=== PATIENT | male | born 1970 | race Caucasian/White ===

== ENCOUNTER 2023-08-21 18:55 | Inpatient (IN) | payer OTHER, SELFPAY ==
[2023-08-21] VITALS (34 sets, daily range): BP systolic 89–119; BP diastolic 54–81; PULSE 60–80; RESP 12–22; TEMP 36.8; O2SAT 94–100
--- NOTE | ~2023-08-21 | XR_ITS ---
EXAMINATION: XR chest 2V DATE: 08/21/2023 19:16 INDICATION: Chest pain. TECHNIQUE: Frontal and lateral views of the chest were obtained. COMPARISON: Chest 2 views 05/15/2005 FINDINGS: There is no pneumonia, pleural effusion, or pneumothorax. The heart size is normal. IMPRESSION: 1. No acute cardiopulmonary disease. Reviewed, dictated and finalized at location E. ER FINISHER
--- NOTE | ~2023-08-21 | CT_ITS ---
EXAMINATION: CT thoracic lumbar wo con DATE: 08/21/2023 21:39 INDICATION: Back pain. TECHNIQUE: Computed tomography (CT) of the thoracic and lumbar spine was performed without intravenou s contrast. Automated exposure control and iterative reconstruction technique were employed. The dose -length product was 2206.92 mGy-cm. COMPARISON: Lumbar spine MRI 10/20/2005 FINDINGS: CT THORACIC SPINE: There is 7 degrees dextrocurvature of thoracic spine. Vertebral body heights are n ormal. There is mildly decreased disc height from T3-T4 through T9-T10. There is multilevel mild face t joint osteoarthritis. No neural foraminal stenosis or central canal stenosis. CT LUMBAR SPINE: Bone alignment is normal. Vertebral body heights are normal. There is severely decre ased disc height at L5-S1. The following disc levels are specifically discussed: L1-L2: The disc does not extend beyond the endplate margin. There is moderate bilateral facet joint o steoarthritis. There is no neural foraminal stenosis. There is no central canal stenosis. L2-L3: The disc does not extend beyond the endplate margin. There is mild bilateral facet joint osteo arthritis. There is no neural foraminal stenosis. There is no central canal stenosis. L3-L4: The disc does not extend beyond the endplate margin. There is mild bilateral facet joint osteo arthritis. There is no neural foraminal stenosis. There is no central canal stenosis. L4-L5: The disc is bulging. There is moderate bilateral facet joint osteoarthritis. There is mild rosi ateral neural foraminal stenosis. There is mild central canal stenosis. L5-S1: The disc is bulging. There is moderate right and severe left facet joint osteoarthritis. There is moderate bilateral neural foraminal stenosis. There is mild central canal stenosis. IMPRESSION: 1. Mild thoracic spondylosis. 2. Severe lower lumbar spondylosis. Reviewed, dictated and finalized at location E. LDER SAWYER
--- NOTE | ~2023-08-21 | CT_ITS ---
EXAMINATION: CT brain wo con DATE: 08/21/2023 21:34 INDICATION: Headache. TECHNIQUE: Computed tomography (CT) of the head was performed without intravenous contrast. The mA wa s adjusted according to patient size. Iterative reconstruction technique was employed. The dose-lengt h product was 681.00 mGy-cm. COMPARISON: Brain MRI 11/03/2005 FINDINGS: There is no intracranial hemorrhage, acute infarction, or abnormal intracranial mass lesion . The ventricles are normal in size. There is mucosal thickening in the paranasal sinuses. There are orbits are normal. The mastoid air cells are normal. IMPRESSION: 1. Normal brain. Reviewed, dictated and finalized at location E. OWCASE CLEANER IMPRESSION: 1. Normal brain.
--- NOTE | ~2023-08-21 | CT_ITS ---
EXAMINATION: CTA chest abdomen DATE: 08/21/2023 20:36 INDICATION: Chest pain. TECHNIQUE: Computed tomographic angiography (CTA) of the chest and abdomen was performed with 100 mL Omnipaque-350 intravenous contrast. Automated exposure control and iterative reconstruction technique were employed. The dose-length product was 1273.88 mGy-cm. Maximum intensity projection 3D-reconstru ctions of the aorta and other arteries were constructed by the technologist on a separate workstation . COMPARISON: CT abdomen and pelvis 04/29/2008 FINDINGS: CHEST CTA: There is mild emphysema. There is a 5 mm nodule in right upper lobe, likely benign. There is mild ate lectasis bilaterally. Calcified right lung nodules and calcified right hilar and mediastinal lymph no estela are consistent with old granulomatous disease. No pleural effusion. The heart size is normal. The re are coronary artery calcifications. No pericardial effusion. There is mild aortic atherosclerosis. No aneurysm or dissection. There is mild thoracic spondylosis. ABDOMEN CTA: The liver and gallbladder are normal. Calcifications in the spleen are consistent with old granulomat ous disease. The pancreas, adrenal glands, and right kidney are normal. There are 3 mm and 5 mm stone s in left kidney. There is a 6 mm cyst in left kidney. There are no pathologically enlarged lymph nod es. There is no free intraperitoneal fluid. There are no dilated loops of bowel. Abdominal aorta is n ormal in caliber. Aortic atherosclerosis is noted. There is no significant stenosis of celiac axis, s uperior mesenteric artery, the renal arteries, or inferior mesenteric artery. There is severe lower l umbar spondylosis. IMPRESSION: 1. Aortic atherosclerosis. No aneurysm or dissection. 2. Mild emphysema. Reviewed, dictated and finalized at location E. SUSTAINABILITY SPECIALIST
--- NOTE | 2023-08-21 18:56 | ECG_ITS ---
Measurements Intervals [place] Rate: 72 P: 68 RI: 189 QRS: -73 QRSD: 114 T: -26 QT: 388 QTc: 425 Interpretive Statements SINUS RHYTHM PREVIOUS iNFERIOR MYOCARDIAL INFARCTION , ABNORMAL ECG NO PREVIOUS ECG AVAILABLE FOR COMPARISON Electronically Signed On 08-22-2023 17:27:19 COSMETICIAN APPRENTICE by Iker Goddard M.D.
--- NOTE | 2023-08-21 19:07 | ED.CHESTPAIN ---
HPI - Chest Pain General Chief Complaint: Chest Pain Stated Complaint: chest pain Time Seen by Provider: 08/21/23 19:06 Source: patient and family Limitations: no limitations History of Present Illness HPI narrative: Patient is a 52-year-old male presents to the emergency department complaining of chest pain. Patient states that he was pulling his up steps but just got home from the hospital when he felt a pop in his chest and this was at approximately 2:00 p.m. and the pain is in the middle of his chest, feels like something is sitting on a, radiates to his back, denies ever having this pain in the past, notes that the pain is constant, tried a nitro and denies given relief, has not noticed anything making the pain better or worse, MrChas Mild associated shortness of breath in addition is also feeling slightly weak in his bilateral legs. Patient is stating to the hospital because he wanted to make sure symptoms are to care for his is a medium amount became as soon as he could your patient Recent heart attack 2 months ago when she is known to Dr. 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 patient admits to being a smoker. Patient denies urinary count, stool incontinence, fever, cough, recent illness, abdominal pain, numbness, vision changes, diaphoresis, nausea, vomiting, diarrhea, melena, hematochezia. Related Data Allergies Allergy/AdvReac Type Severity Reaction Status Date / Time propoxyphene Allergy Mild Stopped Verified 08/21/23 19:20 Breathing Review of Systems Review of Systems: A 10 system review of systems was completed on the patient and is negative except for what is stated in the HPI. Nursing and ancillary documentation was reviewed. PMFSH Comments At time of signature, I have reviewed and agree with nursing past medical, surgical, social and family history unless otherwise noted. Please see the nursing chart for further information. There is no relevant family history pertinent to the presenting complaint. Exam Narrative: CONST: No acute distress. Well nourished. HENMT: Head is normocephalic and atraumatic. Moist mucous membranes. No posterior oropharynx erythema. EYES: No conjunctival icterus, injection, or pallor. PERRL. NECK: No meningeal signs. RESP: Able to speak in full sentences. Normal respiratory effort. CTAB. CARDIO: Regular rate. Regular rhythm. 2+ DP Pulses bilaterally. Right radial pulses 2+ and left radial pulse is 1+. GI: Nondistended. No tenderness to palpation. Soft. : No CVA tenderness to palpation. SKIN: No rashes or lesions noted on exposed skin. NEURO: Oriented x3. Moves all extremities. Motor strength is 5/5 in plantar flexion and dorsiflexion of the bilateral ankles. Bilateral channeler outsole strength is 5/5. Sensation intact to light touch throughout all 4 extremities. No saddle anesthesia. EXTREM/MSK/BACK: No pedal edema. Mild tenderness palpation in the midline lumbar spine without palpable step-offs or deformities. PSYCH: Normal affect. Course Vital Signs Vital signs: Vital Signs Temperature 98.2 F 08/21/23 19:02 Pulse Rate 74 08/21/23 19:02 Respiratory Rate 18 08/21/23 19:02 Blood Pressure 102/63 08/21/23 19:02 Pulse Oximetry 99 08/21/23 19:02 Temperature 98.2 F 08/21/23 19:02 Pulse Rate 72 08/21/23 21:04 Respiratory Rate 14 08/21/23 21:04 Blood Pressure 112/72 08/21/23 20:39 Pulse Oximetry 97 08/21/23 21:04 Oxygen Delivery Room Air 08/21/23 19:23 MDM - Chest Pain MDM Narrative Medical decision making narrative: Patient presents with the above complaint. Initial vitals are remarkable for No significant abnormalities. Physical examination as noted above. Plan discussed: laboratory analysis, serial EKGs, chest x-ray, CTA of the chest and abdomen, morphine 4 mg IV push for pain control, continuo
[2023-08-21] MEDS: ASPIRIN 81 MG CHEWABLE TABLET 324 MG PO (19:18)
[2023-08-21 19:35] LABS: Basophils Absolute Auto 0.1 K/mm3 (0.0-0.1); Basophils Percent Auto 0.9 % (0.2-1.2); Eosinophils Absolute Auto 0.1 K/mm3 (0-0.3); Hematocrit 48.3 % (42.0-52.0); Hemoglobin 15.5 g/dL (14.0-18.0); Immature Granulocyte Absolute 0.03 K/mm3 (0.00-0.031); Immature Granulocyte Percent A 0.3 % (0-0.5); Lymphocytes Absolute Auto 2.55 K/mm3 (0.9-3.2); Lymphocytes Percent Auto 28.3 % (18.3-44.2); Mean Corpuscular HGB Conc 32.1 g/dl (32-36); Mean Corpuscular Hemoglobin 28.9 pg (26-34); Mean Corpuscular Volume 89.9 fl (80-100); Mean Platelet Volume 11.3 fl (7.4-10.4); Monocytes Percent Auto 10.6 % (2.6-8.5); Neutrophils Absolute Auto 5.3 K/mm3 (1.3-6.7); Neutrophils Percent Auto 58.9 % (45.5-73.1); Platelet Count Result 253 k/mm3 (150-375); Red Blood Count 5.37 M/mm3 (4.6-6.20)
[2023-08-21 19:44] LABS: Alanine Aminotransferase 24 U/L (6-50); Albumin Level 4.2 g/dL (3.5-5.1); Alkaline Phosphatase 103 U/L (38-126); Anion Gap 4 mmol/L (8-16); Aspartate Amino Transferase 37 U/L (17-59); Bilirubin,Total 0.3 mg/dL (0.2-1.3); Blood Urea Nitrogen 16 mg/dL (9-20); Calcium 9.2 mg/dL (8.4-10.2); Carbon Dioxide 25 mmol/L (22-30); Chloride 103 mmol/L (98-107); Estimated Glomerular Filt Rate > 60; Glucose 104 mg/dL (65-110); Lipase 149 U/L (23-300); Potassium 4.3 mmol/L (3.4-5.0); Sodium 132 mmol/L (137-145)
[2023-08-21 19:46] LABS: Partial Thromboplastin Time 34.7 SECONDS (22.3-36.8)
[2023-08-21] MEDS: MORPHINE SULFATE (*CRX) 4 MG/ML INJ IV PUSH (19:51)
[2023-08-21 19:56] LABS: Troponin I < 0.012 ng/mL (0.000-0.034)
[2023-08-21 20:07] LABS: D Dimer 0.76 ug/mL (<0.48)
[2023-08-21] MEDS: ACETAMINOPHEN 500 MG TABLET 1000 MG PO (21:49)
--- NOTE | 2023-08-21 22:14 | ECG_ITS ---
Measurements Intervals [place] Rate: 72 P: 65 HI: 185 QRS: -79 QRSD: 111 T: -26 QT: 352 QTc: 387 Interpretive Statements SINUS RHYTHM PREVIOUS INFERIOR WALL OR POOR R-WAVE PROGRESSION ABNORMAL ECG COMPARED TO ECG 08/21/2023 19:00:10 NO SIGNIFICANT CHANGES Electronically Signed On 08-22-2023 17:28:54 FACTORY EXPERT by Iker Goddard M.D.
--- NOTE | 2023-08-21 22:47 | PM.IMHP ---
H&P: HPI History of Present Illness Date/Time: 08/21/23 22:47 Chief Complaint: Chest pain Narrative: This is a 52-year-old male with past medical history significant for coronary artery disease, congestive heart failure, COPD/emphysema, tobacco dependence. Patient presents to the emergency room due to chest pain localized to the retrosternal area with radiation to the right shoulder heard a popping noise thought he had pulled a muscle patient had a recent PCI performed at outside facility in June. Has been in his usual state of health denies any cough, sputum production, fevers, rigors, chills, nausea, vomiting, abdominal pain complains of bilateral lower extremity pain as well. Preliminary workup was significant for negative CT angiogram of the chest for pulmonary embolism, troponins x3 have been undetectable. Patient has been placed in observation for further evaluation, management and treatment. EXAMINATION: XR chest 2V DATE: 08/21/2023 19:16 INDICATION: Chest pain. TECHNIQUE: Frontal and lateral views of the chest were obtained. COMPARISON: Chest 2 views 05/15/2005 FINDINGS: There is no pneumonia, pleural effusion, or pneumothorax. The heart size is normal. IMPRESSION: 1. No acute cardiopulmonary disease. EXAMINATION: CTA chest abdomen DATE: 08/21/2023 20:36 INDICATION: Chest pain. TECHNIQUE: Computed tomographic angiography (CTA) of the chest and abdomen was performed with 100 mL Omnipaque-350 intravenous contrast. Automated exposure control and iterative reconstruction technique were employed. The dose-length product was 1273.88 mGy-cm. Maximum intensity projection 3D-reconstructions of the aorta and other arteries were constructed by the technologist on a separate workstation. COMPARISON: CT abdomen and pelvis 04/29/2008 FINDINGS: CHEST CTA: There is mild emphysema. There is a 5 mm nodule in right upper lobe, likely benign. There is mild atelectasis bilaterally. Calcified right lung nodules and calcified right hilar and mediastinal lymph nodes are consistent with old granulomatous disease. No pleural effusion. The heart size is normal. There are coronary artery calcifications. No pericardial effusion. There is mild aortic atherosclerosis. No aneurysm or dissection. There is mild thoracic spondylosis. ABDOMEN CTA: The liver and gallbladder are normal. Calcifications in the spleen are consistent with old granulomatous disease. The pancreas, adrenal glands, and right kidney are normal. There are 3 mm and 5 mm stones in left kidney. There is a 6 mm cyst in left kidney. There are no pathologically enlarged lymph nodes. There is no free intraperitoneal fluid. There are no dilated loops of bowel. Abdominal aorta is normal in caliber. Aortic atherosclerosis is noted. There is no significant stenosis of celiac axis, superior mesenteric artery, the renal arteries, or inferior mesenteric artery. There is severe lower lumbar spondylosis. IMPRESSION: 1. Aortic atherosclerosis. No aneurysm or dissection. 2. Mild emphysema. Review of Systems Review of Systems: Chest pain Constitutional: Constitutional: Denies chills, Denies fatigue, Denies fever(s), Denies malaise, Denies night sweats and Denies weakness Eyes: Eyes: Denies change in vision ENT: Denies dysphagia and Denies odynophagia Cardiovascular: Cardiovascular: Reports chest pain, Reports lightheadedness, Reports radiating jaw, neck or arm pain, Denies palpitations and Reports dyspnea Gastrointestinal: Gastrointestinal: Denies abdominal pain, Denies dyspepsia, Denies heartburn, Denies diarrhea, Denies nausea and Denies vomiting Genitourinary: Genitourinary: Denies dysuria Musculoskeletal: Musculoskeletal: Reports muscle cramps Integumentary/Breasts: Skin/Breast: Denies rash Neurologic: Denies focal weakness and Denies Sensory deficit (Neuro) Psychiatric: Psychiatric: Reports no additional psychiatric complaints and Reports as per HPI Endocrine:
[2023-08-21 22:50] LABS: Troponin I < 0.012 ng/mL (0.000-0.034)
[2023-08-22] VITALS (21 sets, daily range): BP systolic 93–116; BP diastolic 46–69; PULSE 48–74; RESP 13–20; TEMP 35.5–36.4; O2SAT 92–99
[2023-08-22] MEDS: SODIUM CHLORIDE 0.9% IV 1,000 ML 125 ML IV CONT ×3 (00:24→14:04)
--- NOTE | 2023-08-22 01:42 | ADMGEN ---
This patient, Gerson Merino, was admitted to IMU Room 212-01. Patient/family oriented to hospital policies and general routines including ID bracelet, bed and alarms, visiting hours, pain management, procedures, bathroom and other care routines, personal items, smoking policy, room service/diet, and visiting hours. Information on how to activate the Rapid Response Team has been discussed. Patient/Family are encouraged to report perceived risks to care and to ask questions if they do not understand what they are told or what they should do.
[2023-08-22 04:18] LABS: Troponin I < 0.012 ng/mL (0.000-0.034)
[2023-08-22 08:23] LABS: Basophils Absolute Auto 0.1 K/mm3 (0.0-0.1); Basophils Percent Auto 1.1 % (0.2-1.2); Eosinophils Absolute Auto 0.2 K/mm3 (0-0.3); Eosinophils Percent Auto 3.2 % (0-4.4); Hematocrit 45.9 % (42.0-52.0); Hemoglobin 14.5 g/dL (14.0-18.0); Immature Granulocyte Absolute 0.01 K/mm3 (0.00-0.031); Immature Granulocyte Percent A 0.2 % (0-0.5); Lymphocytes Absolute Auto 2.53 K/mm3 (0.9-3.2); Lymphocytes Percent Auto 45.3 % (18.3-44.2); Mean Corpuscular HGB Conc 31.6 g/dl (32-36); Mean Corpuscular Hemoglobin 28.8 pg (26-34); Mean Corpuscular Volume 91.3 fl (80-100); Mean Platelet Volume 11.5 fl (7.4-10.4); Monocytes Absolute Auto 0.7 K/mm3 (0.1-0.6); Neutrophils Absolute Auto 2.1 K/mm3 (1.3-6.7); Neutrophils Percent Auto 38.2 % (45.5-73.1); Platelet Count Result 204 k/mm3 (150-375); Red Blood Count 5.03 M/mm3 (4.6-6.20); Red Cell Distribution Width 17.4 % (11.5-14.5); White Blood Count 5.6 K/mm3 (4.5-10.0)
[2023-08-22 08:34] LABS: Anion Gap 6 mmol/L (8-16); Blood Urea Nitrogen 14 mg/dL (9-20); Carbon Dioxide 25 mmol/L (22-30); Chloride 106 mmol/L (98-107); Estimated Glomerular Filt Rate > 60; Glucose 91 mg/dL (65-110); Potassium 3.7 mmol/L (3.4-5.0); Sodium 137 mmol/L (137-145)
--- NOTE | 2023-08-22 11:06 | PM.CNCAR ---
Assessment and Plan Assessment and plan (1) CAD (coronary artery disease): Qualifiers: Associated angina: with other forms of angina Coronary Disease-Associated Artery/Lesion type: [place] artery [place] vs. transplanted heart: [place] heart Qualified Code(s): I25.118 - Atherosclerotic heart disease of [place] coronary artery with other forms of angina pectoris Code(s): I25.10 - Atherosclerotic heart disease of [place] coronary artery without angina pectoris Status: Acute Assessment and Plan: Patient has extensive history of CAD with multiple stents placed earlier this year along with ischemic cardiomyopathy with ejection fraction he reports of 35%. He has ruled out for myocardial infarction with serial troponin and this chest pain has been constant without exacerbating or relieving factors for over 24 hours. Given the sudden onset with associated loud pop off will hold his who is in a wheelchair up flight of stairs this is very likely a noncardiac and/or musculoskeletal etiology particular as he also localizes this discomfort with 2 fingers. He reports a lack of improvement with nitroglycerin. He was feeling well prior to this event. Explained how would be extraordinarily unlikely his symptoms related to severe angina and obstructive CAD resulting in symptoms and completely normal serial troponins having occurred suddenly during very strenuous activity with a loud pop without interval resolution. Aneurysm/dissection has been excluded as has pulmonary embolism by CTA of the chest. Patient verbalized understanding and agree. I do not feel further invasive cardiovascular workup is warranted at this time. I would recommend continuation of dual antiplatelet therapy with aspirin 81 mg daily and clopidogrel 75 mg daily without interruption particularly given his history multiple stents. Continue Jardiance 10 mg daily, atorvastatin 40 mg at bedtime, Toprol XL 25 mg daily, and ranolazine 500 mg twice daily. I do not feel up titration of antianginals with beneficial particular this has not helped him thus far. While ideally we would recommend avoidance of NSAID therapy particularly given dual antiplatelets due to bleeding concerns is fair to given a trial IV Toradol to observe response prior to discharge. Otherwise I would recommend Tylenol for pain control and avoidance of strenuous activity and communication with his PCP and primary computer network and systems engineer post discharge. Discussed with hospitalist service and the patient who both verbalized understanding and agreed with plan of care. Although patient has an extensive history he stable from a cardiac perspective without evidence of acute myocardial infarction or decompensated heart failure. I would continue his home cardiovascular medical regimen which is excellent. With regards to his leg pain sounds more like radicular pain and or nerve impingement to numbness and weakness bilaterally with very good peripheral pulses, lack of cyanosis or preceding history of claudication. Will defer further management to the primary service. (2) Ischemic cardiomyopathy: Code(s): I25.5 - Ischemic cardiomyopathy Status: Acute Assessment and Plan: Patient reports an ejection fraction 35%. He is well compensated NYHA class 2 symptoms. Resume Entresto at home dose q.12 hours, spironolactone 25 mg daily, Toprol XL 25 mg daily, Jardiance 10 mg daily. (3) Hyperlipidemia associated with type 2 diabetes mellitus: Code(s): E11.69 - Type 2 diabetes mellitus with other specified complication; E78.5 - Hyperlipidemia, unspecified Status: Acute Assessment and Plan: Resume atorvastatin 40 mg at bedtime. Goal LDL less than 70. (4) T2DM (type 2 diabetes mellitus): Code(s): E11.9 - Type 2 diabetes mellitus without complications Status: Acute Assessment and Plan: Management per primary service. History of Present Illness History of Present Illness Consult
[2023-08-22] MEDS: KETOROLAC 15 MG/ML VIAL (*BKC) IV PUSH (12:07)
[2023-08-22] MEDS: ASPIRIN 81 MG ENTERIC TABLET PO (13:51)
[2023-08-22] MEDS: CLOPIDOGREL BISULFATE 75 MG TABLET PO (13:52)
--- NOTE | 2023-08-22 14:11 | PM.IMPN ---
Progress Note: A&P Assessment and Plan (1) CAD (coronary artery disease): Qualifiers: Coronary Disease-Associated Artery/Lesion type: [place] artery [place] vs. transplanted heart: [place] heart Associated angina: with other forms of angina Qualified Code(s): I25.118 - Atherosclerotic heart disease of [place] coronary artery with other forms of angina pectoris Code(s): I25.10 - Atherosclerotic heart disease of [place] coronary artery without angina pectoris Status: Acute (2) Tobacco dependence: Code(s): F17.200 - Nicotine dependence, unspecified, uncomplicated Status: Acute (3) CHF (congestive heart failure): Code(s): I50.9 - Heart failure, unspecified Status: Acute (4) Chest pain: Code(s): R07.9 - Chest pain, unspecified Status: Acute (5) T2DM (type 2 diabetes mellitus): Code(s): E11.9 - Type 2 diabetes mellitus without complications Status: Acute Plan 52M w/ PMH CAD w/ recent stent implantation x5, HFrEF, COPD, tobacco abuse who presents with retrosternal chest pain. Cardiology assistance is greatly appreciated. Stable from a cardiac perspective, likely related to musculoskeletal pain. Only slighted improved after 15mg toradol IV, will avoid further doses of NSAIDs considering his history. Start lidocaine patch and scheduled high dose tylenol and monitor. Bradycardia, holding metoprolol. cont to monitor on tele full code Subjective Date/time seen: 08/22/23 14:11 Interval history: naoe. the patient complains of 7/10 pain, however upon entering the room he was sleeping/snoring. he also complains of weirdness in his legs but denies pain or loss of sensation in his legs... Review of Systems Review of Systems: All systems reviewed & are unremarkable except as noted in HPI and below Exam Const: General: comfortable and no acute distress Eyes: Pupils: Equal, round and reactive pupils present Neck: Neck: supple Resp: Effort & Inspection: normal respiratory effort Auscultation: clear to auscultation bilaterally, no crackles, no rales and no rhonchi Cardio: Rate: regular rate Rhythm: regular rhythm Heart sounds: no gallops, no murmurs and no rubs GI: GI Palp: Yes Soft to palpation and No Tenderness to palpation present (GI) Extrem: General: no edema Objective Data Vital Signs Vital Signs: Vital Signs - 24 hr 08/21/23 19:02 08/21/23 19:21 08/21/23 19:21 Temperature 98.2 F Pulse Rate 74 78 Respiratory Rate 18 Blood Pressure 102/63 Pulse Oximetry 99 Oxygen Delivery Room Air 08/21/23 19:23 08/21/23 19:05 08/21/23 19:06 Temperature Pulse Rate 70 75 Respiratory Rate 18 16 Blood Pressure 119/74 Pulse Oximetry 97 97 97 Oxygen Delivery Room Air 08/21/23 19:15 08/21/23 19:31 08/21/23 19:32 Temperature Pulse Rate 76 74 71 Respiratory Rate 22 H 18 Blood Pressure 112/81 Pulse Oximetry 95 96 97 Oxygen Delivery 08/21/23 19:45 08/21/23 19:46 08/21/23 20:00 Temperature Pulse Rate 71 77 73 Respiratory Rate 20 19 20 Blood Pressure 107/71 Pulse Oximetry 97 97 98 Oxygen Delivery 08/21/23 20:01 08/21/23 20:15 08/21/23 20:16 Temperature Pulse Rate 75 71 72 Respiratory Rate 16 13 20 Blood Pressure 106/59 L 89/61 L Pulse Oximetry 97 97 96 Oxygen Delivery 08/21/23 20:17 08/21/23 20:39 08/21/23 20:40 Temperature Pulse Rate 80 69 67 Respiratory Rate 16 19 17 Blood Pressure 100/67 112/72 Pulse Oximetry 96 98 98 Oxygen Delivery 08/21/23 20:45 08/21/23 21:04 08/21/23 21:15 Temperature Pulse Rate 69 72 70 Respiratory Rate 12 14 14 Blood Pressure Pulse Oximetry 98 97 96 Oxygen Delivery 08/21/23 21:16 08/21/23 21:54 08/21/23 22:07 Temperature Pulse Rate 70 65 71 Respiratory Rate 19 14 16 Blood Pressure 98/73 L Pulse Oximetry 97 96 97 Oxygen Delivery 08/21/23 22:12 08/21/23 22:15 08/21/23 22:16 Temperature Pulse Rate 65 67
[2023-08-22] MEDS: LIDOCAINE 5% PATCH 1 PATCH TRANSDERM (14:28)
[2023-08-22] MEDS: ACETAMINOPHEN 500 MG TABLET 1000 MG PO ×2 (14:28→17:58)
[2023-08-22] MEDS: IPRATROPIUM BR 0.02% INH SOLN 0.5 MG/2.5 ML VIAL INHALATION (19:38)
[2023-08-22] MEDS: ALBUTEROL SULFATE NEB 2.5 MG/3 ML INH INHALATION (19:38)
[2023-08-23] VITALS (18 sets, daily range): BP systolic 106–146; BP diastolic 56–75; PULSE 48–90; RESP 16–24; TEMP 35.7–36.4; O2SAT 95–99
[2023-08-23] MEDS: IPRATROPIUM BR 0.02% INH SOLN 0.5 MG/2.5 ML VIAL INHALATION ×4 (02:57→20:40)
[2023-08-23] MEDS: ALBUTEROL SULFATE NEB 2.5 MG/3 ML INH INHALATION ×4 (02:57→20:40)
[2023-08-23 05:30] LABS: Basophils Absolute Auto 0.1 K/mm3 (0.0-0.1); Basophils Percent Auto 0.9 % (0.2-1.2); Eosinophils Absolute Auto 0.2 K/mm3 (0-0.3); Eosinophils Percent Auto 3.7 % (0-4.4); Hematocrit 44.5 % (42.0-52.0); Hemoglobin 14.1 g/dL (14.0-18.0); Immature Granulocyte Absolute 0.01 K/mm3 (0.00-0.031); Immature Granulocyte Percent A 0.2 % (0-0.5); Mean Corpuscular HGB Conc 31.7 g/dl (32-36); Mean Corpuscular Hemoglobin 28.8 pg (26-34); Mean Platelet Volume 11.6 fl (7.4-10.4); Monocytes Absolute Auto 0.5 K/mm3 (0.1-0.6); Monocytes Percent Auto 8.2 % (2.6-8.5); Neutrophils Absolute Auto 2.4 K/mm3 (1.3-6.7); Platelet Count Result 187 k/mm3 (150-375); Red Blood Count 4.89 M/mm3 (4.6-6.20); Red Cell Distribution Width 17.2 % (11.5-14.5); White Blood Count 5.5 K/mm3 (4.5-10.0)
--- NOTE | 2023-08-23 07:43 | PM.IMPN ---
Progress Note: A&P Assessment and Plan (1) Chest pain: Code(s): R07.9 - Chest pain, unspecified Status: Acute (2) Tobacco dependence: Code(s): F17.200 - Nicotine dependence, unspecified, uncomplicated Status: Acute (3) COPD exacerbation: Code(s): J44.1 - Chronic obstructive pulmonary disease with (acute) exacerbation Status: Acute Plan 52M w/ PMH CAD w/ recent stent implantation x5, HFrEF, COPD, tobacco abuse who presents with chest pain. The patient is from [place] and gets his usual cardiology care at [facility]. He is visiting his sister with his who is in a wheelchair, he was pulling his up stairs, heard a pop and then had immediate dull pain around his mid chest which radiated to right shoulders and also reports his legs feel weird but w/o pain or numbness. # chest pain - likely musculoskeletal given his history, the cardiology input from Dr. Grossman is greatly appreciated. his EKG without ischemic changes and trops negative. CTA chest and CXR on admission w/o acute abnormalities. - toradol 15mg iv x 1 given however will avoid moving forward, lidocaine patch and tylenol scheduled seem to help, pain is now a 2/10 as opposed to 8/10 on admission. he is stable regarding this admission complaint but will stay for COPD now # acute COPD exacerbation - again, counseled on smoking cessation. was not present on admission, developed on day 2 - duonebs scheduled and solumedrol 60mg IV TID - currently on room air but symptomatically debilitated as a result. can return home when this is resolved. # CAD - s/p 4 stents weekend and then 1 more in June - cont all home medications. holding metoprolol for mild asymptomatic bradycardia - requested records from [facility] # mild asymptomatic bradycardia - hold metoprolol # HFrEF - cont home meds. compensated # tobacco abuse - counseled, does not want nicotine patch FEN: saline lock IV, cardiac diet GI prophylaxis: none indicated DVT prophylaxis: lovenox qday Lines: pIV Code Status: Full Code Dispo: stable More than 35 minutes spent on chart review, patient interaction and assessment and plan. Subjective Date/time seen: 08/23/23 07:43 Interval history: NAOE. pt now complains of shortness of breath, where as yesterday he was wheezing but reported that was his usual breathing pattern at home. his chest pain has gradually come down, now a 2/10 Review of Systems Review of Systems: All systems reviewed & are unremarkable except as noted in HPI and below Exam Const: General: comfortable and no acute distress Eyes: Pupils: Equal, round and reactive pupils present Neck: Neck: supple Resp: Effort & Inspection: normal respiratory effort Auscultation: clear to auscultation bilaterally and diminished lung sounds Cardio: Rate: regular rate Rhythm: regular rhythm Heart sounds: no gallops, no murmurs and no rubs GI: GI Palp: Yes Soft to palpation and No Tenderness to palpation present (GI) Extrem: General: no edema Objective Data Vital Signs Vital Signs: Vital Signs - 24 hr 08/22/23 08:00 08/22/23 08:00 08/22/23 10:00 Temperature 96 F L Pulse Rate 52 L 74 54 L Respiratory Rate 16 Blood Pressure 107/60 Pulse Oximetry 97 Oxygen Delivery 08/22/23 08:00 08/22/23 11:55 08/22/23 11:56 Temperature Pulse Rate 50 L Respiratory Rate Blood Pressure Pulse Oximetry Oxygen Delivery Room Air Room Air 08/22/23 12:00 08/22/23 14:00 08/22/23 16:00 Temperature 96.5 F L 97.5 F L Pulse Rate 52 L 48 L 54 L Respiratory Rate 16 18 Blood Pressure 116/62 97/46 L Pulse Oximetry 96 92 Oxygen Delivery 08/22/23 16:00 08/22/23 19:39 08/22/23 19:43 Temperature Pulse Rate 51 L 61 Respiratory Rate 18 Blood Pressure Pulse Oximetry 95 Oxygen Delivery Room Air 08/22/23 19:50 08/22/23 20:08 08/22/23 20:00 Temperature 97.6 F Pulse Rate 66 60 59 L Respiratory
[2023-08-23] MEDS: methylPREDNISolone SOD SUCC 125 MG VIAL 60 MG IV PUSH ×3 (09:44→17:34)
[2023-08-23] MEDS: LIDOCAINE 5% PATCH 1 PATCH TRANSDERM (09:45)
[2023-08-23] MEDS: FLUoxetine HCL 20 MG CAPSULE 40 MG PO (09:45)
[2023-08-23] MEDS: RANOLAZINE 500 MG TAB.ER.12H PO ×2 (09:46→20:31)
[2023-08-23] MEDS: ASPIRIN 81 MG ENTERIC TABLET PO (09:46)
[2023-08-23] MEDS: ATORVASTATIN 40 MG TABLET PO (09:46)
[2023-08-23] MEDS: ENOXAPARIN 40 MG/0.4 ML SYRINGE SUB-Q (09:46)
[2023-08-23] MEDS: SACUBITRIL/VALSARTAN 12-13 MG TABLET 1 TAB PO ×2 (09:46→20:30)
[2023-08-23] MEDS: SPIRONOLACTONE 25 MG TABLET PO (09:47)
[2023-08-23] MEDS: ACETAMINOPHEN 500 MG TABLET 1000 MG PO ×2 (09:47→17:34)
[2023-08-23] MEDS: busPIRone HCL 10 MG TABLET PO ×2 (09:47→20:31)
[2023-08-23] MEDS: CLOPIDOGREL BISULFATE 75 MG TABLET PO (09:47)
--- NOTE | 2023-08-23 10:39 | ECG_ITS ---
Measurements Intervals [place] Rate: 59 P: 237 MI: 161 QRS: -61 QRSD: 114 T: -50 QT: 420 QTc: 418 Interpretive Statements SINUS BRADYCARDIA LEFT ANTERIOR SUPERIOR HEMIBLOCK INCOMPLETE RIGHT BUNDLE BRANCH BLOCK [90+ ms QRS DURATION, TERMINAL R IN V1/V2, 40+ ms S IN I/aVL/V4/V5/V6] ABNORMAL ECG COMPARED TO ECG 08/21/2023 22:29:48 SMALL R-WAVE IS NOW PRESENT IN LEAD 2 LIKELY SLIGHTLY DIFFERENT LEAD POSITION Electronically Signed On 08-23-2023 15:15:01 COMMISSIONER OF [employer]ATION SERVICES by Iker Goddard M.D.
[2023-08-23 10:52] LABS: Influenza A QL RT-PCR Negative (Negative); Influenza B QL RT-PCR Negative (Negative); RSV RNA, RT-PCR Negative (Negative); SARS-CoV-2 RNA PCR Positive (Negative)
[2023-08-23 11:34] LABS: Troponin I < 0.012 ng/mL (0.000-0.034)
[2023-08-23] MEDS: traMADol HCL (*CRX) 25 MG TABLET PO (11:48)
[2023-08-23 12:00] LABS: Alanine Aminotransferase 18 U/L (6-50); Albumin Level 3.4 g/dL (3.5-5.1); Alkaline Phosphatase 94 U/L (38-126); Anion Gap 9 mmol/L (8-16); Aspartate Amino Transferase 25 U/L (17-59); Bilirubin,Total 0.4 mg/dL (0.2-1.3); Blood Urea Nitrogen 12 mg/dL (9-20); Calcium 8.5 mg/dL (8.4-10.2); Carbon Dioxide 19 mmol/L (22-30); Chloride 109 mmol/L (98-107); Estimated Glomerular Filt Rate > 60; Glucose 100 mg/dL (65-110); Potassium 3.9 mmol/L (3.4-5.0); Sodium 137 mmol/L (137-145)
--- NOTE | 2023-08-23 13:38 | ECG_ITS ---
Measurements Intervals [place] Rate: 58 P: 65 WI: 198 QRS: -44 QRSD: 111 T: -35 QT: 444 QTc: 436 Interpretive Statements SINUS RHYTHM EVIDENCE OF PREVIOUS INFERIOR WALL MA POOR R-WAVE PROGRESSION ABNORMAL ECG ABNORMAL RHYTHM ECG COMPARED TO ECG 08/23/2023 10:44:33 SMALL R-WAVE IN LEAD 2 IS NO LONGER PRESENT, CURRENT TRACING IS MORE CONSISTENT WITH PREVIOUS INFERIOR INFARCT Electronically Signed On 08-23-2023 15:28:25 MARINE MACHINIST by Iker Goddard M.D.
[2023-08-24 02:25] VITALS: PULSE 70; RESP 18
[2023-08-24 02:31] VITALS: O2SAT 98
[2023-08-24 02:38] VITALS: PULSE 72; RESP 18
[2023-08-24] MEDS: ALBUTEROL SULFATE NEB 2.5 MG/3 ML INH INHALATION (02:39)
[2023-08-24] MEDS: IPRATROPIUM BR 0.02% INH SOLN 0.5 MG/2.5 ML VIAL INHALATION (02:39)
[2023-08-24 04:00] VITALS: PULSE 60
--- NOTE | 2023-08-24 05:00 | PC.NURSE ---
This patient, Gerson Merino, was received from [[id number]] on 08/24/23 at 0502. Patient/family oriented to unit policies and routines
--- NOTE | 2023-08-24 05:12 | PC.NURSE ---
This patient, Gerson Merino, was transferred to [[id number] ] on 08/24/23 at 0512. Personal belongings sent with patient. Report given to [ ]. Appropriate documentation sent with patient.
[2023-08-24 08:00] VITALS: PULSE 73
--- NOTE | 2023-08-24 09:20 | PM.DS ---
DS: Admitting Diagnosis Discharge Date 08/24/2023 Admitting Diagnosis Chest pain DS: Discharge Diagnosis Discharge Diagnosis (1) Chest pain: Code(s): R07.9 - Chest pain, unspecified Status: Acute (2) Tobacco dependence: Code(s): F17.200 - Nicotine dependence, unspecified, uncomplicated Status: Acute (3) COPD exacerbation: Code(s): J44.1 - Chronic obstructive pulmonary disease with (acute) exacerbation Status: Acute Plan 52M w/ PMH CAD w/ recent stent implantation x5, HFrEF, COPD, tobacco abuse who presents with chest pain. The patient is from [place] and gets his usual cardiology care at [facility]. He is visiting his sister with his who is in a wheelchair, he was pulling his up stairs, heard a pop and then had immediate dull pain around his mid chest which radiated to right shoulders and also reports his legs feel weird but w/o pain or numbness. # chest pain - likely musculoskeletal given his history, the cardiology input from Dr. Grossman is greatly appreciated. his EKG without ischemic changes and trops negative. CTA chest and CXR on admission w/o acute abnormalities. - toradol 15mg iv x 1 given however will avoid moving forward, lidocaine patch and tylenol scheduled seem to help, pain is now a 2/10 as opposed to 8/10 on admission. he is stable regarding this admission complaint but will stay for COPD now # acute COPD exacerbation - again, counseled on smoking cessation. was not present on admission, developed on day 2 - duonebs scheduled and solumedrol 60mg IV TID - currently on room air but symptomatically debilitated as a result. can return home when this is resolved. # CAD - s/p 4 stents weekend and then 1 more in June - cont all home medications. holding metoprolol for mild asymptomatic bradycardia - requested records from [facility] # mild asymptomatic bradycardia - hold metoprolol # HFrEF - cont home meds. compensated # tobacco abuse - counseled, does not want nicotine patch FEN: saline lock IV, cardiac diet GI prophylaxis: none indicated DVT prophylaxis: lovenox qday Lines: pIV Code Status: Full Code Dispo: stable More than 35 minutes spent on chart review, patient interaction and assessment and plan. DS: Summary Hospital Course Reason for hospitalization: Chest pain Hospital Course: This is a 52-year-old male with past medical history significant for coronary artery disease, congestive heart failure, COPD/emphysema, tobacco dependence.? Patient presents to the emergency room due to chest pain localized to the retrosternal area with radiation to the right shoulder heard a popping noise thought he had pulled a muscle patient had a recent PCI performed at outside facility in June.? Has been in his usual state of health denies any cough, sputum production, fevers, rigors, chills, nausea, vomiting, abdominal pain complains of bilateral lower extremity pain as well.? Preliminary workup was significant for negative CT angiogram of the chest for pulmonary embolism, troponins x3 have been undetectable.? Patient has been placed in observation for further evaluation, management and treatment patient was put on tele bed, cardio consult done. PE ruled out medical management was provided, no complications while stay in the hospital. Today patient is feeling better and was discharged home in stable condition. Time Spent with Patient Time attestation: Total time spent providing and/or coordinating discharge services: Exam Narrative: Patient is laying in a stretcher Const: General: comfortable, no acute distress, well developed, alert, awake and average body habitus Nutritional Appearance: average body habitus Orientation/consciousness: patient oriented x3 HENMT: Head: normal to inspection, normocephalic and atraumatic Ears: hearing grossly normal bilaterally Face/Nose/Sinus: normal facial exam Face and sinus: normal facial exam Eyes: Genera
[2023-08-24] MEDS: ATORVASTATIN 40 MG TABLET PO (09:47)
[2023-08-24] MEDS: busPIRone HCL 10 MG TABLET PO (09:47)
[2023-08-24] MEDS: CLOPIDOGREL BISULFATE 75 MG TABLET PO (09:47)
[2023-08-24] MEDS: FLUoxetine HCL 20 MG CAPSULE 40 MG PO (09:47)
[2023-08-24] MEDS: ASPIRIN 81 MG ENTERIC TABLET PO (09:47)
[2023-08-24] MEDS: RANOLAZINE 500 MG TAB.ER.12H PO (09:47)
[2023-08-24] MEDS: methylPREDNISolone SOD SUCC 125 MG VIAL 60 MG IV PUSH (09:47)
[2023-08-24] MEDS: SPIRONOLACTONE 25 MG TABLET PO (09:47)
[2023-08-24] MEDS: SACUBITRIL/VALSARTAN 12-13 MG TABLET 1 TAB PO (09:47)
[2023-08-24] MEDS: ACETAMINOPHEN 500 MG TABLET 1000 MG PO (09:48)
== END 2023-08-24 10:10 | disposition home or self-care (01) | DRG 198 ==
LOC: ANHED 22:53 → ANHIMU 23:54 → ANH3MED 08-24 09:24 → ANHIMU 08-28 11:23 → ANH3MED 08-28 11:23
PROVIDERS: Emergency Medicine; General Practice; Admitting Provider Internal Medicine; Emergency Provider Student in an Organized Health Care Education/Training Program; Visit Provider Internal Medicine
DX: R07.89 Other chest pain (principal); R00.1 Bradycardia, unspecified; I25.10 Atherosclerotic heart disease of native coronary artery without angina pectoris; I50.9 Heart failure, unspecified; F17.210 Nicotine dependence, cigarettes, uncomplicated; J43.9 Emphysema, unspecified; M47.896 Other spondylosis, lumbar region; I25.5 Ischemic cardiomyopathy; E11.69 Type 2 diabetes mellitus with other specified complication; E78.5 Hyperlipidemia, unspecified; Z95.5 Presence of coronary angioplasty implant and graft; U07.1 COVID-19; J44.1 Chronic obstructive pulmonary disease with (acute) exacerbation
CPT/HCPCS: 36415; 70450; 71046; 71275; 72128; 72131; 74175; 80048; 80053; 83690; 83735; 84484; 85025; 85027; 85380; 85610; 85730; 86850; 86900; 86901; 87637; 93005; 94640; 96361; 96374; 99285; A9270; G0378; G0379; J1650; J1885; J2270; J2930; J7030; Q9967

== ENCOUNTER 2025-03-25 02:42 | Emergency (ER) | payer OTHER, SELFPAY ==
[2025-03-25] VITALS (31 sets, daily range): BP systolic 82–135; BP diastolic 49–85; PULSE 58–83; RESP 15–25; TEMP 36.6; O2SAT 94–99
--- NOTE | ~2025-03-25 | XR_ITS ---
EXAMINATION: XR chest 1V portable 03/25/2025 03:02 INDICATION: Chest pain and shortness of breath PROCEDURE: AP portable chest COMPARISON: Comparison to multiple prior studies sequentially, with oldest reviewed study dated 05/15. FINDINGS: The lungs are clear. The cardiomediastinal silhouette is within normal limits. There are no pleural effusions. There is no pneumothorax suspected. IMPRESSION: 1: NO ACUTE CARDIOPULMONARY DISEASE. Reviewed, dictated and finalized at location A.
--- NOTE | 2025-03-25 02:44 | ECG_ITS ---
Test Date: 2025-03-25 02:46:46 Measurements Intervals [place] Rate: 70 P: 71 TX: 188 QRS: -62 QRSD: 111 T: 26 QT: 388 QTc: 420 Interpretive Statements SINUS RHYTHM INFERIOR MYOCARDIAL INFARCTION , OF INDETERMINATE AGE [40+ ms Q WAVE AND/OR ST/T ABNORMALITY IN II/aVF] NONSPECIFIC T-WAVE ABNORMALITIES No previous ECG available for comparison Electronically Signed On 03-26-2025 15:41:50 CDT by Osvaldo Lambert M.D.
--- OUTSIDE RECORDS SUMMARY | 2025-03-25 02:44 | XMS_ITS | Encounter Summary ---
Author Organization [facility] Address [address] [place] [address] Care Team Providers Care Adjuster Arbitrator Name Role Phone Salome Mcgee OXYHYDROGEN WELDER Primary Care Provider [phone] Citlali Li MD Unavailable [phone] Lucita Bates NP Unavailable [phone] Lyndsey Ray Primary Care Provide r Encounter Details Date Type Department Care Team (Late st Contact Info) Description 02/04/2023 Hospital Follow-up Call [facility] Unit [address] [place] [address] Lynda Sheriff, RN Social History Tobacco Use Types Packs/Day Years Used Date Smoking Tobacco: Former Cigarettes 1.5 38.4 1 985 - 01/27/2023 Smokeless Tobacco: Never Alcohol Use Standard Drinks/Week Comments Not Currently 0 (1 standard drink = 0.6 oz pur e alcohol) Humiliation, Afraid, Rape, and Kick questionnair e Answer Date Recorded Within the last year, have y ou been afraid of your partner or ex-partner? Patient declined 02/01/2023 Within the last year, have y ou been humiliated or emotionally abused in other ways by your partner or ex-partner? Patient declined 02/01/2023 Within the last year, have y ou been kicked, hit, slapped, or otherwise physically hurt by your partner or ex-partner? Patient declined 02/01/2023 Within the last year, have y ou been raped or forced to have any kind of sexual activity by your partner or ex-partner? Patient declined 02/01/2023 Overall Financial Resource Strain (CARDIA) Answe r Date Recorded How hard is it for you to pa y for the very basics like food, housing, medical care, and heating? Patient declined 02/01/2023 Hunger Vital Sign Answer Date Recorded Within the past 12 months, y ou worried that your food would run out before you got the money to buy more. Patient declined Within the past 12 months, t he food you bought just didn't last and you didn't have money to get more. Patient declined 10/2022 PRAPARE - Transportation Answer Date Re corded In the past 12 months, has l ack of transportation kept you from medical appointments or from getting medications? Patient declined 02/01/2023 In the past 12 months, has l ack of transportation kept you from meetings, work, or from getting things needed for daily living? Patient declined 02/01/2023 Housing Stability Vital Sign Answer Imchele e Recorded In the last 12 months, was t here a time when you were not able to pay the mortgage or rent on time? Patient refused 02/02/20 23 In the last 12 months, how many places have you lived? 1 02/01/2023 In the last 12 months, was t here a time when you did not have a steady place to sleep or slept in a alf (including now)? Patient refused 02/01/2023 Sex and Gender Information Value Date Recorded Sex Assigned at Male 10/26/2024 2:01 PM TRUST ADVISOR Legal Sex Male 5:50 PM TRUST ADVISOR Gender Identity Not on file Sexual Orientation Not on file COVID-19 Exposure Response Date Recorded In the last 10 days, have yo u been in contact with someone who was confirmed or suspected to have Coronavirus/COVID-19? No / Unsure 02/01/2023 5:01 PM CDT documented as of this encounter Functional Status * Are you deaf or do you have serious difficulty hearing Answer Date of Assessment Author Status No 02/01/2023 4:37 PM CDT Nely Yarbrough RN Active * Are you blind or do you have serious difficulty seeing, even when wearing glasses? Answer Date of Assessment Author Status No 02/01/2023 4:37 PM CDT Nely Yarbrough RN Active * Do you have serious difficulty walking or climbing stairs? Answer Date of Assessment Author Status No 02/01/2023 4:37 PM CDT Nely Yarbrough RN Active * Do you have difficulty dressing or bathing? Answer Date of Assessment Author Status No 02/01/2023 4:37 PM CDT Nely Yarbrough RN Active * Because of a physical, mental, or emotional condition, do you have difficulty doing errands alone such as visiting a doctor's office or shopping? Answer Date of Assessment Author Status No 02/01/2023 4:37 PM CDT Nely Yarbrough RN Active documented as of this encounter Mental Status * Because of a physical, mental, or emotional condition, do you have serious difficulty concentrating, remembering, or making decisions? Answer Entry Date Author Status No 02/01/2023 4:37 PM CDT Nely Yarbrough RN Active documented in this encounter Plan of Treatment Not on file documented as of this encounter Goals Goal Patient Goal Type Associated Problems Recent Progress Patient-Stated? Author Patient will return to prior living situation and remain independent in ADLs upon discharge from hospital Lifestyle Sandra Marshall RN Safety Patient/family will have appropriate support at home upon discharge Lifestyle No Sandra Burns RN documented as of this encounter Visit Diagnoses Not on filedocumented in this encounter Additional Health Concerns Infection Onset Date Last Indicated Resolved Time COVID-19 Rule Out 09/24/2023 09/24/2023 09/24/2023 1:50 PM TRUST ADVISOR COVID-19 Rule Out 04/21/2024 04/21/2024 04/21/2024 3:02 PM CDT documented as of this encounter Care Teams Adjuster Arbitrator Relationship Specialty Start Date End Date Salome Mcgee NP PCP - General NURSE PRACTITIONER 01/27/23 04/21/24 Lyndsey Ray APNP [id number] [place] [address] PCP - General NURSE PRACTITIONER 06/01/24 Citlali Li MD Consulting Physician INTERVENTIONAL CARDIOLOGY 01/29/23 Lucita Bates NP [address] [facility] [address] [id number] Nurse Practitioner Nurse Practitioner Family 01/30/23 documented as of this encounter
--- OUTSIDE RECORDS SUMMARY | 2025-03-25 02:44 | XMS_ITS | Data Portability ---
Author Organization [facility], [address] ([place]) Address [address] 4th [place] [address] Care Team Providers Care Software Installation Engineer Name Role Phone [place] RIVERA Business Management Consultant Assessment Encounter Date Assessment Date Assessment LastModified by Organization Details LastModified Time 01/02/2024 01/02/2024 1. 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 We will try a prednisone tape to see if he can stop the analgesics. Currently, he is taking Excedrin and/or Tylenol daily. He expressed understanding. He will call us if his headaches persist after the 12 days. We can try preventive medication as well. 2. Intracranial aneurysm. He has a 4.2 mm left MCA aneurysm. I recommended a referral to interventional neurology or neurosurgery, but the patient is not interested. He will let us know if the headaches persist. SK [email or web address] Not available 01/02/2024 23:56:39 01/20/2024 01/20/2024 Mr. Merino has a PMH of: -HTN, HLD, Current smoker -CAD s/p PCI of RCA and OM last cath 06/24 at [facility] with patent multiple RCA stent and OM disease. -Cardiomyopathy with LVEF of 40% last echo Oct 2023 Other clinical history significant for: COPD, dyslipidemia, leukocytosis Social history: Seen in [place], current every day smoker This visit: The patient is here for follow-up visit. He reports that his breathing has improved a little bit in the past and has gotten worse recently again. He has seen pulmonary medicine a week ago. He has increased wheezing and phlegm production that is whitish in color. He denies any fever. He does report intermittent episode of chest discomfort. He continues to smoke. His blood pressure was low at the last visit his blood pressure is normal. He denies any significant pedal edema. Last visit: Patient is here for a consult and to establish cardiovascular care. He is here by himself. He has had palpitations and is wearing monitor. He has NYHA III MOORE and believes that this has worsened since last year. He has intermittent ankle swelling. He continues to smoke 1 pack/day. He feels some chest pressure. He does not have pedal edema but he has significant abdominal distention. Cardiovascular studies summary: Echocardiogram: 10/2023 Left ventricular ejection fraction by visual estimation is 50 to 55%. Entire inferior wall is abnormal. Low normal RV systolic function. Left Ventricular Diastolic Function is abnormal with evidence for diastolic relaxation/fillin g impairment. Assessment and plan: Coronary artery disease with previous myocardial infarction and PCI of RCA as well as OM. He is on maximal antianginal therapy he has significant shortness of breath. The shortness of breath is multifactorial contributed by likely significant COPD as well as abdominal adiposity. He is optimized from a medication perspective. On exam he has significant wheezing. Will get chest x-ray, BMP, BNP, CBC I have advised him to follow-up with pulmonary medicine. He should also follow-up with primary care physician to see if he can get some help for weight loss medication. He has significant consumption of soda which can give him a lot of calories but as well as fluid. The salt content of the soda will also help him retain a lot of fluid without pedal edema. Cardiomyopathy ischemic: His ejection fraction is mildly declined likely secondary to myocardial infarction Continue at reduced dose metoprolol to XL 12.5 mg daily continue at reduced dose due to prior low BP Entresto to 24-26 twice daily Continue on spironolactone 25 mg daily Continue isosorbide 15 mg daily Continue Jardiance 12.5 mg daily Hypertension -Monitor BP at home once daily at random times for a week and then once weekly and bring record to next visit. -Continue current medications; see above changes he will follow-up with me in a month with blood pressure records Lifestyle modification counselling: [- Advised about weight management with changes in diet and increasing exercise.] Follow-up in 2 months or earlier if needed ROS: 12-point ROS has been completed and negative, exception(s) noted in the HPI Physical Exam: The patient was examined in the clinic. Gen: appears well with no acute distress HEENT: RAI, MMM, no thyromegaly, no palor, no JVD Cardiovascular: S1S2, RRR, no murmur, no rubs or gallops were heard, PPP, no pedal edema Resp: significant bilateral wheezing with decreased breath sounds and decreased air entry bilateral lungs Abdomen: Bowel sounds normal, non-tender Neuro: A*O*3, no gross motor or sensory dysfunction in any of the four extremities Skin: No rash, no cyanosis, no clubbing [email or web address] Not available 01/20/2024 11:32:44 02/24/2024 02/24/2024 Mr. Merino has a PMH of: -HTN, HLD, Current smoker -CAD s/p PCI of RCA and OM last cath 06/24 at [facility] with patent multiple RCA stent and OM disease. -LVEF 54% mild concentric LV hypertrophy, LV size is mildly enlarged, RV size is mildly enlarged, RV systolic function is mildly depressed (09/2023), Cardiomyopathy with LVEF of 40% last echo (10/2023) Other clinical history significant for: COPD, dyslipidemia, leukocytosis Social history: Seen in [place], current every day smoker This visit: Patient is here for follow up visit. He is here by himself. He has reestablished with pulmonary medicine. He has reduce his soda intake from 6 cans 1 to 2 cans a day. His breathing has improved a little bit. He does not have any pedal edema. He is worried that he feels dizzy and his blood pressure has decreased. He denies any chest pain. He has decreased his soda intake and his blood pressure is low Last visit: The patient is here for follow-up visit. He reports that his breathing has improved a little bit in the past and has gotten worse recently again. He has seen pulmonary medicine a week ago. He has increased wheezing and phlegm production that is whitish in color. He denies any fever. He does report intermittent episode of chest discomfort. He continues to smoke. His blood pressure was low at the last visit his blood pressure is normal. He denies any significant pedal edema. Cardiovascular studies summary: Echocardiogram: 10/2023 Left ventricular ejection fraction by visual estimation is 50 to 55%. Entire inferior wall is abnormal. Low normal RV systolic function. Left Ventricular Diastolic Function is abnormal with evidence for diastolic relaxation/fillin g impairment. Holter Monitor: 02/2024 Predominantly sinus rhythm with average heart rate of 65 bpm. Rare PACs and PVCs. No significant sustained arrhythmias. Assessment and plan: Coronary artery disease with previous myocardial infarction and PCI of RCA as well as OM. He is on maximal antianginal therapy he has significant shortness of breath. The shortness of breath is multifactorial contributed by likely significant COPD as well as abdominal adiposity. He is optimized from a medication perspective. On exam he has significant wheezing. He has a repeat appointment with pulmonary medicine. . He should also follow-up with primary care physician to see if he can get some help for weight loss medication. He has significant consumption of soda which can give him a lot of calories but as well as fluid. The salt content of the soda will also help him retain a lot of fluid without pedal edema. Cardiomyopathy ischemic: His ejection fraction is mildly declined likely secondary to myocardial infarction Continue at reduced dose metoprolol to XL 12.5 mg daily continue at reduced dose due to prior low BP Entresto to 49/51 twice daily Continue on spironolactone 25 mg daily Continue Jardiance 12.5 mg daily Hypertension -Monitor BP at home once daily at random times for a week and then once weekly and bring record to next visit. -Continue current medications; see above changes he will follow-up with me in a month with blood pressure records. Will stop his isosorbide given low blood pressure Lifestyle modification counselling: [- Advised about weight management with changes in diet and increasing exercise.] Follow-up in 3 months or earlier if needed ROS: 12-point ROS has been completed and negative, exception(s) noted in the HPI Physical Exam: The patient was examined in the clinic. Gen: appears well with no acute distress HEENT: RAI, MMM, no thyromegaly, no palor, no JVD Cardiovascular: S1S2, RRR, no murmur, no rubs or gallops were heard, PPP, no pedal edema Resp: significant bilateral wheezing with decreased breath sounds and decreased air entry bilateral lungs Abdomen: Bowel sounds normal, non-tender Neuro: A*O*3, no gross motor or sensory dysfunction in any of the four extremities Skin: No rash, no cyanosis, no clubbing [email or web address] Not available 02/24/2024 16:00:26 06/29/2024 06/29/2024 Mr. Merino has a PMH of: -HTN, HLD, Current smoker -CAD s/p PCI of RCA and OM (12/2022); One-vessel CAD in left circumflex with patent stents in the right coronary artery (06/2023) -Cardiomyopathy with LVEF of 40% last echo (10/2023), LVEF 40% mild MR/TR (03/2024) Other clinical history significant for: COPD, dyslipidemia, asthma, depression, hypercapnic respiratory failure Social history: Seen in [place], , unemployed, current every day smoker This visit: Patient presents for follow up visit. He has presented to the hospital with transient global amenisa. He continues to smoke. He has had chest pain not relieved with nitroglycerin. at this time he has shortness of breath NYHA class II-III. He continues to smoke. He is trying to quit. He has significant wheezing and decreased air entry bilaterally. Last visit: Patient is here for follow up visit. He is here by himself. He has reestablished with pulmonary medicine. He has reduce his soda intake from 6 cans 1 to 2 cans a day. His breathing has improved a little bit. He does not have any pedal edema. He is worried that he feels dizzy and his blood pressure has decreased. He denies any chest pain. He has decreased his soda intake and his blood pressure is low Cardiovascular studies summary: Echocardiogram: The left ventricular systolic function is not well visualized however appears to be mildly to moderately reduced. The LVEF is 40%. Right ventricular function is normal. Mild mitral valve regurgitation. Mild tricuspid regurgitation. Holter Monitor: 02/2024 Predominantly sinus rhythm with average heart rate of 65 bpm. Rare PACs and PVCs. No significant sustained arrhythmias. Cardiac Cath: 06/2023 2nd obtuse marginal: Proximal vessel lesion: The diagnostic study demonstrated an 80% stenosis. Stent placement was performed over a wire passed through the [place] vessel (see 1st lesion). Following intervention, there is a residual 0% stensis with JEANNINE grade 3 flow (brisk flow). One vessel CAD in left circumflex with patent stents in the right coronary artery. Assessment and plan: Shortness of breath with wheezing likely bronchitis. He has nebulizers at home. I have advised him to reduce his cold air exposure. I have advised him to take nebulizer 4 times daily. I have advised him to see Jessy tomorrow we will send a message to pulmonary medicine to see if he can get to see them sooner as well. Coronary artery disease with previous myocardial infarction and PCI of RCA as well as OM. He is on maximal antianginal therapy he has significant shortness of breath. The shortness of breath is multifactorial contributed by likely significant COPD as well as abdominal adiposity. He is optimized from a medication perspective. On exam he has significant wheezing. He has a repeat appointment with pulmonary medicine. He should also follow-up with primary care physician to see if he can get some help for weight loss medication. He has significant consumption of soda which can give him a lot of calories but as well as fluid. The salt content of the soda will also help him retain a lot of fluid without pedal edema. Cardiomyopathy ischemic: His ejection fraction is mildly declined likely secondary to myocardial infarction Continue at reduced dose metoprolol to XL 12.5 mg daily continue at reduced dose due to prior low BP Entresto to 49/51 twice daily Continue on spironolactone 25 mg daily Continue Jardiance 12.5 mg daily We will repeat his echocardiogram Hypertension -Monitor BP at home once daily at random times for a week and then once weekly and bring record to next visit. -Continue current medications; see above changes he will follow-up with me in a month with blood pressure records. Lifestyle modification counselling: [- Advised about weight management with changes in diet and increasing exercise.] Follow-up in 6 months or earlier if needed ROS: 12-point ROS has been completed and negative, exception(s) noted in the HPI Physical Exam: The patient was examined in the clinic. Gen: appears well with no acute distress HEENT: RAI, MMM, no thyromegaly, no palor, no JVD Cardiovascular: S1S2, RRR, no murmur, no rubs or gallops were heard, PPP, no pedal edema Resp: significant bilateral wheezing with decreased breath sounds and decreased air entry bilateral lungs Abdomen: Bowel sounds normal, non-tender Neuro: A*O*3, no gross motor or sensory dysfunction in any of the four extremities Skin: No rash, no cyanosis, no clubbing [email or web address] Not available 06/29/2024 15:56:26 12/28/2024 12/28/2024 Mr. Merino has a PMH of: -HTN, HLD, Current smoker -CAD s/p PCI of RCA and OM (12/2022); One-vessel CAD in left circumflex with patent stents in the right coronary artery (06/2023) -Cardiomyopathy with LVEF of 40% last echo (10/2023), LVEF 40% mild MR/TR (03/2024), LVEF 45% Other clinical history significant for: COPD, dyslipidemia, asthma, depression, hypercapnic respiratory failure Social history: Seen in [place], , unemployed, current every day smoker This visit: The patient is here for follow-up visit. He continues to have NYHA class II-III dyspnea on exertion. He is seen by pulmonary medicine. He does not have any significant pedal edema. He denies any chest discomfort. He is feeling much better after inhalers have been started and he has been diuresed well. He continues to smoke less than 1 pack/day and is trying to quit but has been very difficult. Last visit: Patient presents for follow up visit. He has presented to the hospital with transient global amenisa. He continues to smoke. He has had chest pain not relieved with nitroglycerin. at this time he has shortness of breath NYHA class II-III. He continues to smoke. He is trying to quit. He has significant wheezing and decreased air entry bilaterally. Cardiovascular studies summary: Echocardiogram: 07/2024 The right ventricular systolic function is moderately reduced. Left ventricular ejection fraction is visually estimated at=35-45%. Left ventricular systolic function is moderately reduced. There is mild tricuspid regurgitation. Holter Monitor: 02/2024 Predominantly sinus rhythm with average heart rate of 65 bpm. Rare PACs and PVCs. No significant sustained arrhythmias. Cardiac Cath: 06/2023 2nd obtuse marginal: Proximal vessel lesion: The diagnostic study demonstrated an 80% stenosis. Stent placement was performed over a wire passed through the [place] vessel (see 1st lesion). Following intervention, there is a residual 0% stensis with JEANNINE grade 3 flow (brisk flow). One vessel CAD in left circumflex with patent stents in the right coronary artery. Assessment and plan: Shortness of breath with wheezing likely bronchitis. He has nebulizers at home. I have advised him to reduce his cold air exposure. I have advised him to take nebulizer 4 times daily. I have advised him to see Jessy tomorrow we will send a message to pulmonary medicine to see if he can get to see them sooner as well. Coronary artery disease with previous myocardial infarction and PCI of RCA as well as OM. He is on maximal antianginal therapy he has significant shortness of breath. The shortness of breath is multifactorial contributed by likely significant COPD as well as abdominal adiposity. He is optimized from a medication perspective. On exam he has significant wheezing. He has a repeat appointment with pulmonary medicine. He should also follow-up with primary care physician to see if he can get some help for weight loss medication. He has significant consumption of soda which can give him a lot of calories but as well as fluid. The salt content of the soda will also help him retain a lot of fluid without pedal edema. Cardiomyopathy ischemic: His ejection fraction is mildly declined likely secondary to myocardial infarction Continue at reduced dose metoprolol to XL 12.5 mg daily continue at reduced dose due to prior low BP Entresto to 49/51 twice daily Continue on spironolactone 25 mg daily Continue Jardiance 12.5 mg daily Hypertension -Monitor BP at home once daily at random times for a week and then once weekly and bring record to next visit. -Continue current medications; see above changes he will follow-up with me in a month with blood pressure records. Lifestyle modification counselling: - Advised about weight management with changes in diet and increasing exercise. Follow-up in 6 months or earlier if needed ROS: 12-point ROS has been completed and negative, exception(s) noted in the HPI Physical Exam: The patient was examined in the clinic. Gen: appears well with no acute distress HEENT: RAI, MMM, no thyromegaly, no palor, no JVD Cardiovascular: S1S2, RRR, no murmur, no rubs or gallops were heard, PPP, no pedal edema Resp: significant bilateral wheezing with decreased breath sounds and decreased air entry bilateral lungs Abdomen: Bowel sounds normal, non-tender Neuro: A*O*3, no gross motor or sensory dysfunction in any of the four extremities Skin: No rash, no cyanosis, no clubbing [email or web address] [id number] Not available 12/28/2024 15:36:15 Plan of Treatment Reminders Order Date Submit Date Provider Last Modified By Organization Details Last Modified Time Details Appointments Establish ed Patient 15.EST 2024 01:00P M Dr. Ky Rivera Not available Not available Not available Lab None recorded. Referral None recorded. Procedures None recorded. Surgeries None recorded. Imaging electroca rdiogram, routine ECG, 12 leads min 2023 024 [email or web address] [facility], [address], [address] [address], [place], [address], 01/28/2024 07:42:18 Medication Orders prednison e 20 mg tablet 2023 [email or web address] 6 [facility] [place], [address] [place], [address], 02/24/2024 16:01:48 Patient TargetsNo targets recorded. Patient Instructions Encounter Date Encounter Id Patient Instructions Last Modified By Organization Details Last Modified Time 01/02/2024 [id number] Migraine and headache handout was given and discussed. I recommend abstaining from caffeine and obtaining a migraine tracking cecile. I recommend keeping a regular daily schedule, including getting up at the same time every morning and going to bed at the same time every night etc. We discussed [id number] preventive supplements including magnesium, riboflavin, and coenzyme Q10. Not available 01/02/2024 15:05:01 Reason for Referral None Reported. Results Created Date Observation Date Name Description Value Unit Range Abnormal Flag Note LastModifiedBy Organization Detail LastModifiedTime 02/14/20 24 dunia r monit or Device type: Preven tives monito r Predom inantl y sinus rhythm with averag e heart rate of 65 bpm Rare PACs and PVCs Impres sions: - No signif icant sustai jude arrhyt indira [email or web address] Not Available 02/19 11:58:43 02/17/[address], angio gram, chest , w/wo contr ast No observ ation record ed. [email or web address] [facility] (Radiology) [address] [facility], [place], [address], 02/17/2024 15:49:41 02/27/20 24 02/27/2024 elect yair chaudharygr am inter preta tion* No observ ation record ed. [email or web address] Not Available 2023 08:26:10 02/28/20 24 12/20/2023 event monit or No observ ation record ed. [email or web address] Not Available 2023 14:41:51 03/11/20 24 01/03/2024 dunia r monit or Holter monito r applie d at [facility]. Sinus rhythm at an averag e heart rate of 65 bpm. No signif icant sustai jude arrhyt hmias. [email or web address] Not Available 2023 07:38:05 03/14/20 24 03/01/2023 imagi ng/di agnos tic resul t No observ ation record ed. [email or web address] Not Available 06:40:07 03/28/20 24 03/25/2024 , echoc ardio gram Versio n: 1 [facility] Adult Echoca rdiogr am Report Name: Gerson Pace Study Date: 2023, 2: 07 PM : 1970 (MM/DD /YYYY) 1404 Gender : Male Age: 53 Years Height : 71 in Weight : 259.00 4 lb BSA: 2.35 m Orderi ng Physic anastacio: Meaghan Felix Perfor med By: AP Indica tion: ROUTIN E Summar y Statem ents The left ventri cular systol ic functi on is not well visual ized howeve r appear s to be mildly to modera tely reduce d. The LV EF is 40%. Right ventri cular functi on is normal . Mild mitral valve regurg itatio n is seen. Mild tricus pid valve regurg itatio n is seen. LEFT VENTRI BUCKY: The left ventri cular systol ic functi on is not well visual ized howeve r appear s to be mildly to modera tely reduce d. LEFT ATRIUM /ATRIA L SEPTUM : Visual estima te of left atrial size: mildly enlarg ed. RIGHT VENTRI BUCKY: The right ventri bucky was not well visual ized but appear s grossl y normal in size and functi on. Ky bowden MD 2023, 12: 47 PM cc: Gerson Pace 2023 US CARDIO LOGY ECHOCA RDIOGR AM INTERFACE [facility] [address] [place] [address], [address], 03/28/2024 13:48:17 04/16/20 24 02/12/2023 imagi ng/di agnos tic resul t No observ ation record ed. Not Available 04/16/2024 04:22:30 04/16/20 24 03/01/2023 imagi ng/di agnos tic resul t No observ ation record ed. Not Available 04/16/2024 04:22:53 06/30/20 24 09/05/2023 imagi ng/di agnos tic resul t No observ ation record ed. [email or web address] Not Available 23:46:15 06/30/2009/05/2023 imagi ng/di agnos tic resul t No observ ation record ed. [email or web address] Available 23:46:16 06/30/2009/05/2023 imagi ng/di agnos tic resul t No observ ation record ed. [email or web address] Not Available 23:46:17 06/30/20 24 09/05/2023 imagi ng/di agnos tic resul t No observ ation record ed. [email or web address] Not Available 23:46:18 06/30/20 24 09/24/2023 imagi ng/di agnos tic resul t No observ ation record ed. [email or web address] Not Available 23:46:20 06/30/2009/24/2023 imagi ng/di agnos tic resul t No observ ation record ed. [email or web address] Not Available 23:46:21 06/30/20 24 09/24/2023 imagi ng/di agnos tic resul t No observ ation record ed. [email or web address] Not Available 23:46:21 06/30/2009/24/2023 imagi ng/di agnos tic resul t No observ ation record ed. [email or web address] Not Available 23:46:22 06/30/2009/24/2023 imagi ng/di agnos tic resul t No observ ation record ed. [email or web address] Not Available 23:46:24 06/30/20 24 10/22/2023 imagi ng/di agnos tic resul t No observ ation record ed. [email or web address] Not Available 23:46:35 06/30/2010/23/2023 imagi ng/di agnos tic resul t No observ ation record ed. [email or web address] Not Available 23:46:36 06/30/2010/24/2023 imagi ng/di agnos tic resul t No observ ation record ed. [email or web address] Not Available 23:46:40 06/30/2012/16/2023 imagi ng/di agnos tic resul t No observ ation record ed. [email or web address] Not Available 23:46:48 06/30/2012/16/2023 imagi ng/di agnos tic resul t No observ ation record ed. [email or web address] Not Available 23:46:49 06/30/20 24 12/23/2023 imagi ng/di agnos tic resul t No observ ation record ed. [email or web address] Not Available 23:46:53 06/30/20 24 08/13/2023 imagi ng/di agnos tic resul t No observ ation record ed. [email or web address] Not Available 23:47:04 07/02/20 24 06/29/2024 elect yair chaudharygr am, routi ne ECG, 12 leads min No observ ation record ed. [email or web address] [facility] [address] [address], [place], [address], 07/02/2024 16:14:38 07/24/20 24 07/20/2024 , echo israel Carney n: 1 +----- ------ ------ ------ -----+ : : : : [facility] : : : : +----- ------ ------ ------ -----+ [id number] [facility] [id number] Adult Jaquan rodriguez Report Name: Bakari PaceFelix Study Date: 2023, 2: 46 PM : 1970 (MM/DD /YYYY) 8322 Gender : Male Age: 53 Years Height : 71 in Weight : 255.00 4 lb BSA: 2.34 m Orderi ng Physic anastacio: Ky Kim Perfor med By: PC Indica tion: Hypert ension I10 Summar y Statem ents The right ventri cular systol ic functi on is modera tely reduce d. The left ventri cular ejecti on fracti on is visual ly estima lakeisha at= 35-45% . Left ventri cular systol ic functi on is modera tely reduce d. There is mild tricus pid regurg itatio n. PROCED URE DETAIL S: A comple te transt horaci c dedeca rdiogr am was perfor med (2D; M-mode ; spectr al and color flow Dopple r). The study was [facility] [facility]. LEFT VENTRI BUCKY: The left ventri bucky size and wall thickn ess are normal . The left ventri cular mass index is normal when correc lakeisha for BSA and gender . The left ventri cular ejecti on fracti on is visual ly estima lakeisha at= 35-45% . Left ventri cular systol ic functi on is modera tely reduce d. Unable to assess diasto logy. There is overal l modera te hypoki nesis of the left ventri bucky with region al variat ions. LEFT ATRIUM /ATRIA L SEPTUM : The left atrial volume index is normal by BSA and gender . The atrial septum is not well visual ized. RIGHT ATRIUM : The right atrial volume index is normal when correc lakeisha for BSA and gender . RIGHT VENTRI BUCKY: The right ventri cular systol ic functi on is modera tely reduce d. AORTIC VALVE: The aortic valve is not well visual ized. The aortic valve opens well. There is no eviden ce of aortic stenos is. MITRAL VALVE: The mitral valve was not well visual ized but appear s grossl y normal . There is no mitral valve stenos is. TRICUS PID VALVE: The tricus pid valve leafle ts are thin and pliabl e. There is no tricus pid stenos is. Estima lakeisha right atrial pressu re is 3 mmHg. There is mild tricus pid regurg itatio n. PULMON IC VALVE: The pulmon ic valve is not well visual ized. There is no pulmon ic valvul ar stenos is. There is mild pulmon ic valvul ar regurg itatio n. ARTERI ES: The sinus( es) of Valsal va measur es 3.7 which is within normal limits when correc lakeisha for BSA and age. The ascend ing aorta was not well visual ized. The pulmon penelope artery is not well visual ized, but is probab ly normal size. VENOUS : Pulmon penelope veins were not well visual ized during exam. The inferi or vena cava is normal in size, with normal respir atory variat ion. PERICA RDIUM/ PLEURA : There is a clear space around the heart noted, speckl ed appear ance sugges ts adipos e tissue rather than perica rdial effusi on. There is no pleura l effusi on. MMode/ 2D Measur ements IVSd: 0.90 cm LVIDd: 4.9 cm LVPWd: 0.93 cm LVIDs: 3.8 cm LV mass(C )d: 154.1 grams LV mass Index: 65.9 grams/ m Ao sinus of Valsal va diam: 3.7 cm LA vol: 39.1 ml LA vol index: 16.7 ml/m RA Volume : 56.6 ml RA Volume Index: 24.2 ml/m RAd major (vol): 4.4 cm Dopple r Measur ements MV E max manuelito: 51.9 cm/sec MV A max manuelito: 81.0 cm/sec MV E/A: 0.64 MV dec time: 0.24 sec MV E': 4.4 cm/sec MV E/E' ratio: 11.9 MV V2 max: 76.6 cm/sec MV V2 mean: 48.3 cm/sec AV max: 114.0 cm/sec Ao max P.2 mmHg SUSAN (Dimen sionle ss Index) : 0.80 LVOT max: 90.8 cm/sec LVOT max P.3 mmHg RAP systol e: 3.0 mmHg PV max: 53.8 cm/sec PV max P.16 mmHg Ky bowden MD/10/2023 , 6: 00 AM cc: Gerson Pace 2023 US CARDIO ECHO INTERFACE Sc Only - Sc Radiology [address] [place] [address], [id number], 07/24/2024 07:02:18 08/17/20 24 12/10/2023 CT, angio gram, head, w/wo contr ast No observ ation record ed. [email or web address] Not Available 2023 14:12:14 08/17/20 24 12/02/2023 XR, sinus es, paran james No observ ation record ed. [email or web address] Not Available 2023 14:13:53 Result Notes None recorded. Problems Name Problem SNOMED Code Status Onset Date Resolution Date Notes Provider Name and Address Organization Details Recorded Time Coronary arterioscl erosis 22472036 Active 2023 Poonam Naylor in [facility] 4 09:58:38 Dyslipidem ia 645298586 Active 2023 Poonam Naylor in [facility] 4 10:00:52 Analgesic overuse headache 516798488 Active 2023 Rosita Wills MD [facility] [place] [address], [phone] , [facility] 4 14:45:31 Intracrani al aneurysm 862386142 Active 2023 Rosita Wills MD [facility] [place] [address], [phone] , [facility] 4 15:02:50 Hypertensi ve disorder 83010842 Active 2023 Lyric Fernandesf [facility] 4 11:20:35 Chest pain 37742107 Active 2023 Lydia Morales [facility] 4 15:29:48 Fatigue 53654432 Active 2023 Sharad Parr [facility] 4 20:42:39 Impingemen t syndrome of left shoulder region 0050426598578 04 Active 2023 Sharad Parr [facility] 4 20:43:07 Dyspnea 441658593 Active 2023 Alexey ruiz [facility] 4 10:50:45 Essential hypertensi on 16640562 Active 2023 Archana Esparza [facility] 4 15:36:51 Ischemic congestive cardiomyop athy 195910935 Active 2023 Archana Esparza [facility] 4 15:37:25 Dyspnea on exertion 23361011 Active 2023 Addie Anderson [facility] 4 11:56:33 Problem Notes None recorded. Procedures Surgical History Date Name Laterality Status Provider Name and Address Organization Details Recorded Time 3 placement of stent in coronary artery completed Rosita Wills MD [facility] [place] [address], [phone], [facility] 01/02/2024 14:37:44 wrist repair completed Rosita Wills MD [address] [place] [address], [phone], [facility] 01/02/2024 14:38:28 repair of ankle completed Rosita Wills MD [address] [place] [address], [phone], [facility] 01/02/2024 14:38:43 Imaging Results None recorded. Procedure Notes None recorded. Medical Equipment None Reported. Allergies No known drug allergies Medications Name Sig Start Date Stop Date Status Note LastModified by Organization Details LastModified Time fluoxetine 40 mg capsule active Not Available Not Available Not Available cyclobenzapr ine 10 mg tablet active Not Available Not Available Not Available atorvastatin 40 mg tablet Take 1 tablet every day by oral route. active Not Available Not Available No t Available buspirone 5 mg tablet 01/01 completed Not Available Not Available Not Available atorvastatin 80 mg tablet TAKE 1/2 TABLET (80 MG) BY ORAL ROUTE ONCE DAILY 12/28 completed Not Available Not Available Not Available doxycycline hyclate 100 mg capsule 01/01 completed Not Available Not Available Not Available ipratropium 0.5 mg-albuterol 3 mg (2.5 mg base)/3 mL nebulization soln 01/01 completed Not Available Not Available Not Available trazodone 50 mg tablet 12/28 completed Not Available Not Available Not Available hydrocodone 5 mg-acetamino phen 325 mg tablet 12/28 completed Not Available Not Available Not Available sucralfate 1 gram tablet 01/01 completed Not Available Not Available Not Available ondansetron HCl 4 mg tablet 12/28 completed Not Available Not Available Not Available prednisone 20 mg tablet Take 3 tabs daily for 3 days, then 2 tabs daily for 3 days, then 1 tab daily for 3 days, then 1/2 tab daily for 3 days. 02/23 completed Not Available Not Available Not Available isosorbide mononitrate ER 30 mg tablet,exten ded release 24 hr 02/23 completed Not Available Not Available Not Available potassium chloride ER 10 mEq tablet,exten ded release 01/01 completed Not Available Not Available Not Available clopidogrel 75 mg tablet TAKE 1 TABLET BY MOUTH ONCE DAILY active Not Available Not Available No t Available tramadol 50 mg tablet 12/28 completed Not Available Not Available Not Available spironolacto ne 25 mg tablet take one daily active Not Available Not Available No t Available ketorolac 10 mg tablet active Not Available Not Available No t Available tamsulosin 0.4 mg capsule active Not Available Not Available Not Available cephalexin 500 mg capsule 01/01 completed Not Available Not Available Not Available pantoprazole 40 mg tablet,delay ed release active Not Available Not Available N ot Available fluoxetine 20 mg tablet 02/23 completed Not Available Not Available Not Available buspirone 10 mg tablet 01/01 completed Not Available Not Available Not Available lidocaine 5 % topical patch 01/01 completed Not Available Not Available Not Available nicotine 21 mg/24 hr daily transdermal patch 01/01 completed Not Available Not Available Not Available nitroglyceri n 0.4 mg sublingual tablet active Not Available Not Available Not Available aspirin 81 mg chewable tablet Chew 1 tablet every day by oral route. active Not Available Not Available No t Available furosemide 20 mg tablet TAKE 1 TAB BY MOUTH DAILY 2024 active Not Available Not Available Not Avai lable metoprolol succinate ER 25 mg tablet,exten ded release 24 hr Take 1/2 tablet by mouth daily active Not Available Not Available No t Available methylpredni solone 4 mg tablets in a dose pack 12/28 completed Not Available Not Available Not Available albuterol sulfate HFA 90 mcg/actuatio n aerosol inhaler active Not Available Not Available Not Available topiramate 100 mg tablet 01/01 completed Not Available Not Available Not Available fluticasone propionate 50 mcg/actuatio n nasal spray,suspen zandra 01/01 completed Not Available Not Available Not Available amoxicillin 875 mg-potassium clavulanate 125 mg tablet 01/01 completed Not Available Not Available Not Available buspirone 15 mg tablet active Not Available Not Available No t Available topiramate 50 mg tablet active Not Available Not Available Not Available nitrofuranto in monohydrate/ macrocrystal s 100 mg capsule active Not Available Not Available Not Available solifenacin 5 mg tablet active Not Available Not Available Not Available Flovent HFA 44 mcg/actuatio n aerosol inhaler active Not Available Not Available Not Available Vitamin B12 active Not Available Not A vailable Not Available Symbicort 80 mcg-4.5 mcg/actuatio n HFA aerosol inhaler active Not Available Not Available Not Available Brilinta 90 mg tablet 01/01 completed Not Available Not Available Not Available Jardiance 10 mg tablet 01/01 completed Not Available Not Available Not Available Jardiance 25 mg tablet Take 0.5 tablets every day by oral route. active Not Available Not Available No t Available Spiriva Respimat 2.5 mcg/actuatio n solution for inhalation active Not Available Not Available N ot Available Entresto 49 mg-51 mg tablet TAKE 1/2 TABLET BY ORAL ROUTE 2 TIMES PER DAY 12/28 completed Not Available Not Available Not Available Entresto 24 mg-26 mg tablet TAKE 1 TABLET BY MOUTH TWICE DAILY active Not Available Not Available No t Available Vitals Date Recorded Body height Body mass index (BMI) Body weight Heart rate Oxygen saturation Oxygen saturation in Arterial blood by Pulse oximetry Systolic And Diastolic Provider Name and Address Organization Details Last Updated DateTime 5 180.34 cm 32.6 kg/m2 725278. 61 g 64 /min 96 % 96 % 100/68 mm[Hg] Sharad Parr [facility] 5 15:03:46 Date Recorded Body height Body mass index (BMI) Body weight Heart rate Systolic And Diastolic Provider Name and Address Organization Details Last Updated DateTime 01/02/2024 180.34 cm 73.1 kg/m2 237239.4 g 68 /min 133/79 mm[Hg] Jose Francisco Dietrich [facility] 01/02/2024 14:11:07 Date Recorded Heart rate Body height Body weight Respiratory rate Body mass index (BMI) Body temperature Oxygen saturation Oxygen saturation in Arterial blood by Pulse oximetry Systolic And Diastolic Provider Name and Address Organization Details Last Updated DateTime 4 64 /min 180.34 cm 516089. 12552 g 18 /min 36.12 kg/m2 96.9 [degF] 95 % 95 % 106/65 mm[Hg] Not Available [facility] 4 06:14:43 Date Recorded Body height Heart rate Body mass index (BMI) Body weight Oxygen saturation Oxygen saturation in Arterial blood by Pulse oximetry Systolic And Diastolic Provider Name and Address Organization Details Last Updated DateTime 4 180.34 cm 66 /min 36.4 kg/m2 086544. 33 g 96 % 96 % 132/82 mm[Hg] [facility] 4 10:52:57 Date Recorded Heart rate Body height Body weight Body mass index (BMI) Oxygen saturation Oxygen saturation in Arterial blood by Pulse oximetry Systolic And Diastolic Provider Name and Address Organization Details Last Updated DateTime 4 69 /min 180.34 cm 363713. 52491 g 36.54 kg/m2 95 % 95 % 107/74 mm[Hg] Not Available [facility] 4 06:14:43 Date Recorded Body height Heart rate Oxygen saturation Oxygen saturation in Arterial blood by Pulse oximetry Body mass index (BMI) Body weight Systolic And Diastolic Provider Name and Address Organization Details Last Updated DateTime 4 180.34 cm 68 /min 95 % 95 % 36 kg/m2 948304. 27 g 102/66 mm[Hg] Sharad Parr [facility] 4 15:41:47 Date Recorded Body height Heart rate Oxygen saturation Oxygen saturation in Arterial blood by Pulse oximetry Body mass index (BMI) Body weight Systolic And Diastolic Provider Name and Address Organization Details Last Updated DateTime 4 180.34 cm 65 /min 97 % 97 % 35.8 kg/m2 632302. 24 g 102/72 mm[Hg] Mac Pearson [facility] 15:07:44 Social History None recorded. Functional Status None recorded. Mental Status None recorded. Family History Nothing Reported. Medical History No medical history recorded. Past Encounters Encounter ID Performer Location Encounter Start Date Encounter Closed Date Diagnosis/Indication Diagnosis SNOMED-CT Code Diagnosis ICD10 Code Diagnosis Note [id number] Rosita Wills MD [facility] Specialty Neurology (DE) [place] [address] 01/02/2024 14:07:00 01/02/2024 15:33:27 Analgesic overuse headache 040451167 G44.40 Intracranial aneurysm 12 9157359 I67.1 [id number] KY RIVERA MD [facility] Specialty Cardiolog y (DE) [place] [address] 01/20/2024 10:39:00 01/29/2024 11:15:58 Dyspnea 200978538 R06.00 Ischemic c ongestive cardiomyopathy 722908693 I25.5 Essential hypertension 46165578 I10 [id number] KY RIVERA MD [facility] Specialty Cardiolog y (DE) [place] [address] 02/24/2024 15:02:11 02/25/2024 10:10:10 [id number] KY RIVERA MD [facility] Specialty Cardiolog y (DE) [address] [place] [address] 06/29/2024 14:54:10 06/30/2024 12:52:04 [id number] KY RIVERA MD [facility] Specialty Cardiolog y (DE) [place] [address] 12/28/2024 14:40:49 12/29/2024 07:47:52 Health Concerns Section Related Observation LastModified by Organization Detai ls LastModified Time None Recorded Concern Status LastModified by Organization Details LastModified Time None Recorded Advance Directives Directive None Recorded Payers Insurance Date Sequence Insurance Name Policy Number Policy Pacheco Covered Member ID Pacheco Member ID Guarantor Name 12/29/[address] [facility] - DOS ON OR AFTER 21 (MEDICAID REPLACEMENT - HMO) Gerson Merino [id number] Gerson Merino [facility] Gerson Merino 12/23/2024 OPT - [facility]) Gerson Merino [id number] Gerson Merino Notes Date Note Type Note Provider Name and Address Organization Details Recorded Time 01/02/2024 text/html The patient is a 53 -year-old right-handed male who presents today for evaluation of headaches. He states that he has had headaches for many, many years. Over the last ten years, they have been occurring daily. He states that he has more than 20 headache days per month. The headaches are constant. He wakes up with a headache in the morning and goes to bed with a headache at night. The patient snores and he is scheduled for a sleep study in the near future. He describes the pain as throbbing, pressure, and dull pain. The pain is frontal and temporal. It is on both sides. He admits to photophobia but denies nausea, vomiting, photophobia, and sensitivity to smell. A dark room makes it better and bright lights make it worse. He denies a family history of headaches. He drinks 6-7 cans of Mountain Dew per day. He denies a visual aura. He takes two Excedrin Migraines or two Tylenols once or twice per day. The Excedrin helps a little bit. He takes pain medications seven days per week for the headaches. The headaches put him in a bad mood. He admits to blurry vision and dizziness. He denies diplopia, dysphagia, dysarthria, weakness, numbness, or tingling. He has seen neurologists in the past. He does not remember the medications that were tried and he does not want me to name any of them to figure out if he has been on those in the past. 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 This was followed by a CTA of the head. Again, it showed a 4.2 mm ramirez aneurysm at the bifurcation of the left MCA.SK Rosita Wills MD [address] [place] [address], [phone], [facility] 01/02/2024 23:56:55
--- OUTSIDE RECORDS SUMMARY | 2025-03-25 02:44 | XMS_ITS | Encounter Summary ---
Author Organization [facility] Address [address] [place] [address] Care Team Providers Care Varnish Melter Name Role Phone Unavailable Primary Care Provider Unavailabl e Reason for Visit * Reason Onset Date Comments Chest pain, stents placed in Jun., stress, smoking 07/14/2023 Spoke w/Ronal at Dr. Jewell 's exchange Encounter Details Date Type Department Care Team (Late st Contact Info) Description 07/14/2023 Telephone [facility] Admitting [address] [place] [address] [place] [address] [place] [address] Chest pain, stents placed in Jun., stress, smoking (Spoke w/Ronal at Dr. Jewell's exchange) Social History Tobacco Use Types Packs/Day Years Used Date Smoking Tobacco: Every Day Cigarettes 1 30 Smokeless Tobacco: Never Alcohol Use Standard Drinks/Week Comments Never 0 (1 standard drink = 0.6 oz pur e alcohol) Sex and Gender Information Value Date Recorded Sex Assigned at Not on file Legal Sex Male 1:48 AM FLOOR FRAMER Gender Identity Not on file Sexual Orientation Not on file documented as of this encounter Plan of Treatment Not on file documented as of this encounter Visit Diagnoses Not on filedocumented in this encounter Additional Health Concerns Infection Onset Date Last Indicated Resolved Time R/O COVID-19 08/06/2023 08/06/2023 08/06/2023 9:12 PM FLOOR FRAMER documented as of this encounter
--- OUTSIDE RECORDS SUMMARY | 2025-03-25 02:44 | XMS_ITS | Encounter Summary ---
Author Organization [facility] Address [address] [place] [address] Care Team Providers Care Fleet Administrative Assistant Name Role Phone Salome Mcgee FIRE MANAGEMENT OFFICER Primary Care Provider [phone] Citlali Li MD Unavailable [phone] Lucita Bates NP Unavailable [phone] Lyndsey Ray Primary Care Provide r Encounter Details Date Type Department Care Team (Late st Contact Info) Description 06/17/2023 Hospital Follow-up Call [facility] Unit [address] [place] [address] Lynda Sheriff, RN Social History Tobacco Use Types Packs/Day Years Used Date Smoking Tobacco: Every Day Cigarettes 1.5 38.4 Started: 1984; Last attempted to quit: 01/27/2023 Smokeless Tobacco: Never Alcohol Use Standard Drinks/Week Comments Not Currently 0 (1 standard drink = 0.6 oz pur e alcohol) Humiliation, Afraid, Rape, and Kick questionnair e Answer Date Recorded Within the last year, have y ou been afraid of your partner or ex-partner? No 06/11/2023 Within the last year, have y ou been humiliated or emotionally abused in other ways by your partner or ex-partner? No Within the last year, have y ou been kicked, hit, slapped, or otherwise physically hurt by your partner or ex-partner? No 06/11/2023 Within the last year, have y ou been raped or forced to have any kind of sexual activity by your partner or ex-partner? No 06/11/2023 Overall Financial Resource Strain (CARDIA) Answe r Date Recorded How hard is it for you to pa y for the very basics like food, housing, medical care, and heating? Not hard at all 06/11/2023 Hunger Vital Sign Answer Date Recorded Within the past 12 months, y ou worried that your food would run out before you got the money to buy more. Never true 06/11/20 23 Within the past 12 months, t he food you bought just didn't last and you didn't have money to get more. Never true 06/11/2023 PRAPARE - Transportation Answer Date Re corded In the past 12 months, has l ack of transportation kept you from medical appointments or from getting medications? No 06/02 In the past 12 months, has l ack of transportation kept you from meetings, work, or from getting things needed for daily living? No 06/11/2023 Housing Stability Vital Sign Answer Michele e Recorded In the last 12 months, was t here a time when you were not able to pay the mortgage or rent on time? No 06/11/2023 In the last 12 months, how many places have you lived? 1 06/11/2023 In the last 12 months, was t here a time when you did not have a steady place to sleep or slept in a skilled nursing (including now)? No 06/11/2023 Sex and Gender Information Value Date Recorded Sex Assigned at Male 10/26/2024 2:01 PM PLANT PHYSIOLOGIST Legal Sex Male 5:50 PM PLANT PHYSIOLOGIST Gender Identity Not on file Sexual Orientation Not on file documented as of this encounter Functional Status * Are you deaf or do you have serious difficulty hearing Answer Date of Assessment Author Status No 06/11/2023 8:31 AM Darleen Perez LPN Active * Are you blind or do you have serious difficulty seeing, even when wearing glasses? Answer Date of Assessment Author Status No 06/11/2023 8:31 AM Darleen Perez LPN Active * Do you have serious difficulty walking or climbing stairs? Answer Date of Assessment Author Status No 06/11/2023 8:31 AM CDT Darleen Dong LPN Active * Do you have difficulty dressing or bathing? Answer Date of Assessment Author Status No 06/11/2023 8:31 AM CDT Darleen Dong LPN Active * Because of a physical, mental, or emotional condition, do you have difficulty doing errands alone such as visiting a doctor's office or shopping? Answer Date of Assessment Author Status No 06/11/2023 8:31 AM CDT Darleen Dong LPN Active documented as of this encounter Mental Status * Because of a physical, mental, or emotional condition, do you have serious difficulty concentrating, remembering, or making decisions? Answer Entry Date Author Status No 06/11/2023 8:31 AM CDT Darleen Dong LPN Active documented in this encounter Plan of [...] Rule Out 09/24/2023 09/24/2023 09/24/2023 1:50 PM PLANT PHYSIOLOGIST COVID-19 Rule Out 04/21/2024 04/21/2024 04/21/2024 3:02 PM CDT documented as of this encounter Care Teams Fleet Administrative Assistant Relationship Specialty Start Date End Date Salome Mcgee NP PCP - General NURSE PRACTITIONER 01/27/23 04/21/24 Lyndsey Ray APNP [address] [place] [address] PCP - General NURSE PRACTITIONER 06/01/24 Citlali Li MD Consulting Physician INTERVENTIONAL CARDIOLOGY 01/29/23 Lucita Bates NP [address] [facility] [address] [place] [address] Nurse Practitioner Nurse Practitioner Family 01/30/23 documented as of this encounter
--- OUTSIDE RECORDS SUMMARY | 2025-03-25 02:44 | XMS_ITS | Clinical Summary ---
Author Organization [facility] Address [address] [place] [address] Phone Care Team Providers Care Custodial Operations Manager Name Role Phone Unavailable Primary Care Provider Unavailabl e Allergies No known active allergies Medications aspirin (PETRONA CHEWABLE) 81 mg Tablet, Chewable Take 81 mg by mouth daily. 3 Active atorvastatin (LIPITOR) 40 mg tablet Take 40 mg by mouth daily. 3 Active busPIRone (BUSPAR) 10 mg tablet Take 15 mg by mouth 2 times daily. 3 Active clopidogreL (PLAVIX) 75 mg Tablet Take 75 mg by mouth daily. 3 Active empagliflozin (JARDIANCE) 10 mg tablet Take 10 mg by mouth daily. 3 Active FLUoxetine (PROzac) 40 mg capsule Take 40 mg by mouth daily. 3 Active fluticasone propionate (Flovent HFA) 44 mcg/Actuation HFA Aerosol Inhaler Take 2 Puffs by inhalation 2 times daily. 3 Active ipratropium-albut Ivett (DUONEB) 0.5 mg-3 mg(2.5 mg base)/3 mL Solution for Nebulization Take 3 mL by inhalation every 6 hours as needed for Shortness of Breath or Wheezing. 3 Active nitroglycerin (NITROSTAT) 0.4 mg Tablet, Sublingual Place 0.4 mg under tongue every 5 minutes as needed for Chest Pain. 3 Active Active Problems Problem Noted Date Diagnosed Date Hyperlipidemia 08/07/2023 Atherosclerosis of [place] coronary artery of [place] heart 08/07/2023 Dizziness 08/07/2023 Chronic systolic CHF (congestive heart failure) 08/07/2023 Ischemic cardiomyopathy 08/07/2023 Benign essential hypertension 07/14/2023 Benign prostatic hyperplasia 07/14/2023 Overview (07/14/2023): Jun 28, 2021 Entered By: KARINA KEENE Comment: LATE ENTRY Tobacco dependence 07/14/2023 Overview (07/14/2023): Jun 28, 2021 Entered By: KARINA KEENE Comment: LATE ENTRY Kidney stone 07/14/2023 Overview (07/14/2023): Jun 28, 2021 Entered By: KARINA KEENE Comment: LATE ENTRY Hematuria 07/14/2023 Overview (07/14/2023): Jun 28, 2021 Entered By: KARINA KEENE Comment: LATE ENTRY Migraine 07/14/2023 Presbyopia 07/14/2023 Chest pain 07/14/2023 Elevated troponin 07/14/2023 Unstable angina 03/11/2023 Limb ischemia 02/01/2023 STEMI (ST elevation myocardial infarction) 01/27 Foot pain 06/28/2021 Family History Medical History Relation Name Comments Diabetes Father Hypertension Father Diabetes Mother Diabetes Sister edgar jones Relation Name Status Comments Father Mother Sister edgar jones Social History Tobacco Use Types Packs/Day Years Used Date Smoking Tobacco: Every Day Cigarettes 0.5 30 Smokeless Tobacco: Never Alcohol Use Standard Drinks/Week Comments Never 0 (1 standard drink = 0.6 oz pur e alcohol) Sex and Gender Information Value Date Recorded Sex Assigned at Not on file Legal Sex Male 1:48 AM HORN PLAYER Gender Identity Not on file Sexual Orientation Not on file Last Filed Vital Signs Vital Sign Reading Time Taken Comments Blood Pressure 132/74 08/08/2023 3:08 PM HORN PLAYER Pulse 60 08/08/2023 3:08 PM HORN PLAYER Temperature 36.4 C (97.5 F) 08/08/2023 3:08 PM HORN PLAYER Respiratory Rate 20 08/08/2023 3:08 PM HORN PLAYER Oxygen Saturation 98% 08/08/2023 3:08 PM HORN PLAYER Inhaled Oxygen Concentration - - Weight 103.9 kg (229 lb 1.6 oz) 08/07/2023 2:10 AM HORN PLAYER Height 180.3 cm (5' 11) 08/07/2023 2:10 AM HORN PLAYER Body Mass Index 31.95 08/07/2023 2:10 AM HORN PLAYER Plan of Treatment Health Maintenance Due Date Last Done Comments DTAP/TDAP/TD VACCINES (1 - Tdap) 1988 HEPATITIS B VACCINES (1 of 3 - 19+ 3-dose series) 1988 COLORECTAL SCREENING 2014 Colorectal Cancer Screening 2014 FIT-DNA Q 3 years 2014 FIT/FOBT Q 1 year 2014 Flex Sig/CT Colonography Q 5 years 2014 ZOSTER VACCINE (1 of 2) 12/04/2019 COVID-19 Vaccine (2023-2 5 season) 2024 07/04/2023, 02/13/2022, 08/01/2021, Additional history exists INFLUENZA VACCINE (#1) 2025 Insurance MEDICAID RX [facility] [employer] Commercial RX [place] PL[employer] (INTERNAL) [facility] Internal Plans Advance Directives For more information, please contact: [phone] * Full Code (Latest Code Status on File) Date Activated Date Inactivated Comments 08/07/2023 1:40 AM 08/08/2023 5:59 PM * Full Code Date Activated Date Inactivated Comments 07/14/2023 9:52 AM 07/15/2023 6:23 PM
--- OUTSIDE RECORDS SUMMARY | 2025-03-25 02:44 | XMS_ITS | Encounter Summary ---
Author Organization [facility] Address [address] [place] [address] Care Team Providers Care Mercerizer Name Role Phone Salome Mcgee CALIBRATION TECHNICIAN Primary Care Provider [phone] Citlali Li MD Unavailable [phone] Lucita Bates NP Unavailable [phone] Lyndsey Ray Primary Care Provide r Encounter Details Date Type Department Care Team (Late st Contact Info) Description 02/04/2023 Hospital Follow-up Call [facility] Cardiovascular Care Unit [address] [place] [address] Lynda Sheriff, RN Social History [...] declined 02/01/2023 Housing Stability Vital Sign Answer Michele e [...] place to sleep or slept in a residential (including now)? Patient refused 02/01/2023 Sex and Gender Information Value Date Recorded Sex Assigned at Male 10/26/2024 2:01 PM GENETIC COUNSELOR Legal Sex Male 5:50 PM GENETIC COUNSELOR Gender Identity Not on file Sexual Orientation [...] Rule Out 09/24/2023 09/24/2023 09/24/2023 1:50 PM GENETIC COUNSELOR COVID-19 Rule Out 04/21/2024 04/21/2024 04/21/2024 3:02 PM CDT documented as of this encounter Care Teams Mercerizer Relationship Specialty Start Date End Date Salome Mcgee NP PCP - General NURSE PRACTITIONER 01/27/23 04/21/24 Lyndsey Ray APNP [address] [place] [address] PCP - General NURSE PRACTITIONER 06/01/24 Citlali Li MD Consulting Physician INTERVENTIONAL CARDIOLOGY 01/29/23 Lucita Bates NP [address] [facility] [address] [address] Nurse Practitioner Nurse Practitioner Family 01/30/23 documented as of this encounter
--- OUTSIDE RECORDS SUMMARY | 2025-03-25 02:44 | XMS_ITS | Encounter Summary ---
Author Organization [facility] Address [address] [place] [address] Care Team Providers Care Physics Technician Name Role Phone Salome Mcgee MENAGERIE CARETAKER Primary Care Provider [phone] Citlali Li MD Unavailable [phone] Lucita Bates NP Unavailable [phone] Lyndsey Ray Primary Care Provide r Encounter Details Date Type Department Care Team (Late st Contact Info) Description 03/14/2023 Hospital Follow-up Call [facility] Cardiovascular Care Unit [address] [place] [address] Lynda Sheriff, RN Social History [...] of your partner or ex-partner? Patient declined 03/11/2023 Within the last year, have y ou been humiliated or emotionally abused in other ways by your partner or ex-partner? Patient declined 03/11/2023 Within the last year, have y ou been kicked, hit, slapped, or otherwise physically hurt by your partner or ex-partner? Patient declined 03/11/2023 Within the last year, have y ou been raped or forced to have any kind of sexual activity by your partner or ex-partner? Patient declined 03/11/2023 Overall Financial Resource Strain (CARDIA) Answe r Date Recorded How hard is it for you to pa y for the very basics like food, housing, medical care, and heating? Patient declined 03/11/2023 Hunger Vital Sign Answer Date Recorded Within the past 12 months, y ou worried that your food would run out before you got the money to buy more. Patient declined Within the past 12 months, t he food you bought just didn't last and you didn't have money to get more. Patient declined 06/2023 PRAPARE - Transportation Answer Date Re corded In the past 12 months, has l ack of transportation kept you from medical appointments or from getting medications? Patient declined 03/11/2023 In the past 12 months, has l ack of transportation kept you from meetings, work, or from getting things needed for daily living? Patient declined 03/11/2023 Housing Stability Vital Sign Answer Michele e Recorded In the last 12 months, was t here a time when you were not able to pay the mortgage or rent on time? Patient refused 03/11/20 23 In the last 12 months, how many places have you lived? 1 03/11/2023 In the last 12 months, was t here a time when you did not have a steady place to sleep or slept in a [place] [facility] (including now)? Patient refused 03/11/2023 Sex and Gender Information Value Date Recorded Sex Assigned at Male 10/26/2024 2:01 PM MACHINE BRUSHER Legal Sex Male 5:50 PM MACHINE BRUSHER Gender Identity Not on file Sexual Orientation Not on file documented as of this encounter Functional Status * Are you deaf or do you have serious difficulty hearing Answer Date of Assessment Author Status No 03/11/2023 5:07 PM Ioana Fletcher RN Active * Are you blind or do you have serious difficulty seeing, even when wearing glasses? Answer Date of Assessment Author Status No 03/11/2023 5:07 PM Georgiana Fletcher RN Active * Do you have serious difficulty walking or climbing stairs? Answer Date of Assessment Author Status No 03/11/2023 5:07 PM DIPESHT Ioana Schuster RN Active * Do you have difficulty dressing or bathing? Answer Date of Assessment Author Status No 03/11/2023 5:07 PM DIPESHT Ioana Schuster RN Active * Because of a physical, mental, or emotional condition, do you have difficulty doing errands alone such as visiting a doctor's office or shopping? Answer Date of Assessment Author Status No 03/11/2023 5:07 PM DIPESHT Ioana Schuster RN Active documented as of this encounter Mental Status * Because of a physical, mental, or emotional condition, do you have serious difficulty concentrating, remembering, or making decisions? Answer Entry Date Author Status No 03/11/2023 5:07 PM DIPESHT Ioana Schuster RN Active documented in this encounter Plan [...] Rule Out 09/24/2023 09/24/2023 09/24/2023 1:50 PM MACHINE BRUSHER COVID-19 Rule Out 04/21/2024 04/21/2024 04/21/2024 3:02 PM CDT documented as of this encounter Care Teams Physics Technician Relationship Specialty Start Date End Date Salome Mcgee NP PCP - General NURSE PRACTITIONER 01/27/23 04/21/24 Lyndsey Ray APNP [address] [place] [address] PCP - General NURSE PRACTITIONER 06/01/24 Citlali Li MD Consulting Physician INTERVENTIONAL CARDIOLOGY 01/29/23 Lucita Bates NP [address] [facility] [address] [place] [address] Nurse Practitioner Nurse Practitioner Family 01/30/23 documented as of this encounter
--- OUTSIDE RECORDS SUMMARY | 2025-03-25 02:44 | XMS_ITS | Encounter Summary ---
Author Organization [facility] Address [address] [place] [address] Care Team Providers Care Roller Mechanic Name Role Phone Salome Mcgee MANAGER CUSTOM Primary Care Provider [phone] Citlali Li MD Unavailable [phone] Lucita Bates NP Unavailable [phone] Lyndsey Ray Primary Care Provide r Encounter Details Date Type Department Care Team (Late st Contact Info) Description 09/26/2023 Hospital Follow-up Call [facility] Cardiovascular Care Unit [address] [place] [address] Lynda Sheriff, RN Social History Tobacco Use Types Packs/Day Years Used Date Smoking Tobacco: Every Day Cigarettes 1.5 38.4 Started: 1984; Last attempted to quit: 01/27/2023 Smokeless Tobacco: Never Alcohol Use Standard Drinks/Week Comments Not Currently 0 (1 standard drink = 0.6 oz pur e alcohol) [facility] Utilities Answer Date Recorded In the past 12 months has e electric, gas, oil, or water company threatened to shut off services in your home? No 09/24/2023 Humiliation, Afraid, Rape, and Kick questionnair e Answer Date Recorded Within the last year, have y ou been afraid of your partner or ex-partner? No 09/24/2023 Within the last year, have y ou been humiliated or emotionally abused in other ways by your partner or ex-partner? No Within the last year, have y ou been kicked, hit, slapped, or otherwise physically hurt by your partner or ex-partner? No 09/24/2023 Within the last year, have y ou been raped or forced to have any kind of sexual activity by your partner or ex-partner? No 09/24/2023 Overall Financial Resource Strain (CARDIA) Answe r Date Recorded How hard is it for you to pa y for the very basics like food, housing, medical care, and heating? Not hard at all 09/24/2023 Hunger Vital Sign Answer Date Recorded Within the past 12 months, y ou worried that your food would run out before you got the money to buy more. Never true 09/24/19 24 Within the past 12 months, t he food you bought just didn't last and you didn't have money to get more. Never true 09/24/2023 PRAPARE - Transportation Answer Date Re corded In the past 12 months, has l ack of transportation kept you from medical appointments or from getting medications? No 09/03 In the past 12 months, has l ack of transportation kept you from meetings, work, or from getting things needed for daily living? No 09/24/2023 Housing Stability Vital Sign Answer Michele e Recorded In the last 12 months, was t here a time when you were not able to pay the mortgage or rent on time? No 09/24/2023 In the last 12 months, how many places have you lived? 1 09/24/2023 In the last 12 months, was t here a time when you did not have a steady place to sleep or slept in a retirement (including now)? No 09/24/2023 Sex and Gender Information Value Date Recorded Sex Assigned at Male 10/26/2024 2:01 PM PROFESSIONAL SYSTEM ADMINISTRATOR Legal Sex Male 5:50 PM PROFESSIONAL SYSTEM ADMINISTRATOR Gender Identity Not on file Sexual Orientation Not on file documented as of this encounter Functional Status * Are you deaf or do you have serious difficulty hearing Answer Date of Assessment Author Status No 09/24/2023 10:53 AM Kristen Chaudhary RN Active * Are you blind or do you have serious difficulty seeing, even when wearing glasses? Answer Date of Assessment Author Status No 09/24/2023 10:53 AM Kristen Chaudhary RN Active * Do you have serious difficulty walking or climbing stairs? Answer Date of Assessment Author Status No 09/24/2023 10:53 AM Kristen Chaudhary RN Active * Do you have difficulty dressing or bathing? Answer Date of Assessment Author Status No 09/24/2023 10:53 AM Kristen Chaudhary RN Active * Because of a physical, mental, or emotional condition, do you have difficulty doing errands alone such as visiting a doctor's office or shopping? Answer Date of Assessment Author Status No 09/24/2023 10:53 AM Kristen Chaudhary RN Active documented as of this encounter Mental Status * Because of a physical, mental, or emotional condition, do you have serious difficulty concentrating, remembering, or making decisions? Answer Entry Date Author Status No 09/24/2023 10:53 AM Kristen Chaudhary RN Active documented in this encounter Plan of Treatment Not on file documented as of this encounter Goals Goal Patient Goal Type Associated Problems Recent Progress Patient-Stated? Author Patient will return to prior living situation and remain independent in ADLs upon discharge from hospital Lifestyle No Sandra Burns RN Safety Patient/family will have appropriate support at home upon discharge Lifestyle No Sandra Burns RN documented as of this encounter Visit Diagnoses Not on filedocumented in this encounter Additional Health Concerns Infection Onset Date Last Indicated Resolved Time COVID-19 Rule Out 04/21/2024 04/21/2024 04/21/2024 3:02 PM CDT documented as of this encounter Care Teams Roller Mechanic Relationship Specialty Start Date End Date Salome Mcgee NP PCP - General NURSE PRACTITIONER 01/27/23 04/21/24 Lyndsey Ray APNP [address] [place] [id number] PCP - General NURSE PRACTITIONER 06/01/24 Citlali Li MD Consulting Physician INTERVENTIONAL CARDIOLOGY 01/29/23 Lucita Bates NP [address] [place] [address] Nurse Practitioner Nurse Practitioner Family 01/30/23 documented as of this encounter
--- OUTSIDE RECORDS SUMMARY | 2025-03-25 02:44 | XMS_ITS | Clinical Summary ---
Author Organization [facility] Address [address] [place] [address] Care Team Providers Care Folding Machine Feeder Name Role Phone Citlali Li MD Unavailable [phone] Lucita Bates NP Unavailable [phone] Lyndsey Ray Primary Care Provide r Allergies Active Allergy Reactions Criticality Noted Date Comments Bee Venom Swelling Low 12/19/2017 Medications aspirin 81 MG chewable tablet Chew 1 tablet (81 mg total) by mouth daily. 30 tablet 02/01/2023 Active atorvastatin (LIPITOR) 40 MG tablet Take 1 tablet (40 mg total) by mouth nightly at bedtime. 90 tablet 01/31/2023 Active nitroglycerin (NITROSTAT) 0.[address] 1 tablet (0.4 mg total) under the tongue every 5 (five) minutes as needed for Chest Pain. 30 tablet 01/31/2023 Active empagliflozin (JARDIANCE) 10 MG tablet Take 1 tablet (10 mg total) by mouth daily. 90 tablet 01/31/2023 Active clopidogrel (PLAVIX) 75 MG tablet Take 1 tablet (75 mg total) by mouth daily. 06/05/2023 Active FLOVENT HFA 44 MCG/ACT inhaler Inhale 2 puffs into the lungs 2 (two) times daily. 05/08/2023 Active ipratropium-alb uterol (DUONEB) 0.5-2.5 (3) MG/3ML Solution every 6 (six) hours as needed. 05/08/2023 Active busPIRone (BUSPAR) 10 MG tablet Take 1.5 tablets (15 mg total) by mouth 2 (two) times daily. 03/21/2023 Active FLUoxetine (PROZAC) 40 MG capsule 05/16/2023 Active vitamin D3 (CHOLECALCIFERO L) 25 mcg tablet Take 2 tablets (50 mcg total) by mouth daily. 08/20/2023 Active Cyanocobalamin 100 MCG Tab Take 200 mcg by mouth daily. 08/20/2023 Active spironolactone (ALDACTONE) 25 MG tablet Take 1 tablet (25 mg total) by mouth daily. 07/16/2023 Active SPIRIVA RESPIMAT 2.5 MCG/ACT inhaler (SPIRIVA RESPIMAT) Inhale 2 puffs into the lungs daily. 09/18/2023 Active traZODone (DESYREL) 50 MG tablet Take 1 tablet (50 mg total) by mouth nightly at bedtime. Active topiramate (TOPAMAX) 50 MG Tab Take 1 tablet (50 mg total) by mouth daily. Active ENTRESTO 24-26 MG tablet Take 1 tablet by mouth 2 (two) times daily. 03/30/2024 Active metoprolol succinate ER (TOPROL-XL) 25 MG 24 hr tablet Take 0.5 tablets (12.5 mg total) by mouth daily. 05/28/2024 Active furosemide (LASIX) 20 MG tablet Take 1 tablet (20 mg total) by mouth daily. 12/12/2023 Active SYMBICORT 80-4.5 MCG/ACT inhaler 10/06/2024 Active Active Problems Problem Noted Date Diagnosed Date Acute encephalopathy 06/01/2024 Intractable headache 04/20/2024 Unstable angina ([facility]) 03/11/2023 Limb ischemia 02/01/2023 STEMI (ST elevation myocardi al infarction) ([facility]) 01/27/2023 Family History Medical History Relation Comments Coronary artery disease Father Diabetes Mother Relation Status Comments Father Mother Alive Social History Tobacco Use Types Packs/Day Years Used Date Smoking Tobacco: Every Day Cigarettes 1.5 38.4 Started: 1984; Last attempted to quit: 01/27/2023 Smokeless Tobacco: Never Tobacco Cessation:Ready to Q uit: No; Counseling Given: Not Answered Alcohol Use Standard Drinks/Week Comments Not Currently 0 (1 standard drink = 0.6 oz pur e alcohol) B1300 Health Literacy Answer Date Recor ded How often do you need to hav e someone help you when you read instructions, pamphlets, or other written material from your doctor or pharmacy? Never 06/01/2024 [facility] Utilities Answer Date Recorded In the past 12 months has e [employer], oil, or water [employer] threatened to shut off services in your home? No 06/01/2024 Humiliation, Afraid, Rape, and Kick questionnair e Answer Date Recorded Within the last year, have y ou been afraid of your partner or ex-partner? No 06/01/2024 Within the last year, have y ou been humiliated or emotionally abused in other ways by your partner or ex-partner? No Within the last year, have y ou been kicked, hit, slapped, or otherwise physically hurt by your partner or ex-partner? No 06/01/2024 Within the last year, have y ou been raped or forced to have any kind of sexual activity by your partner or ex-partner? No 06/01/2024 Social Connection and Isolation Panel [NHANES] A nswer Date Recorded In a typical week, how many times do you talk on the phone with family, friends, or neighbors? Three times a week 06/01/2024 How often do you get togethe r with friends or relatives? Three times a week 06/01/2024 How often do you attend chur or uatsdin services? Never 06/01/2024 Do you belong to any clubs o r organizations such as protestant groups, unions, fraternal or athletic groups, or school groups? No 06/01/2024 How often do you attend meet ings of the clubs or organizations you belong to? Never 06/01/2024 Are you , , di vorced, , never , or living with a partner? 06/01/2024 AUDIT-C Answer Date Recorded Q1: How often do you have a drink containing alcohol? Never 06/01/2024 Q2: How many drinks containi ng alcohol do you have on a typical day when you are drinking? Patient does not drink 09/30/202 4 Q3: How often do you have si x or more drinks on one occasion? Less than monthly 06/01/2024 Overall Financial Resource Strain (CARDIA) Answe r Date Recorded How hard is it for you to pa y for the very basics like food, housing, medical care, and heating? Not hard at all 06/01/2024 [facility] - Occupational Stress Questionnaire Answer Date Recorded Do you feel stress - tense, restless, nervous, or anxious, or unable to sleep at night because your mind is troubled all the time - these days? Not at all 06/01/2024 Hunger Vital Sign Answer Date Recorded Within the past 12 months, y ou worried that your food would run out before you got the money to buy more. Never true 06/01/20 24 Within the past 12 months, t he food you bought just didn't last and you didn't have money to get more. Never true 06/01/2024 PRAPARE - Transportation Answer Date Re corded In the past 12 months, has l ack of transportation kept you from medical appointments or from getting medications? No 05/05 In the past 12 months, has l ack of transportation kept you from meetings, work, or from getting things needed for daily living? No 06/01/2024 Housing Stability Vital Sign Answer Michele e [...] place to sleep or slept in a group home (including now)? No 09/24/2023 Housing Stability Vital Sign Answer Michele e Recorded In the last 12 months, was t here a time when you were not able to pay the mortgage or rent on time? No 06/01/2024 In the past 12 months, how m any times have you moved where you were living? 0 06/01/2024 At any time in the past 12 m [facility], were you homeless or living in a group home (including now)? No 06/01/2024 Sex and Gender Information Value Date Recorded Sex Assigned at Male 10/26/2024 2:01 PM [facility] Legal Sex Male 5:50 PM [facility] Gender Identity Not on file Sexual Orientation Not on file Last Filed Vital Signs Vital Sign Reading Time Taken Comments Blood Pressure 132/84 10/26/2024 1:34 PM [facility] Pulse 56 10/26/2024 2:50 PM [facility] Temperature 36.6 C (97.8 F) 10/26/2024 1:34 PM [facility] Respiratory Rate 20 10/26/2024 2:50 PM [facility] Oxygen Saturation 93% 10/26/2024 2:50 PM [facility] Inhaled Oxygen Concentration - - Weight 99.8 kg (220 lb) 10/26/2024 1:34 PM [facility] Height 180.3 cm (5' 11) 10/26/2024 1:34 PM [facility] Body Mass Index 30.68 10/26/2024 1:34 PM [facility] Plan of Treatment Health Maintenance Due Date Last Done Comments ASCVD Statin 1969 Colorectal Cancer Screening Colonoscopy (10 Years) 1969 Annual Physical 1972 Hepatitis C 12/04/1987 Hepatitis B Vaccines (1 of 3 - 19+ 3-dose series) 1988 Pneumococcal Vaccine: 50+ Years (1 of 2 - PCV) 1988 Zoster Vaccines (1 of 2) 12/04/2019 COVID-19 Vaccine ( season) 2024 07/04/2023, 02/13/2022, 08/01/2021, Additional history exists Lung Cancer Screening 08/08/2024 08/08/2023 ASCVD LDL 09/25/2024 09/25/2023, 06/02, 01/28/2023 DTaP, Tdap and Td Vaccines (2 - Td or Tdap) 08/19/2033 08/19/2023 Meningococcal B Vaccine Aged Out No l onger eligible based on patient's age to complete this topic Meningococcal Vaccine Aged Out No [place] kellie eligible based on patient's age to complete this topic RSV Immunizations Under 20 Months Aged Out No longer eligible based on patient's age to complete this topic Goals Goal Patient Goal Type Associated Problems Recent Progress Patient-Stated? Author Patient will return to prior living situation and remain independent in ADLs upon discharge from hospital Lifestyle No Sandra Burns RN Safety Patient/family will have appropriate support at home upon discharge Lifestyle No Sandra Burns RN Medical Devices Implanted Type Area Uat Tester Device Identifier Shelf Expiration Date Model / Serial / Lot Cerebral Aneurysm Coil-04/13/2024 Implanted:04/13 by Shaheen Jones MD (Quantity not on file) Coil Brain PENUMBRA PC400 COMPLEX SOFT / / Description:MR CONDITIONAL A T 1.5 T OR 3 T, MAX SPATIAL GRADIENT FIELD OF 3000 GAUSS/CM OR LESS, MAX WHOLE BODY YULISSA OF 2 W/KG OR LESS, HEAD COIL 3/2 W/KG OR LESS Cerebral Aneurysm Coil-04/13/2024 Implanted:04/13 by Shaheen Jones MD (Quantity not on file) Coil Brain PENUMBRA PC400 CURVE EXTRA SOFT / / Description:MR CONDITIONAL A T 1.5 T OR 3 T, MAX SPATIAL GRADIENT FIELD OF 3000 GAUSS/CM OR LESS, MAX WHOLE BODY YULISSA OF 2 W/KG OR LESS, HEAD COIL 3/2 W/KG OR LESS Cv Synergy Xd Benny-Rca-01/28/20 Implanted:01/27 by Abilio Morales MD (Quantity not on file) Stent Coronary RCA [employer] 06/24/2024 [id number] / / [id number] Cv Synergy Xd Benny-Rca-01/28/20 Implanted:01/27 by Abilio Morales MD (Quantity not on file) Stent Coronary RCA [employer] 10/08/2024 [id number] / / [id number] Cv Synergy Xd Benny-Rca-01/28/20 Implanted:01/27 by Abilio Morales MD (Quantity not on file) Stent Coronary RCA [employer] 06/07/2024 [id number] / / [id number] Cv Synergy Xd Benny-Rca-01/28/20 Implanted:01/27 by Abilio Morales MD (Quantity not on file) Stent Coronary RCA [employer] 04/30/2024 [id number] / / [id number] Cv Orsiro Mcdermott [id number]-Zd8-07/2023 Implanted:06/12 by Peace Arita MD (Quantity not on file) Stent Coronary LCX [employer] 12/21/2023 [id number] / / [id number] Procedures Procedure Name Priority Date/Time Associated Diagnosis Comments LIPID PANEL Routine 09/25/2023 5:54 AM [facility] from Last 3 Months or Most Recently Relevant to Health Maintenance Results * LIPID PANEL (09/25/2023 5:54 AM [facility]) CHOLESTEROL 143 MG/DL 09/25/2023 6:49 AM [facility] Comment:DESIRABLE: <200 TRIGLYCERIDES 113 MG/DL 09/25/2023 6:49 AM [facility] Comment:<150 NORMAL HDL 55 >39 MG/DL 09/25/2023 6:49 AM [facility] LDL (CALCULATED) 65 MG/DL 09/25/19 6:49 AM [facility] Comment:<100 OPTIMAL VLDL CALCULATION 23 MG/DL 09/25/19 6:49 AM [facility] Comment:REFERENCE RANGE NOT ESTABLISHED CHOL/HDL RATIO 2.6 09/25/2023 6:49 AM [facility] Comment:REFERENCE RANGE NOT ESTABLISHED LDL/HDL 1.2 09/25/2023 6:[address] [facility] Comment:REFERENCE RANGE NOT ESTABLISHED NON HDL CHOLESTEROL 88 MG/DL 09/25/2023 6:[address] [facility] Comment:REFERENCE RANGE NOT ESTABLISHED 09/25/2023 5:54 AM [facility] us Peace Farr MD LABORATORY Final Res ult [facility] [address] [place] [address], [id number] from Last 3 Months or Most Recently Relevant to Health Maintenance Insurance [facility] OFFICE OF COMMUNITY CARE [facility] Advance Directives Documents on File Type Date Recorded Patient Customer Orders Clerk Expl anation Power of Loss Prevention Detective 09/12/2023 7:23 PM POA F OR HEALTHCARE 06/13/23 Advance Directives and Living Will 06/13/2023 12:37 PM * Full Code (Latest Code Status on File) Date Activated Date Inactivated Comments 06/01/2024 1:35 AM 06/02/2024 4:12 PM * Full Code Date Activated Date Inactivated Comments 04/20/2024 12:44 AM 04/21/2024 3:02 PM * Full Code Date Activated Date Inactivated Comments 09/24/2023 6:16 AM 09/25/2023 3:59 PM * Full Code Date Activated Date Inactivated Comments 06/12/2023 6:53 PM 06/13/2023 2:46 PM * Full Code Date Activated Date Inactivated Comments 06/11/2023 8:29 AM 06/12/2023 6:53 PM Care Teams Folding Machine Feeder Relationship Specialty Start Date End Date Lyndsey Ray APNP [address] [place] [address] PCP - General NURSE PRACTITIONER 06/01/24 Citlali Li MD Consulting Physician INTERVENTIONAL CARDIOLOGY 01/29/23 Lucita Bates NP [address] [facility] [address] [place] [address] Nurse Practitioner Nurse Practitioner [facility] 01/30/23
--- NOTE | 2025-03-25 02:46 | ED_ITS ---
HPI - Chest Pain General Chief Complaint: Shortness of Breath/Dyspnea Stated Complaint: SOB/chest pain Time Seen by Provider: 03/25/25 02:44 Source: patient Mode of arrival: ambulatory Limitations: no limitations History of Present Illness HPI narrative: 54-year-old male with a history of smoking, COPD, CAD status post stents, CHF HFrEF, EF of 35%, dyslipidemia, diabetes mellitus, brain aneurysm status post coils last year, presents to the ED with a 4 hour history of -- substernal chest pain radiating to the jaw. Pain is rated as 8/10. Pain was unprovoked. Patient took 2 tablets of sublingual nitro without any relief which prompted him to come to the ED. Last episode of chest pain was 1 year ago. -- worsening shortness of breath. -- Cough which is productive of mucoid sputum. Patient had NM in December of 2022. He had placement of stents which got a blocked causing cardiac arrest. The patient was resuscitated and had 2 additional stents placed. Three months later he has placement of an additional stent. MD complaint: chest pain Pertinent past history: coronary artery disease and prior NM Onset (ago): hour(s) ( For hours.) Timing of current episode: constant Prior episodes: Yes Onset: during rest Pain location: substernal Pain radiation: neck Severity: moderate Pain scale (0-10): 8 Quality: aching and heaviness Relieving factors: nothing Treatment prior to arrival: nitroglycerin Risk Factors Coronary artery disease risk factors: diabetes, smoking history, hyperlipidemia and hypertension Related Data Home Medications ?Medication ?Instructions ?Recorded ?Confirmed ?Last Taken ?Type aspirin 81 mg tablet,delayed 81 mg PO DAILY 08/22/23 08/22/23 Unknown History release atorvastatin 40 mg tablet 40 mg PO QHS 08/22/23 08/22/23 Unknown History buspirone 10 mg tablet 10 mg PO Q12H 08/22/23 08/22/23 Unknown History clopidogrel 75 mg tablet 75 mg PO DAILY 08/22/23 08/22/23 Unknown History empagliflozin 10 mg tablet 10 mg PO DAILY 08/22/23 08/22/23 Unknown History (Jardiance) fluoxetine 40 mg capsule 40 mg PO DAILY 08/22/23 08/22/23 Unknown History fluticasone propionate 44 1 puff inhalation BID 08/22/23 08/22/23 Unknown History mcg/actuation HFA aerosol inhaler (Flovent HFA) metoprolol succinate 25 mg 25 mg PO DAILY 08/22/23 08/22/23 Unknown History tablet,extended release 24 hr nitroglycerin 0.4 mg sublingual 0.4 mg sublingual DIRECTED PRN 08/22/23 08/22/23 Unknown History tablet Chest Pain ranolazine 500 mg tablet,extended 500 mg PO Q12H 08/22/23 08/22/23 Unknown History release,12 hr sacubitril 49 mg-valsartan 51 mg 1 tablet PO Q12H 08/22/23 08/22/23 Unknown History tablet (Entresto) spironolactone 25 mg tablet 25 mg PO DAILY 08/22/23 08/22/23 Unknown History Allergies Allergy/AdvReac Type Severity Reaction Status Date / Time propoxyphene Allergy Mild Stopped Verified 03/25/25 03:20 Breathing Review of Systems 2 Review of Systems: All systems reviewed & are unremarkable except as noted in HPI and below Constitutional: Constitutional: Reports as per HPI and Reports no additional constitutional complaints Eyes: Eyes: Reports as per HPI and Reports no additional eye complaints ENT: Reports system reviewed and no additional complaints, except as documented and Reports as per HPI Cardiovascular: Cardiovascular: Reports as per HPI, Reports no additional cardiovascular complaints, Reports chest pain and Reports radiating jaw, neck or arm pain Respiratory: Respiratory: Reports as per HPI, Reports no additional respiratory complaints, Reports cough, Reports dyspnea and Reports wheezing Gastrointestinal: Gastrointestinal: Reports as per HPI and Reports no additional gastrointestinal complaints Genitourinary: Genitourinary: Reports no additional male genitourinary complaints Musculoskeletal: Musculoskeletal: Reports no additional musculoskeletal complaints Integumentary/Breasts: Skin/Breast: Reports system reviewed and no additional complaints, except as docu Comments: Urticarial rash on his anterior chest and abdomen which is itchy Neurologic: Reports system reviewed and no additional complaints, except as documented and Reports as per HPI Psychiatric: Psychiatric: Reports no additional psychiatric complaints and Reports as per HPI Endocrine: Endocrine: Reports no additional endocrine complaints and Reports as per HPI Hematologic/Lymphatic: Hematologic/Lymphatic: Reports no additional hematologic/lymphatic complaints and Reports as per HPI Allergic/Immunologic: Allergic/Immunologic: Reports no additional allergic/immunologic complaints and Reports as per HPI [facility] Past Medical History Medical History CAD (coronary artery disease) Hyperlipidemia associated with type 2 diabetes mellitus Ischemic cardiomyopathy T2DM (type 2 diabetes mellitus) Family History Family History Other Acute myocardial infarction Social History Social History Smoking packs per day: 1 Smoking cigarettes per day: 20.0 Years smoked: 30 Smoking pack-years: 30.00 Smoking status: Current every day smoker Alcohol intake: never Substance use: never Substance use type: does not use Do You Feel Safe in your Home?: Yes Lack of Transportation: No Lack of Food: Never True Current Housing: I Have Housing Concerned About Future Housing: No Difficulty Paying Gas/Electric Bills: No Difficulty Paying for Meds: No Currently Unemployed: No Education: Associate Degree Difficulty w/ Childcare or Family Care: No Spiritual care concerns: No Exam 2 Narrative: vitals are stable. Const: General: ill appearing Orientation/consciousness: patient oriented x3 Limitations: no limitations HENMT: Head: normal to inspection Ears: external ears normal F ana maria/Nose/Sinus: Normal external nose present Face and sinus: normal facial exam Mouth: Yes Normal oral and palatal mucosa present Throat: posterior oropharynx normal Eyes: Conjunctivae: conjunctivae normal Pupils: Equal, round and reactive pupils present EOM: EOMs intact bilaterally Direct Ophthalmoscopy: no photophobia Neck: Neck: normal visual inspection, no lymphadenopathy and no meningeal signs Chest: Chest palpation & inspection: normal inspection of the chest Resp: Effort & Inspection: uses accessory muscles Auscultation: wheezes and diminished lung sounds Cardio: Rate: regular rate Rhythm: regular rhythm GI: Auscultation: normal bowel sounds Other: No tenderness/ rigidity /rebound. : General: Yes no CVA tenderness Back/Spine/Pelvis: Back: no CVA tenderness Skin: General skin exam: normal color Other: Urticarial rash in front of the chest and abdomen. Neuro: General: patient oriented x3, moves all extremities, no meningeal signs, no focal motor deficits and CN's II-XI intact bilaterally Cranial nerves: Yes Nystagmus not present Speech: normal speech Gait exam (Neuro): Normal gait present Extrem: General: normal to inspection and edema Psych: Mental Status: mental status grossly normal Affect: normal affect Attitude: cooperative Course Course Emergency Course: Substernal chest pain/ stable angina. EKG does not show any ST elevation. Patient is noted to have T-wave inversion in anterior leads. shortness of breath with bilateral wheezing. Chest x-ray does not show evidence of CHF. patient is noted to have elevated D-dimer of 0.7. 3:00 a.m.-- ongoing chest pain and shortness of breath. The patient received DuoNeb treatment with marginal improvement of breathing. Patient has been started on IV heparin, got a dose of metoprolol 25 p.o. and started on nitro drip. Patient has been taking aspirin and Plavix. 3:45 a.m.-- marginal improvement in chest pain. Call [facility]. Patient has been accepted by Dr. Farr Vital Signs Vital signs: Vital Signs Temperature 36.6 C 03/25/25 02:42 Pulse Rate 74 03/25/25 02:42 Respiratory Rate 20 03/25/25 02:42 Blood Pressure 135/85 03/25/25 02:42 Pulse Oximetry 99 03/25/25 02:42 Oxygen Delivery Room Air 03/25/25 02:42 Temperature 36.6 C 03/25/25 02:42 Pulse Rate 82 03/25/25 03:18 Respiratory Rate 20 03/25/25 02:42 Blood Pressure 106/69 03/25/25 03:18 Pulse Oximetry 99 03/25/25 02:42 Oxygen Delivery Room Air 03/25/25 02:42 MDM - Chest Pain MDM Narrative Medical decision making narrative: Unstable angina shortness of breath secondary to COPD/CHF positive D-dimer Differential Diagnosis Differential diagnosis: Likely atypical chest pain and st elevation myocardial infarction Medical Records Data Attestation: I reviewed the patient's medical records. Lab Data Attestation: I reviewed the patient's lab results. 03/25/25 02:52 03/25/25 02:52 Labs: Lab Results 03/25/25 Range/Units 02:52 WBC 12.9 H (4.8-10.8) K/mm3 RBC 5.08 (4.70-6.10) M/mm3 Hgb 14.9 (14.0-18.0) g/dL Hct 46.2 (40.0-54.0) % MCV 90.9 (78.0-102.0) fL MCH 29.3 (27.0-31.0) pg MCHC 32.3 (32-36) g/dL RDW 14.8 H (11.6-14.4) % Plt Count 314 (150-420) K/mm3 MPV 11.1 H (8.7-11.0) fl Immature Gran % (Auto) 0.4 H (0.0-0.0) % Neut % (Auto) 57.2 (50.0-70.0) % Lymph % (Auto) 31.7 (18.0-42.0) % Routt % (Auto) 7.7 (2.0-11.0) % Eos % (Auto) 2.1 (1.0-6.0) % Baso % (Auto) 0.9 (0.0-1.0) % Lymph # (Auto) 4.10 (1.10-4.50) K/mm3 Routt # (Auto) 1.00 H (0.10-0.90) K/mm3 Eos # (Auto) 0.27 (0.02-0.50) K/mm3 Baso # (Auto) 0.12 H (0.00-0.10) K/mm3 Abs Immat Gran (auto) 0.05 H (0.00-0.00) K/mm3 Absolute Neuts (auto) 7.38 H (1.70-7.20) K/mm3 Absolute Nucleated RBC 0.00 (0.00-0.00) K/mm3 Nucleated RBC % 0.0 (0-0.0) % PT 9.8 (9.50-12.1) Seconds INR 0.9 APTT 27.1 (23.9-30.70) Sec D-Dimer 0.77 H (0.19-0.50) mg/L Sodium 141 (137-145) mmol/L Potassium 3.3 L (3.4-5.0) mmol/L Chloride 107 (98-107) mmol/L Carbon Dioxide 27 (22-30) mmol/L Anion Gap 7 (4-12) mmol/L BUN 9 (9-20) mg/dL Creatinine 1.10 (0.7-1.3) mg/dL Estim Creat Clear Calc 83 ml/min Estimated GFR > 60 (59 - ) Glucose 119 H (65-110) mg/dL Calculated Osmolality 291 (285-295) mOsm/kg Lactic Acid 1.4 (0.4-2.0) mmol/L Calcium 8.7 (8.4-10.2) mg/dL Total Bilirubin 0.3 (0.2-1.3) mg/dL AST 23 (17-59) U/L ALT 13 (6-50) U/L Alkaline Phosphatase 101 (38-126) U/L Troponin I < 0.012 (0.000-0.034) ng/mL NT-Pro-B Natriuret Pep 248 H (19.9-100) pg/mL Total Protein 7.3 (6.3-8.2) g/dL Albumin 4.0 (3.5-5.1) g/dL Monoscreen Negative (Negative) ECG Data EKG #1: ECG completion date: 03/25/25 ECG completion time: 02:47 Interpretation: normal sinus rhythm. Left axis deviation. Prominent Q-waves in inferior leads suggestive of an old inferior infarction. T inversion in anterior leads. Poor R-wave progression in anterior leads. No ST elevation. Critical Care Time Critical Care Time Critical Care Time: Yes Total Critical Care Time: 45 Discharge Plan Discharge Clinical Impression: Unstable angina COPD (chronic obstructive pulmonary disease) Qualifiers: COPD type: unspecified COPD Qualified Code(s): J44.9 - Chronic obstructive pulmonary disease, unspecified Patient Disposition: Still a Patient Condition: Unstable Additional Instructions: transfer patient to [facility] is [facility] in [facility]. Patient has been accepted by Patient Language: Faroese Prescriptions: No Action fluoxetine 40 mg capsule 40 mg PO DAILY atorvastatin 40 mg tablet 40 mg PO QHS clopidogrel 75 mg tablet 75 mg PO DAILY aspirin 81 mg Tablet,Delayed Release (Dr/Ec) 81 mg PO DAILY spironolactone 25 mg tablet 25 mg PO DAILY buspirone 10 mg tablet 10 mg PO Q12H fluticasone propionate [Flovent HFA] 44 mcg/actuation Hfa Aerosol Inhaler 1 puff INHALATION BID Rx Instructions: administer with spacer nitroglycerin 0.4 mg tablet, sublingual 0.4 mg sublingual DIRECTED PRN (Reason: Chest Pain) metoprolol succinate 25 mg tablet extended release 24 hr 25 mg PO DAILY ranolazine 500 mg Tablet Extended Release 12 Hr 500 mg PO Q12H Jardiance 10 mg tablet 10 mg PO DAILY Entresto 49-51 mg tablet 1 tablet PO Q12H Follow-up/Referrals: UNKNOWN,DOCTOR [Primary Care Provider] - Time of Disposition: 03:48
[2025-03-25 02:59] LABS: Hematocrit 46.2 % (40.0-54.0); Hemoglobin 14.9 g/dL (14.0-18.0); Immature Granulocyte Percent A 0.4 % (0.0-0.0); Lymphocytes Absolute Auto 4.10 K/mm3 (1.10-4.50); Mean Corpuscular HGB Conc 32.3 g/dL (32-36); Mean Corpuscular Hemoglobin 29.3 pg (27.0-31.0); Mean Corpuscular Volume 90.9 fL (78.0-102.0); Nucleated Red Blood Cells Absolute Auto 0.00 K/mm3 (0.00-0.00); Nucleated Red Blood Cells Perc 0.0 % (0-0.0); Platelet Count Result 314 K/mm3 (150-420); Red Blood Count 5.08 M/mm3 (4.70-6.10); White Blood Count 12.9 K/mm3 (4.8-10.8)
[2025-03-25] MEDS: IPRATROPIUM 0.5 MG/ALBUTEROL SULFATE 2.5 MG AMPUL.NEB 3 ML INHALATION (03:02)
[2025-03-25] MEDS: NITROGLYCERIN SL 0.4 MG TABLET SUBLINGUAL (03:02)
[2025-03-25 03:07] LABS: Negative Monotest Control Negative (Negative); Positive Monotest Control Positive (Positive)
[2025-03-25 03:11] LABS: Alanine Aminotransferase 13 U/L (6-50); Albumin Level 4.0 g/dL (3.5-5.1); Alkaline Phosphatase 101 U/L (38-126); Anion Gap 7 mmol/L (4-12); Aspartate Amino Transferase 23 U/L (17-59); Bilirubin,Total 0.3 mg/dL (0.2-1.3); Blood Urea Nitrogen 9 mg/dL (9-20); Calcium 8.7 mg/dL (8.4-10.2); Carbon Dioxide 27 mmol/L (22-30); Chloride 107 mmol/L (98-107); Estimated CRCL calculation 83 ml/min; Estimated Glomerular Filt Rate > 60; Glucose 119 mg/dL (65-110); Osmolality Calculated 291 mOsm/kg (285-295); Potassium 3.3 mmol/L (3.4-5.0); Sodium 141 mmol/L (137-145); Total Protein 7.3 g/dL (6.3-8.2)
[2025-03-25 03:12] LABS: INR 0.9; Partial Thromboplastin Time 27.1 Sec (23.9-30.70); Prothrombin Time 9.8 Seconds (9.50-12.1)
[2025-03-25] MEDS: METOPROLOL TARTRATE 25 MG TABLET PO (03:16)
[2025-03-25] MEDS: NITROGLYCERIN/D5W 200 MCG/ML 50 MG/250 ML BTL IV CONT (03:18)
[2025-03-25 03:24] LABS: NT Pro B Type Natriuretic Pept 248 pg/mL (19.9-100); Troponin I < 0.012 ng/mL (0.000-0.034)
--- OUTSIDE RECORDS SUMMARY | 2025-03-25 03:25 | XMS_ITS | Encounter Summary ---
Author Organization [facility] Address [address] [place] [address] Care Team Providers Care Recovery Auditor Name Role Phone Unavailable Primary Care Provider Unavailabl e Reason for Visit * Reason Onset Date Comments Chest pain, stents placed in Jun., stress, smoking 07/14/2023 Spoke w/Ronal at Dr. Jewell 's exchange Encounter Details Date Type Department Care Team (Late st Contact Info) Description 07/14/2023 Telephone [facility] Admitting [address] [place] [address] [place] [address] [place] [address] Chest pain, stents placed in [...] on file Legal Sex Male 1:48 AM SOLUTIONS ANALYST Gender Identity Not on file Sexual Orientation Not on file documented as of this encounter Plan of Treatment Not on file documented as of this encounter Visit Diagnoses Not on filedocumented in this encounter Additional Health Concerns Infection Onset Date Last Indicated Resolved Time R/O COVID-19 08/06/2023 08/06/2023 08/06/2023 9:12 PM SOLUTIONS ANALYST documented as of this encounter
--- OUTSIDE RECORDS SUMMARY | 2025-03-25 03:25 | XMS_ITS | Encounter Summary ---
Author Organization [facility] Address [address] [place] [address] Care Team Providers Care Chief Client Officer Name Role Phone Salome Mcgee HEAD CHEF Primary Care Provider [phone] Citlali Li MD Unavailable [phone] Lucita Bates NP Unavailable [phone] Lyndsey Ray Primary Care Provide r Encounter Details Date Type Department Care Team (Late st Contact Info) Description 09/26/2023 Hospital Follow-up Call [facility] Cardiovascular Care Unit [address] [place] [address] Lynda Sheriff, RN Social History Tobacco Use Types Packs/Day Years Used Date Smoking Tobacco: Every Day Cigarettes 1.5 38.4 Started: 1984; Last attempted to quit: 01/27/2023 Smokeless Tobacco: Never Alcohol Use Standard Drinks/Week Comments Not Currently 0 (1 standard drink = 0.6 oz pur e alcohol) [facility] Utilities Answer Date Recorded In the past [...] place to sleep or slept in a long-term (including now)? No 09/24/2023 Sex and Gender Information Value Date Recorded Sex Assigned at Male 10/26/2024 2:01 PM PROJECT CONSTRUCTION MANAGER Legal Sex Male 5:50 PM PROJECT CONSTRUCTION MANAGER Gender Identity Not on file Sexual Orientation [...] documented as of this encounter Care Teams Chief Client Officer Relationship Specialty Start Date End Date Salome Mcgee NP PCP - General NURSE PRACTITIONER 01/27/23 04/21/24 Lyndsey Ray APNP [address] [place] [id number] PCP - General NURSE PRACTITIONER 06/01/24 Citlali Li MD Consulting Physician INTERVENTIONAL CARDIOLOGY 01/29/23 Lucita Bates NP [address] [place] [address] Nurse Practitioner Nurse Practitioner Family 01/30/23 documented as of this encounter
--- OUTSIDE RECORDS SUMMARY | 2025-03-25 03:25 | XMS_ITS | Encounter Summary ---
Author Organization [facility] Address [address] [place] [address] Care Team Providers Care Patent Prosecution Paralegal Name Role Phone Salome Mcgee CHEESE WEIGHER Primary Care Provider Citlali Li MD Unavailable [phone] Lucita Bates NP Unavailable [phone] Lyndsey Ray Primary Care Provide r Encounter Details Date Type Department Care Team (Late st Contact Info) Description 02/04/2023 Hospital Follow-up Call [facility] Cardiovascular Care Unit [address] [place] [address] Lynda Sheriff, RN Social History [...] place to sleep or slept in a halfway (including now)? Patient refused 02/01/2023 Sex and Gender Information Value Date Recorded Sex Assigned at Male 10/26/2024 2:01 PM INSTRUMENT REPAIR TECHNICIAN Legal Sex Male 5:50 PM INSTRUMENT REPAIR TECHNICIAN Gender Identity Not on file Sexual Orientation [...] Rule Out 09/24/2023 09/24/2023 09/24/2023 1:50 PM INSTRUMENT REPAIR TECHNICIAN COVID-19 Rule Out 04/21/2024 04/21/2024 04/21/2024 3:02 PM CDT documented as of this encounter Care Teams Patent Prosecution Paralegal Relationship Specialty Start Date End Date Salome Mcgee NP PCP - General NURSE PRACTITIONER 01/27/23 04/21/24 Lyndsey Ray APNP [address] [place] [address] PCP - General NURSE PRACTITIONER 06/01/24 Citlali Li MD Consulting Physician INTERVENTIONAL CARDIOLOGY 01/29/23 Lucita Bates NP [address] [facility] [address] [address] Nurse Practitioner Nurse Practitioner Family 01/30/23 documented as of this encounter
--- OUTSIDE RECORDS SUMMARY | 2025-03-25 03:25 | XMS_ITS | Encounter Summary ---
Author Organization [facility] Address [address] [place] [address] Care Team Providers Care Metal Roofer Name Role Phone Salome Mcgee PLASTIC MIXER Primary Care Provider [phone] Citlali Li MD Unavailable [phone] Lucita Bates NP Unavailable [phone] Lyndsey Ray Primary Care Provide r Encounter Details Date Type Department Care Team (Late st Contact Info) Description 06/17/2023 Hospital Follow-up Call [facility] Cardiovascular Care Unit [address] [place] [address] Lynda Sheriff, RN Social History [...] place to sleep or slept in a fci (including now)? No 06/11/2023 Sex and Gender Information Value Date Recorded Sex Assigned at Male 10/26/2024 2:01 PM PROFESSOR OF VISUAL ARTS Legal Sex Male 5:50 PM PROFESSOR OF VISUAL ARTS Gender Identity Not on file Sexual Orientation [...] Rule Out 09/24/2023 09/24/2023 09/24/2023 1:50 PM PROFESSOR OF VISUAL ARTS COVID-19 Rule Out 04/21/2024 04/21/2024 04/21/2024 3:02 PM CDT documented as of this encounter Care Teams Metal Roofer Relationship Specialty Start Date End Date Salome Mcgee NP PCP - General NURSE PRACTITIONER 01/27/23 04/21/24 Lyndsey Ray APNP [address] [place] [address] PCP - General NURSE PRACTITIONER 06/01/24 Citlali Li MD Consulting Physician INTERVENTIONAL CARDIOLOGY 01/29/23 Lucita Bates NP [address] [facility] [address] [place] [address] Nurse Practitioner Nurse Practitioner Family 01/30/23 documented as of this encounter
--- OUTSIDE RECORDS SUMMARY | 2025-03-25 03:25 | XMS_ITS | Encounter Summary ---
Author Organization [facility] Address [address] [place] [address] Care Team Providers Care Oceanic Sciences Professor Name Role Phone Salome Mcgee HAT DESIGNER Primary Care Provider [phone] Citlali Li MD Unavailable [phone] Lucita Bates NP Unavailable [phone] Lyndsey Ray Primary Care Provide r Encounter Details Date Type Department Care Team (Late st Contact Info) Description 03/14/2023 Hospital Follow-up Call [facility] Cardiovascular Care Unit [address] [place] [address] Lynda Sheriff, RN Social History [...] slept in a skilled nursing (including now)? Patient refused 03/11/2023 Sex and Gender Information Value Date Recorded Sex Assigned at Male 10/26/2024 2:01 PM CELLOPHANE WORKER Legal Sex Male 5:50 PM CELLOPHANE WORKER Gender Identity Not on file Sexual Orientation [...] Rule Out 09/24/2023 09/24/2023 09/24/2023 1:50 PM CELLOPHANE WORKER COVID-19 Rule Out 04/21/2024 04/21/2024 04/21/2024 3:02 PM CDT documented as of this encounter Care Teams Oceanic Sciences Professor Relationship Specialty Start Date End Date Salome Mcgee NP PCP - General NURSE PRACTITIONER 01/27/23 04/21/24 Lyndsey Ray APNP [address] [place] [address] PCP - General NURSE PRACTITIONER 06/01/24 Citlali Li MD Consulting Physician INTERVENTIONAL CARDIOLOGY 01/29/23 Lucita Bates NP [address] [facility] [address] [place] [address] Nurse Practitioner Nurse Practitioner Family 01/30/23 documented as of this encounter
--- OUTSIDE RECORDS SUMMARY | 2025-03-25 03:25 | XMS_ITS | Encounter Summary ---
Author Organization [facility] Address [address] [place] [address] Care Team Providers Care Component Prep Operator Name Role Phone Salome Mcgee DIRECTOR MORTGAGE Primary Care Provider [phone] Citlali Li MD Unavailable [phone] Lucita Bates NP Unavailable [phone] Lyndsey Ray Primary Care Provide r Encounter Details Date Type Department Care Team (Late st Contact Info) Description 02/04/2023 Hospital Follow-up Call [facility] Cardiovascular Care Unit [address] [place] [address] Lynda Sheriff, RN Social History [...] place to sleep or slept in a [facility] (including now)? Patient refused 02/01/2023 Sex and Gender Information Value Date Recorded Sex Assigned at Male 10/26/2024 2:01 PM LOG BUYER Legal Sex Male 5:50 PM LOG BUYER Gender Identity Not on file Sexual Orientation [...] Rule Out 09/24/2023 09/24/2023 09/24/2023 1:50 PM LOG BUYER COVID-19 Rule Out 04/21/2024 04/21/2024 04/21/2024 3:02 PM CDT documented as of this encounter Care Teams Component Prep Operator Relationship Specialty Start Date End Date Salome Mcgee NP PCP - General NURSE PRACTITIONER 01/27/23 04/21/24 Lyndsey Ray APNP [address] [place] [address] PCP - General NURSE PRACTITIONER 06/01/24 Citlali Li MD Consulting Physician INTERVENTIONAL CARDIOLOGY 01/29/23 Lucita Bates NP [address] [facility] [address] [address] Nurse Practitioner Nurse Practitioner Family 01/30/23 documented as of this encounter
--- OUTSIDE RECORDS SUMMARY | 2025-03-25 03:25 | XMS_ITS | Clinical Summary ---
Author Organization [facility] Address [address] [place] [address] Phone Care Team Providers Care Insulation Foreman Name Role Phone Unavailable Primary Care Provider [...] Date Diagnosed Date Hyperlipidemia 08/07/2023 Atherosclerosis of [place] coronary artery of [place]ki [place]ole heart 08/07/2023 Dizziness 08/07/2023 Chronic systolic CHF [...] on file Legal Sex Male 1:48 AM LAPELER Gender Identity Not on file Sexual Orientation Not on file Last Filed Vital Signs Vital Sign Reading Time Taken Comments Blood Pressure 132/74 08/08/2023 3:08 PM LAPELER Pulse 60 08/08/2023 3:08 PM LAPELER Temperature 36.4 C (97.5 F) 08/08/2023 3:08 PM LAPELER Respiratory Rate 20 08/08/2023 3:08 PM LAPELER Oxygen Saturation 98% 08/08/2023 3:08 PM LAPELER Inhaled Oxygen Concentration - - Weight 103.9 kg (229 lb 1.6 oz) 08/07/2023 2:10 AM LAPELER Height 180.3 cm (5' 11) 08/07/2023 2:10 AM LAPELER Body Mass Index 31.95 08/07/2023 2:10 AM LAPELER Plan of Treatment Health Maintenance Due Date [...] (#1) 2025 Insurance MEDICAID RX [facility] Code [employer] Commercial RX [employer] PL[employer] (INTERNAL) [facility] Internal Plans Advance Directives For more information, please contact: [phone] * Full Code (Latest Code Status on File) Date Activated Date Inactivated Comments 08/07/2023 1:40 AM 08/08/2023 5:59 PM * Full Code Date Activated Date Inactivated Comments 07/14/2023 9:52 AM 07/15/2023 6:23 PM
--- OUTSIDE RECORDS SUMMARY | 2025-03-25 03:25 | XMS_ITS | Clinical Summary ---
Author Organization [facility] Address [address] [place] [address] Care Team Providers Care Spring Winder Name Role Phone Citlali Li MD Unavailable [phone] Lucita Bates NP Unavailable [phone] Lyndsey Ray Primary Care Provide r Allergies [...] encephalopathy 06/01/2024 Intractable headache 04/20/2024 Unstable angina ([facility]) 03/11/2023 Limb ischemia 02/01/2023 STEMI (ST elevation myocardi al infarction) ([facility]) 01/27/2023 Family History Medical History Relation Comments [...] from your doctor or pharmacy? Never 06/01/2024 [facility] Utilities Answer Date Recorded In the past 12 months has e [employer], [employer], oil, or water [employer] threatened to shut off services in your [...] How often do you attend chur or scientology services? Never 06/01/2024 Do you belong to any clubs o r organizations such as pentecostal groups, unions, fraternal or athletic groups, or [...] and heating? Not hard at all 06/01/2024 [facility] - Occupational Stress Questionnaire Answer Date [...] or slept in a halfway (including now)? No 09/24/2023 Housing Stability Vital [...] were you homeless or living in a halfway (including now)? No 06/01/2024 Sex and Gender Information Value Date Recorded Sex Assigned at Male 10/26/2024 2:01 PM MARINE FISHERIES TECHNICIAN Legal Sex Male 5:50 PM MARINE FISHERIES TECHNICIAN Gender Identity Not on file Sexual Orientation Not on file Last Filed Vital Signs Vital Sign Reading Time Taken Comments Blood Pressure 132/84 10/26/2024 1:34 PM MARINE FISHERIES TECHNICIAN Pulse 56 10/26/2024 2:50 PM MARINE FISHERIES TECHNICIAN Temperature 36.6 C (97.8 F) 10/26/2024 1:34 PM MARINE FISHERIES TECHNICIAN Respiratory Rate 20 10/26/2024 2:50 PM MARINE FISHERIES TECHNICIAN Oxygen Saturation 93% 10/26/2024 2:50 PM MARINE FISHERIES TECHNICIAN Inhaled Oxygen Concentration - - Weight 99.8 kg (220 lb) 10/26/2024 1:34 PM MARINE FISHERIES TECHNICIAN Height 180.3 cm (5' 11) 10/26/2024 1:34 PM MARINE FISHERIES TECHNICIAN Body Mass Index 30.68 10/26/2024 1:34 PM MARINE FISHERIES TECHNICIAN Plan of Treatment Health Maintenance Due Date [...] Burns RN Medical Devices Implanted Type Area Fibre Technologist Device Identifier Shelf Expiration Date Model / [...] Stent Coronary RCA [employer] 06/24/2024 [id number] / / [id number] Cv Synergy Xd Benny-Rca-01/28/20 Implanted:01/27 by Abilio Morales MD (Quantity not on file) Stent Coronary RCA [employer] 10/08/2024 [id number] / / [id number] Cv Synergy Xd Benny-Rca-01/28/20 Implanted:01/27 by Abilio Morales MD (Quantity not on file) Stent Coronary RCA [employer] 06/07/2024 [id number] / / [id number] Cv Synergy Xd Benny-Rca-01/28/20 Implanted:01/27 by Abilio Morales MD (Quantity not on file) Stent Coronary RCA [employer] 04/30/2024 [id number] / / [id number] Cv Orsiro Conover [id number]-[id number]-Ar7-07/2023 Implanted:06/12 by Peace Arita MD (Quantity not on file) Stent Coronary LCX [employer] 12/21/2023 [id number] / / [id number] Procedures Procedure Name Priority Date/Time Associated Diagnosis Comments LIPID PANEL Routine 09/25/2023 5:54 AM MARINE FISHERIES TECHNICIAN from Last 3 Months or Most Recently Relevant to Health Maintenance Results * LIPID PANEL (09/25/2023 5:54 AM MARINE FISHERIES TECHNICIAN) CHOLESTEROL 143 MG/DL 09/25/2023 6:49 AM MARINE FISHERIES TECHNICIAN [facility] Comment:DESIRABLE: <200 TRIGLYCERIDES 113 MG/DL 09/25/2023 6:49 AM MARINE FISHERIES TECHNICIAN [facility] Comment:<150 NORMAL HDL 55 >39 MG/DL 09/25/2023 6:49 AM MARINE FISHERIES TECHNICIAN [facility] LDL (CALCULATED) 65 MG/DL 09/25/19 6:49 AM MARINE FISHERIES TECHNICIAN [facility] Comment:<100 OPTIMAL VLDL CALCULATION 23 MG/DL 09/25/19 6:49 AM MARINE FISHERIES TECHNICIAN [facility] Comment:REFERENCE RANGE NOT ESTABLISHED CHOL/HDL RATIO 2.6 09/25/2023 6:49 AM MARINE FISHERIES TECHNICIAN [facility] Comment:REFERENCE RANGE NOT ESTABLISHED LDL/HDL 1.2 09/25/2023 6:49 AM [facility] Comment:REFERENCE RANGE NOT ESTABLISHED NON HDL CHOLESTEROL 88 MG/DL 09/25/2023 6:49 AM [facility] Comment:REFERENCE RANGE NOT ESTABLISHED 09/25/2023 5:54 AM MARINE FISHERIES TECHNICIAN us Peace Farr MD LABORATORY Final Res ult [facility] [address] [place] [address], [id number] from Last 3 Months or Most Recently Relevant to Health Maintenance Insurance [facility] Advance Directives Documents on File Type Date Recorded Patient Superintendent Warehouse Expl anation Power of Director Corporate Sales 09/12/2023 7:23 PM POA F OR HEALTHCARE [...] 8:29 AM 06/12/2023 6:53 PM Care Teams Spring Winder Relationship Specialty Start Date End Date Lyndsey Ray APNP [address] [place] [address] PCP - General NURSE PRACTITIONER 06/01/24 Citlali Li MD Consulting Physician INTERVENTIONAL CARDIOLOGY 01/29/23 Lucita Bates NP [address] [facility] [address] [place] [address] Nurse Practitioner Nurse Practitioner [facility] 01/30/23
[2025-03-25] MEDS: ACETAMINOPHEN 325 MG TABLET 650 MG PO (03:49)
[2025-03-25] MEDS: SODIUM CHLORIDE 0.9% IV 500 ML 999 ML IV CONT (03:54)
[2025-03-25] MEDS: POTASSIUM CHLORIDE 20 MEQ ER TABLET 40 MEQ PO (03:54)
[2025-03-25] MEDS: HEPARIN SOD/D5W 100 UNITS/ML 25,000 UNITS/250 ML BAG 10 UNITS IV CONT (03:56)
== END 2025-03-25 05:46 | disposition short-term general hospital (02) ==
PROVIDERS: Emergency Provider Internal Medicine Critical Care Medicine
DX: I25.110 Atherosclerotic heart disease of native coronary artery with unstable angina pectoris (principal); J44.9 Chronic obstructive pulmonary disease, unspecified; R06.02 Shortness of breath; I50.9 Heart failure, unspecified; E11.9 Type 2 diabetes mellitus without complications; I25.5 Ischemic cardiomyopathy; E78.5 Hyperlipidemia, unspecified; I25.2 Old myocardial infarction; Z95.5 Presence of coronary angioplasty implant and graft; Z79.84 Long term (current) use of oral hypoglycemic drugs; Z79.02 Long term (current) use of antithrombotics/antiplatelets; Z79.82 Long term (current) use of aspirin; Z79.899 Other long term (current) drug therapy; F17.210 Nicotine dependence, cigarettes, uncomplicated
CPT/HCPCS: 36415; 71045; 80053; 83605; 83880; 84484; 85025; 85380; 85610; 85730; 86308; 93005; 96365; 96366; 99285; A9270; J1644; J2305; J7040

== ENCOUNTER 2025-07-31 16:43 | Emergency (ER) | payer OTHER, MEDICAID, SELFPAY ==
--- NOTE | ~2025-07-31 | XR_ITS ---
EXAMINATION: XR elbow RT min 3V, 07/31/2025 17:05 PRIVATE WATCHMAN HISTORY: Fall, Rt. elbow pain/ hematoma COMPARISON: No comparisons available. Findings: No acute fracture or malalignment. No significant degenerative changes. Soft tissues unremarkable. Impression: No acute fracture or malalignment. Reviewed, dictated and finalized at location P. ATE WATCHMAN Impression: No acute fracture or malalignment.
--- NOTE | ~2025-07-31 | XR_ITS ---
XR lumbar spine 2-3V Indication: fall, Low back pain Comparison: None Findings: The vertebral heights are intact. No fracture or subluxation. Severe loss of disc height at L5-S1. Soft tissues unremarkable Impression: No acute abnormality. Reviewed, dictated and finalized at location P. O INTERFERENCE INVESTIGATOR Impression: No acute abnormality.
--- NOTE | ~2025-07-31 | XR_ITS ---
EXAMINATION: XR wrist LT min 3V, 07/31/2025 17:05 RN DOCUMENTATION SPECIALIST HISTORY: Fall, Lt. wrist pain COMPARISON: No comparisons available. Findings: Remote corticated fractures of the ulna styloid process, no acute fracture. Severe degenerative changes of the distal scaphoid articulations. Soft tissues unremarkable. Impression: No acute fracture or malalignment. Reviewed, dictated and finalized at location P. DOCUMENTATION SPECIALIST Impression: No acute fracture or malalignment.
--- NOTE | ~2025-07-31 | XR_ITS ---
XR thoracic spine 3V Indication: Fall, upper back pain Comparison: None Findings: The vertebral heights are intact. No fracture or subluxation. The disc heights are intact. Soft tissues unremarkable Impression: No acute abnormality. Reviewed, dictated and finalized at location P. T PROTECTION OFFICER Impression: No acute abnormality.
[2025-07-31 16:43] VITALS: BP 121/61; PULSE 68; RESP 16; TEMP 36.3; O2SAT 100
--- OUTSIDE RECORDS SUMMARY | 2025-07-31 16:51 | XMS_ITS | Data Portability ---
Author Organization [facility], [address] Neurology ([place]) Address [address] 4th [place] [address] Care Team Providers Care Education Associate Name Role Phone [place] RIVERA Hat Measurer Assessment Encounter Date Assessment Date Assessment LastModified by Organization Details LastModified Time 01/20/2024 01/20/2024 Mr. Merino has a PMH of: -HTN, HLD, Current smoker -CAD s/p PCI of RCA and OM last cath 06/24 at [facility] with patent multiple RCA stent and OM disease. -Cardiomyopathy with LVEF of 40% last echo Oct 2023 Other clinical history significant for: COPD, dyslipidemia, leukocytosis Social history: Seen in [place], current every day smoker This visit: The [...] Skin: No rash, no cyanosis, no clubbing [email or web address] Not available 01/20/2024 11:32:44 02/24/2024 02/24/2024 Mr. Merino has a PMH of: -HTN, HLD, Current smoker -CAD s/p PCI of RCA and OM last cath 06/24 at [facility] with patent multiple RCA stent and OM disease. -LVEF 54% mild concentric LV hypertrophy, LV size is mildly enlarged, RV size is mildly enlarged, RV systolic function is mildly depressed (09/2023), Cardiomyopathy with LVEF of 40% last echo (10/2023) Other clinical history significant for: COPD, dyslipidemia, leukocytosis Social history: Seen in [place], current every day smoker This visit: Patient [...] Skin: No rash, no cyanosis, no clubbing [email or web address] Not available 02/24/2024 16:00:26 06/29/2024 06/29/2024 Mr. [...] hypercapnic respiratory failure Social history: Seen in [place], , unemployed, current every day smoker This [...] performed over a wire passed through the yomba shoshone vessel (see 1st lesion). Following intervention, there [...] Skin: No rash, no cyanosis, no clubbing [email or web address] Not available 06/29/2024 15:56:26 12/28/2024 12/28/2024 Mr. [...] hypercapnic respiratory failure Social history: Seen in [place], , unemployed, current every day smoker This [...] performed over a wire passed through the yomba shoshone vessel (see 1st lesion). Following intervention, there [...] Skin: No rash, no cyanosis, no clubbing [email or web address] Not available 12/28/2024 15:36:15 04/26/2025 04/26/2025 Mr. Merino has a PMH of: -HTN, HLD, Current smoker -CAD s/p PCI of RCA and OM (12/2022); One-vessel CAD in left circumflex with patent stents in the right coronary artery (06/2023), Intervention (03/2025) -Cardiomyopathy: LVEF 35% mild TR (07/2024), LVEF 45% LV size is mildly enlarged, LV systolic function is mildly depressed (03/2025) Other clinical history significant for: COPD, dyslipidemia, asthma, depression, hypercapnic respiratory failure Social history: seen in [place], , unemployed, current every day smoker This visit: Patient presents for hospital follow up. Last visit: (Saw SA 12/2024) The patient is here for follow-up visit. [...] to quit but has been very difficult. Cardiovascular studies summary: Echocardiogram: 03/2025 The left ventricular size is mildly enlarged. The left ventricular systolic function is mildly depressed. The calculated ejection fraction is 45%. Right ventricular systolic function is normal. Holter Monitor: 02/2024 Predominantly sinus rhythm with average heart rate of 65 bpm. Rare PACs and PVCs. No significant sustained arrhythmias. Cardiac Cath: 03/2025 Normal LVEDP. Patent stents in LCx and RCA with moderate disease otherwise. Co-dominant. LAD 30% stenosis. RCA 30% stenosis. Assessment and plan: Shortness of breath with [...] low BP Entresto to 49/51 twice daily I will reduce the dose of spironolactone to 12.5 mg daily given low blood pressure Continue Jardiance 12.5 mg daily Hyperlipidemia -LDL 75 10/2024 - We will continue with atorvastatin 40 mg daily Hypertension -Monitor BP at home [...] Skin: No rash, no cyanosis, no clubbing [email or web address] Not available 04/26/2025 12:14:27 Plan of Treatment Reminders Order Date Submit Date Provider Last Modified By Organization Details Last Modified Time Details Appointments Establish ed Patient 15.EST 2025 01:15P M Dr. Ky Rivera Not available Not available Not available Lab None recorded. Referral None recorded. Procedures None recorded. Surgeries None recorded. Imaging electroca rdiogram, routine ECG, 12 leads min 2023 024 [email or web address] [facility] Only [facility], [address], [address] [address], [place], [address], 01/28/2024 07:42:18 Medication Orders None recorded. Patient TargetsNo targets recorded. Patient InstructionsNo instructions recorded. Reason for Referral None Reported. Results Created Date Observation Date Name Description Value Unit Range Abnormal Flag Note LastModifiedBy Organization Detail LastModifiedTime 02/14/20 24 dunia r monit or Device type: Preven tives monito r Predom inantl y sinus rhythm with averag e heart rate of 65 bpm Rare PACs and PVCs Impres sions: - No signif icant sustai jude arrhyt hmias [email or web address] Not Available 02/19 11:58:43 02/17/20 CT, angio gram, chest , w/wo contr ast No observ ation record ed. [email or web address] [facility] (Radiology) [address] [facility], [place], [address], 02/17/2024 15:49:41 02/27/20 24 02/27/2024 elect yair chaudharygr am inter preta tion* No observ ation record ed. [email or web address] Not Available 2023 08:26:10 02/28/20 24 12/20/2023 event monit or No observ ation record ed. louise Not Available 2023 14:41:51 03/11/20 24 01/03/2024 dunia r monit or Holter monito r applie d at [facility]. Sinus rhythm at an averag e heart rate of 65 bpm. No signif icant sustai jude arrhyt hmias. [email or web address] Not Available 2023 07:38:05 03/14/20 24 03/01/2023 imagi ng/di agnos tic resul t No observ ation record ed. [email or web address] Not Available 06:40:07 03/28/20 24 03/25/2024 , echo ardio mouna Versio n: [facility] Adult Echoca rdiogr am Report Name: Ana bowdenGerson Study Date: 2023, 2: 07 PM : 1970 (MM/DD /YYYY) 3260 Gender : Male Age: 53 Years Height [...] 12: 47 PM cc: Gerson Pace 2023 CARDIO LOGY ECHOCA RDIOGR AM INTERFACE Sc Only - [facility] Radiology [address] [facility], [place], [address], 03/28/2024 13:48:17 04/16/20 24 02/12/2023 imagi ng/di agnos tic resul t No observ ation record ed. Not Available 04/16/2024 04:22:30 04/16/20 24 03/01/2023 imagi ng/di agnos tic resul t No observ ation record ed. Not Available 04/16/2024 04:22:53 06/30/20 24 09/05/2023 imagi ng/di agnos tic resul t No observ ation record ed. [email or web address] Not Available 23:46:15 06/30/20 24 09/05/2023 imagi ng/di agnos tic resul t No observ ation record ed. [email or web address] Not Available 23:46:16 10/29/09/05/2023 imagi ng/di agnos tic resul t No observ ation record ed. [email or web address] Not Available 23:46:17 06/30/20 24 09/05/2023 imagi ng/di agnos tic resul t No observ ation record ed. [email or web address] Not Available 23:46:18 06/30/20 24 09/24/2023 imagi ng/di agnos tic resul t No observ ation record ed. [email or web address] Not Available 23:46:20 06/30/20 24 09/24/2023 imagi ng/di agnos tic resul t No observ ation record ed. [email or web address] Not Available 23:46:21 06/30/20 24 09/24/2023 imagi ng/di agnos tic resul t No observ ation record ed. [email or web address] Not Available 23:46:21 06/30/20 24 09/24/2023 imagi ng/di agnos tic resul t No observ ation record ed. [email or web address] Not Available 23:46:22 06/30/20 24 09/24/2023 imagi ng/di agnos tic resul t No observ ation record ed. [email or web address] Not Available 23:46:24 06/30/20 24 10/22/2023 imagi ng/di agnos tic resul t No observ ation record ed. [email or web address] Not Available 23:46:35 06/30/20 24 10/23/2023 imagi ng/di agnos tic resul t No observ ation record ed. [email or web address] Not Available 23:46:36 06/30/20 24 10/24/2023 imagi ng/di agnos tic resul t No observ ation record ed. [email or web address] Not Available 23:46:40 06/30/20 24 12/16/2023 imagi ng/di agnos tic resul t No observ ation record ed. [email or web address] Not Available 23:46:48 06/30/20 24 12/16/2023 imagi ng/di agnos tic resul t No observ ation record ed. [email or web address] Not Available 23:46:49 06/30/20 24 12/23/2023 imagi ng/di agnos tic resul t No observ ation record ed. [email or web address] Not Available 23:46:53 06/30/20 24 08/13/2023 imagi ng/di agnos tic resul t No observ ation record ed. [email or web address] Not Available 23:47:04 07/02/20 24 06/29/2024 elect yair mendez am, routi ne ECG, 12 leads min No observ ation record ed. [email or web address] [address] [address], [place], [address], 07/02/2024 16:14:38 07/24/20 24 07/20/2024 , echo israel Carney n: 1 +----- ------ ------ ------ -----+ : : : : [facility] : : : : +----- ------ ------ ------ -----+ [id number] [facility] [address] Adult Echoca rdiogr am Report Name: Gerson Pace Study Date: 2023, 2: 46 PM : 1970 (MM/DD /YYYY) 7172 Gender : Male Age: 53 Years Height [...] S: A comple te transt horaci c echoca rdiogr am was perfor med (2D; M-mode ; spectr al and color flow Dopple r). The study was techni kumar diffic ult. LEFT VENTRI BUCKY: The left ventri bucky [...] 114.0 cm/sec Ao max P.2 mmHg SUSAN (Bj sitiera ss Index) : 0.80 LVOT max: 90.8 cm/sec LVOT max P.3 mmHg RAP systol e: 3.0 mmHg PV max: 53.8 cm/sec PV max P.16 mmHg Ky bowden MD/10/2023 , 6: 00 AM cc: Gerson Pace 2023 CARDIO ECHO INTERFACE Sc Only - [facility] Radiology [address] [place] [address], [address], 07/24/2024 07:02:18 08/17/20 24 12/10/2023 CT, angio [...] Organization Details Recorded Time Coronary arterioscl erosis 76993212 Active 2023 Poonam Naylor in [facility] 4 09:58:38 Dyslipidem ia 203569529 Active 2023 Poonam Naylor in [facility] 4 10:00:52 Analgesic overuse headache 859306070 Active 2023 Rosita Wills MD [address] [place] [address], [address] , [facility] 4 14:45:31 Intracrani al aneurysm 213601330 Active 2023 Rosita Wills MD [address] [place] [address], [address] , [facility] 4 15:02:50 Hypertensi ve disorder 44186572 Active 2023 Lyric Claudio [facility] 4 11:20:35 Chest pain 20752422 Active 2023 Lydia Morales [facility] 4 15:29:48 Fatigue 99432236 Active 2023 Sharad Parr [facility] 4 20:42:39 Impingemen t syndrome of left shoulder region 8419636549944 04 Active 2023 Sharad Parr [facility] 4 20:43:07 Dyspnea 971191520 Active 2023 Alexey ruiz [facility] 4 10:50:45 Essential hypertensi on 59164666 Active 2023 Archana King [facility] 4 15:36:51 Ischemic congestive cardiomyop athy 919868102 Active 2023 Archana King [facility] 4 15:37:25 Dyspnea on exertion 24002077 Active 2023 Addie Anderson [facility] 4 11:56:33 Problem Notes None recorded. Procedures Surgical History Date Name Laterality Status Provider Name and Address Organization Details Recorded Time 3 placement of stent in coronary artery completed Rosita Wills MD [facility] [address], [phone] [place] [address] 01/02/2024 14:37:44 wrist repair completed Rosita Wills MD [facility] [address], [address] 01/02/2024 14:38:28 repair of ankle completed Rosita Wills MD [facility] [address], [address] 01/02/2024 14:38:43 Imaging Results None recorded. [...] Not Available spironolacto ne 25 mg tablet Take 0.5 tablets every day by oral route. 2024 active Not Available Not Available Not Avai lable ketorolac 10 mg tablet active Not Available [...] (BMI) Body weight Heart rate Oxygen saturation Systolic And Diastolic Provider Name and Address Organization Details Last Updated DateTime 5 180.34 cm 32.6 kg/m2 382686. 61 g 64 /min 96 % 100/68 mm[Hg] Sharad [facility] 5 15:03:46 Date Recorded Body height Heart rate Body mass index (BMI) Body weight Oxygen saturation Systolic And Diastolic Provider Name and Address Organization Details Last Updated DateTime 4 180.34 cm 66 /min 36.4 kg/m2 731794. 33 g 96 % 132/82 mm[Hg] [facility] 4 10:52:57 Date Recorded Heart rate Body height Body weight Body mass index (BMI) Oxygen saturation Systolic And Diastolic Provider Name and Address Organization Details Last Updated DateTime 4 69 /min 180.34 cm 837360. 41861 g 36.54 kg/m2 95 % 107/74 mm[Hg] Not Available [facility] 4 06:14:43 Date Recorded Body height Heart rate Oxygen saturation Body mass index (BMI) Body weight Systolic And Diastolic Provider Name and Address Organization Details Last Updated DateTime 4 180.34 cm 68 /min 95 % 36 kg/m2 143834. 27 g 102/66 mm[Hg] Sharad [facility] 4 15:41:47 Date Recorded Body height Heart rate Oxygen saturation Body mass index (BMI) Body weight Systolic And Diastolic Provider Name and Address Organization Details Last Updated DateTime 5 180.34 cm 54 /min 98 % 31.7 kg/m2 198463. 19 g 98/74 mm[Hg] Sharad [facility] 5 12:01:56 Date Recorded Body height Heart rate Oxygen saturation Body mass index (BMI) Body weight Systolic And Diastolic Provider Name and Address Organization Details Last Updated DateTime 4 180.34 cm 65 /min 97 % 35.8 kg/m2 801374. 24 g 102/72 mm[Hg] Sindymaisha Michel [facility] 4 15:07:44 Social History None recorded. Functional Status None recorded. Mental Status None recorded. Family History Nothing Reported. Medical History No medical history recorded. Past Encounters Encounter ID Performer Location Encounter Start Date Encounter Closed Date Diagnosis/Indication Diagnosis SNOMED-CT Code Diagnosis ICD10 Code Diagnosis IMO Codes Diagnosis Note [id number] Rosita Wills MD [facility] Specialty Neurology ([place] [address] 01/02/2024 14:07:00 01/02/2024 15:33:27 Analgesic overuse headache 551251474 G44.40 Intracranial aneurysm 12 5048317 I67.1 [id number] KY RIVERA MD [facility] Specialty Cardiolog y ([place] [address] 01/20/2024 10:39:00 01/29/2024 11:15:58 Dyspnea 148979349 R06.00 Ischemic c ongestive cardiomyopathy 162004932 I25.5 Essential hypertension 36590033 I10 [id number] KY RIVERA MD [facility] Specialty Cardiolog y ([place] [address] 02/24/2024 15:02:11 02/25/2024 10:10:10 [id number] KY RIVERA MD [facility] Specialty Cardiolog y ([place] [address] 06/29/2024 14:54:10 06/30/2024 12:52:04 [id number] KY RIVERA MD [facility] Specialty Cardiolog y ([place] [address] 12/28/2024 14:40:49 12/29/2024 07:47:52 [id number] KY RIVERA MD [facility] Specialty Cardiolog y ([place] [address] 04/26/2025 11:53:39 04/27/2025 07:56:04 Health Concerns Section Related Observation LastModified by Organization Detai ls LastModified Time None Recorded Concern Status LastModified by Organization Details LastModified Time None Recorded Advance Directives Directive None Recorded Payers Insurance Date Sequence Insurance Name Policy Number Policy Pacheco Covered Member ID Pacheco Member ID Guarantor Name 07/30/2025 1 [facility] - DOS ON OR AFTER 21 (MEDICAID REPLACEMENT - HMO) Gerson Merino [id number] Gerson Merino 03/26/2025 [facility] Gerson Merino 04/21/2025 [employer] [facility]) Gerson Merino [id number] Gerson Merino 03/29/2025 [facility] OFFICE OF INTEGRATED CARE Gerson Merino [id number] Gerson Merino 03/29/2025 2 INTERFACE REVIEW REQUIRED [facility] Gerson Merino [id number] Gerson Merino 03/29/2025 3 [facility] (MEDICARE REPLACEMENT/AD VANTAGE - HMO) Gerson Merino [id number] Gerson Merino 07/30/2025 2 [facility] Gerson Merino [id number] Gerson Merino
--- OUTSIDE RECORDS SUMMARY | 2025-07-31 16:51 | XMS_ITS ---
Author Organization Unknown Address [id number] [place] [address] [phone] Phone Care Team Providers Care Cat Swamper Name Role Phone KELLY KIMBROUGH Attending Unavailable CHIQUITA HODGE Primary Unavailable Immunization Immunization Date Status Additional Notes Code Code System MMR 04/14/2015 Completed 03 CVX Tdap 08/19/2023 Completed 115 CVX COVID-19, mRNA, LNP-S, PF, 5 0 mcg/0.5 mL 07/04/2023 Completed 312 CVX Social History Type Status Start Date End Date Code Code Syst em Smoking History Current every day smoker 611612993 SNOMED CT Smoking History Unknown if ever smoked [address] Sex Male Medications Medication Start Date End Date Route Frequency Dose Code Code System Medication Instructions Home Meds predniSONE 20MG Oral Tablet 12/12/2023 Unknown BY MOUTH TWICE A DAY 2 TABLET 273749 RxNorm TAKE 2 TABLET BY MOUTH TWICE A DAY x 3 days. thenTAKE 1 TABLET BY MOUTH TWICE A DAY x 3 days Aspirin 81MG Oral Tablet, Enteric Coated 12/12/2023 Unknown ORAL ONCE A DAY 81 MILLIGRAMS 013597 RxNorm TAKE 81 MILLIGRAMS ORAL ONCE A DAY Atorvastatin Calcium 80MG Oral Tablet 12/12/2023 Unknown ORAL ONCE A DAY 40 MILLIGRAMS 859110 RxNorm TAKE 40 MILLIGRAMS ORAL ONCE A DAY Clopidogrel 75MG Oral Tablet 12/12/2023 Unknown ORAL ONCE A DAY 75 MILLIGRAMS 066258 RxNorm TAKE 75 MILLIGRAMS ORAL ONCE A DAY Albuterol Sulfate 0.09MG/1Actuat ion Inhalation Suspension 12/12/2023 Unknown INHALATIO N NEEDED EVERY 4 HOURS 2 unit(s) 3425862 RxNorm 2 EACH INHALATION NEEDED EVERY 4 HOURS Entresto 49MG-51MG Oral Tablet 12/12/2023 Unknown ORAL TWICE A DAY 1 unit(s) 4551487 RxNorm TAKE 1 EACH ORAL TWICE A DAY FLUoxetine HCl 40MG Oral Capsule 12/12/2023 Unknown ORAL ONCE A DAY 40 MILLIGRAMS 615180 RxNorm TAKE 40 MILLIGRAMS ORAL ONCE A DAY Fluticasone Propionate HFA 0.044MG/1Actua tion Inhalation Aerosol Powder 12/12/2023 Unknown INHALATIO N RESP BID 1 unit(s) 765361 RxNorm 1 EACH INHALATION RESP BID Furosemide 20MG Oral Tablet 12/12/2023 Unknown ORAL ONCE A DAY 20 MILLIGRAMS 460723 RxNorm TAKE 20 MILLIGRAMS ORAL ONCE A DAY Isosorbide Mononitrate 30MG Oral Tablet, Extended Release 12/12/2023 Unknown ORAL ONCE A DAY 15 MILLIGRAMS 493023 RxNorm TAKE 15 MILLIGRAMS ORAL ONCE A DAY Jardiance 25MG Oral Tablet 12/12/2023 Unknown ORAL ONCE A DAY 12.5 MILLIGRAMS 4380835 RxNorm TAKE 12.5 MILLIGRAMS ORAL ONCE A DAY Metoprolol Succinate 50MG Oral Tablet, Extended Release 12/12/2023 Unknown ORAL ONCE A DAY 25 MILLIGRAMS 595781 RxNorm TAKE 25 MILLIGRAMS ORAL ONCE A DAY Nitroglycerin 0.4MG Sublingual Tablet 12/12/2023 Unknown SUBLINGUA L NEEDED 0.[address] 0.4 MILLIGRAMS SUBLINGUAL NEEDED Potassium Chloride 10MEQ Oral Tablet, Extended Release 12/12/2023 Unknown ORAL ONCE A DAY 10 MEQ 124880 RxNorm TAKE 10 MEQ ORAL ONCE A DAY Spiriva Respimat 2.5MCG/1Act Inhalation [place] 12/12/2023 Unknown INHALATIO N RESP DAILY 2 unit(s) 6485758 RxNorm 2 EACH INHALATION RESP DAILY Spironolactone 25MG Oral Tablet 12/12/2023 Unknown ORAL ONCE A DAY 25 MILLIGRAMS 237678 RxNorm TAKE 25 MILLIGRAMS ORAL ONCE A DAY Vitamin D 50 MCG Oral Tablet 12/12/2023 Unknown ORAL ONCE A DAY 50 MCG 445344 RxNorm TAKE 50 MCG ORAL ONCE A DAY busPIRone 10MG Oral Tablet 12/12/2023 Unknown ORAL THREE TIMES A DAY 10 MILLIGRAMS 189672 RxNorm TAKE 10 MILLIGRAMS ORAL THREE TIMES A DAY Protonix 40 MG Oral Tablet, Delayed Release 12/12/2023 Unknown BY MOUTH ONCE A DAY 1 TABLET 766044 RxNorm TAKE 1 TABLET BY MOUTH ONCE A DAY Carafate 1GM Oral Tablet 12/12/2023 Unknown BY MOUTH THREE TIMES A DAY BEFORE MEALS 1 TABLET 536676 RxNorm TAKE 1 TABLET BY MOUTH THREE TIMES A DAY BEFORE MEALS Cyanocobalamin 100 mcg 12/12/2023 Unknown ORAL ONCE A DAY 2 CAPSULE RxNorm TAKE 2 CAPSULE ORAL ONCE A DAY Assessment You had the following problems:ATYPICAL CHEST PAINCOPD WITH EXACERBATIONLOWER GI BLEEDINGESSENTIAL HYPERTENSIONTYPE 2 DMMIXED HYPERLIPIDEMIAHISTORY OF MYOCARDIAL INFARCTIONHISTORY OF CORONARY ARTERY DISEASE WITH STENT PLACEMENTBERRY ANEURYSMOTHER SPECIFIED ABNORMAL FINDINGS OF BLOOD CHEMISTRY Hospital Discharge Instructions Should you have any questions prior to discharge, please contact a member of your healthcare team. If you have left the hospital and have any questions, please contact your primary care physician. Reason For Referral No Data Found Problems Problem Start Date Resolved Date Status Code Code System ATYPICAL CHEST PAIN active 954103224 SNOMED-CT COPD WITH EXACERBATION active 2621346 07 SNOMED-CT LOWER GI BLEEDING active 58765012 SN OMED-CT ESSENTIAL HYPERTENSION active 4173688 0 SNOMED-CT TYPE 2 DM active 44394006 SNOMED-CT MIXED HYPERLIPIDEMIA active 668988959 SNOMED-CT HISTORY OF MYOCARDIAL INFARCTION active 719314072 SNOMED-CT HISTORY OF CORONARY ARTERY DISEASE WITH STENT PLACEMENT active 257951256 SNOMED-CT SCHWARTZ ANEURYSM active 720196439 SNOME D-CT OTHER SPECIFIED ABNORMAL FINDINGS OF BLOOD CHEMISTRY active 555833766 SNOMED-CT Allergies and Adverse Reactions Allergy Substance Reaction Severity Start Date Concern Status Co de Code System No Known Drug Allergies Active 481953048 SNOMED-CT Plan of Treatment Thursby Established Patient Visit 12/02 CT Chest/Lung WO Contrast (96344) 12/11 Personal Care Team Section Performer Name Performer Role Active Date Inactive Peterson Barillas PCP - Primary care physician 2022-07-13 Yoan Coker PCP - Primary care physician 2022-08-20
--- OUTSIDE RECORDS SUMMARY | 2025-07-31 16:52 | XMS_ITS ---
Author Organization Unknown Address [id number] [place] [address] [phone] Phone Care Team Providers Care Colon And Rectal Surgeon Name Role Phone JOHN STYLES Attending Unavailable CHIQUITA HODGE Primary Unavailable Immunization Immunization Date Status Additional Notes Code Code System MMR 04/14/2015 Completed 03 CVX Tdap 08/19/2023 Completed 115 CVX COVID-19, mRNA, LNP-S, PF, 5 0 mcg/0.5 mL 07/04/2023 Completed 312 CVX Results BASIC METABOLIC PANEL - Dana ect Date/Time: 01/20/2024 10:45 [facility] ID: [id number] [place] [address], [id number] LOINC: 48636-6 Test Value Unit Reference Range Code Code System Flag FASTING NO BUN 10 mg/dL L=7 H=20 3094-0 LOINC CREATININE 1.00 mg/dL L=0.66 H=1.25 2160-0 LOINC GLUCOSE 102 mg/dL L=74 H=106 2345-7 LOINC CALCIUM 9.3 mg/dL L=8.3 H=10.5 55946-3 LOINC SODIUM 141 mmol/L L=132 H=144 2951-2 LOINC POTASSIUM 3.9 mmol/L L=3.5 H=5.1 2823-3 LOINC CHLORIDE 107 mmol/L L=98 H=107 2075-0 LOINC CO2 28.0 mmol/L L=22.0 H=30.0 2028-9 LOINC ANION GAP 10 L=10 H=20 21224-0 LOINC BUN/CREAT 10.0 3097-3 LOINC AGE 53 88393-2 LOINC eGFR NON-AFR 83 ml/min eGFR AFR AMER 100 ml/min PRO BNP - Collect Date/Time: 01/20/2024 10:45 [facility] ID: [id number] [address] [place], [place], [id number] LOINC: 83233-9 Test Value Unit Reference Range Code Code System Flag Pro BNP2 468 pg/mL L=0 H=900 59926-1 LOINC TROPONIN LEVEL - Collect Michele e/Time: 01/20/2024 10:45 [facility] ID: [id number] [address] [place], [place], [id number] LOINC: 75258-8 Test Value Unit Reference Range Code Code System Flag TROPONIN < 0.012 ng/mL L=0.000 H=0.033 65773-0 LOINC CHEST 2V - Completed: 2023 10:40 LOINC: EXAM DESCRIPTION: CHEST 2V REASON FOR STUDY: Chest pressure and dyspnea, COPD. TECHNIQUE: Frontal and lateral radiographic view(s) of the chest. COMPARISON: 12/10/2023. FINDINGS: LUNGS: No focal opacity, pleural effusion, or pneumothorax. HEART/MEDIASTINUM: Cardiac silhouette normal in size. Mediastinal and hilar contours appear normal. LINES/TUBES: None. BONES: No acute osseous abnormality. IMPRESSION: No acute cardiopulmonary abnormality. THIS IS AN ELECTRONICALLY VERIFIED FINAL REPORT 01/21/2024 7:36 AM - Electronically signed by Mushtaq Rodriguez M.D. CH: TIMOTHY Report ID: [id number] Reading Location: [id number] Social History Type Status Start Date End Date Code Code Syst em Smoking History Current every day smoker [id number] SNOMED CT Smoking History Unknown if ever smoked [address] Sex Male Medications Medication Start Date End Date Route Frequency Dose Code Code System Medication Instructions Home Meds predniSONE 20MG Oral Tablet 12/12/2023 Unknown BY MOUTH TWICE A DAY 2 TABLET 542254 RxNorm TAKE 2 TABLET BY MOUTH TWICE A DAY x 3 days. thenTAKE 1 TABLET BY MOUTH TWICE A DAY x 3 days Aspirin 81MG Oral Tablet, Enteric Coated 12/12/2023 Unknown ORAL ONCE A DAY 81 MILLIGRAMS 084430 RxNorm TAKE 81 MILLIGRAMS ORAL ONCE A DAY Atorvastatin Calcium 80MG Oral Tablet 12/12/2023 Unknown ORAL ONCE A DAY 40 MILLIGRAMS 335484 RxNorm TAKE 40 MILLIGRAMS ORAL ONCE A DAY Clopidogrel 75MG Oral Tablet 12/12/2023 Unknown ORAL ONCE A DAY 75 MILLIGRAMS 201188 RxNorm TAKE 75 MILLIGRAMS ORAL ONCE A DAY Albuterol Sulfate 0.09MG/1Actuat ion Inhalation Suspension 12/12/2023 Unknown INHALATIO N NEEDED EVERY 4 HOURS 2 unit(s) 5612721 RxNorm 2 EACH INHALATION NEEDED EVERY 4 HOURS Entresto 49MG-51MG Oral Tablet 12/12/2023 Unknown ORAL TWICE A DAY 1 unit(s) 9957520 RxNorm TAKE 1 EACH ORAL TWICE A DAY FLUoxetine HCl 40MG Oral Capsule 12/12/2023 Unknown ORAL ONCE A DAY 40 MILLIGRAMS 277554 RxNorm TAKE 40 MILLIGRAMS ORAL ONCE A DAY Fluticasone Propionate HFA 0.044MG/1Actua tion Inhalation Aerosol Powder 12/12/2023 Unknown INHALATIO N RESP BID 1 unit(s) 384503 RxNorm 1 EACH INHALATION RESP BID Furosemide 20MG Oral Tablet 12/12/2023 Unknown ORAL ONCE A DAY 20 MILLIGRAMS 160632 RxNorm TAKE 20 MILLIGRAMS ORAL ONCE A DAY Isosorbide Mononitrate 30MG Oral Tablet, Extended Release 12/12/2023 Unknown ORAL ONCE A DAY 15 MILLIGRAMS 328819 RxNorm TAKE 15 MILLIGRAMS ORAL ONCE A DAY Jardiance 25MG Oral Tablet 12/12/2023 Unknown ORAL ONCE A DAY 12.5 MILLIGRAMS 2045487 RxNorm TAKE 12.5 MILLIGRAMS ORAL ONCE A DAY Metoprolol Succinate 50MG Oral Tablet, Extended Release 12/12/2023 Unknown ORAL ONCE A DAY 25 MILLIGRAMS 777876 RxNorm TAKE 25 MILLIGRAMS ORAL ONCE A DAY Nitroglycerin 0.4MG Sublingual Tablet 12/12/2023 Unknown SUBLINGUA L NEEDED 0.[address] 0.4 MILLIGRAMS SUBLINGUAL NEEDED Potassium Chloride 10MEQ Oral Tablet, Extended Release 12/12/2023 Unknown ORAL ONCE A DAY 10 MEQ 384155 RxNorm TAKE 10 MEQ ORAL ONCE A DAY Spiriva Respimat 2.5MCG/1Act Inhalation [place] 12/12/2023 Unknown INHALATIO N RESP DAILY 2 unit(s) 1297786 RxNorm 2 EACH INHALATION RESP DAILY Spironolactone 25MG Oral Tablet 12/12/2023 Unknown ORAL ONCE A DAY 25 MILLIGRAMS 031957 RxNorm TAKE 25 MILLIGRAMS ORAL ONCE A DAY Vitamin D 50 MCG Oral Tablet 12/12/2023 Unknown ORAL ONCE A DAY 50 MCG 347318 RxNorm TAKE 50 MCG ORAL ONCE A DAY busPIRone 10MG Oral Tablet 12/12/2023 Unknown ORAL THREE TIMES A DAY 10 MILLIGRAMS 570033 RxNorm TAKE 10 MILLIGRAMS ORAL THREE TIMES A DAY Protonix 40 MG Oral Tablet, Delayed Release 12/12/2023 Unknown BY MOUTH ONCE A DAY 1 TABLET 478161 RxNorm TAKE 1 TABLET BY MOUTH ONCE A DAY Carafate 1GM Oral Tablet 12/12/2023 Unknown BY MOUTH THREE TIMES A DAY BEFORE MEALS 1 TABLET 391984 RxNorm TAKE 1 TABLET BY MOUTH THREE [...] Code Code System ATYPICAL CHEST PAIN active 455653782 SNOMED-CT COPD WITH EXACERBATION active 4908255 07 SNOMED-CT LOWER GI BLEEDING active 63237583 SN OMED-CT ESSENTIAL HYPERTENSION active 5716831 0 SNOMED-CT TYPE 2 DM active 26088595 SNOMED-CT MIXED HYPERLIPIDEMIA active 490856952 SNOMED-CT HISTORY OF MYOCARDIAL INFARCTION active 719973619 SNOMED-CT HISTORY OF CORONARY ARTERY DISEASE WITH STENT PLACEMENT active 376460682 SNOMED-CT SCHWARTZ ANEURYSM active 198504014 SNOME D-CT OTHER SPECIFIED ABNORMAL FINDINGS OF BLOOD CHEMISTRY active 484502143 SNOMED-CT Allergies and Adverse Reactions Allergy Substance Reaction Severity Start Date Concern Status Co de Code System No Known Drug Allergies Active 050746464 SNOMED-CT Plan of Treatment Thursby Established Patient Visit 12/02 CT Chest/Lung WO Contrast (73978) 12/11 Encounters Encounter Diagnosis Start Date Code Code Sys tem Dyspnea, unspecified 01/20/2024 SNOMED- CT Personal Care Team Section Performer Name Performer Role Active Date Inactive Peterson Barillas PCP - Primary care physician 2022-07-13 Yoan Coker PCP - Primary care physician 2022-08-20 Imaging Narrative Notes
--- OUTSIDE RECORDS SUMMARY | 2025-07-31 16:52 | XMS_ITS ---
Author Organization Unknown Address [address] [place] [address] [phone] Phone Care Team Providers Care Lay Out Machine Operator Name Role Phone TONE MACIAS Attending Unavailable CHIQUITA HODGE Primary Unavailable Immunization Immunization Date Status Additional Notes Code Code System MMR 04/14/2015 Completed 03 CVX Tdap 08/19/2023 Completed 115 CVX COVID-19, mRNA, LNP-S, PF, 5 0 mcg/0.5 mL 07/04/2023 Completed 312 CVX Social History Type Status Start Date End Date Code Code Syst em Smoking History Current every day smoker 430235758 SNOMED CT Smoking History Unknown if ever smoked [address] Sex Male Medications Medication Start Date End Date Route Frequency Dose Code Code System Medication Instructions Home Meds predniSONE 20MG Oral Tablet 12/12/2023 Unknown BY MOUTH TWICE A DAY 2 TABLET 020162 RxNorm TAKE 2 TABLET BY MOUTH TWICE A DAY x 3 days. thenTAKE 1 TABLET BY MOUTH TWICE A DAY x 3 days Aspirin 81MG Oral Tablet, Enteric Coated 12/12/2023 Unknown ORAL ONCE A DAY 81 MILLIGRAMS 830291 RxNorm TAKE 81 MILLIGRAMS ORAL ONCE A DAY Atorvastatin Calcium 80MG Oral Tablet 12/12/2023 Unknown ORAL ONCE A DAY 40 MILLIGRAMS 361146 RxNorm TAKE 40 MILLIGRAMS ORAL ONCE A DAY Clopidogrel 75MG Oral Tablet 12/12/2023 Unknown ORAL ONCE A DAY 75 MILLIGRAMS 311849 RxNorm TAKE 75 MILLIGRAMS ORAL ONCE A DAY Albuterol Sulfate 0.09MG/1Actuat ion Inhalation Suspension 12/12/2023 Unknown INHALATIO N NEEDED EVERY 4 HOURS 2 unit(s) 4133751 RxNorm 2 EACH INHALATION NEEDED EVERY 4 HOURS Entresto 49MG-51MG Oral Tablet 12/12/2023 Unknown ORAL TWICE A DAY 1 unit(s) 5241717 RxNorm TAKE 1 EACH ORAL TWICE A DAY FLUoxetine HCl 40MG Oral Capsule 12/12/2023 Unknown ORAL ONCE A DAY 40 MILLIGRAMS 374756 RxNorm TAKE 40 MILLIGRAMS ORAL ONCE A DAY Fluticasone Propionate HFA 0.044MG/1Actua tion Inhalation Aerosol Powder 12/12/2023 Unknown INHALATIO N RESP BID 1 unit(s) 237981 RxNorm 1 EACH INHALATION RESP BID Furosemide 20MG Oral Tablet 12/12/2023 Unknown ORAL ONCE A DAY 20 MILLIGRAMS 342660 RxNorm TAKE 20 MILLIGRAMS ORAL ONCE A DAY Isosorbide Mononitrate 30MG Oral Tablet, Extended Release 12/12/2023 Unknown ORAL ONCE A DAY 15 MILLIGRAMS 992110 RxNorm TAKE 15 MILLIGRAMS ORAL ONCE A DAY Jardiance 25MG Oral Tablet 12/12/2023 Unknown ORAL ONCE A DAY 12.5 MILLIGRAMS 3035109 RxNorm TAKE 12.5 MILLIGRAMS ORAL ONCE A DAY Metoprolol Succinate 50MG Oral Tablet, Extended Release 12/12/2023 Unknown ORAL ONCE A DAY 25 MILLIGRAMS 692996 RxNorm TAKE 25 MILLIGRAMS ORAL ONCE A DAY Nitroglycerin 0.4MG Sublingual Tablet 12/12/2023 Unknown SUBLINGUA L NEEDED 0.[address] 0.4 MILLIGRAMS SUBLINGUAL NEEDED Potassium Chloride 10MEQ Oral Tablet, Extended Release 12/12/2023 Unknown ORAL ONCE A DAY 10 MEQ 213954 RxNorm TAKE 10 MEQ ORAL ONCE A DAY Spiriva Respimat 2.5MCG/1Act Inhalation [place] 12/12/2023 Unknown INHALATIO N RESP DAILY 2 unit(s) 2791366 RxNorm 2 EACH INHALATION RESP DAILY Spironolactone 25MG Oral Tablet 12/12/2023 Unknown ORAL ONCE A DAY 25 MILLIGRAMS 442970 RxNorm TAKE 25 MILLIGRAMS ORAL ONCE A DAY Vitamin D 50 MCG Oral Tablet 12/12/2023 Unknown ORAL ONCE A DAY 50 MCG 898042 RxNorm TAKE 50 MCG ORAL ONCE A DAY busPIRone 10MG Oral Tablet 12/12/2023 Unknown ORAL THREE TIMES A DAY 10 MILLIGRAMS 550821 RxNorm TAKE 10 MILLIGRAMS ORAL THREE TIMES A DAY Protonix 40 MG Oral Tablet, Delayed Release 12/12/2023 Unknown BY MOUTH ONCE A DAY 1 TABLET 987493 RxNorm TAKE 1 TABLET BY MOUTH ONCE A DAY Carafate 1GM Oral Tablet 12/12/2023 Unknown BY MOUTH THREE TIMES A DAY BEFORE MEALS 1 TABLET 407625 RxNorm TAKE 1 TABLET BY MOUTH THREE [...] Code Code System ATYPICAL CHEST PAIN active 073330585 SNOMED-CT COPD WITH EXACERBATION active 4445049 07 SNOMED-CT LOWER GI BLEEDING active 22181785 SN OMED-CT ESSENTIAL HYPERTENSION active 9380140 0 SNOMED-CT TYPE 2 DM active 70664238 SNOMED-CT MIXED HYPERLIPIDEMIA active 890997957 SNOMED-CT HISTORY OF MYOCARDIAL INFARCTION active 775898607 SNOMED-CT HISTORY OF CORONARY ARTERY DISEASE WITH STENT PLACEMENT active 994010650 SNOMED-CT SCHWARTZ ANEURYSM active 598310347 SNOME D-CT OTHER SPECIFIED ABNORMAL FINDINGS OF BLOOD CHEMISTRY active 943804601 SNOMED-CT Allergies and Adverse Reactions Allergy Substance Reaction Severity Start Date Concern Status Co de Code System No Known Drug Allergies Active 905923148 SNOMED-CT Plan of Treatment Dainaby Established Patient Visit 12/02 CT Chest/Lung WO Contrast (68896) 12/11 Personal Care Team Section Performer Name Performer Role Active Date Inactive Peterson Barillas PCP - Primary care physician 2022-07-13 Yoan Coker PCP - Primary care physician 2022-08-20
--- OUTSIDE RECORDS SUMMARY | 2025-07-31 16:52 | XMS_ITS ---
Author Organization Unknown Address [address] [place] [phone] Phone Care Team Providers Care Burrer Hand Name Role Phone Unavailable Xwatchlist Unavailable SOPHIE SPRAGUE Attending Unavailable CHIQUITA HODGE Primary Unavailable DILLAN Mcginnis Transferring Provider DILLAN Mcginnis Transferring Provider Immunization Immunization Date Status Additional Notes Code Code System MMR 04/14/2015 Completed 03 CVX Tdap 08/19/2023 Completed 115 CVX COVID-19, mRNA, LNP-S, PF, 5 0 mcg/0.5 mL 07/04/2023 Completed 312 CVX Results COMPREHENSIVE METABOLIC PANE L - Collect Date/Time: 12/12/2023 09:27 [facility] ID: [id number] [place] [address], [phone] LOINC: 69070-2 Test Value Unit Reference Range Code Code System Flag FASTING NO BUN 14 mg/dL L=7 H=20 3094-0 LOINC CREATININE 1.00 mg/dL L=0.66 H=1.25 2160-0 LOINC GLUCOSE 173 mg/dL L=74 H=106 2345-7 LOINC H SODIUM 140 mmol/L L=132 H=144 2951-2 LOINC POTASSIUM 3.5 mmol/L L=3.5 H=5.1 2823-3 LOINC CHLORIDE 105 mmol/L L=98 H=107 2075-0 LOINC CO2 27.0 mmol/L L=22.0 H=30.0 2028-9 LOINC ANION GAP 12 L=10 H=20 72721-0 LOINC OSMOLALITY 295 mOs/kG L=280 H=296 62877-0 LOINC BUN/CREAT 14.0 3097-3 LOINC CALCIUM 9.1 mg/dL L=8.3 H=10.5 25308-8 LOINC AST 25 U/L L=15 H=46 1920-8 LOINC ALT 22 U/L L=9 H=72 1742-6 LOINC ALKALINE PHOS 84 U/L L=38 H=126 6768-6 LOINC TOTAL BILI 0.3 mg/dL L=0.2 H=1.3 1975-2 LOINC ALBUMIN 4.0 G/dL L=3.5 H=5.0 1751-7 LOINC TOTAL PROTEIN 7.1 g/L L=6.3 H=8.2 2885-2 LOINC A/G RATIO 1.3 25731-0 LOINC AGE 53 31234-2 LOINC eGFR NON-AFR 83 ml/min eGFR AFR AMER 100 ml/min CBC W/ DIFF - Collect Date/T peyton: 12/12/2023 09:27 [facility] ID: [id number] [address] [place], [place], [phone] LOINC: 69261-2 Test Value Unit Reference Range Code Code System Flag WBC 19.9 10^3uL L=4.8 H=10.8 H RBC 4.96 10^6uL L=4.60 H=6.20 HEMOGLOBIN 15.2 g/dL L=14.0 H=18.0 718-7 LOINC HEMATOCRIT 46.1 VOL% L=42.0 H=52.0 4544-3 LOINC MCV 92.9 fL L=80.0 H=94.0 MCH 30.6 pg L=27.0 H=32.0 MCHC 33.0 g/dL L=32.0 H=36.0 PLATELETS 212 10^3uL L=100 H=400 42780-2 LOINC RDW 14.4 % L=11.7 H=15.5 %GRAN 85.3 % L=40.0 H=70.0 17727-2 LOINC H %LYMPH 10.1 % L=20.0 H=45.0 736-9 LOINC L %MONO 3.5 % L=2.0 H=10.0 35567-5 LOINC %EOS 0.0 % L=0.0 H=6.0 713-8 LOINC %BASO 0.3 % L=0.0 H=3.0 706-2 LOINC #NEUT 17.0 10^3uL L=1.9 H=7.6 93442-8 LOINC H #LYMPH 2.0 10^3uL L=0.9 H=4.9 49796-9 LOINC #MONO 0.7 10^3uL L=0.1 H=0.9 12054-5 LOINC #EOS 0.0 10^3uL L=0.0 H=0.6 712-0 LOINC #BASO 0.05 10^3uL L=0.00 H=0.10 66503-9 LOINC #IM GRANS 0.2 10^3uL L=0.0 H=7.0 92217-4 LOINC %IM GRANS 0.8 % L=0.0 H=5.0 33778-0 LOINC %NRB 0.0 L=0.0 H=0.2 86049-9 LOINC #NRB 0.000 L=0.000 H=0.012 40944-6 LOINC MANUAL DIFF NOT INDICATED RBC MORPH NOT INDICATED CBC W/ DIFF - Collect Date/T peyton: 12/11/2023 05:05 [facility] ID: [id number] [address] [place], [place], [phone] LOINC: 55830-8 Test Value Unit Reference Range Code Code System Flag WBC 15.7 10^3uL L=4.8 H=10.8 H RBC 5.21 10^6uL L=4.60 H=6.20 HEMOGLOBIN 15.9 g/dL L=14.0 H=18.0 718-7 LOINC HEMATOCRIT 48.0 VOL% L=42.0 H=52.0 4544-3 LOINC MCV 92.1 fL L=80.0 H=94.0 MCH 30.5 pg L=27.0 H=32.0 MCHC 33.1 g/dL L=32.0 H=36.0 PLATELETS 252 10^3uL L=100 H=400 17010-6 LOINC RDW 13.9 % L=11.7 H=15.5 %GRAN 89.9 % L=40.0 H=70.0 70311-6 LOINC H %LYMPH 7.6 % L=20.0 H=45.0 736-9 LOINC L %MONO 1.4 % L=2.0 H=10.0 57174-6 LOINC L %EOS 0.0 % L=0.0 H=6.0 713-8 LOINC %BASO 0.2 % L=0.0 H=3.0 706-2 LOINC #NEUT 14.1 10^3uL L=1.9 H=7.6 92262-0 LOINC H #LYMPH 1.2 10^3uL L=0.9 H=4.9 34406-7 LOINC #MONO 0.2 10^3uL L=0.1 H=0.9 06930-0 LOINC #EOS 0.0 10^3uL L=0.0 H=0.6 712-0 LOINC #BASO 0.03 10^3uL L=0.00 H=0.10 94744-3 LOINC #IM GRANS 0.1 10^3uL L=0.0 H=7.0 18285-1 LOINC %IM GRANS 0.9 % L=0.0 H=5.0 78225-7 LOINC %NRB 0.0 L=0.0 H=0.2 99607-1 LOINC #NRB 0.000 L=0.000 H=0.012 59039-9 LOINC MANUAL DIFF NOT INDICATED RBC MORPH NOT INDICATED BASIC METABOLIC PANEL - Dana ect Date/Time: 12/11/2023 05:05 [facility] ID: [id number] [address] [place], [place], [phone] LOINC: 23247-9 Test Value Unit Reference Range Code Code System Flag FASTING YES BUN 14 mg/dL L=7 H=20 3094-0 LOINC CREATININE 1.00 mg/dL L=0.66 H=1.25 2160-0 LOINC GLUCOSE 184 mg/dL L=74 H=106 2345-7 LOINC H CALCIUM 9.6 mg/dL L=8.3 H=10.5 23689-4 LOINC SODIUM 142 mmol/L L=132 H=144 2951-2 LOINC POTASSIUM 4.4 mmol/L L=3.5 H=5.1 2823-3 LOINC CHLORIDE 108 mmol/L L=98 H=107 2075-0 LOINC H CO2 25.0 mmol/L L=22.0 H=30.0 2028-9 LOINC ANION GAP 13 L=10 H=20 51120-7 LOINC BUN/CREAT 14.0 3097-3 LOINC AGE 53 39515-4 LOINC eGFR NON-AFR 83 ml/min eGFR AFR AMER 100 ml/min HGB A1C -GLYCOHEMOGLOBIN - C ollect Date/Time: 12/11/2023 05:05 [facility] ID: [id number] [address] [place] [address], [id number] LOINC: 4548-4 Test Value Unit Reference Range Code Code System Flag HGBA1C 5.9 % 4548-4 LOINC TROPONIN LEVEL - Collect Michele e/Time: 12/11/2023 05:05 [facility] ID: [id number] [address] [place] [address], [id number] LOINC: 62597-7 Test Value Unit Reference Range Code Code System Flag TROPONIN < 0.012 ng/mL L=0.000 H=0.033 48964-3 LOINC TROPONIN LEVEL - Collect Michele e/Time: 12/11/2023 01:00 [facility] ID: [id number] [address] [place] [address], [phone] LOINC: 39853-0 Test Value Unit Reference Range Code Code System Flag TROPONIN < 0.012 ng/mL L=0.000 H=0.033 86708-6 LOINC TROPONIN LEVEL - Collect Michele e/Time: 12/10/2023 19:01 [facility] ID: [id number] [address] [place] [address], [id number] LOINC: 02526-9 Test Value Unit Reference Range Code Code System Flag TROPONIN < 0.012 ng/mL L=0.000 H=0.033 29749-3 LOINC STOOL OCCULT BLOOD 1-3 CARDS - Collect Date/Time: 12/10/2023 16:25 [facility] ID: [id number] [address] [place] [address], [phone] LOINC: Test Value Unit Reference Range Code Code System Flag OCCULT BLOOD 1 NEGATIVE 5778-6 LOINC OCCULT BLOOD 2 N/A 5778-6 LOINC OCCULT BLOOD 3 N/A 5778-6 LOINC RESPIRATORY 4 PLEX COVID FLU RSV PCR - Collect Date/Time: 12/10/2023 15:30 [facility] ID: [id number] [address] [place] [address], [id number] LOINC: 42555-9 Test Value Unit Reference Range Code Code System Flag SARS CoV2 PCR NEGATIVE FLU A PCR NEGATIVE FLU B PCR NEGATIVE RSV PCR NEGATIVE SEND TO [facility]? YES CBC W/ DIFF - Collect Date/T peyton: 12/10/2023 15:28 [facility] ID: [id number] [address] [place] [address], [id number] LOINC: 78824-6 Test Value Unit Reference Range Code Code System Flag WBC 14.3 10^3uL L=4.8 H=10.8 H RBC 5.31 10^6uL L=4.60 H=6.20 HEMOGLOBIN 16.5 g/dL L=14.0 H=18.0 718-7 LOINC HEMATOCRIT 48.7 VOL% L=42.0 H=52.0 4544-3 LOINC MCV 91.7 fL L=80.0 H=94.0 MCH 31.1 pg L=27.0 H=32.0 MCHC 33.9 g/dL L=32.0 H=36.0 PLATELETS 281 10^3uL L=100 H=400 02135-0 LOINC RDW 14.1 % L=11.7 H=15.5 %GRAN 57.4 % L=40.0 H=70.0 13765-6 LOINC %LYMPH 30.8 % L=20.0 H=45.0 736-9 LOINC %MONO 8.4 % L=2.0 H=10.0 45147-2 LOINC %EOS 2.1 % L=0.0 H=6.0 713-8 LOINC %BASO 1.0 % L=0.0 H=3.0 706-2 LOINC #NEUT 8.2 10^3uL L=1.9 H=7.6 69386-7 LOINC H #LYMPH 4.4 10^3uL L=0.9 H=4.9 81055-1 LOINC #MONO 1.2 10^3uL L=0.1 H=0.9 00705-2 LOINC H #EOS 0.3 10^3uL L=0.0 H=0.6 712-0 LOINC #BASO 0.15 10^3uL L=0.00 H=0.10 90689-1 LOINC H #IM GRANS 0.1 10^3uL L=0.0 H=7.0 25878-0 LOINC %IM GRANS 0.3 % L=0.0 H=5.0 48676-0 LOINC %NRB 0.0 L=0.0 H=0.2 04736-2 LOINC #NRB 0.000 L=0.000 H=0.012 31687-9 LOINC MANUAL DIFF NOT INDICATED RBC MORPH NOT INDICATED PRO BNP - Collect Date/Time: 12/10/2023 15:28 [facility] ID: [id number] [address] [place], [place], [phone] LOINC: 01523-0 Test Value Unit Reference Range Code Code System Flag Pro BNP2 352 pg/mL L=0 H=900 23312-3 LOINC COMPREHENSIVE METABOLIC PANE L - Collect Date/Time: 12/10/2023 15:28 [facility] ID: [id number] [address] [place], [place], [phone] LOINC: 56016-4 Test Value Unit Reference Range Code Code System Flag FASTING UNKNOWN BUN 10 mg/dL L=7 H=20 3094-0 LOINC CREATININE 1.00 mg/dL L=0.66 H=1.25 2160-0 LOINC GLUCOSE 83 mg/dL L=74 H=106 2345-7 LOINC SODIUM 142 mmol/L L=132 H=144 2951-2 LOINC POTASSIUM 3.7 mmol/L L=3.5 H=5.1 2823-3 LOINC CHLORIDE 105 mmol/L L=98 H=107 2075-0 LOINC CO2 28.0 mmol/L L=22.0 H=30.0 2028-9 LOINC ANION GAP 13 L=10 H=20 03637-0 LOINC OSMOLALITY 292 mOs/kG L=280 H=296 79160-8 LOINC BUN/CREAT 10.0 3097-3 LOINC CALCIUM 9.4 mg/dL L=8.3 H=10.5 80121-4 LOINC AST 65 U/L L=15 H=46 1920-8 LOINC H ALT 22 U/L L=9 H=72 1742-6 LOINC ALKALINE PHOS 113 U/L L=38 H=126 6768-6 LOINC TOTAL BILI 0.3 mg/dL L=0.2 H=1.3 1975-2 LOINC ALBUMIN 4.4 G/dL L=3.5 H=5.0 1751-7 LOINC TOTAL PROTEIN 8.1 g/L L=6.3 H=8.2 2885-2 LOINC A/G RATIO 1.2 24399-0 LOINC AGE 53 44924-1 LOINC eGFR NON-AFR 83 ml/min eGFR AFR AMER 100 ml/min TROPONIN LEVEL - Collect Michele e/Time: 12/10/2023 15:28 [facility] ID: [id number] [address] [place] [address], [id number] LOINC: 54339-6 Test Value Unit Reference Range Code Code System Flag TROPONIN < 0.012 ng/mL L=0.000 H=0.033 01284-2 LOINC D DIMER - Collect Date/Time: 12/10/2023 15:28 [facility] ID: [id number] [address] [place] [address], [id number] LOINC: Test Value Unit Reference Range Code Code System Flag DDIMER 0.57 mg/L FEU L=0.00 H=0.50 H CHEST 1V - Completed: 2023 16:05 LOINC: EXAM DESCRIPTION: CHEST 1V REASON FOR STUDY: chest pain/ history of CAD/ coronary stent/HTN/ OH/ COPD Duration: today TECHNIQUE: Frontal radiographic view(s) of the chest. COMPARISON: 10/22/2023 FINDINGS: No consolidation, pulmonary edema, pleural effusion or pneumothorax. Borderline cardiomegaly. Mediastinal contours are grossly normal. IMPRESSION: 1. No gross acute cardiopulmonary abnormality. THIS IS AN ELECTRONICALLY VERIFIED FINAL REPORT 12/10/2023 4:19 PM - Electronically signed by Scott Hutton M.D. AG: CATRACHITA Report ID: [id number] Reading Location: [id number] CT ABD/PEL WO CONTRAST - Com pleted: 12/10/2023 20:08 LOINC: 43308-9 EXAM DESCRIPTION: CT ABD/PEL WO CONTRAST REASON FOR STUDY: Epigastric and LLQ abdominal pain and tenderness. Blood in stool. Nausea, SOB and chest pain. Unknown onset. History of CAD, coronary stent, HTN, COPD, diabetes and OH. Smoker. Duration: unknown onset TECHNIQUE: Multiplanar computed tomographic imaging of the abdomen and pelvis. COMPARISON: None. FINDINGS: The liver, gallbladder, spleen, pancreas and adrenal glands are within normal limits given the limitation of no intravenous contrast. There is contrast in the collecting systems from CT imaging of the thorax following the intravenous administration of contrast performed earlier today. No hydronephrosis and no perinephric fluid collections. The abdominal aorta is normal in caliber. The stomach, small intestine and large intestine are normal in caliber. The appendix is within normal limits. There is a short segment of sigmoid diverticulosis with wall thickening and luminal narrowing but no adjacent inflammatory change. The bladder is opacified and without filling defects. There is no free fluid. IMPRESSION: Short segment of sigmoid diverticulosis with wall thickening and luminal narrowing but no adjacent inflammatory change. This should be further evaluated with endoscopy. THIS IS AN ELECTRONICALLY VERIFIED FINAL REPORT 12/10/2023 8:26 PM - Electronically signed by Vince Mcelroy M.D. SN: SN Report ID: [id number] Reading Location: [id number] CT ANGIO HEAD/COW W+WO CONTR AST - Completed: 12/12/2023 11:43 LOINC: EXAM DESCRIPTION: CT ANGIO HEAD/COW W+WO CONTRAST REASON FOR STUDY: L MCA Aneurysm per MRI 12/03/23 TECHNIQUE: Axial images were first obtained through the brain without contrast. During contrast injection, thin section axial imaging were obtained through the brain. 3D MIP images rendered on scanning unit and reviewed at time of interpretation. Automated exposure control was used as a dose optimization technique for this examination. CONTRAST TYPE/DOSE: 100 cc Isovue 370 injected via right antecubital COMPARISON: MRI brain comparison 12/02/2023. FINDINGS: BRAIN BRAIN: No hemorrhage, edema or mass effect. No recent infarct. Normal white matter. EXTRA-AXIAL SPACES: No fluid collections. No masses. CALVARIUM: No fracture. SINUSES/MASTOIDS: No fluid or mucosal thickening. ORBITS: No significant abnormality. OTHER: No other significant abnormality. INTRACRANIAL VESSELS [place] OF MILLER: There is a 4.2 layton aneurysm at the bifurcation-trifurcation of the left middle cerebral artery in the proximal sylvian fissure. The aneurysm points posteriorly and laterally. No other aneurysm is seen. There is no stenosis or branch occlusion. The anterior, middle, posterior cerebral arteries are all patent. No evidence of aneurysm or focal stenosis. POSTERIOR CIRCULATION: The distal vertebral arteries are patent as is the basilar artery. No aneurysm. BRAIN: No gross enhancing lesions as visualized. OTHER: No other significant finding. IMPRESSION: BRAIN: No acute abnormalities. INTRACRANIAL CTA: 4.2 mm layton aneurysm at the bifurcation-trifurcation of the left middle cerebral artery in the proximal Sylvian fissure. No other intracranial vascular abnormality. THIS IS AN ELECTRONICALLY VERIFIED FINAL REPORT 12/12/2023 12:08 PM - Electronically signed by Geo Badillo M.D. LC: LC Report ID: [id number] Reading Location: [id number] CT CHEST PE ANGIO W/ CONTRAS T - Completed: 12/10/2023 17:40 LOINC: 34989-6 EXAM DESCRIPTION: CT CHEST PE ANGIO W/ CONTRAST REASON FOR STUDY: Bilateral chest pain that patient describes as pressure like. Associated nausea and SOB. Elevated d-dimer. Unknown onset. History of CAD, coronary stent, HTN, COPD, diabetes and OH. Smoker. Duration: unknown Previous Surgery: coronary stent Smoking History: current TECHNIQUE: Multiplanar computed tomographic angiography of the thorax following the intravenous administration of contrast. Maximum intensity projection images were generated and reviewed. COMPARISON: None. FINDINGS: The study is limited by significant amount of respiratory motion artifact. No thoracic aortic aneurysm. No acute pulmonary emboli. No suspicious mediastinal lymph nodes. Normal heart size. Probable right coronary stent. No pericardial effusion. Trachea midline. Central airways patent. Suspect some degree of underlying pulmonary emphysema. Evidence of prior granulomatous infection. 5 mm noncalcified nodule right upper lobe posteriorly axial image 39. No focal consolidation. No pleural effusions. IMPRESSION: No acute intrathoracic abnormality. Right upper lobe pulmonary nodule. Follow-up imaging in 6 months recommended. THIS IS AN ELECTRONICALLY VERIFIED FINAL REPORT 12/10/2023 6:19 PM - Electronically signed by Vince Mcelroy M.D. SN: SN Report ID: [id number] Reading Location: [id number] US PAROTID RIGHT - Completed : 12/11/2023 15:45 LOINC: EXAM DESCRIPTION: US PAROTID RIGHT REASON FOR STUDY: Abnormal MRI on 12/03/23 TECHNIQUE: A Dynamic assessment was performed of the right parotid gland by the endless belt finisher, with selected grayscale and color Doppler images acquired and recorded in PACS. COMPARISON: Brain MRI dated 12/02/2023 FINDINGS: There is a single right parotid lesion which measures 6 mm in long axis and 3 mm in short axis. There is normal lymph node morphology. This finding is compatible with a normal parotid lymph node. IMPRESSION: There is an imaged normal right parotid lymph node. No suspicious parotid lesion is identified on the provided images. THIS IS AN ELECTRONICALLY VERIFIED FINAL REPORT 12/11/2023 4:02 PM - Electronically signed by Brain De La Paz M.D. MM: MM Report ID: [id number] Reading Location: [id number] Social History Type Status Start Date End Date Code Code Syst em Smoking History Current every day smoker [id number] SNOMED CT Smoking History Unknown if ever smoked [id number] Sex Male Vital Signs Vital Sign Value Unit Stanly Value Stanly Unit Date/Time Recent/Initial? Code Code System Systolic Blood Pressure 112 mm[Hg] 12/12/2023 05:55 Most Recent 8480- 6 LOINC Diastolic Blood Pressure 58 mm[Hg] 12/12/2023 05:55 Most Recent 8462- 4 LOINC Systolic Blood Pressure 120 mm[Hg] 12/10/2023 22:30 Initial 8480- 6 LOINC Diastolic Blood Pressure 72 mm[Hg] 12/10/2023 22:30 Initial 8462- 4 LOINC O2 Saturation 95 % 2023 11:48 Most Recent 24039 -5 LOINC O2 Saturation 96 % 2023 22:30 Initial 17091 -5 LOINC Pulse 66.0 /min 12/12/2023 11:15 Most Recent 8867- 4 LOINC Pulse 70.0 /min 12/10/2023 22:30 Initial 8867- 4 LOINC Respiration 16 /min 12/12/19 11:15 Most Recent 9279- 1 LOINC Respiration 18 /min 12/10/19 22:30 Initial 9279- 1 [facility] Temperature 36.4 Samantha 97.5 F 12/12/19 11:48 Most Recent 8310- 5 [facility] Temperature 36.5 Samantha 97.7 F 12/10/19 22:30 Initial 8310- 5 [facility] Weight 115.48 kg 254.60 lbs 12/12/2023 07:47 Most Recent 85090 -7 [facility] Weight 115.30 kg 254.20 lbs 12/10/2023 22:30 Initial 88649 -7 [facility] Medications Medication Start Date End Date Route Frequency Dose Code Code System Medication Instructions Home Meds predniSONE 20MG Oral Tablet 12/12/2023 Unknown BY MOUTH TWICE A DAY 2 TABLET 636652 RxNorm TAKE 2 TABLET BY MOUTH TWICE A DAY x 3 days. thenTAKE 1 TABLET BY MOUTH TWICE A DAY x 3 days Aspirin 81MG Oral Tablet, Enteric Coated 12/12/2023 Unknown ORAL ONCE A DAY 81 MILLIGRAMS 978759 RxNorm TAKE 81 MILLIGRAMS ORAL ONCE A DAY Atorvastatin Calcium 80MG Oral Tablet 12/12/2023 Unknown ORAL ONCE A DAY 40 MILLIGRAMS 066850 RxNorm TAKE 40 MILLIGRAMS ORAL ONCE A DAY Clopidogrel 75MG Oral Tablet 12/12/2023 Unknown ORAL ONCE A DAY 75 MILLIGRAMS 204777 RxNorm TAKE 75 MILLIGRAMS ORAL ONCE A DAY Albuterol Sulfate 0.09MG/1Actuat ion Inhalation Suspension 12/12/2023 Unknown INHALATIO N NEEDED EVERY 4 HOURS 2 unit(s) 9995398 RxNorm 2 EACH INHALATION NEEDED EVERY 4 HOURS Entresto 49MG-51MG Oral Tablet 12/12/2023 Unknown ORAL TWICE A DAY 1 unit(s) 9672535 RxNorm TAKE 1 EACH ORAL TWICE A DAY FLUoxetine HCl 40MG Oral Capsule 12/12/2023 Unknown ORAL ONCE A DAY 40 MILLIGRAMS 766919 RxNorm TAKE 40 MILLIGRAMS ORAL ONCE A DAY Fluticasone Propionate HFA 0.044MG/1Actua tion Inhalation Aerosol Powder 12/12/2023 Unknown INHALATIO N RESP BID 1 unit(s) 201490 RxNorm 1 EACH INHALATION RESP BID Furosemide 20MG Oral Tablet 12/12/2023 Unknown ORAL ONCE A DAY 20 MILLIGRAMS 690532 RxNorm TAKE 20 MILLIGRAMS ORAL ONCE A DAY Isosorbide Mononitrate 30MG Oral Tablet, Extended Release 12/12/2023 Unknown ORAL ONCE A DAY 15 MILLIGRAMS 269526 RxNorm TAKE 15 MILLIGRAMS ORAL ONCE A DAY Jardiance 25MG Oral Tablet 12/12/2023 Unknown ORAL ONCE A DAY 12.5 MILLIGRAMS 8361640 RxNorm TAKE 12.5 MILLIGRAMS ORAL ONCE A DAY Metoprolol Succinate 50MG Oral Tablet, Extended Release 12/12/2023 Unknown ORAL ONCE A DAY 25 MILLIGRAMS 406119 RxNorm TAKE 25 MILLIGRAMS ORAL ONCE A DAY Nitroglycerin 0.4MG Sublingual Tablet 12/12/2023 Unknown SUBLINGUA L NEEDED 0.[address] 0.4 MILLIGRAMS SUBLINGUAL NEEDED Potassium Chloride 10MEQ Oral Tablet, Extended Release 12/12/2023 Unknown ORAL ONCE A DAY 10 MEQ 526611 RxNorm TAKE 10 MEQ ORAL ONCE A DAY Spiriva Respimat 2.5MCG/1Act Inhalation [place] 12/12/2023 Unknown INHALATIO N RESP DAILY 2 unit(s) 8919791 RxNorm 2 EACH INHALATION RESP DAILY Spironolactone 25MG Oral Tablet 12/12/2023 Unknown ORAL ONCE A DAY 25 MILLIGRAMS 486528 RxNorm TAKE 25 MILLIGRAMS ORAL ONCE A DAY Vitamin D 50 MCG Oral Tablet 12/12/2023 Unknown ORAL ONCE A DAY 50 MCG 615820 RxNorm TAKE 50 MCG ORAL ONCE A DAY busPIRone 10MG Oral Tablet 12/12/2023 Unknown ORAL THREE TIMES A DAY 10 MILLIGRAMS 819382 RxNorm TAKE 10 MILLIGRAMS ORAL THREE TIMES A DAY Protonix 40 MG Oral Tablet, Delayed Release 12/12/2023 Unknown BY MOUTH ONCE A DAY 1 TABLET 375988 RxNorm TAKE 1 TABLET BY MOUTH ONCE A DAY Carafate 1GM Oral Tablet 12/12/2023 Unknown BY MOUTH THREE TIMES A DAY BEFORE MEALS 1 TABLET 20800509 RxNorm TAKE 1 TABLET BY MOUTH THREE [...] questions, please contact your primary care physician. Discharge Date:12/12/23 Mode of Discharge:Ambulatory. Diet:2 Gram Low Sodium Low Cholesterol Activity:As tolerated. IV Site Information:Observe area for, redness, swelling, pain, drainage, or red streaks.If these symptoms occur, please contact your physician. Notify Physician For:chest pain, keep count of your bloody stools & what they look like, ifsymtoms worsen go to ER Fever, Cough, Increased pain, Abnormal bleeding.Burning with urination, Drainage. Cardiac Patients:Monitor weight daily, Contact MD for:, Shortness of breath.Weight increase more than 3lbs/5 days, Edema, Intolerance to exercise. Additional Information:Roula PRIMER BOXER with Dr Coker December 18 @ 9:00Dr Joselito BERG December 22 @ 9:50 Belongings:Belongings sent with patient. Discharge Plan:Education given on Diagnosis(es), Medication list & instructions given.Educated on anticipated problems, Educated on anticipated problems.Aware of symptom mngment & interventions, Educated on diet and activity.Aware of follow up appt within 1 week.Aware of signs&symptoms that may develop, Discussed when to call MD or 911. Acknowledges Receipt/Understanding Of:Discharge instructions, Pneumonia instructions, CHF instructions.COPD instructions, Smoking cessation instructions, Medication instructions.Follow up appointment. Reason For Referral Reason for Referral: SEE GABRIELLA 12/18 @ 9AM Receiving Provider: [place] [address] Appointment Date: 12/19/2023 Reason for Referral: SEE DR LEMUS 12/22 @ 9:50AM Receiving Provider: [place] [address] Appointment Date: 12/23/2023 Problems Problem Start Date Resolved Date Status Code Code System ATYPICAL CHEST PAIN active 626745735 SNOMED-CT COPD WITH EXACERBATION active 2713710 07 SNOMED-CT LOWER GI BLEEDING active 28672895 SN OMED-CT ESSENTIAL HYPERTENSION active 5785684 0 SNOMED-CT TYPE 2 DM active 60311486 SNOMED-CT MIXED HYPERLIPIDEMIA active 845107906 SNOMED-CT HISTORY OF MYOCARDIAL INFARCTION active 544183184 SNOMED-CT HISTORY OF CORONARY ARTERY DISEASE WITH STENT PLACEMENT active 184882503 SNOMED-CT [place] ANEURYSM active 327161619 SNOME D-CT OTHER SPECIFIED ABNORMAL FINDINGS OF BLOOD CHEMISTRY active 188155119 SNOMED-CT Allergies and Adverse Reactions Allergy Substance Reaction Severity Start Date Concern Status Co de Code System No Known Drug Allergies Active 080913673 SNOMED-CT Plan of Treatment Lexi Established Patient Visit 12/02 CT Chest/Lung WO Contrast (65626) 12/11 Encounters Encounter Diagnosis Start Date Code Code Sys tem Other chest pain 12/10/2023 SNOMED-CT Personal Care Team Section Performer Name Performer Role Active Date Inactive Da leilani Coker PCP - Primary care physician 2022-07-13 Naveen Coker PCP - Primary care physician 2022-08-20 Discharge Summary Notes [facility] 12/12/2023 13:40 Demographics Patient Name Age Sex Visit Number Admission Date/Time Attending Physician Room and Bed SOBEIDA MERINO 1970 53 years Male [id number] 12/10/2023 21:42 [place] [id number] 12/12/2023 ADMISSION & FINAL DIAGNOSIS: Problem List Atypical chest pain COPD with exacerbation Lower GI bleeding Essential hypertension Type 2 DM Mixed hyperlipidemia History of myocardial infarction History of coronary artery disease with stent placement [place] aneurysm Full Code Status BRIEF HISTORY: (FROM INITIAL OBSERVATION ON 12/10/2023: Lotus Notes Administrator:) Patient is a 53-year-old man with history of chronic tobacco use disorder, coronary artery disease, hypertension, hyperlipidemia, COPD who had arrived at the emergency room with complaints of bloody stools and chest discomfort. Patient stated that for the past week he has been having intermittent epigastric discomfort, as well as worsening chest tightness/pressure. The pain is 6-7 out of 10. Worsening exertional dyspnea at less than 20 feet. Patient has a maintenance inhaler and a rescue inhaler which she says initially started helping his discomfort but has not been helping as much. Did not get much relief from the nitroglycerin yesterday with 2 L or today x 1. He admits to increased fatigue and decreased energy. Patient also states for the past week he has been having red streaks on the toilet paper as well as red streaked stools. But denies any black stools. Admits to nausea but no vomiting. Patient denies any fevers or chills. Chemistries are unremarkable and noncontributory. Renal function is intact without deficit. Patient has a mildly elevated AST at 65 but ALT is an alk phos and T. bili are within normal limits. Troponin is normal x 2 without significant EKG changes. proBNP of 352. White blood cell count however is elevated at 14.3 with a hemoglobin of 16.5, MCV of 91.7 and a platelet count of 281. D-dimer mildly elevated at 0.57. Occult stool is negative x 1. Respiratory viral panel with influenza A/B, COVID-[address] RSV are negative. [address] PE protocol reveals no acute intrathoracic abnormality. Right upper lobe pulmonary nodule. CT of the abdomen and pelvis with out IV contrast reveals short segment of sigmoid diverticulosis with wall thickening and luminal narrowing but no adjacent inflammatory changes. Patient was admitted to the hospital for issues of high risk atypical chest pain, concerns for lower GI bleed. Active Problem List: -Atypical chest pain -Acute COPD exacerbation -Lower GI bleed -History of coronary artery disease with stent placement -Chronic tobacco use disorder with current use -Essential hypertension/COPD/hyperlipidemia -Right upper lobe pulmonary nodule Medical Decision Making 12/10/2023: -Patient is being admitted to the hospital for issues of atypical chest pain. Patient has had 2 troponins that were negative. With EKG showing no significant changes or significant arrhythmia. However, the computer tech at [facility] Dr. ENGLAND had recommended that patient be placed on observation services for cardiac rule out and possible stress test. However, patient has significant amount of wheezing in his lungs with a significant amount of reactive airway disease to suggest that patient might be undergoing a COPD exacerbation. Patient will be placed on cardiac telemetry overnight and we will get cardiac enzymes. However, it may be the main etiology of patient's chest discomfort or pain may be noncardiac respiratory/pleuritic and or GI related given patient's GI bleed. While the GI bleed is likely lower in origin there is a possibility it may be upper. Occult stool so far has been negative. Will monitor patient's hemoglobin with a repeat in the morning as it is not a significant on the blood at this time nor is there evidence of melena. Protonix 40 mg IV twice daily. Morphine 2 mg IV x 1. Nitroglycerin as needed for chest pain. Continue patient's home medications and hold patient's blood thinners. However, patient will need to continue taking his Plavix and aspirin given recent stent placements. -For the suspected COPD exacerbation patient will receive SVN DuoNebs as needed for wheezing. Patient will also receive prednisone 40 mg daily. Received a dose of IV Solu-Medrol 125 mg IV x 1 in the emergency room. Diet: N.p.o. at midnight DVT Prophy: SCDs, hold on anticoagulation VTE due to issues of suspected lower GI bleed OBSERVATION: 12/10: Mr Merino reports his chest pain is still present. I ordered a GI cocktail and with the lidocaine/maalox, his pain reduced greatly. He has been having dyspnea on exertion since his stents, he says. No N/V/D/C. No abdominal pain. Afebrile 93% O2 Sat on RA 184 Glucose / 108 Cl -- rest of BMP is normal Troponins negative x 4 HgbA1C - 5.9 15.7 WBC / 15.9 Hgb Atypical Chest Pain - Differential Diagnosis: ACS / Musculoskeletal / Ulcer / Gastritis / Esophagitis / COPD / CTA Chest / CT Abd & Pelvis w/o Contrast Diagnostic Tests/Labs Reviewed: CBC, CMP, Stool Occult Blood Cards, EKG, CXRAY, Troponins Discussed with: Dr Roxane Ayala Treatments: Dr Ayala was consulted 2' to continued pain. I D/Cd the stress test because of the ongoing chest pain. Pain was reduced greatly with the "GI Cocktail Dr Ayala recommended carafate, watching Mr. Merino overnight and repeating the GI Cocktail this evening. If pain returns or doesn't resolve, consider transfer to [facility] for a heart cath. COPD exacerbation - Treatments: Nebs, RT, O2 PRN, Prednisone daily PO Lower GI Bleed - Treatments: Check 2 other stool cards. Hgb is stable and normal. Will need GI consultation as an outpatient for possible EGD and/or colonoscopy, unless bleeding worsens in which case I will get a consult inpatient. CAD Hx with multiple stents(2022) - Treatments: Continue ASA, Clopidogrel for now. Essential HTN - Treatments: Continue Entresto, ISMO, Metoprolol, Spironolactone DM 2 - Treatments: HgbA1C is 5.9. Continue Jardiance at D/C. HLD - Treatments: Continue Atorvastatin. Tobacco Use Disorder - Treatments: Nicotine Patch. Tobacco Cessation/Time: I spent 10 minutes of [id number] time discussing the perils/risks associated with smoking. We discussed different methods to help the patient quit smoking, from medications to patches to counseling to combinations of the above. VTE Prophy - Treatments: Ambulate CODE STATUS - Remains a Full Code CARDIOLOGY TELECONSULT: 12/10: Impression and Plan : 53 yo M with htn, hpl, cad prior OH and stents, ICM EF 35% who presents with chest pain. Troponin normal. Chest pain appears non anginal type. Agree with trial of GI cocktail with carafate and PPI and reassess in 24 hrs. If no relief then transfer for cardiac cath. Did have an episode of atrial tach vs flutter. Monitor on tele for this and d/c on event monitor. Basic Information: Consult for chest pain OBSERVATION DISCHARGE: 12/11: D/C to home, no home health. Atypical Chest Pain - Troponins negative x 3. Cardiology was ok with transfer as the chest pain reduced to a 3 and no higher. It didn't sound/look cardiac in origin, per Dr. Roxane Ayala. Sucralfate, Protonix upon D/C. COPD exacerbation - Prednisone taper. Continue home meds/inhalers. Lower GI Bleed - I spoke with Dr. Lemus (GI) over the phone. With the symptoms, CT scan findings, labs; he felt that Mr. Merino was safe for discharge as far as GI would be concerned, but would need to see GI in 1-2 weeks to discuss a colonoscopy and/or EGD. Protonix, Carafate CAD Hx with multiple stents(2022) - Continue ASA, Clopidogrel upon D/C. Essential HTN - Continue Entresto, ISMO, Metoprolol, Spironolactone upon D/C DM 2 - HgbA1C is 5.9. Continue Jardiance at D/C. HLD - Continue Atorvastatin upon D/C Tobacco Use Disorder - CODE STATUS - Remains a Full Code upon D/C SOCIAL DETERMINANTS OF HEALTH (SDOH) IMPACTING CARE: I discussed these social determinants of health with the patient and received the following answers: 1) Food Insecurity - none 2) Housing Instability - none 3) Transportation Needs - none 4) Utility Difficulties - none 5) Interpersonal safety - none EXAM: Most Recent Vital Signs BP (mm/Hg) BP Position/Site Heart Rate Resp Temp (F) SPO2% O2 Device Height (in) Weight (kg) 112/58 LYING/R ARM 66 16 97.5 ORAL 95 % 115.48 kg GENERAL: Alert and oriented, in no distress. HEART: Mild tachycardia noted. LUNGS: Some wheezes scattered. ABDOMEN: Soft, nontender, nondistended. EXTREMITIES: No edema. Chest Wall: No tenderness DIAGNOSTICS: LABS: Lab Results: Last 8 Hours Test Results Units Reference Range Ordered Collected Status WBC 19.9 H 10^3uL L=4.8 H=10.8 12/12/2023 07:40 12/12/2023 09:27 final RBC 4.96 10^6uL L=4.60 H=6.20 12/12/2023 07:40 12/12/2023 09:27 final HEMOGLOBIN 15.2 g/dL L=14.0 H=18.0 12/12/2023 07:40 12/12/2023 09:27 final HEMATOCRIT 46.1 VOL% L=42.0 H=52.0 12/12/2023 07:40 12/12/2023 09:27 final MCV 92.9 fL L=80.0 H=94.0 12/12/2023 07:40 12/12/2023 09:27 final MCH 30.6 pg L=27.0 H=32.0 12/12/2023 07:40 12/12/2023 09:27 final MCHC 33.0 g/dL L=32.0 H=36.0 12/12/2023 07:40 12/12/2023 09:27 final PLATELETS 212 10^3uL L=100 H=400 12/12/2023 07:40 12/12/2023 09:27 final RDW 14.4 % L=11.7 H=15.5 12/12/2023 07:40 12/12/2023 09:27 final %GRAN 85.3 H % L=40.0 H=70.0 12/12/2023 07:40 12/12/2023 09:27 final %LYMPH 10.1 L % L=20.0 H=45.0 12/12/2023 07:40 12/12/2023 09:27 final %MONO 3.5 % L=2.0 H=10.0 12/12/2023 07:40 12/12/2023 09:27 final %EOS 0.0 % L=0.0 H=6.0 12/12/2023 07:40 12/12/2023 09:27 final %BASO 0.3 % L=0.0 H=3.0 12/12/2023 07:40 12/12/2023 09:27 final #NEUT 17.0 H 10^3uL L=1.9 H=7.6 12/12/2023 07:40 12/12/2023 09:27 final #LYMPH 2.0 10^3uL L=0.9 H=4.9 12/12/2023 07:40 12/12/2023 09:27 final #MONO 0.7 10^3uL L=0.1 H=0.9 12/12/2023 07:40 12/12/2023 09:27 final #EOS 0.0 10^3uL L=0.0 H=0.6 12/12/2023 07:40 12/12/2023 09:27 final #BASO 0.05 10^3uL L=0.00 H=0.10 12/12/2023 07:40 12/12/2023 09:27 final #IM GRANS 0.2 10^3uL L=0.0 H=7.0 12/12/2023 07:40 12/12/2023 09:27 final %IM GRANS 0.8 % L=0.0 H=5.0 12/12/2023 07:40 12/12/2023 09:27 final %NRB 0.0 L=0.0 H=0.2 12/12/2023 07:40 12/12/2023 09:27 final #NRB 0.000 L=0.000 H=0.012 12/12/2023 07:40 12/12/2023 09:27 final MANUAL DIFF NOT INDICATED NOT INDICATED 12/12/2023 07:40 12/12/2023 09:27 final RBC MORPH NOT INDICATED NOT INDICATED 12/12/2023 07:40 12/12/2023 09:27 final FASTING NO NO 12/12/2023 07:40 12/12/2023 09:27 final BUN 14 mg/dL L=7 H=20 12/12/2023 07:40 12/12/2023 09:27 final CREATININE 1.00 mg/dL L=0.66 H=1.25 12/12/2023 07:40 12/12/2023 09:27 final GLUCOSE 173 H mg/dL L=74 H=106 12/12/2023 07:40 12/12/2023 09:27 final SODIUM 140 mmol/L L=132 H=144 12/12/2023 07:40 12/12/2023 09:27 final POTASSIUM 3.5 mmol/L L=3.5 H=5.1 12/12/2023 07:40 12/12/2023 09:27 final CHLORIDE 105 mmol/L L=98 H=107 12/12/2023 07:40 12/12/2023 09:27 final CO2 27.0 mmol/L L=22.0 H=30.0 12/12/2023 07:40 12/12/2023 09:27 final ANION GAP 12 L=10 H=20 12/12/2023 07:40 12/12/2023 09:27 final OSMOLALITY 295 mOs/kG L=280 H=296 12/12/2023 07:40 12/12/2023 09:27 final BUN/CREAT 14.0 12/12/2023 07:40 12/12/2023 09:27 final CALCIUM 9.1 mg/dL L=8.3 H=10.5 12/12/2023 07:40 12/12/2023 09:27 final AST 25 U/L L=15 H=46 12/12/2023 07:40 12/12/2023 09:27 final ALT 22 U/L L=9 H=72 12/12/2023 07:40 12/12/2023 09:27 final ALKALINE PHOS 84 U/L L=38 H=126 12/12/2023 07:40 12/12/2023 09:27 final TOTAL BILI 0.3 mg/dL L=0.2 H=1.3 12/12/2023 07:40 12/12/2023 09:27 final ALBUMIN 4.0 G/dL L=3.5 H=5.0 12/12/2023 07:40 12/12/2023 09:27 final TOTAL PROTEIN 7.1 g/L L=6.3 H=8.2 12/12/2023 07:40 12/12/2023 09:27 final A/G RATIO 1.3 12/12/2023 07:40 12/12/2023 09:27 final AGE 53 12/12/2023 07:40 12/12/2023 09:27 final eGFR NON-AFR 83 ml/min 12/12/2023 07:40 12/12/2023 09:27 final eGFR AFR AMER 100 ml/min 12/12/2023 07:40 12/12/2023 09:27 final MEDICATIONS: Discharge Medications Medication Dosage Route Frequency Prescribing MD Special Instructions Albuterol Sulfate 0.09MG/1Actuation Inhalation Suspension 2 EACH INHALATION NEEDED EVERY 4 HOURS DILLAN COREY A 2 EACH INHALATION NEEDED EVERY 4 HOURS Aspirin 81MG Oral Tablet, Enteric Coated 81 MILLIGRAMS ORAL ONCE A DAY DILLAN COREY A TAKE 81 MILLIGRAMS ORAL ONCE A DAY Atorvastatin Calcium 80MG Oral Tablet 40 MILLIGRAMS ORAL ONCE A DAY DILLAN COREY A TAKE 40 MILLIGRAMS ORAL ONCE A DAY Clopidogrel 75MG Oral Tablet 75 MILLIGRAMS ORAL ONCE A DAY DILLAN COREY A TAKE 75 MILLIGRAMS ORAL ONCE A DAY Cyanocobalamin 100 mcg 2 CAPSULE ORAL ONCE A DAY DILLAN COREY A TAKE 2 CAPSULE ORAL ONCE A DAY Entresto 49MG-51MG Oral Tablet 1 EACH ORAL TWICE A DAY DILLAN COREY A TAKE 1 EACH ORAL TWICE A DAY FLUoxetine HCl 40MG Oral Capsule 40 MILLIGRAMS ORAL ONCE A DAY DILLAN COREY A TAKE 40 MILLIGRAMS ORAL ONCE A DAY Fluticasone Propionate HFA 0.044MG/1Actuation Inhalation Aerosol Powder 1 EACH INHALATION RESP BID DILLAN COREY A 1 EACH INHALATION RESP BID Furosemide 20MG Oral Tablet 20 MILLIGRAMS ORAL ONCE A DAY DILLAN COREY A TAKE 20 MILLIGRAMS ORAL ONCE A DAY Isosorbide Mononitrate 30MG Oral Tablet, Extended Release 15 MILLIGRAMS ORAL ONCE A DAY DILLAN Mcginnis TAKE 15 MILLIGRAMS ORAL ONCE A DAY Jardiance 25MG Oral Tablet 12.5 MILLIGRAMS ORAL ONCE A DAY DILLAN Mcginnis TAKE 12.5 MILLIGRAMS ORAL ONCE A DAY Metoprolol Succinate 50MG Oral Tablet, Extended Release 25 MILLIGRAMS ORAL ONCE A DAY DILLAN NICOLE A TAKE 25 MILLIGRAMS ORAL ONCE A DAY Nitroglycerin 0.4MG Sublingual Tablet 0.4 MILLIGRAMS SUBLINGUAL NEEDED DILLAN NICOLE A PLACE 0.4 MILLIGRAMS SUBLINGUAL NEEDED Potassium Chloride 10MEQ Oral Tablet, Extended Release 10 MEQ ORAL ONCE A DAY DILLAN Mcginnis TAKE 10 MEQ ORAL ONCE A DAY Spiriva Respimat 2.5MCG/1Act Inhalation [place] 2 EACH INHALATION RESP DAILY DILLAN NICOLE A 2 EACH INHALATION RESP DAILY Spironolactone 25MG Oral Tablet 25 MILLIGRAMS ORAL ONCE A DAY DILLAN NICOLE A TAKE 25 MILLIGRAMS ORAL ONCE A DAY Vitamin D 50 MCG Oral Tablet 50 MCG ORAL ONCE A DAY DILLAN Mcginnis TAKE 50 MCG ORAL ONCE A DAY busPIRone 10MG Oral Tablet 10 MILLIGRAMS ORAL THREE TIMES A DAY DILLAN INCOLE A TAKE 10 MILLIGRAMS ORAL THREE TIMES A DAY Protonix 40 MG Oral Tablet, Delayed Release 1 TABLET BY MOUTH ONCE A DAY DILLAN Mcginnis TAKE 1 TABLET BY MOUTH ONCE A DAY Carafate 1GM Oral Tablet 1 TABLET BY MOUTH THREE TIMES A DAY BEFORE MEALS DILLAN NICOLE A TAKE 1 TABLET BY MOUTH THREE TIMES A DAY BEFORE MEALS predniSONE 20MG Oral Tablet 2 TABLET BY MOUTH TWICE A DAY DILLAN Mcginnis TAKE 2 TABLET BY MOUTH TWICE A DAY x 3 days. then TAKE 1 TABLET BY MOUTH TWICE A DAY x 3 days 45 minutes of time spent performing discharge services. Consultation Notes [facility] 12/11/2023 09:56 Demographics Patient Name Age Sex Visit Number Admission Date/Time Attending Physician Room and Bed SOBEIDA MERINO SR 1970 53 years Male [id number] 12/10/2023 21:42 [place] [id number] Telemedicine enables health care providers at different locations to provide safe, effective, and convenient care through technology. As with any health care service, there are risks associated with telemedicine, including equipment failure, poor images, and information systems analyst issues. You have the right to withhold or withdraw your consent to use Telemedicine at any time. Patient verbally consented to the use of telemedicine in their medical care. Date of Service: 12/11/23 Impression and Plan : 53 yo M with htn, hpl, cad prior OH and stents, ICM EF 35% who presents with chest pain. Troponin normal. Chest pain appears non anginal type. Agree with trial of GI cocktail with carafate and PPI and reassess in 24 hrs. If no relief then transfer for cardiac cath. Did have an episode of atrial tach vs flutter. Monitor on tele for this and d/c on event monitor. Basic Information: Consult for chest pain Chief Complaint :Chest pain History of Present Illness:53 yo M with htn, hpl, cad prior OH and stents, ICM EF 35% who presents with chest pain. He had chest pressure like pain for 2 days. Pain is non pleuritic , non positional and non exertional. Had mild dyspnea nothing worse than baseline. Labs were ok. EKG showed precordial T wave inversion another one showed SVT/atrial tach vs flutter. Troponin normal. Had OH in 01/22 with PCI of rca, later pci of om in 06/24 and negative cath in 07/2023 Subjective Review of Systems Twelve point ROS is negative otherwise Health Status Allergy List No Known Drug Allergies, Medication Ordered Meds Table Ordered Medication Start Date/Time Dosage Route Frequency ACETAMINOPHEN (TYLENOL) 325MG TAB 12/10/2023 21:40 650 MG ORAL PRN Q6H PROCHLORPERAZINE (COMPAZINE) 5MG TABLET 12/10/2023 21:40 5 MG ORAL PRN Q6H CALCIUM CARB (TUMS) 200 EL: 500MG TAB 12/10/2023 21:40 500 MG ORAL PRN QID SENNA (SENOKOT) 8.6MG TAB 12/10/2023 21:40 8.6 MG ORAL PRN BID IPRATROP/ALBUTE (DUONEB) 0.5MG/2.5MG 3ML 12/10/2023 21:43 3 ML NEBULIZER RESP QID predniSONE (DELTASONE) 20MG TAB 12/11/2023 07:00 40 MG ORAL DAILY WITH MEAL PROTONIX (PANTOPROZOL)/SOD CHL 40MG/10ML 12/10/2023 21:45 IV PUSH Q12 NITROglycerin (NITROSTAT) SL 0.4MG TAB 12/10/2023 21:46 0.4 MG SUBLINGUAL PRN Q5MIN ALBUTEROL (PROVENTIL) 2.5MG/3ML NEB 12/10/2023 22:57 2.5 MG NEBULIZER PRN Q2H ASPIRIN EC (ECOTRIN) 81MG TAB 12/11/2023 00:16 81 MG ORAL DAILY ATORVASTATIN (LIPITOR) 80MG TAB 12/11/2023 00:16 80 MG ORAL DAILY SPIRONOLACTONE (ALDACTONE): 25MG TAB 12/11/2023 00:16 25 MG ORAL DAILY CLOPIDOGREL (PLAVIX) 75MG TAB 12/11/2023 00:16 75 MG ORAL DAILY FLUoxetine (PROzac) 20MG CAP 12/11/2023 00:16 40 MG ORAL DAILY METOPROLOL SUCC (TOPROL XL) 50MG TAB 12/11/2023 00:16 25 MG ORAL DAILY ISOSORBIDE MONO (IMDUR) ER 30MG TAB 12/11/2023 00:16 15 MG ORAL DAILY Home Meds List Nitroglycerin 0.4MG Sublingual Tablet Spironolactone 25MG Oral Tablet Metoprolol Succinate 50MG Oral Tablet, Extended Release Jardiance 25MG Oral Tablet Isosorbide Mononitrate 30MG Oral Tablet, Extended Release FLUoxetine HCl 40MG Oral Capsule Flovent Entresto 49MG-51MG Oral Tablet Cyanocobalamin 100 mcg Clopidogrel 75MG Oral Tablet Vitamin D 50 MCG Oral Tablet Atorvastatin Calcium 80MG Oral Tablet Aspirin 81MG Oral Tablet, Enteric Coated Histories Family History List: No Family History Available Surgery List: No Surgical History Available Social History Smoking Status: Current every day smoker Physical Examination General: No apparent distress Eye: EOMI, PEERLA HEENT: No JVD. No carotid bruit. Supple neck. Heart: S1, S2 normal. Regular rhythm. No murmurs, rubs or gallops Lungs: b/l expiratory wheeze Abdomen: Soft, non tender, non-distended. Bowel sounds present Skin: Warm, dry Extremities: 2+ radial pulse. No edema Neuro: Alert and oriented x 3. Grossly no motor/sensory deficits VS/Measurements Vital Signs: Today Date/Time BP (mm/Hg) BP Position/Site MAP (mm/Hg) Heart Rate Pulse Site Resp Temp (C) Temp (F) SPO2% O2 L/min FiO2 O2 Device Blood Sugar Pain Score Height (cm) Height (in) Weight (kg) Weight (lbs/ozs) Scale BMI BSA Head Cir (cm) 12/11/2023 06:57 54 PULSE OX 16 12/11/2023 06:43 53 PULSE OX 16 93 % Room Air 21% 52.25 kg 115.2 lbs Floor Scale 12/11/2023 05:35 123/53 LYING/L ARM 76 59 RADIAL 18 36.6 ORAL 97.9 ORAL 96 % Room Air 21% 12/11/2023 01:30 149/73 LYING/L ARM 98 74 RADIAL 18 36.8 ORAL 98.2 ORAL 95 % Room Air 21% 12/11/2023 00:30 108/57 LYING/L ARM 74 73 RADIAL 18 36.8 ORAL 98.2 ORAL 94 % Room Air 21% Review / Management Lab Results: Last 24 Hours Test Results Units Reference Range Ordered Collected Status FASTING YES YES 12/11/2023 00:00 12/11/2023 05:05 final BUN 14 mg/dL L=7 H=20 12/11/2023 00:00 12/11/2023 05:05 final CREATININE 1.00 mg/dL L=0.66 H=1.25 12/11/2023 00:00 12/11/2023 05:05 final GLUCOSE 184 H mg/dL L=74 H=106 12/11/2023 00:00 12/11/2023 05:05 final CALCIUM 9.6 mg/dL L=8.3 H=10.5 12/11/2023 00:00 12/11/2023 05:05 final SODIUM 142 mmol/L L=132 H=144 12/11/2023 00:00 12/11/2023 05:05 final POTASSIUM 4.4 mmol/L L=3.5 H=5.1 12/11/2023 00:00 12/11/2023 05:05 final CHLORIDE 108 H mmol/L L=98 H=107 12/11/2023 00:00 12/11/2023 05:05 final CO2 25.0 mmol/L L=22.0 H=30.0 12/11/2023 00:00 12/11/2023 05:05 final ANION GAP 13 L=10 H=20 12/11/2023 00:00 12/11/2023 05:05 final BUN/CREAT 14.0 12/11/2023 00:00 12/11/2023 05:05 final AGE 53 12/11/2023 00:00 12/11/2023 05:05 final eGFR NON-AFR 83 ml/min 12/11/2023 00:00 12/11/2023 05:05 final eGFR AFR AMER 100 ml/min 12/11/2023 00:00 12/11/2023 05:05 final WBC 15.7 H 10^3uL L=4.8 H=10.8 12/11/2023 00:00 12/11/2023 05:05 final RBC 5.21 10^6uL L=4.60 H=6.20 12/11/2023 00:00 12/11/2023 05:05 final HEMOGLOBIN 15.9 g/dL L=14.0 H=18.0 12/11/2023 00:00 12/11/2023 05:05 final HEMATOCRIT 48.0 VOL% L=42.0 H=52.0 12/11/2023 00:00 12/11/2023 05:05 final MCV 92.1 fL L=80.0 H=94.0 12/11/2023 00:00 12/11/2023 05:05 final MCH 30.5 pg L=27.0 H=32.0 12/11/2023 00:00 12/11/2023 05:05 final MCHC 33.1 g/dL L=32.0 H=36.0 12/11/2023 00:00 12/11/2023 05:05 final PLATELETS 252 10^3uL L=100 H=400 12/11/2023 00:00 12/11/2023 05:05 final RDW 13.9 % L=11.7 H=15.5 12/11/2023 00:00 12/11/2023 05:05 final %GRAN 89.9 H % L=40.0 H=70.0 12/11/2023 00:00 12/11/2023 05:05 final %LYMPH 7.6 L % L=20.0 H=45.0 12/11/2023 00:00 12/11/2023 05:05 final %MONO 1.4 L % L=2.0 H=10.0 12/11/2023 00:00 12/11/2023 05:05 final %EOS 0.0 % L=0.0 H=6.0 12/11/2023 00:00 12/11/2023 05:05 final %BASO 0.2 % L=0.0 H=3.0 12/11/2023 00:00 12/11/2023 05:05 final #NEUT 14.1 H 10^3uL L=1.9 H=7.6 12/11/2023 00:00 12/11/2023 05:05 final #LYMPH 1.2 10^3uL L=0.9 H=4.9 12/11/2023 00:00 12/11/2023 05:05 final #MONO 0.2 10^3uL L=0.1 H=0.9 12/11/2023 00:00 12/11/2023 05:05 final #EOS 0.0 10^3uL L=0.0 H=0.6 12/11/2023 00:00 12/11/2023 05:05 final #BASO 0.03 10^3uL L=0.00 H=0.10 12/11/2023 00:00 12/11/2023 05:05 final #IM GRANS 0.1 10^3uL L=0.0 H=7.0 12/11/2023 00:00 12/11/2023 05:05 final %IM GRANS 0.9 % L=0.0 H=5.0 12/11/2023 00:00 12/11/2023 05:05 final %NRB 0.0 L=0.0 H=0.2 12/11/2023 00:00 12/11/2023 05:05 final #NRB 0.000 L=0.000 H=0.012 12/11/2023 00:00 12/11/2023 05:05 final MANUAL DIFF NOT INDICATED NOT INDICATED 12/11/2023 00:00 12/11/2023 05:05 final RBC MORPH NOT INDICATED NOT INDICATED 12/11/2023 00:00 12/11/2023 05:05 final HGBA1C 5.9 % 12/11/2023 08:04 12/11/2023 05:05 final TROPONIN <0.012 ng/mL L=0.000 H=0.033 12/11/2023 05:00 12/11/2023 05:05 final TROPONIN <0.012 ng/mL L=0.000 H=0.033 12/11/2023 01:00 12/11/2023 01:00 final TROPONIN <0.012 ng/mL L=0.000 H=0.033 12/10/2023 18:55 12/10/2023 19:01 final OCCULT BLOOD 1 NEGATIVE NEGATIVE 12/10/2023 16:15 12/10/2023 16:25 final OCCULT BLOOD 2 N/A N/A 12/10/2023 16:15 12/10/2023 16:25 final OCCULT BLOOD 3 N/A N/A 12/10/2023 16:15 12/10/2023 16:25 final SARS CoV2 PCR NEGATIVE NEGATIVE 12/10/2023 15:48 12/10/2023 15:30 final FLU A PCR NEGATIVE NEGATIVE 12/10/2023 15:48 12/10/2023 15:30 final FLU B PCR NEGATIVE NEGATIVE 12/10/2023 15:48 12/10/2023 15:30 final RSV PCR NEGATIVE NEGATIVE 12/10/2023 15:48 12/10/2023 15:30 final SEND TO [facility]? YES YES 12/10/2023 15:48 12/10/2023 15:30 final WBC 14.3 H 10^3uL L=4.8 H=10.8 12/10/2023 15:48 12/10/2023 15:28 final RBC 5.31 10^6uL L=4.60 H=6.20 12/10/2023 15:48 12/10/2023 15:28 final HEMOGLOBIN 16.5 g/dL L=14.0 H=18.0 12/10/2023 15:48 12/10/2023 15:28 final HEMATOCRIT 48.7 VOL% L=42.0 H=52.0 12/10/2023 15:48 12/10/2023 15:28 final MCV 91.7 fL L=80.0 H=94.0 12/10/2023 15:48 12/10/2023 15:28 final MCH 31.1 pg L=27.0 H=32.0 12/10/2023 15:48 12/10/2023 15:28 final MCHC 33.9 g/dL L=32.0 H=36.0 12/10/2023 15:48 12/10/2023 15:28 final PLATELETS 281 10^3uL L=100 H=400 12/10/2023 15:48 12/10/2023 15:28 final RDW 14.1 % L=11.7 H=15.5 12/10/2023 15:48 12/10/2023 15:28 final %GRAN 57.4 % L=40.0 H=70.0 12/10/2023 15:48 12/10/2023 15:28 final %LYMPH 30.8 % L=20.0 H=45.0 12/10/2023 15:48 12/10/2023 15:28 final %MONO 8.4 % L=2.0 H=10.0 12/10/2023 15:48 12/10/2023 15:28 final %EOS 2.1 % L=0.0 H=6.0 12/10/2023 15:48 12/10/2023 15:28 final %BASO 1.0 % L=0.0 H=3.0 12/10/2023 15:48 12/10/2023 15:28 final #NEUT 8.2 H 10^3uL L=1.9 H=7.6 12/10/2023 15:48 12/10/2023 15:28 final #LYMPH 4.4 10^3uL L=0.9 H=4.9 12/10/2023 15:48 12/10/2023 15:28 final #MONO 1.2 H 10^3uL L=0.1 H=0.9 12/10/2023 15:48 12/10/2023 15:28 final #EOS 0.3 10^3uL L=0.0 H=0.6 12/10/2023 15:48 12/10/2023 15:28 final #BASO 0.15 H 10^3uL L=0.00 H=0.10 12/10/2023 15:48 12/10/2023 15:28 final #IM GRANS 0.1 10^3uL L=0.0 H=7.0 12/10/2023 15:48 12/10/2023 15:28 final %IM GRANS 0.3 % L=0.0 H=5.0 12/10/2023 15:48 12/10/2023 15:28 final %NRB 0.0 L=0.0 H=0.2 12/10/2023 15:48 12/10/2023 15:28 final #NRB 0.000 L=0.000 H=0.012 12/10/2023 15:48 12/10/2023 15:28 final MANUAL DIFF NOT INDICATED NOT INDICATED 12/10/2023 15:48 12/10/2023 15:28 final RBC MORPH NOT INDICATED NOT INDICATED 12/10/2023 15:48 12/10/2023 15:28 final FASTING UNKNOWN UNKNOWN 12/10/2023 15:48 12/10/2023 15:28 final BUN 10 mg/dL L=7 H=20 12/10/2023 15:48 12/10/2023 15:28 final CREATININE 1.00 mg/dL L=0.66 H=1.25 12/10/2023 15:48 12/10/2023 15:28 final GLUCOSE 83 mg/dL L=74 H=106 12/10/2023 15:48 12/10/2023 15:28 final SODIUM 142 mmol/L L=132 H=144 12/10/2023 15:48 12/10/2023 15:28 final POTASSIUM 3.7 mmol/L L=3.5 H=5.1 12/10/2023 15:48 12/10/2023 15:28 final CHLORIDE 105 mmol/L L=98 H=107 12/10/2023 15:48 12/10/2023 15:28 final CO2 28.0 mmol/L L=22.0 H=30.0 12/10/2023 15:48 12/10/2023 15:28 final ANION GAP 13 L=10 H=20 12/10/2023 15:48 12/10/2023 15:28 final OSMOLALITY 292 mOs/kG L=280 H=296 12/10/2023 15:48 12/10/2023 15:28 final BUN/CREAT 10.0 12/10/2023 15:48 12/10/2023 15:28 final CALCIUM 9.4 mg/dL L=8.3 H=10.5 12/10/2023 15:48 12/10/2023 15:28 final AST 65 H U/L L=15 H=46 12/10/2023 15:48 12/10/2023 15:28 final ALT 22 U/L L=9 H=72 12/10/2023 15:48 12/10/2023 15:28 final ALKALINE PHOS 113 U/L L=38 H=126 12/10/2023 15:48 12/10/2023 15:28 final TOTAL BILI 0.3 mg/dL L=0.2 H=1.3 12/10/2023 15:48 12/10/2023 15:28 final ALBUMIN 4.4 G/dL L=3.5 H=5.0 12/10/2023 15:48 12/10/2023 15:28 final TOTAL PROTEIN 8.1 g/L L=6.3 H=8.2 12/10/2023 15:48 12/10/2023 15:28 final A/G RATIO 1.2 12/10/2023 15:48 12/10/2023 15:28 final AGE 53 12/10/2023 15:48 12/10/2023 15:28 final eGFR NON-AFR 83 ml/min 12/10/2023 15:48 12/10/2023 15:28 final eGFR AFR AMER 100 ml/min 12/10/2023 15:48 12/10/2023 15:28 final DDIMER 0.57 H mg/L FEU L=0.00 H=0.50 12/10/2023 15:53 12/10/2023 15:28 final Pro BNP2 352 pg/mL L=0 H=900 12/10/2023 15:48 12/10/2023 15:28 final TROPONIN <0.012 ng/mL L=0.000 H=0.033 12/10/2023 15:48 12/10/2023 15:28 final EKG 12/10/2023 15:48 12/10/2023 16:00 registered EKG 12/11/2023 06:37 12/11/2023 09:29 registered EKG 12/10/2023 15:54 12/10/2023 16:00 registered EKG 12/10/2023 18:55 12/10/2023 19:19 registered Imaging Narrative Notes History and Physical Notes [facility] 12/11/2023 00:14 Active Problem List: -Atypical chest pain -Acute COPD exacerbation -Lower GI bleed -History of coronary artery disease with stent placement -Chronic tobacco use disorder with current use -Essential hypertension/COPD/hyperlipidemia -Right upper lobe pulmonary nodule Medical Decision Making 12/10/2023: -Patient is being admitted to the hospital for issues of atypical chest pain. Patient has had 2 troponins that were negative. With EKG showing no significant changes or significant arrhythmia. However, the computer tech at [facility] Dr. ENGLAND had recommended that patient be placed on observation services for cardiac rule out and possible stress test. However, patient has significant amount of wheezing in his lungs with a significant amount of reactive airway disease to suggest that patient might be undergoing a COPD exacerbation. Patient will be placed on cardiac telemetry overnight and we will get cardiac enzymes. However, it may be the main etiology of patient's chest discomfort or pain may be noncardiac respiratory/pleuritic and or GI related given patient's GI bleed. While the GI bleed is likely lower in origin there is a possibility it may be upper. Occult stool so far has been negative. Will monitor patient's hemoglobin with a repeat in the morning as it is not a significant on the blood at this time nor is there evidence of melena. Protonix 40 mg IV twice daily. Morphine 2 mg IV x 1. Nitroglycerin as needed for chest pain. Continue patient's home medications and hold patient's blood thinners. However, patient will need to continue taking his Plavix and aspirin given recent stent placements. -For the suspected COPD exacerbation patient will receive SVN DuoNebs as needed for wheezing. Patient will also receive prednisone 40 mg daily. Received a dose of IV Solu-Medrol 125 mg IV x 1 in the emergency room. Diet: N.p.o. at midnight DVT Prophy: SCDs, hold on anticoagulation VTE due to issues of suspected lower GI bleed Disposition: Patient likely to be hospitalized for less than 48 hours As clarification, on 12/10/2023, patient should be admitted for hospital observation services under my care. This encounter was completed via telemedicine (audio/video) with nursing at bedside to assist with clinical exam. SOC Audio/Visual Equipment is using HIPAA compliant web platform. Participants cost reduction engineer: Bedside RN, patient, physician on-call Patient Location: [place], [place] Provider Location: [facility] Physician cost reduction engineer: Alona Hankins MD Seen in emergency room awaiting bed placement: Yes Status of patient: Observation Patient aware of remote access and use of Telemedicine and agrees to continue with care. Alona Hankins MD Internal Medicine Hospitalist Date of service: 12/10/2023 Chief complaint: Chest pain/bloody stool Allergies: No known drug allergies CODE STATUS: Full code History: Patient is a 53-year-old man with history of chronic tobacco use disorder, coronary artery disease, hypertension, hyperlipidemia, COPD who had arrived at the emergency room with complaints of bloody stools and chest discomfort. Patient stated that for the past week he has been having intermittent epigastric discomfort, as well as worsening chest tightness/pressure. The pain is 6-7 out of 10. Worsening exertional dyspnea at less than 20 feet. Patient has a maintenance inhaler and a rescue inhaler which she says initially started helping his discomfort but has not been helping as much. Did not get much relief from the nitroglycerin yesterday with 2 L or today x 1. He admits to increased fatigue and decreased energy. Patient also states for the past week he has been having red streaks on the toilet paper as well as red streaked stools. But denies any black stools. Admits to nausea but no vomiting. Patient denies any fevers or chills. Chemistries are unremarkable and noncontributory. Renal function is intact without deficit. Patient has a mildly elevated AST at 65 but ALT is an alk phos and T. bili are within normal limits. Troponin is normal x 2 without significant EKG changes. proBNP of 352. White blood cell count however is elevated at 14.3 with a hemoglobin of 16.5, MCV of 91.7 and a platelet count of 281. D-dimer mildly elevated at 0.57. Occult stool is negative x 1. Respiratory viral panel with influenza A/B, COVID-[address] RSV are negative. [address] PE protocol reveals no acute intrathoracic abnormality. Right upper lobe pulmonary nodule. CT of the abdomen and pelvis with out IV contrast reveals short segment of sigmoid diverticulosis with wall thickening and luminal narrowing but no adjacent inflammatory changes. Patient was admitted to the hospital for issues of high risk atypical chest pain, concerns for lower GI bleed. Physical Exam: (Clinical exam was done via telemedicine with nursing at bedside to assist with clinical exam, some portions of clinical exam from emergency room provider/nursing was used for reference) General: Mild distress, looks uncomfortable HEENT: NCAT, EOMI, Moist Mucous Membranes CV: S1S2 w/ RRR, (-) MRC, peripheral pulses intact and symmetrical Resp: Prolonged expiration, expiratory wheezing heard in mid and upper lung craver bilaterally. Patient is able to speak in full sentences without significant shortness of breath or distress. GI: Snt, nd w/ bs Musculoskeletal: MAL, (-) pedal edema Skin: No obvious rash or lesion, normal skin color, appropriate skin turgor, dry Neuro: No acute/new focal/gross neurological deficits appreciated, no facial asymmetry or weakness noted during interview/exam Psych: Alert and oriented x3, appropriate mood and affect Labs/imaging/medications/vitals/relevant electronic medical records have personally been reviewed by me Patient screened for food insecurity, housing instability, transportation needs, utility difficulties, and interpersonal safety. Past medical history: Coronary artery disease with stent x 5, previous NSTEMI back in October, COPD, hypertension/hyperlipidemia Family history: No stroke, heart attacks or cancer Social history: Tobacco 1 pack/day at the current time. Previously 3 packs/day prior to this last year since he was 14 years of age. No alcohol or drug use. Surgical history: PCI with stent placement x 5 Active Home Meds Medication Dosage Route Frequency Last Dose Date Prescribing MD Special Instructions Nitroglycerin 0.4MG Sublingual Tablet 0.4 MILLIGRAMS SUBLINGUAL NEEDED Flovent ORAL TWICE A DAY Spironolactone 25MG Oral Tablet 25 MILLIGRAMS ORAL ONCE A DAY Metoprolol Succinate 50MG Oral Tablet, Extended Release 25 MILLIGRAMS ORAL ONCE A DAY Jardiance 25MG Oral Tablet 12.5 MILLIGRAMS ORAL ONCE A DAY Isosorbide Mononitrate 30MG Oral Tablet, Extended Release 15 MILLIGRAMS ORAL ONCE A DAY FLUoxetine HCl 40MG Oral Capsule 40 MILLIGRAMS ORAL ONCE A DAY Entresto 49MG-51MG Oral Tablet 1 EACH ORAL TWICE A DAY Cyanocobalamin 100 mcg 2 CAPSULE ORAL ONCE A DAY Clopidogrel 75MG Oral Tablet 75 MILLIGRAMS ORAL ONCE A DAY Vitamin D 50 MCG Oral Tablet 50 MCG ORAL ONCE A DAY Atorvastatin Calcium 80MG Oral Tablet 40 MILLIGRAMS ORAL ONCE A DAY Aspirin 81MG Oral Tablet, Enteric Coated 81 MILLIGRAMS ORAL ONCE A DAY 12/10/2023 21:24 Progress Notes [facility] 12/11/2023 14:56 Demographics Patient Name Age Sex Visit Number Admission Date/Time Attending Physician Room and Bed SOBEIDA MERINO 1970 53 years Male [id number] 12/10/2023 21:42 [facility] 106 12/11/2023 SUBJECTIVE DATA CC: Atypical Chest Pain / COPD exacerbation Mr Merino reports his chest pain is still present. I ordered a GI cocktail and with the lidocaine/maalox, his pain reduced greatly. He has been having dyspnea on exertion since his stents, he says. No N/V/D/C. No abdominal pain. Afebrile 93% O2 Sat on RA 184 Glucose / 108 Cl -- rest of BMP is normal Troponins negative x 4 HgbA1C - 5.9 15.7 WBC / 15.9 Hgb OBJECTIVE DATA: Vital signs have been reviewed Lab(s) have been ordered and/or reviewed Intake/Output has been reviewed Radiologic/Diagnostic testing has been ordered and/or reviewed LAB(S): Lab Results: Last 8 Hours Test Results Units Reference Range Ordered Collected Status FASTING YES YES 12/11/2023 00:00 12/11/2023 05:05 final BUN 14 mg/dL L=7 H=20 12/11/2023 00:00 12/11/2023 05:05 final CREATININE 1.00 mg/dL L=0.66 H=1.25 12/11/2023 00:00 12/11/2023 05:05 final GLUCOSE 184 H mg/dL L=74 H=106 12/11/2023 00:00 12/11/2023 05:05 final CALCIUM 9.6 mg/dL L=8.3 H=10.5 12/11/2023 00:00 12/11/2023 05:05 final SODIUM 142 mmol/L L=132 H=144 12/11/2023 00:00 12/11/2023 05:05 final POTASSIUM 4.4 mmol/L L=3.5 H=5.1 12/11/2023 00:00 12/11/2023 05:05 final CHLORIDE 108 H mmol/L L=98 H=107 12/11/2023 00:00 12/11/2023 05:05 final CO2 25.0 mmol/L L=22.0 H=30.0 12/11/2023 00:00 12/11/2023 05:05 final ANION GAP 13 L=10 H=20 12/11/2023 00:00 12/11/2023 05:05 final BUN/CREAT 14.0 12/11/2023 00:00 12/11/2023 05:05 final AGE 53 12/11/2023 00:00 12/11/2023 05:05 final eGFR NON-AFR 83 ml/min 12/11/2023 00:00 12/11/2023 05:05 final eGFR AFR AMER 100 ml/min 12/11/2023 00:00 12/11/2023 05:05 final WBC 15.7 H 10^3uL L=4.8 H=10.8 12/11/2023 00:00 12/11/2023 05:05 final RBC 5.21 10^6uL L=4.60 H=6.20 12/11/2023 00:00 12/11/2023 05:05 final HEMOGLOBIN 15.9 g/dL L=14.0 H=18.0 12/11/2023 00:00 12/11/2023 05:05 final HEMATOCRIT 48.0 VOL% L=42.0 H=52.0 12/11/2023 00:00 12/11/2023 05:05 final MCV 92.1 fL L=80.0 H=94.0 12/11/2023 00:00 12/11/2023 05:05 final MCH 30.5 pg L=27.0 H=32.0 12/11/2023 00:00 12/11/2023 05:05 final MCHC 33.1 g/dL L=32.0 H=36.0 12/11/2023 00:00 12/11/2023 05:05 final PLATELETS 252 10^3uL L=100 H=400 12/11/2023 00:00 12/11/2023 05:05 final RDW 13.9 % L=11.7 H=15.5 12/11/2023 00:00 12/11/2023 05:05 final %GRAN 89.9 H % L=40.0 H=70.0 12/11/2023 00:00 12/11/2023 05:05 final %LYMPH 7.6 L % L=20.0 H=45.0 12/11/2023 00:00 12/11/2023 05:05 final %MONO 1.4 L % L=2.0 H=10.0 12/11/2023 00:00 12/11/2023 05:05 final %EOS 0.0 % L=0.0 H=6.0 12/11/2023 00:00 12/11/2023 05:05 final %BASO 0.2 % L=0.0 H=3.0 12/11/2023 00:00 12/11/2023 05:05 final #NEUT 14.1 H 10^3uL L=1.9 H=7.6 12/11/2023 00:00 12/11/2023 05:05 final #LYMPH 1.2 10^3uL L=0.9 H=4.9 12/11/2023 00:00 12/11/2023 05:05 final #MONO 0.2 10^3uL L=0.1 H=0.9 12/11/2023 00:00 12/11/2023 05:05 final #EOS 0.0 10^3uL L=0.0 H=0.6 12/11/2023 00:00 12/11/2023 05:05 final #BASO 0.03 10^3uL L=0.00 H=0.10 12/11/2023 00:00 12/11/2023 05:05 final #IM GRANS 0.1 10^3uL L=0.0 H=7.0 12/11/2023 00:00 12/11/2023 05:05 final %IM GRANS 0.9 % L=0.0 H=5.0 12/11/2023 00:00 12/11/2023 05:05 final %NRB 0.0 L=0.0 H=0.2 12/11/2023 00:00 12/11/2023 05:05 final #NRB 0.000 L=0.000 H=0.012 12/11/2023 00:00 12/11/2023 05:05 final MANUAL DIFF NOT INDICATED NOT INDICATED 12/11/2023 00:00 12/11/2023 05:05 final RBC MORPH NOT INDICATED NOT INDICATED 12/11/2023 00:00 12/11/2023 05:05 final TROPONIN <0.012 ng/mL L=0.000 H=0.033 12/11/2023 05:00 12/11/2023 05:05 final TROPONIN <0.012 ng/mL L=0.000 H=0.033 12/11/2023 01:00 12/11/2023 01:00 final PHYSICAL EXAM: Most Recent Vital Signs BP (mm/Hg) BP Position/Site Heart Rate Resp Temp (F) SPO2% O2 Device Height (in) Weight (kg) 123/53 LYING/L ARM 54 16 97.9 ORAL 93 % Room Air 21% 52.25 kg GENERAL: Alert and oriented, in no distress. HEART: Mild tachycardia noted. LUNGS: Some wheezes scattered. ABDOMEN: Soft, nontender, nondistended. EXTREMITIES: No edema. Chest Wall: No tenderness ASSESSMENT AND PLAN: INITIAL OBSERVATION: 12/10/2023: Lotus Notes Administrator: Active Problem List: -Atypical chest pain -Acute COPD exacerbation -Lower GI bleed -History of coronary artery disease with stent placement -Chronic tobacco use disorder with current use -Essential hypertension/COPD/hyperlipidemia -Right upper lobe pulmonary nodule Medical Decision Making 12/10/2023: -Patient is being admitted to the hospital for issues of atypical chest pain. Patient has had 2 troponins that were negative. With EKG showing no significant changes or significant arrhythmia. However, the computer tech at [facility] Dr. ENGLAND had recommended that patient be placed on observation services for cardiac rule out and possible stress test. However, patient has significant amount of wheezing in his lungs with a significant amount of reactive airway disease to suggest that patient might be undergoing a COPD exacerbation. Patient will be placed on cardiac telemetry overnight and we will get cardiac enzymes. However, it may be the main etiology of patient's chest discomfort or pain may be noncardiac respiratory/pleuritic and or GI related given patient's GI bleed. While the GI bleed is likely lower in origin there is a possibility it may be upper. Occult stool so far has been negative. Will monitor patient's hemoglobin with a repeat in the morning as it is not a significant on the blood at this time nor is there evidence of melena. Protonix 40 mg IV twice daily. Morphine 2 mg IV x 1. Nitroglycerin as needed for chest pain. Continue patient's home medications and hold patient's blood thinners. However, patient will need to continue taking his Plavix and aspirin given recent stent placements. -For the suspected COPD exacerbation patient will receive SVN DuoNebs as needed for wheezing. Patient will also receive prednisone 40 mg daily. Received a dose of IV Solu-Medrol 125 mg IV x 1 in the emergency room. Diet: N.p.o. at midnight OBSERVATION: 12/10: Dr Pierce: Atypical Chest Pain - Differential Diagnosis: ACS / Musculoskeletal / Ulcer / Gastritis / Esophagitis / COPD / CTA Chest / CT Abd & Pelvis w/o Contrast Diagnostic Tests/Labs Reviewed: CBC, CMP, Stool Occult Blood Cards, EKG, CXRAY, Troponins Discussed with: Dr Roxane Ayala Treatments: Dr Ayala was consulted 2' to continued pain. I D/Cd the stress test because of the ongoing chest pain. Pain was reduced greatly with the GI Cocktail Dr Ayala recommended carafate, watching Mr. Merino overnight and repeating the GI Cocktail this evening. If pain returns or doesn't resolve, consider transfer to [facility] for a heart cath. COPD exacerbation - Treatments: Nebs, RT, O2 PRN, Prednisone daily PO Lower GI Bleed - Treatments: Check 2 other stool cards. Hgb is stable and normal. Will need GI consultation as an outpatient for possible EGD and/or colonoscopy, unless bleeding worsens in which case I will get a consult inpatient. CAD Hx with multiple stents(2022) - Treatments: Continue ASA, Clopidogrel for now. Essential HTN - Treatments: Continue Entresto, ISMO, Metoprolol, Spironolactone DM 2 - Treatments: HgbA1C is 5.9. Continue Jardiance at D/C. HLD - Treatments: Continue Atorvastatin. Tobacco Use Disorder - Treatments: Nicotine Patch. Tobacco Cessation/Time: I spent 10 minutes of [id number] time discussing the perils/risks associated with smoking. We discussed different methods to help the patient quit smoking, from medications to patches to counseling to combinations of the above. VTE Prophy - Treatments: Ambulate CODE STATUS - Remains a Full Code SOCIAL DETERMINANTS OF HEALTH (SDOH) IMPACTING CARE: I discussed these social determinants of health with the patient and received the following answers: 1) Food Insecurity - none 2) Housing Instability - none 3) Transportation Needs - none 4) Utility Difficulties - none 5) Interpersonal safety - none
--- OUTSIDE RECORDS SUMMARY | 2025-07-31 16:52 | XMS_ITS ---
Author Organization Unknown Address [address] [place] [phone] Phone Care Team Providers Care V/[employer] Signal Officer Name Role Phone EWA HALL Attending Unavailable CHIQUITA HODGE Primary Unavailable Immunization Immunization Date Status Additional Notes Code Code System MMR 04/14/2015 Completed 03 CVX Tdap 08/19/2023 Completed 115 CVX COVID-19, mRNA, LNP-S, PF, 5 0 mcg/0.5 mL 07/04/2023 Completed 312 CVX Social History Type Status Start Date End Date Code Code Syst em Smoking History Current every day smoker 137712253 SNOMED CT Smoking History Unknown if ever smoked [address] Sex Male Medications Medication Start Date End Date Route Frequency Dose Code Code System Medication Instructions Home Meds predniSONE 20MG Oral Tablet 12/12/2023 Unknown BY MOUTH TWICE A DAY 2 TABLET 656564 RxNorm TAKE 2 TABLET BY MOUTH TWICE A DAY x 3 days. thenTAKE 1 TABLET BY MOUTH TWICE A DAY x 3 days Aspirin 81MG Oral Tablet, Enteric Coated 12/12/2023 Unknown ORAL ONCE A DAY 81 MILLIGRAMS 264977 RxNorm TAKE 81 MILLIGRAMS ORAL ONCE A DAY Atorvastatin Calcium 80MG Oral Tablet 12/12/2023 Unknown ORAL ONCE A DAY 40 MILLIGRAMS [id number] RxNorm TAKE 40 MILLIGRAMS ORAL ONCE A DAY Clopidogrel 75MG Oral Tablet 12/12/2023 Unknown ORAL ONCE A DAY 75 MILLIGRAMS [id number] RxNorm TAKE 75 MILLIGRAMS ORAL ONCE A DAY Albuterol Sulfate 0.09MG/1Actuat ion Inhalation Suspension 12/12/2023 Unknown INHALATIO N NEEDED EVERY 4 HOURS 2 unit(s) 6505665 RxNorm 2 EACH INHALATION NEEDED EVERY 4 HOURS Entresto 49MG-51MG Oral Tablet 12/12/2023 Unknown ORAL TWICE A DAY 1 unit(s) 8769881 RxNorm TAKE 1 EACH ORAL TWICE A DAY FLUoxetine HCl 40MG Oral Capsule 12/12/2023 Unknown ORAL ONCE A DAY 40 MILLIGRAMS 313751 RxNorm TAKE 40 MILLIGRAMS ORAL ONCE A DAY Fluticasone Propionate HFA 0.044MG/1Actua tion Inhalation Aerosol Powder 12/12/2023 Unknown INHALATIO N RESP BID 1 unit(s) 421906 RxNorm 1 EACH INHALATION RESP BID Furosemide 20MG Oral Tablet 12/12/2023 Unknown ORAL ONCE A DAY 20 MILLIGRAMS 813881 RxNorm TAKE 20 MILLIGRAMS ORAL ONCE A DAY Isosorbide Mononitrate 30MG Oral Tablet, Extended Release 12/12/2023 Unknown ORAL ONCE A DAY 15 MILLIGRAMS 728029 RxNorm TAKE 15 MILLIGRAMS ORAL ONCE A DAY Jardiance 25MG Oral Tablet 12/12/2023 Unknown ORAL ONCE A DAY 12.5 MILLIGRAMS [id number] RxNorm TAKE 12.5 MILLIGRAMS ORAL ONCE A DAY Metoprolol Succinate 50MG Oral Tablet, Extended Release 12/12/2023 Unknown ORAL ONCE A DAY 25 MILLIGRAMS 936770 RxNorm TAKE 25 MILLIGRAMS ORAL ONCE A DAY Nitroglycerin 0.4MG Sublingual Tablet 12/12/2023 Unknown SUBLINGUA L NEEDED 0.[address] 0.4 MILLIGRAMS SUBLINGUAL NEEDED Potassium Chloride 10MEQ Oral Tablet, Extended Release 12/12/2023 Unknown ORAL ONCE A DAY 10 MEQ 865204 RxNorm TAKE 10 MEQ ORAL ONCE A DAY Spiriva Respimat 2.5MCG/1Act Inhalation Bowman 12/12/2023 Unknown INHALATIO N RESP DAILY 2 unit(s) 8149083 RxNorm 2 EACH INHALATION RESP DAILY Spironolactone 25MG Oral Tablet 12/12/2023 Unknown ORAL ONCE A DAY 25 MILLIGRAMS 784970 RxNorm TAKE 25 MILLIGRAMS ORAL ONCE A DAY Vitamin D 50 MCG Oral Tablet 12/12/2023 Unknown ORAL ONCE A DAY 50 MCG 741217 RxNorm TAKE 50 MCG ORAL ONCE A DAY busPIRone 10MG Oral Tablet 12/12/2023 Unknown ORAL THREE TIMES A DAY 10 MILLIGRAMS 798371 RxNorm TAKE 10 MILLIGRAMS ORAL THREE TIMES A DAY Protonix 40 MG Oral Tablet, Delayed Release 12/12/2023 Unknown BY MOUTH ONCE A DAY 1 TABLET 415509 RxNorm TAKE 1 TABLET BY MOUTH ONCE A DAY Carafate 1GM Oral Tablet 12/12/2023 Unknown BY MOUTH THREE TIMES A DAY BEFORE MEALS 1 TABLET 070870 RxNorm TAKE 1 TABLET BY MOUTH THREE [...] Code Code System ATYPICAL CHEST PAIN active 310019363 SNOMED-CT COPD WITH EXACERBATION active 6025915 07 SNOMED-CT LOWER GI BLEEDING active 23920312 SN OMED-CT ESSENTIAL HYPERTENSION active 8012341 0 SNOMED-CT TYPE 2 DM active 19503184 SNOMED-CT MIXED HYPERLIPIDEMIA active 699355561 SNOMED-CT HISTORY OF MYOCARDIAL INFARCTION active 866459708 SNOMED-CT HISTORY OF CORONARY ARTERY DISEASE WITH STENT PLACEMENT active 185460867 SNOMED-CT SCHWARTZ ANEURYSM active 615290114 SNOME D-CT OTHER SPECIFIED ABNORMAL FINDINGS OF BLOOD CHEMISTRY active 018947736 SNOMED-CT Allergies and Adverse Reactions Allergy Substance Reaction Severity Start Date Concern Status Co de Code System No Known Drug Allergies Active 654411475 SNOMED-CT Plan of Treatment Thursby Established Patient Visit 12/02 CT Chest/Lung WO Contrast (06493) 12/11 Encounters Encounter Diagnosis Start Date Code Code Sys tem Chest pain, unspecified 08/13/2023 SNOM ED-CT Personal Care Team Section Performer Name Performer Role Active Date Inactive Peterson Barillas PCP - Primary care physician 2022-07-13 Yoan Coker PCP - Primary care physician 2022-08-20
--- OUTSIDE RECORDS SUMMARY | 2025-07-31 16:52 | XMS_ITS | Clinical Summary ---
Author Organization [facility] Address [address] [place] [address] Care Team Providers Care Truck Rental Clerk Name Role Phone Citlali Li MD Unavailable Lucita Bates NP Unavailable [phone] Lyndsey Ray Primary Care Provide r Allergies Active Allergy Reactions Criticality Noted Date Comments Bee Venom Swelling Low 12/19/2017 Propoxyphene Anaphylaxis High 03/25/2025 Medications aspirin 81 MG chewable tablet Chew [...] total) by mouth nightly at bedtime. Active ENTRESTO 24-26 MG tablet Take 1 [...] encephalopathy 06/01/2024 Intractable headache 04/20/2024 Unstable angina 03/11/2023 Limb ischemia 02/01/2023 STEMI (ST elevation myocardial infarction) 01/27 Family History Medical History Relation Comments Coronary [...] from your doctor or pharmacy? Never 06/01/2024 [facility] Utilities Answer Date Recorded In the past 12 months has th e electric, gas, oil, or water company threatened to shut off services in your home? No 03/25/2025 Humiliation, Afraid, Rape, and Kick questionnair e Answer Date Recorded Within the last year, have y ou been afraid of your partner or ex-partner? No 03/25/2025 Within the last year, have y ou been humiliated or emotionally abused in other ways by your partner or ex-partner? No Within the last year, have y ou been kicked, hit, slapped, or otherwise physically hurt by your partner or ex-partner? No 03/25/2025 Within the last year, have y ou been raped or forced to have any kind of sexual activity by your partner or ex-partner? No 03/25/2025 Social Connection and Isolation Panel Answer Date Recorded In a typical week, how many times do you talk on the phone with family, friends, or neighbors? Three times a week 06/01/2024 How often do you get togethe r with friends or relatives? Three times a week 06/01/2024 How often do you attend chur or tenriism services? Never 06/01/2024 Do you belong to any clubs o r organizations such as cheondoism groups, unions, fraternal or athletic groups, or [...] you are drinking? Patient does not drink Q3: How often do you have si x or more drinks on one occasion? Less than monthly 06/01/2024 Overall Financial Resource Strain (CARDIA) Answe r Date Recorded How hard is it for you to pa y for the very basics like food, housing, medical care, and heating? Not hard at all 03/25/2025 [facility] - Occupational Stress Questionnaire Answer Date Recorded [...] the money to buy more. Never true 03/25/20 25 Within the past 12 months, t he food you bought just didn't last and you didn't have money to get more. Never true 03/25/2025 PRAPARE - Transportation Answer Date Re corded In the past 12 months, has l ack of transportation kept you from medical appointments or from getting medications? No 03/03 In the past 12 months, has l ack of transportation kept you from meetings, work, or from getting things needed for daily living? No 03/25/2025 Housing Stability Vital Sign Answer Michele e [...] place to sleep or slept in a usp (including now)? No 09/24/2023 Housing Stability Vital Sign Answer Michele e Recorded In the last 12 months, was t here a time when you were not able to pay the mortgage or rent on time? No 03/25/2025 In the past 12 months, how m any times have you moved where you were living? 0 03/25/2025 At any time in the past 12 m [facility], were you homeless or living in a usp (including now)? 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 Legal Sex Male 5:50 PM SHEETER OPERATOR Gender Identity Not on file Sexual Orientation Not on file Last Filed Vital Signs Vital Sign Reading Time Taken Comments Blood Pressure 102/55 03/27/2025 11:05 AM CDT Pulse 64 03/27/2025 11:05 AM CDT Temperature 36.7 C (98.1 F) 03/27/2025 11:05 AM CDT Respiratory Rate 20 03/27/2025 11:0 5 AM CDT Oxygen Saturation 95% 03/27/2025 11: 05 AM CDT Inhaled Oxygen Concentration - - Weight 106.2 kg (234 lb 2.1 oz) 03/27/2025 4:36 AM CDT Height 180.3 cm (5' 11) 03/25/2025 6:52 AM CDT Body Mass Index 32.65 03/25/2025 6:52 AM CDT Plan of Treatment Health Maintenance Due Date Last Done Comments ASCVD Statin 1969 Colorectal Cancer Screening Colonoscopy (10 Years) 1969 Annual Physical 1972 Hepatitis C 12/04/1987 Hepatitis B Vaccines (1 of 3 - 19+ 3-dose series) 1988 Pneumococcal Vaccine: 50+ Years (1 of 2 - PCV) 1988 Zoster Vaccines (1 of 2) 12/04/2019 Lung Cancer Screening 08/08/2024 08/08/2023 ASCVD LDL 09/25/2024 09/25/2023, 06/12/2023, 01/28/2023 COVID-19 Vaccine (2 - 2024-2 6 season) 2025 07/04/2023 Influenza Adult (#1) 2025 DTaP, Tdap and Td Vaccines ( 2 - Td or Tdap) 08/19/2033 08/19/2023 Hepatitis A Vaccines Aged Out No long er eligible based on patient's age to complete this topic Meningococcal B Vaccine Aged Out No l onger eligible based on patient's age to complete this topic Meningococcal Vaccine Aged Out No [place] kellie eligible based on patient's age to complete this topic RSV Immunizations Under 20 Months Aged Out No longer eligible b ased on patient's age to complete this topic Goals Goal Patient Goal Type Associated Problems Recent Progress Patient-Stated? Author Patient will return to prior living situation and remain independent in ADLs upon discharge from hospital Lifestyle No Tilling, Sandra M, RN Safety Patient/family will have appropriate support at home upon discharge Lifestyle Sandra Marshall RN Medical Devices Implanted Type Area Film Color Tester Device Identifier Shelf Expiration Date Model [...] Stent Coronary RCA [employer] 06/24/2024 [id number] / / [id number] Cv Synergy Xd Benny-Rca-01/28/20 Implanted:01/27 by Abilio Morales MD (Quantity not on file) Stent Coronary RCA [employer] 10/08/2024 [id number] / / [id number] Cv Synergy Xd Benny-Rca-01/28/20 Implanted:01/27 by Abilio Morales MD (Quantity not on file) Stent Coronary RCA [employer] 06/07/2024 [id number] / / [id number] Cv Synergy Xd Benny-Rca-01/28/20 Implanted:01/27 by Abilio Morales MD (Quantity not on file) Stent Coronary RCA [employer] 04/30/2024 [id number] / / [id number] Cv Orsiro Edgard Fwv-Pcd-Gp8-07/2023 Implanted:06/12 by Peace Arita MD (Quantity not on file) Stent Coronary LCX BIOTRONIK 12/21/2023 [id number] / / [id number] Procedures Procedure Name Priority Date/Time Associated Diagnosis Comments LIPID PANEL Routine 09/25/2023 5:54 AM SHEETER OPERATOR from Last 3 Months or Most Recently Relevant to Health Maintenance Results * LIPID PANEL (09/25/2023 5:54 AM SHEETER OPERATOR) CHOLESTEROL 143 MG/DL 09/25/2023 6:49 AM SHEETER OPERATOR [facility] Comment:DESIRABLE: <200 TRIGLYCERIDES 113 MG/DL 09/25/2023 6:49 AM SHEETER OPERATOR [facility] Comment:<150 NORMAL HDL 55 >39 MG/DL 09/25/2023 6:49 AM SHEETER OPERATOR [facility] LDL (CALCULATED) 65 MG/DL 09/25/19 6:49 AM SHEETER OPERATOR [facility] Comment:<100 OPTIMAL VLDL CALCULATION 23 MG/DL 09/25/19 6:49 AM SHEETER OPERATOR [facility] Comment:REFERENCE RANGE NOT ESTABLISHED CHOL/HDL RATIO 2.6 09/25/2023 6:49 AM SHEETER OPERATOR [facility] Comment:REFERENCE RANGE NOT ESTABLISHED LDL/HDL 1.2 09/25/2023 6:49 AM [facility] Comment:REFERENCE RANGE NOT ESTABLISHED NON HDL CHOLESTEROL 88 MG/DL 09/25/2023 6:49 AM SHEETER OPERATOR [facility] Comment:REFERENCE RANGE NOT ESTABLISHED 09/25/2023 5:54 AM SHEETER OPERATOR us Peace Farr MD LABORATORY Final Res ult [facility] [address] [place] [address], [place] [phone] [id number] from Last 3 Months or Most Recently Relevant to Health Maintenance Insurance [facility] OFFICE OF [facility] Advance Directives Documents on File Type Date Recorded Patient Online Banking Specialist Expl anation Power of Drop Wire Builder 09/12/2023 7:23 PM POA F OR HEALTHCARE 06/13/23 Advance Directives and Living Will 06/13/2023 12:37 PM * Full Code (Latest Code Status on File) Date Activated Date Inactivated Comments 03/25/2025 8:26 AM 03/27/2025 3:25 PM * Full Code Date Activated Date Inactivated Comments 06/01/2024 1:35 AM 06/02/2024 4:12 PM * Full Code Date Activated Date Inactivated Comments 04/20/2024 12:44 AM 04/21/2024 3:02 PM * Full Code Date Activated Date Inactivated Comments 09/24/2023 6:16 AM 09/25/2023 3:59 PM * Full Code Date Activated Date Inactivated Comments 06/12/2023 6:53 PM 06/13/2023 2:46 PM Care Teams Truck Rental Clerk Relationship Specialty Start Date End Date Lyndsey Ray APNP [address] [place] [address] PCP - General NURSE PRACTITIONER 06/01/24 Citlali Li MD Consulting Physician INTERVENTIONAL CARDIOLOGY 01/29/23 Lucita Bates NP [address] [place] [address] [id number] [place] [address] Nurse Practitioner Nurse Practitioner [facility] 01/30/23
--- OUTSIDE RECORDS SUMMARY | 2025-07-31 16:52 | XMS_ITS ---
Author Organization Unknown Address [address] [place] [phone] Phone Care Team Providers Care Crusher Name Role Phone IRENE DA SILVA Attending Unavailable CHIQUITA HODGE Primary Unavailable Immunization Immunization Date Status Additional Notes Code Code System MMR 04/14/2015 Completed 03 CVX Tdap 08/19/2023 Completed 115 CVX COVID-19, mRNA, LNP-S, PF, 5 0 mcg/0.5 mL 07/04/2023 Completed 312 CVX Results TROPONIN LEVEL - Collect Michele e/Time: 03/11/2024 18:13 [facility] ID: [id number] [address] [place] [address], [phone] LOINC: 99320-5 Test Value Unit Reference Range Code Code System Flag TROPONIN < 0.012 ng/mL L=0.000 H=0.033 88859-4 LOINC URINALYSIS w/Microscopy - Co llect Date/Time: 03/11/2024 16:00 [facility] ID: [id number] [address] [place] [address], [phone] LOINC: 76228-3 Test Value Unit Reference Range Code Code System Flag UR SOURCE VOIDED 65709-1 LOINC COLOR YELLOW YELLOW 5778-6 LOINC CLARITY CLEAR CLEAR 53135-9 LOINC SPEC GRAVITY 1.020 1.000-1.030 5811-5 LOINC PH 6.0 5.0 - 6.5 5803-2 LOINC LEUK EST NEGATIVE NEGATIVE 5799-2 LOINC NITRATE NEGATIVE NEGATIVE PROTEIN NEGATIVE NEGATIVE 5804-0 LOINC GLUCOSE 3+ NEGATIVE 08867-2 LOINC KETONES NEGATIVE NEGATIVE 60022-3 LOINC UROBILINOGEN 0.2 NEGATIVE 5818-0 LOINC BILIRUBIN NEGATIVE NEGATIVE 34089-5 LOINC BLOOD 2+ NEGATIVE 34845-0 LOINC WBC 0-2 0 - 2 05804-1 LOINC RBC 5-10 0 - 2 01586-9 LOINC A EPITHELIAL RARE RARE-FEW 76019-9 LOINC BACTERIA FEW NONE SEEN 00902-7 LOINC MUCUS MODERATE NONE SEEN 8247-9 LOINC A YEAST NOT PRESENT NOT PRESENT 13271-4 LOINC CASTS SEE BELOW 40063-9 LOINC CRYSTALS NONE SEEN 26116-0 LOINC TROPONIN LEVEL - Collect Michele e/Time: 03/11/2024 15:00 [facility] ID: [id number] [place] [address], [phone] LOINC: 12107-1 Test Value Unit Reference Range Code Code System Flag TROPONIN < 0.012 ng/mL L=0.000 H=0.033 20034-4 LOINC CBC W/ DIFF - Collect Date/T peyton: 03/11/2024 15:00 [facility] ID: [id number] [address] [place] [address], [phone] LOINC: 37206-7 Test Value Unit Reference Range Code Code System Flag WBC 11.9 10^3uL L=4.8 H=10.8 H RBC 5.19 10^6uL L=4.60 H=6.20 HEMOGLOBIN 15.7 g/dL L=14.0 H=18.0 718-7 LOINC HEMATOCRIT 47.7 VOL% L=42.0 H=52.0 4544-3 LOINC MCV 91.9 fL L=80.0 H=94.0 MCH 30.3 pg L=27.0 H=32.0 MCHC 32.9 g/dL L=32.0 H=36.0 PLATELETS 205 10^3uL L=100 H=400 53936-3 LOINC RDW 14.1 % L=11.7 H=15.5 %GRAN 60.2 % L=40.0 H=70.0 11221-8 LOINC %LYMPH 28.3 % L=20.0 H=45.0 736-9 LOINC %MONO 8.6 % L=2.0 H=10.0 81048-7 LOINC %EOS 1.8 % L=0.0 H=6.0 713-8 LOINC %BASO 0.8 % L=0.0 H=3.0 706-2 LOINC #NEUT 7.2 10^3uL L=1.9 H=7.6 91596-9 LOINC #LYMPH 3.4 10^3uL L=0.9 H=4.9 83486-4 LOINC #MONO 1.0 10^3uL L=0.1 H=0.9 45891-8 LOINC H #EOS 0.2 10^3uL L=0.0 H=0.6 712-0 LOINC #BASO 0.10 10^3uL L=0.00 H=0.10 71405-6 LOINC #IM GRANS 0.0 10^3uL L=0.0 H=7.0 35446-2 LOINC %IM GRANS 0.3 % L=0.0 H=5.0 12112-9 LOINC %NRB 0.0 L=0.0 H=0.2 56584-0 LOINC #NRB 0.000 L=0.000 H=0.012 49659-4 LOINC MANUAL DIFF NOT INDICATED RBC MORPH NOT INDICATED COMPREHENSIVE METABOLIC PANE L - Collect Date/Time: 03/11/2024 15:00 [facility] ID: [id number] [address] [place], [place], [phone] LOINC: 38430-6 Test Value Unit Reference Range Code Code System Flag FASTING UNKNOWN BUN 9 mg/dL L=7 H=20 3094-0 LOINC CREATININE 1.10 mg/dL L=0.66 H=1.25 2160-0 LOINC GLUCOSE 98 mg/dL L=74 H=106 2345-7 LOINC SODIUM 142 mmol/L L=132 H=144 2951-2 LOINC POTASSIUM 3.8 mmol/L L=3.5 H=5.1 2823-3 LOINC CHLORIDE 112 mmol/L L=98 H=107 2075-0 LOINC H CO2 25.0 mmol/L L=22.0 H=30.0 8-9 LOINC ANION GAP 9 L=10 H=20 57694-3 LOINC L OSMOLALITY 293 mOs/kG L=280 H=296 75468-3 LOINC BUN/CREAT 8.2 3097-3 LOINC CALCIUM 9.4 mg/dL L=8.3 H=10.5 89081-8 LOINC AST 23 U/L L=15 H=46 1920-8 LOINC ALT 14 U/L L=9 H=72 1742-6 LOINC ALKALINE PHOS 97 U/L L=38 H=126 6768-6 LOINC TOTAL BILI 0.3 mg/dL L=0.2 H=1.3 1975-2 LOINC ALBUMIN 4.2 G/dL L=3.5 H=5.0 1751-7 LOINC TOTAL PROTEIN 7.2 g/L L=6.3 H=8.2 2885-2 LOINC A/G RATIO 1.4 03604-2 LOINC AGE 53 56996-4 LOINC eGFR NON-AFR 74 ml/min eGFR AFR AMER 90 ml/min PRO BNP - Collect Date/Time: 03/11/2024 15:00 [facility] ID: [id number] [address] [place], [place], [phone] LOINC: 27826-7 Test Value Unit Reference Range Code Code System Flag Pro BNP2 301 pg/mL L=0 H=900 57418-7 LOINC CHEST 1V - Completed: 2023 15:12 LOINC: EXAM DESCRIPTION: CHEST 1V REASON FOR STUDY: Chest pain and SOB since this AM. History of asthma, COPD, VT, coronary stents. Current smoker. Duration: this AM Previous Surgery: coronary stents Smoking History: current TECHNIQUE: 1 radiographic view(s) of the chest. COMPARISON: CT chest dated 02/05/2024 FINDINGS: LUNGS: No focal opacity, pleural effusion, or pneumothorax. HEART/MEDIASTINUM: Cardiac silhouette normal in size. Mediastinal and hilar contours appear normal. LINES/TUBES: None. BONES: No acute osseous abnormality. IMPRESSION: No acute cardiopulmonary abnormality. THIS IS AN ELECTRONICALLY VERIFIED FINAL REPORT 03/11/2024 3:17 PM - Electronically signed by Brain De La Paz M.D. MM: MM Report ID: [id number] Reading Location: [id number] Social History Type Status Start Date End Date Code Code Syst em Smoking History Current every day smoker 866588013 SNOMED CT Smoking History Unknown if ever smoked [address] Sex Male Medications Medication Start Date End Date Route Frequency Dose Code Code System Medication Instructions Home Meds predniSONE 20MG Oral Tablet 12/12/2023 Unknown BY MOUTH TWICE A DAY 2 TABLET 185573 RxNorm TAKE 2 TABLET BY MOUTH TWICE A DAY x 3 days. thenTAKE 1 TABLET BY MOUTH TWICE A DAY x 3 days Aspirin 81MG Oral Tablet, Enteric Coated 12/12/2023 Unknown ORAL ONCE A DAY 81 MILLIGRAMS 163345 RxNorm TAKE 81 MILLIGRAMS ORAL ONCE A DAY Atorvastatin Calcium 80MG Oral Tablet 12/12/2023 Unknown ORAL ONCE A DAY 40 MILLIGRAMS 292228 RxNorm TAKE 40 MILLIGRAMS ORAL ONCE A DAY Clopidogrel 75MG Oral Tablet 12/12/2023 Unknown ORAL ONCE A DAY 75 MILLIGRAMS 788677 RxNorm TAKE 75 MILLIGRAMS ORAL ONCE A DAY Albuterol Sulfate 0.09MG/1Actuat ion Inhalation Suspension 12/12/2023 Unknown INHALATIO N NEEDED EVERY 4 HOURS 2 unit(s) 6311740 RxNorm 2 EACH INHALATION NEEDED EVERY 4 HOURS Entresto 49MG-51MG Oral Tablet 12/12/2023 Unknown ORAL TWICE A DAY 1 unit(s) 4654731 RxNorm TAKE 1 EACH ORAL TWICE A DAY FLUoxetine HCl 40MG Oral Capsule 12/12/2023 Unknown ORAL ONCE A DAY 40 MILLIGRAMS 259282 RxNorm TAKE 40 MILLIGRAMS ORAL ONCE A DAY Fluticasone Propionate HFA 0.044MG/1Actua tion Inhalation Aerosol Powder 12/12/2023 Unknown INHALATIO N RESP BID 1 unit(s) 311013 RxNorm 1 EACH INHALATION RESP BID Furosemide 20MG Oral Tablet 12/12/2023 Unknown ORAL ONCE A DAY 20 MILLIGRAMS 312435 RxNorm TAKE 20 MILLIGRAMS ORAL ONCE A DAY Isosorbide Mononitrate 30MG Oral Tablet, Extended Release 12/12/2023 Unknown ORAL ONCE A DAY 15 MILLIGRAMS 196028 RxNorm TAKE 15 MILLIGRAMS ORAL ONCE A DAY Jardiance 25MG Oral Tablet 12/12/2023 Unknown ORAL ONCE A DAY 12.5 MILLIGRAMS 4265453 RxNorm TAKE 12.5 MILLIGRAMS ORAL ONCE A DAY Metoprolol Succinate 50MG Oral Tablet, Extended Release 12/12/2023 Unknown ORAL ONCE A DAY 25 MILLIGRAMS 999150 RxNorm TAKE 25 MILLIGRAMS ORAL ONCE A DAY Nitroglycerin 0.4MG Sublingual Tablet 12/12/2023 Unknown SUBLINGUA L NEEDED 0.[address] 0.4 MILLIGRAMS SUBLINGUAL NEEDED Potassium Chloride 10MEQ Oral Tablet, Extended Release 12/12/2023 Unknown ORAL ONCE A DAY 10 MEQ 463015 RxNorm TAKE 10 MEQ ORAL ONCE A DAY Spiriva Respimat 2.5MCG/1Act Inhalation [place] 12/12/2023 Unknown INHALATIO N RESP DAILY 2 unit(s) 8745058 RxNorm 2 EACH INHALATION RESP DAILY Spironolactone 25MG Oral Tablet 12/12/2023 Unknown ORAL ONCE A DAY 25 MILLIGRAMS 445722 RxNorm TAKE 25 MILLIGRAMS ORAL ONCE A DAY Vitamin D 50 MCG Oral Tablet 12/12/2023 Unknown ORAL ONCE A DAY 50 MCG 152009 RxNorm TAKE 50 MCG ORAL ONCE A DAY busPIRone 10MG Oral Tablet 12/12/2023 Unknown ORAL THREE TIMES A DAY 10 MILLIGRAMS 904231 RxNorm TAKE 10 MILLIGRAMS ORAL THREE TIMES A DAY Protonix 40 MG Oral Tablet, Delayed Release 12/12/2023 Unknown BY MOUTH ONCE A DAY 1 TABLET 284321 RxNorm TAKE 1 TABLET BY MOUTH ONCE A DAY Carafate 1GM Oral Tablet 12/12/2023 Unknown BY MOUTH THREE TIMES A DAY BEFORE MEALS 1 TABLET 674803 RxNorm TAKE 1 TABLET BY MOUTH THREE [...] Code Code System ATYPICAL CHEST PAIN active 445668162 SNOMED-CT COPD WITH EXACERBATION active 1171541 07 SNOMED-CT LOWER GI BLEEDING active 40783299 SN OMED-CT ESSENTIAL HYPERTENSION active 2701154 0 SNOMED-CT TYPE 2 DM active 00324992 SNOMED-CT MIXED HYPERLIPIDEMIA active 825884017 SNOMED-CT HISTORY OF MYOCARDIAL INFARCTION active 525261346 SNOMED-CT HISTORY OF CORONARY ARTERY DISEASE WITH STENT PLACEMENT active 502857300 SNOMED-CT SCHWARTZ ANEURYSM active 793359747 SNOME D-CT OTHER SPECIFIED ABNORMAL FINDINGS OF BLOOD CHEMISTRY active 772255914 SNOMED-CT Allergies and Adverse Reactions Allergy Substance Reaction Severity Start Date Concern Status Co de Code System No Known Drug Allergies Active 409672320 SNOMED-CT Plan of Treatment Thursby Established Patient Visit 12/02 CT Chest/Lung WO Contrast (80252) 12/11 Encounters Encounter Diagnosis Start Date Code Code Sys tem Chest pain, unspecified 03/11/2024 SNOM ED-CT Personal Care Team Section Performer Name Performer Role Active Date Inactive Peterson Barillas PCP - Primary care physician 2022-07-13 Yoan Coker PCP - Primary care physician 2022-08-20 Imaging Narrative Notes
--- OUTSIDE RECORDS SUMMARY | 2025-07-31 16:53 | XMS_ITS ---
Author Organization Unknown Address [address] [place] [address] [phone] Phone Care Team Providers Care Poultry Farmer Egg Name Role Phone MENDOZA LUIS E Attending Unavailable CHIQUITA HODGE Primary Unavailable Immunization Immunization Date Status Additional Notes Code Code System MMR 04/14/2015 Completed 03 CVX Tdap 08/19/2023 Completed 115 CVX COVID-19, mRNA, LNP-S, PF, 5 0 mcg/0.5 mL 07/04/2023 Completed 312 CVX Results CHEST 2V - Completed: 2023 11:00 LOINC: EXAM DESCRIPTION: CHEST 2V REASON FOR STUDY: cough/ exhaustion Duration: 3 days Smoking History: TECHNIQUE: Frontal and lateral radiographic view(s) of the chest. COMPARISON: 06/11/2023. FINDINGS: LUNGS: No focal opacity, pleural effusion, or pneumothorax. HEART/MEDIASTINUM: Cardiac silhouette top normal but unchanged. Mediastinal and hilar contours appear normal. LINES/TUBES: None. BONES: No acute osseous abnormality. IMPRESSION: No acute cardiopulmonary abnormality. THIS IS AN ELECTRONICALLY VERIFIED FINAL REPORT 10/10/2023 2:34 PM - Electronically signed by Mushtaq Rodriguez M.D. CH: TIMOTHY Report ID: [id number] Reading Location: [id number] Social History Type Status Start Date End Date Code Code Syst em Smoking History Current every day smoker [id number] SNOMED CT Smoking History Unknown if ever smoked [address] Sex Male Medications Medication Start Date End Date Route Frequency Dose Code Code System Medication Instructions Home Meds predniSONE 20MG Oral Tablet 12/12/2023 Unknown BY MOUTH TWICE A DAY 2 TABLET 164061 RxNorm TAKE 2 TABLET BY MOUTH TWICE A DAY x 3 days. thenTAKE 1 TABLET BY MOUTH TWICE A DAY x 3 days Aspirin 81MG Oral Tablet, Enteric Coated 12/12/2023 Unknown ORAL ONCE A DAY 81 MILLIGRAMS 629787 RxNorm TAKE 81 MILLIGRAMS ORAL ONCE A DAY Atorvastatin Calcium 80MG Oral Tablet 12/12/2023 Unknown ORAL ONCE A DAY 40 MILLIGRAMS 973760 RxNorm TAKE 40 MILLIGRAMS ORAL ONCE A DAY Clopidogrel 75MG Oral Tablet 12/12/2023 Unknown ORAL ONCE A DAY 75 MILLIGRAMS 138319 RxNorm TAKE 75 MILLIGRAMS ORAL ONCE A DAY Albuterol Sulfate 0.09MG/1Actuat ion Inhalation Suspension 12/12/2023 Unknown INHALATIO N NEEDED EVERY 4 HOURS 2 unit(s) 9792745 RxNorm 2 EACH INHALATION NEEDED EVERY 4 HOURS Entresto 49MG-51MG Oral Tablet 12/12/2023 Unknown ORAL TWICE A DAY 1 unit(s) 1832263 RxNorm TAKE 1 EACH ORAL TWICE A DAY FLUoxetine HCl 40MG Oral Capsule 12/12/2023 Unknown ORAL ONCE A DAY 40 MILLIGRAMS 556519 RxNorm TAKE 40 MILLIGRAMS ORAL ONCE A DAY Fluticasone Propionate HFA 0.044MG/1Actua tion Inhalation Aerosol Powder 12/12/2023 Unknown INHALATIO N RESP BID 1 unit(s) 416692 RxNorm 1 EACH INHALATION RESP BID Furosemide 20MG Oral Tablet 12/12/2023 Unknown ORAL ONCE A DAY 20 MILLIGRAMS 758389 RxNorm TAKE 20 MILLIGRAMS ORAL ONCE A DAY Isosorbide Mononitrate 30MG Oral Tablet, Extended Release 12/12/2023 Unknown ORAL ONCE A DAY 15 MILLIGRAMS 175862 RxNorm TAKE 15 MILLIGRAMS ORAL ONCE A DAY Jardiance 25MG Oral Tablet 12/12/2023 Unknown ORAL ONCE A DAY 12.5 MILLIGRAMS 2997799 RxNorm TAKE 12.5 MILLIGRAMS ORAL ONCE A DAY Metoprolol Succinate 50MG Oral Tablet, Extended Release 12/12/2023 Unknown ORAL ONCE A DAY 25 MILLIGRAMS 023108 RxNorm TAKE 25 MILLIGRAMS ORAL ONCE A DAY Nitroglycerin 0.4MG Sublingual Tablet 12/12/2023 Unknown SUBLINGUA L NEEDED 0.[address] 0.4 MILLIGRAMS SUBLINGUAL NEEDED Potassium Chloride 10MEQ Oral Tablet, Extended Release 12/12/2023 Unknown ORAL ONCE A DAY 10 MEQ 706803 RxNorm TAKE 10 MEQ ORAL ONCE A DAY Spiriva Respimat 2.5MCG/1Act Inhalation [place] 12/12/2023 Unknown INHALATIO N RESP DAILY 2 unit(s) 5370554 RxNorm 2 EACH INHALATION RESP DAILY Spironolactone 25MG Oral Tablet 12/12/2023 Unknown ORAL ONCE A DAY 25 MILLIGRAMS 768748 RxNorm TAKE 25 MILLIGRAMS ORAL ONCE A DAY Vitamin D 50 MCG Oral Tablet 12/12/2023 Unknown ORAL ONCE A DAY 50 MCG 273815 RxNorm TAKE 50 MCG ORAL ONCE A DAY busPIRone 10MG Oral Tablet 12/12/2023 Unknown ORAL THREE TIMES A DAY 10 MILLIGRAMS 471552 RxNorm TAKE 10 MILLIGRAMS ORAL THREE TIMES A DAY Protonix 40 MG Oral Tablet, Delayed Release 12/12/2023 Unknown BY MOUTH ONCE A DAY 1 TABLET 232149 RxNorm TAKE 1 TABLET BY MOUTH ONCE A DAY Carafate 1GM Oral Tablet 12/12/2023 Unknown BY MOUTH THREE TIMES A DAY BEFORE MEALS 1 TABLET 614721 RxNorm TAKE 1 TABLET BY MOUTH THREE [...] Code Code System ATYPICAL CHEST PAIN active 876120825 SNOMED-CT COPD WITH EXACERBATION active 8743340 07 SNOMED-CT LOWER GI BLEEDING active 21916579 SN OMED-CT ESSENTIAL HYPERTENSION active 4054339 0 SNOMED-CT TYPE 2 DM active 08145441 SNOMED-CT MIXED HYPERLIPIDEMIA active 842106836 SNOMED-CT HISTORY OF MYOCARDIAL INFARCTION active 466773382 SNOMED-CT HISTORY OF CORONARY ARTERY DISEASE WITH STENT PLACEMENT active 623853333 SNOMED-CT SCHWARTZ ANEURYSM active 985810284 SNOME D-CT OTHER SPECIFIED ABNORMAL FINDINGS OF BLOOD CHEMISTRY active 292224979 SNOMED-CT Allergies and Adverse Reactions Allergy Substance Reaction Severity Start Date Concern Status Co de Code System No Known Drug Allergies Active 658820153 SNOMED-CT Plan of Treatment Thursby Established Patient Visit 12/02 CT Chest/Lung WO Contrast (95768) 12/11 Encounters Encounter Diagnosis Start Date Code Code Sys tem Cough 10/09/2023 [id number] SNOMED-CT Personal Care Team Section Performer Name Performer Role Active Date Inactive Peterson Barillas PCP - Primary care physician 2022-07-13 Yoan Coker PCP - Primary care physician 2022-08-20 Imaging Narrative Notes
--- OUTSIDE RECORDS SUMMARY | 2025-07-31 16:53 | XMS_ITS ---
Author Organization Unknown Address [address] [place] [address] [phone] Phone Care Team Providers Care Director Volunteer Services Name Role Phone LOPEZ JENSEN Attending Unavailable CHIQUITA HODGE Primary Unavailable Immunization Immunization Date Status Additional Notes Code Code System MMR 04/14/2015 Completed 03 CVX Tdap 08/19/2023 Completed 115 CVX COVID-19, mRNA, LNP-S, PF, 5 0 mcg/0.5 mL 07/04/2023 Completed 312 CVX Social History Type Status Start Date End Date Code Code Syst em Smoking History Current every day smoker 619104299 SNOMED CT Smoking History Unknown if ever smoked [address] Sex Male Medications Medication Start Date End Date Route Frequency Dose Code Code System Medication Instructions Home Meds predniSONE 20MG Oral Tablet 12/12/2023 Unknown BY MOUTH TWICE A DAY 2 TABLET 333063 RxNorm TAKE 2 TABLET BY MOUTH TWICE A DAY x 3 days. thenTAKE 1 TABLET BY MOUTH TWICE A DAY x 3 days Aspirin 81MG Oral Tablet, Enteric Coated 12/12/2023 Unknown ORAL ONCE A DAY 81 MILLIGRAMS 497214 RxNorm TAKE 81 MILLIGRAMS ORAL ONCE A DAY Atorvastatin Calcium 80MG Oral Tablet 12/12/2023 Unknown ORAL ONCE A DAY 40 MILLIGRAMS 347623 RxNorm TAKE 40 MILLIGRAMS ORAL ONCE A DAY Clopidogrel 75MG Oral Tablet 12/12/2023 Unknown ORAL ONCE A DAY 75 MILLIGRAMS 351700 RxNorm TAKE 75 MILLIGRAMS ORAL ONCE A DAY Albuterol Sulfate 0.09MG/1Actuat ion Inhalation Suspension 12/12/2023 Unknown INHALATIO N NEEDED EVERY 4 HOURS 2 unit(s) 3589537 RxNorm 2 EACH INHALATION NEEDED EVERY 4 HOURS Entresto 49MG-51MG Oral Tablet 12/12/2023 Unknown ORAL TWICE A DAY 1 unit(s) 6140543 RxNorm TAKE 1 EACH ORAL TWICE A DAY FLUoxetine HCl 40MG Oral Capsule 12/12/2023 Unknown ORAL ONCE A DAY 40 MILLIGRAMS 485662 RxNorm TAKE 40 MILLIGRAMS ORAL ONCE A DAY Fluticasone Propionate HFA 0.044MG/1Actua tion Inhalation Aerosol Powder 12/12/2023 Unknown INHALATIO N RESP BID 1 unit(s) 300005 RxNorm 1 EACH INHALATION RESP BID Furosemide 20MG Oral Tablet 12/12/2023 Unknown ORAL ONCE A DAY 20 MILLIGRAMS 354371 RxNorm TAKE 20 MILLIGRAMS ORAL ONCE A DAY Isosorbide Mononitrate 30MG Oral Tablet, Extended Release 12/12/2023 Unknown ORAL ONCE A DAY 15 MILLIGRAMS 660853 RxNorm TAKE 15 MILLIGRAMS ORAL ONCE A DAY Jardiance 25MG Oral Tablet 12/12/2023 Unknown ORAL ONCE A DAY 12.5 MILLIGRAMS 5182655 RxNorm TAKE 12.5 MILLIGRAMS ORAL ONCE A DAY Metoprolol Succinate 50MG Oral Tablet, Extended Release 12/12/2023 Unknown ORAL ONCE A DAY 25 MILLIGRAMS 490591 RxNorm TAKE 25 MILLIGRAMS ORAL ONCE A DAY Nitroglycerin 0.4MG Sublingual Tablet 12/12/2023 Unknown SUBLINGUA L NEEDED 0.[address] 0.4 MILLIGRAMS SUBLINGUAL NEEDED Potassium Chloride 10MEQ Oral Tablet, Extended Release 12/12/2023 Unknown ORAL ONCE A DAY 10 MEQ 279555 RxNorm TAKE 10 MEQ ORAL ONCE A DAY Spiriva Respimat 2.5MCG/1Act Inhalation [place] 12/12/2023 Unknown INHALATIO N RESP DAILY 2 unit(s) 8890024 RxNorm 2 EACH INHALATION RESP DAILY Spironolactone 25MG Oral Tablet 12/12/2023 Unknown ORAL ONCE A DAY 25 MILLIGRAMS 398703 RxNorm TAKE 25 MILLIGRAMS ORAL ONCE A DAY Vitamin D 50 MCG Oral Tablet 12/12/2023 Unknown ORAL ONCE A DAY 50 MCG 341531 RxNorm TAKE 50 MCG ORAL ONCE A DAY busPIRone 10MG Oral Tablet 12/12/2023 Unknown ORAL THREE TIMES A DAY 10 MILLIGRAMS 499337 RxNorm TAKE 10 MILLIGRAMS ORAL THREE TIMES A DAY Protonix 40 MG Oral Tablet, Delayed Release 12/12/2023 Unknown BY MOUTH ONCE A DAY 1 TABLET 923667 RxNorm TAKE 1 TABLET BY MOUTH ONCE A DAY Carafate 1GM Oral Tablet 12/12/2023 Unknown BY MOUTH THREE TIMES A DAY BEFORE MEALS 1 TABLET 763655 RxNorm TAKE 1 TABLET BY MOUTH THREE [...] Code Code System ATYPICAL CHEST PAIN active 971439473 SNOMED-CT COPD WITH EXACERBATION active 0686122 07 SNOMED-CT LOWER GI BLEEDING active 40712945 SN OMED-CT ESSENTIAL HYPERTENSION active 4002836 0 SNOMED-CT TYPE 2 DM active 81048254 SNOMED-CT MIXED HYPERLIPIDEMIA active 407716785 SNOMED-CT HISTORY OF MYOCARDIAL INFARCTION active 631327744 SNOMED-CT HISTORY OF CORONARY ARTERY DISEASE WITH STENT PLACEMENT active 685314991 SNOMED-CT SCHWARTZ ANEURYSM active 086124375 SNOME D-CT OTHER SPECIFIED ABNORMAL FINDINGS OF BLOOD CHEMISTRY active 321827813 SNOMED-CT Allergies and Adverse Reactions Allergy Substance Reaction Severity Start Date Concern Status Co de Code System No Known Drug Allergies Active 647517216 SNOMED-CT Plan of Treatment Thursby Established Patient Visit 12/02 CT Chest/Lung WO Contrast (50046) 12/11 Encounters Encounter Diagnosis Start Date Code Code Sys tem Essential (primary) hypertension 02/24/2024 SNOMED-CT Personal Care Team Section Performer Name Performer Role Active Date Inactive Peterson Barillas PCP - Primary care physician 2022-07-13 Yoan Coker PCP - Primary care physician 2022-08-20
--- OUTSIDE RECORDS SUMMARY | 2025-07-31 16:53 | XMS_ITS | Clinical Summary ---
Author Organization [facility] Address [address] [place] [address] Phone Care Team Providers Care Senior Net Software Engineer Name Role Phone Unavailable Primary Care Provider [...] Date Diagnosed Date Hyperlipidemia 08/07/2023 Atherosclerosis of [place] de[place] coronary artery of riki joel heart 08/07/2023 [...] drink = 0.6 oz pur e alcohol) Feeling Safe Answer Date Recorded Are you in a relationship wi th someone who hurts you emotionally and/or physically? 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[employer] Gender Identity Not on file Sexual Orientation Not on file Last Filed Vital Signs Vital Sign Reading Time Taken Comments Blood Pressure 132/74 08/08/2023 3:08 PM WOODWORKING CRAFTSMAN Pulse 60 08/08/2023 3:08 PM WOODWORKING CRAFTSMAN Temperature 36.4 C (97.5 F) 08/08/2023 3:08 PM WOODWORKING CRAFTSMAN Respiratory Rate 20 08/08/2023 3:08 PM WOODWORKING CRAFTSMAN Oxygen Saturation 98% 08/08/2023 3:08 PM WOODWORKING CRAFTSMAN Inhaled Oxygen Concentration - - Weight 103.9 kg (229 lb 1.6 oz) 08/07/2023 2:10 AM WOODWORKING CRAFTSMAN Height 180.3 cm (5' 11) 08/07/2023 2:10 AM WOODWORKING CRAFTSMAN Body Mass Index 31.95 08/07/2023 2:10 AM WOODWORKING CRAFTSMAN Plan of Treatment Health Maintenance Due Date Last Done Comments DTAP/TDAP/TD VACCINES (1 - Tdap) 1988 HEPATITIS B VACCINES (1 of 3 - 19+ 3-dose series) 1988 COLORECTAL SCREENING 2014 Colorectal Cancer Screening 2014 FIT-DNA Q 3 years 2014 FIT/FOBT Q 1 year 2014 Flex Sig/CT Colonography Q 5 years 2014 ZOSTER VACCINE (1 of 2) 12/04/2019 INFLUENZA VACCINE (#1) 2025 COVID-19 Vaccine (6 - 2024-2 6 season) 2025 07/04/2023, 02/13/2022, 08/01/2021, Additional history exists Insurance [facility] MEDICAID [place] [id number] RX [facility] [employer] Commercial RX [employer] (INTERNAL) [facility] Internal Plans Advance Directives For more information, please contact: [phone] * Full Code (Latest Code Status on File) Date Activated Date Inactivated Comments 08/07/2023 1:40 AM 08/08/2023 5:59 PM * Full Code Date Activated Date Inactivated Comments 07/14/2023 9:52 AM 07/15/2023 6:23 PM
--- OUTSIDE RECORDS SUMMARY | 2025-07-31 16:53 | XMS_ITS ---
Author Organization Unknown Address [address] [place] [address] [phone] Phone Care Team Providers Care Slot Floor Supervisor Name Role Phone IRENE DA SILVA Attending Unavailable CHIQUITA HODGE Primary Unavailable Immunization Immunization Date Status Additional Notes Code Code System MMR 04/14/2015 Completed 03 CVX Tdap 08/19/2023 Completed 115 CVX COVID-19, mRNA, LNP-S, PF, 5 0 mcg/0.5 mL 07/04/2023 Completed 312 CVX Results CBC W/ DIFF - Collect Date/T [place]: 02/05/2024 16:18 [facility] ID: [id number] [place] [address], [phone] LOINC: 36778-8 Test Value Unit Reference Range Code Code System Flag WBC 10.8 10^3uL L=4.8 H=10.8 RBC 4.88 10^6uL L=4.60 H=6.20 HEMOGLOBIN 14.8 g/dL L=14.0 H=18.0 718-7 LOINC HEMATOCRIT 45.1 VOL% L=42.0 H=52.0 4544-3 LOINC MCV 92.4 fL L=80.0 H=94.0 MCH 30.3 pg L=27.0 H=32.0 MCHC 32.8 g/dL L=32.0 H=36.0 PLATELETS 227 10^3uL L=100 H=400 71497-0 LOINC RDW 13.9 % L=11.7 H=15.5 %GRAN 57.5 % L=40.0 H=70.0 26959-8 LOINC %LYMPH 30.9 % L=20.0 H=45.0 736-9 LOINC %MONO 7.7 % L=2.0 H=10.0 57767-4 LOINC %EOS 2.6 % L=0.0 H=6.0 713-8 LOINC %BASO 1.0 % L=0.0 H=3.0 706-2 LOINC #NEUT 6.2 10^3uL L=1.9 H=7.6 08129-3 LOINC #LYMPH 3.3 10^3uL L=0.9 H=4.9 92924-8 LOINC #MONO 0.8 10^3uL L=0.1 H=0.9 58094-9 LOINC #EOS 0.3 10^3uL L=0.0 H=0.6 712-0 LOINC #BASO 0.11 10^3uL L=0.00 H=0.10 44032-6 LOINC H #IM GRANS 0.0 10^3uL L=0.0 H=7.0 35943-7 LOINC %IM GRANS 0.3 % L=0.0 H=5.0 50395-3 LOINC %NRB 0.0 L=0.0 H=0.2 52516-0 LOINC #NRB 0.000 L=0.000 H=0.012 74008-8 LOINC MANUAL DIFF NOT INDICATED RBC MORPH NOT INDICATED COMPREHENSIVE METABOLIC PANE L - Collect Date/Time: 02/05/2024 15:44 [facility] ID: [id number] [address] [place], [place], [phone] LOINC: 07493-9 Test Value Unit Reference Range Code Code System Flag FASTING UNKNOWN BUN 10 mg/dL L=7 H=20 3094-0 LOINC CREATININE 1.00 mg/dL L=0.66 H=1.25 2160-0 LOINC GLUCOSE 128 mg/dL L=74 H=106 2345-7 LOINC H SODIUM 144 mmol/L L=132 H=144 2951-2 LOINC POTASSIUM 3.5 mmol/L L=3.5 H=5.1 2823-3 LOINC CHLORIDE 106 mmol/L L=98 H=107 2075-0 LOINC CO2 30.0 mmol/L L=22.0 H=30.0 8-9 LOINC ANION GAP 12 L=10 H=20 77266-2 LOINC OSMOLALITY 299 mOs/kG L=280 H=296 33252-4 LOINC H BUN/CREAT 10.0 3097-3 LOINC CALCIUM 9.3 mg/dL L=8.3 H=10.5 20291-1 LOINC AST 24 U/L L=15 H=46 1920-8 LOINC ALT 18 U/L L=9 H=72 1742-6 LOINC ALKALINE PHOS 104 U/L L=38 H=126 6768-6 LOINC TOTAL BILI 0.3 mg/dL L=0.2 H=1.3 1975-2 LOINC ALBUMIN 3.8 G/dL L=3.5 H=5.0 1751-7 LOINC TOTAL PROTEIN 6.7 g/L L=6.3 H=8.2 2885-2 LOINC A/G RATIO 1.3 64932-6 LOINC AGE 53 96296-2 LOINC eGFR NON-AFR 83 ml/min eGFR AFR AMER 100 ml/min TROPONIN LEVEL - Collect Michele e/Time: 02/05/2024 15:44 [facility] ID: [id number] [address] [place] [address], [phone] LOINC: 30164-6 Test Value Unit Reference Range Code Code System Flag TROPONIN < 0.012 ng/mL L=0.000 H=0.033 56691-4 LOINC D DIMER - Collect Date/Time: 02/05/2024 11:36 [facility] ID: [id number] [address] [place] [address], [phone] LOINC: Test Value Unit Reference Range Code Code System Flag DDIMER 0.58 mg/L FEU L=0.00 H=0.[address] CHEST PE ANGIO W/ CONTRAS T - Completed: 02/05/2024 17:08 LOINC: 99622-7 EXAM DESCRIPTION: CT CHEST PE ANGIO W/ CONTRAST REASON FOR STUDY: elevated d dimer/ HTN/ CORONARY STENTS/ COPD/ chest pain 3 days Duration: today TECHNIQUE: CT angiogram of the chest performed with intravenous contrast using helical scanning technique with dynamic intravenous contrast injection. Reconstructed coronal and sagittal MPR images reviewed. All images stored on PACS. 3D MIP images rendered on scanning unit and reviewed at time of interpretation. Automated exposure control was used as a dose optimization technique for this examination. CONTRAST TYPE/DOSE: 80 cc's of Isovue 370 injected via left distal forearm COMPARISON: 12/10/2023 REFERENCE: Per ACR white paper recommendations, unless otherwise specified no follow-up imaging is recommended for incidental renal and adrenal lesions per consensus recommendations based on imaging criteria. Further lab evaluation could be pursued based on clinical findings. FINDINGS: VASCULATURE: No identified pulmonary emboli. LUNGS: This study is also severely compromised by respiratory motion. No suspicious nodules or masses. A 5 mm juxtapleural noncalcified nodule in the right upper lobe posteriorly is unchanged. No pneumonia. PLEURA: No effusion. No pneumothorax. MEDIASTINUM/BO: No identified masses or abnormal nodes. HEART: There is no pericardial effusion. AXILLA: No adenopathy. CHEST WALL: No masses. No subcutaneous air. HARDWARE/LINES/TUBES: None. UPPER ABDOMEN: No significant abnormality. MUSCULOSKELETAL: No significant abnormality. OTHER: No significant abnormality. IMPRESSION: ? ? No obvious evidence of pulmonary embolism. The exam is severely compromised by respiratory motion. ? ? Pulmonary nodule recommendations have already been made. THIS IS AN ELECTRONICALLY VERIFIED FINAL REPORT 02/05/2024 6:01 PM - Electronically signed by Juan Jose Salter M.D. SEBASTIÁN: SEBASTIÁN Report ID: [id number] Reading Location: [place] [address] Social History Type Status Start Date End Date Code Code Syst em Smoking History Current every day smoker 394177043 [employer] CT Smoking History Unknown if ever smoked [address] Sex Male Medications Medication Start Date End Date Route Frequency Dose Code Code System Medication Instructions Home Meds predniSONE 20MG Oral Tablet 12/12/2023 Unknown BY MOUTH TWICE A DAY 2 TABLET 362221 RxNorm TAKE 2 TABLET BY MOUTH TWICE A DAY x 3 days. thenTAKE 1 TABLET BY MOUTH TWICE A DAY x 3 days Aspirin 81MG Oral Tablet, Enteric Coated 12/12/2023 Unknown ORAL ONCE A DAY 81 MILLIGRAMS 167960 RxNorm TAKE 81 MILLIGRAMS ORAL ONCE A DAY Atorvastatin Calcium 80MG Oral Tablet 12/12/2023 Unknown ORAL ONCE A DAY 40 MILLIGRAMS 325757 RxNorm TAKE 40 MILLIGRAMS ORAL ONCE A DAY Clopidogrel 75MG Oral Tablet 12/12/2023 Unknown ORAL ONCE A DAY 75 MILLIGRAMS 947159 RxNorm TAKE 75 MILLIGRAMS ORAL ONCE A DAY Albuterol Sulfate 0.09MG/1Actuat ion Inhalation Suspension 12/12/2023 Unknown INHALATIO N NEEDED EVERY 4 HOURS 2 unit(s) 7321875 RxNorm 2 EACH INHALATION NEEDED EVERY 4 HOURS Entresto 49MG-51MG Oral Tablet 12/12/2023 Unknown ORAL TWICE A DAY 1 unit(s) 6328195 RxNorm TAKE 1 EACH ORAL TWICE A DAY FLUoxetine HCl 40MG Oral Capsule 12/12/2023 Unknown ORAL ONCE A DAY 40 MILLIGRAMS 603097 RxNorm TAKE 40 MILLIGRAMS ORAL ONCE A DAY Fluticasone Propionate HFA 0.044MG/1Actua tion Inhalation Aerosol Powder 12/12/2023 Unknown INHALATIO N RESP BID 1 unit(s) 158969 RxNorm 1 EACH INHALATION RESP BID Furosemide 20MG Oral Tablet 12/12/2023 Unknown ORAL ONCE A DAY 20 MILLIGRAMS 145498 RxNorm TAKE 20 MILLIGRAMS ORAL ONCE A DAY Isosorbide Mononitrate 30MG Oral Tablet, Extended Release 12/12/2023 Unknown ORAL ONCE A DAY 15 MILLIGRAMS 279419 RxNorm TAKE 15 MILLIGRAMS ORAL ONCE A DAY Jardiance 25MG Oral Tablet 12/12/2023 Unknown ORAL ONCE A DAY 12.5 MILLIGRAMS 8033135 RxNorm TAKE 12.5 MILLIGRAMS ORAL ONCE A DAY Metoprolol Succinate 50MG Oral Tablet, Extended Release 12/12/2023 Unknown ORAL ONCE A DAY 25 MILLIGRAMS 959421 RxNorm TAKE 25 MILLIGRAMS ORAL ONCE A DAY Nitroglycerin 0.4MG Sublingual Tablet 12/12/2023 Unknown SUBLINGUA L NEEDED 0.[address] 0.4 MILLIGRAMS SUBLINGUAL NEEDED Potassium Chloride 10MEQ Oral Tablet, Extended Release 12/12/2023 Unknown ORAL ONCE A DAY 10 MEQ 186192 RxNorm TAKE 10 MEQ ORAL ONCE A DAY Spiriva Respimat 2.5MCG/1Act Inhalation [place] 12/12/2023 Unknown INHALATIO N RESP DAILY 2 unit(s) 7374408 RxNorm 2 EACH INHALATION RESP DAILY Spironolactone 25MG Oral Tablet 12/12/2023 Unknown ORAL ONCE A DAY 25 MILLIGRAMS 064603 RxNorm TAKE 25 MILLIGRAMS ORAL ONCE A DAY Vitamin D 50 MCG Oral Tablet 12/12/2023 Unknown ORAL ONCE A DAY 50 MCG 598081 RxNorm TAKE 50 MCG ORAL ONCE A DAY busPIRone 10MG Oral Tablet 12/12/2023 Unknown ORAL THREE TIMES A DAY 10 MILLIGRAMS 878403 RxNorm TAKE 10 MILLIGRAMS ORAL THREE TIMES A DAY Protonix 40 MG Oral Tablet, Delayed Release 12/12/2023 Unknown BY MOUTH ONCE A DAY 1 TABLET 948949 RxNorm TAKE 1 TABLET BY MOUTH ONCE A DAY Carafate 1GM Oral Tablet 12/12/2023 Unknown BY MOUTH THREE TIMES A DAY BEFORE MEALS 1 TABLET 076503 RxNorm TAKE 1 TABLET BY MOUTH THREE [...] Code Code System ATYPICAL CHEST PAIN active 519551857 SNOMED-CT COPD WITH EXACERBATION active 0802379 07 SNOMED-CT LOWER GI BLEEDING active 83832875 SN OMED-CT ESSENTIAL HYPERTENSION active 1155678 0 SNOMED-CT TYPE 2 DM active 38979785 SNOMED-CT MIXED HYPERLIPIDEMIA active 982731306 SNOMED-CT HISTORY OF MYOCARDIAL INFARCTION active 569838850 SNOMED-CT HISTORY OF CORONARY ARTERY DISEASE WITH STENT PLACEMENT active 739495837 SNOMED-CT SCHWARTZ ANEURYSM active 307231781 SNOME D-CT OTHER SPECIFIED ABNORMAL FINDINGS OF BLOOD CHEMISTRY active 868694502 SNOMED-CT Allergies and Adverse Reactions Allergy Substance Reaction Severity Start Date Concern Status Co de Code System No Known Drug Allergies Active 566542750 SNOMED-CT Plan of Treatment Thursby Established Patient Visit 12/02 CT Chest/Lung WO Contrast (36313) 12/11 Encounters Encounter Diagnosis Start Date Code Code Sys tem Chest pain, unspecified 02/05/2024 SNOM ED-CT Personal Care Team Section Performer Name Performer Role Active Date Inactive Da leilani Coker PCP - Primary care physician 2022-07-13 Yoan Coker PCP - Primary care physician 2022-08-20 Imaging Narrative Notes
--- OUTSIDE RECORDS SUMMARY | 2025-07-31 16:53 | XMS_ITS | Encounter Summary ---
Author Organization [facility] Address [address] [place] [address] Care Team Providers Care Film Developing Machine Operator Name Role Phone Salome Mcgee CAPSULE FILLER Primary Care Provider [phone] Citlali Li MD Unavailable [phone] Lucita Bates NP Unavailable [phone] Lyndsey Ray Primary Care Provide r Encounter Details Date Type Department Care Team (Late st Contact Info) Description 02/04/2023 Hospital Follow-up Call [facility] Cardiovascular Care Unit [address] [place] [address] Lynda Sheriff, RN Social History [...] place to sleep or slept in a care home (including now)? Patient refused 02/01/2023 Sex and Gender Information Value Date Recorded Sex Assigned at Male 10/26/2024 2:01 PM MANAGER STERILE Legal Sex Male 5:50 PM MANAGER STERILE Gender Identity Not on file Sexual Orientation [...] Rule Out 09/24/2023 09/24/2023 09/24/2023 1:50 PM MANAGER STERILE COVID-19 Rule Out 04/21/2024 04/21/2024 04/21/2024 3:02 PM CDT documented as of this encounter Care Teams Film Developing Machine Operator Relationship Specialty Start Date End Date Salome Mcgee NP PCP - General NURSE PRACTITIONER 01/27/23 04/21/24 Lyndsey Ray APNP [address] [place] [address] PCP - General NURSE PRACTITIONER 06/01/24 Citlali Li MD Consulting Physician INTERVENTIONAL CARDIOLOGY 01/29/23 Lucita Bates NP Young [facility] [address] [phone] Nurse Practitioner Nurse Practitioner [facility] 01/30/23 documented as of this encounter
--- OUTSIDE RECORDS SUMMARY | 2025-07-31 16:53 | XMS_ITS ---
Author Organization Unknown Address [address] [place] [phone] Phone Care Team Providers Care Bus Steward Name Role Phone TONE MACIAS Attending Unavailable CHIQUITA HODGE Primary Unavailable Immunization Immunization Date Status Additional Notes Code Code System MMR 04/14/2015 Completed 03 CVX Tdap 08/19/2023 Completed 115 CVX COVID-19, mRNA, LNP-S, PF, 5 0 mcg/0.5 mL 07/04/2023 Completed 312 CVX Social History Type Status Start Date End Date Code Code Syst em Smoking History Current every day smoker 659629527 SNOMED CT Smoking History Unknown if ever smoked [address] Sex Male Medications Medication Start Date End Date Route Frequency Dose Code Code System Medication Instructions Home Meds predniSONE 20MG Oral Tablet 12/12/2023 Unknown BY MOUTH TWICE A DAY 2 TABLET 690235 RxNorm TAKE 2 TABLET BY MOUTH TWICE A DAY x 3 days. thenTAKE 1 TABLET BY MOUTH TWICE A DAY x 3 days Aspirin 81MG Oral Tablet, Enteric Coated 12/12/2023 Unknown ORAL ONCE A DAY 81 MILLIGRAMS 065914 RxNorm TAKE 81 MILLIGRAMS ORAL ONCE A DAY Atorvastatin Calcium 80MG Oral Tablet 12/12/2023 Unknown ORAL ONCE A DAY 40 MILLIGRAMS 294197 RxNorm TAKE 40 MILLIGRAMS ORAL ONCE A DAY Clopidogrel 75MG Oral Tablet 12/12/2023 Unknown ORAL ONCE A DAY 75 MILLIGRAMS 702199 RxNorm TAKE 75 MILLIGRAMS ORAL ONCE A DAY Albuterol Sulfate 0.09MG/1Actuat ion Inhalation Suspension 12/12/2023 Unknown INHALATIO N NEEDED EVERY 4 HOURS 2 unit(s) 0604323 RxNorm 2 EACH INHALATION NEEDED EVERY 4 HOURS Entresto 49MG-51MG Oral Tablet 12/12/2023 Unknown ORAL TWICE A DAY 1 unit(s) 6447469 RxNorm TAKE 1 EACH ORAL TWICE A DAY FLUoxetine HCl 40MG Oral Capsule 12/12/2023 Unknown ORAL ONCE A DAY 40 MILLIGRAMS 221669 RxNorm TAKE 40 MILLIGRAMS ORAL ONCE A DAY Fluticasone Propionate HFA 0.044MG/1Actua tion Inhalation Aerosol Powder 12/12/2023 Unknown INHALATIO N RESP BID 1 unit(s) 939072 RxNorm 1 EACH INHALATION RESP BID Furosemide 20MG Oral Tablet 12/12/2023 Unknown ORAL ONCE A DAY 20 MILLIGRAMS 813302 RxNorm TAKE 20 MILLIGRAMS ORAL ONCE A DAY Isosorbide Mononitrate 30MG Oral Tablet, Extended Release 12/12/2023 Unknown ORAL ONCE A DAY 15 MILLIGRAMS 225530 RxNorm TAKE 15 MILLIGRAMS ORAL ONCE A DAY Jardiance 25MG Oral Tablet 12/12/2023 Unknown ORAL ONCE A DAY 12.5 MILLIGRAMS 9535281 RxNorm TAKE 12.5 MILLIGRAMS ORAL ONCE A DAY Metoprolol Succinate 50MG Oral Tablet, Extended Release 12/12/2023 Unknown ORAL ONCE A DAY 25 MILLIGRAMS 144849 RxNorm TAKE 25 MILLIGRAMS ORAL ONCE A DAY Nitroglycerin 0.4MG Sublingual Tablet 12/12/2023 Unknown SUBLINGUA L NEEDED 0.[address] 0.4 MILLIGRAMS SUBLINGUAL NEEDED Potassium Chloride 10MEQ Oral Tablet, Extended Release 12/12/2023 Unknown ORAL ONCE A DAY 10 MEQ 167734 RxNorm TAKE 10 MEQ ORAL ONCE A DAY Spiriva Respimat 2.5MCG/1Act Inhalation [place] 12/12/2023 Unknown INHALATIO N RESP DAILY 2 unit(s) 5791352 RxNorm 2 EACH INHALATION RESP DAILY Spironolactone 25MG Oral Tablet 12/12/2023 Unknown ORAL ONCE A DAY 25 MILLIGRAMS 686890 RxNorm TAKE 25 MILLIGRAMS ORAL ONCE A DAY Vitamin D 50 MCG Oral Tablet 12/12/2023 Unknown ORAL ONCE A DAY 50 MCG 796592 RxNorm TAKE 50 MCG ORAL ONCE A DAY busPIRone 10MG Oral Tablet 12/12/2023 Unknown ORAL THREE TIMES A DAY 10 MILLIGRAMS 956422 RxNorm TAKE 10 MILLIGRAMS ORAL THREE TIMES A DAY Protonix 40 MG Oral Tablet, Delayed Release 12/12/2023 Unknown BY MOUTH ONCE A DAY 1 TABLET 428535 RxNorm TAKE 1 TABLET BY MOUTH ONCE A DAY Carafate 1GM Oral Tablet 12/12/2023 Unknown BY MOUTH THREE TIMES A DAY BEFORE MEALS 1 TABLET 487056 RxNorm TAKE 1 TABLET BY MOUTH THREE [...] Code Code System ATYPICAL CHEST PAIN active 309086300 SNOMED-CT COPD WITH EXACERBATION active 2178999 07 SNOMED-CT LOWER GI BLEEDING active 60162255 SN OMED-CT ESSENTIAL HYPERTENSION active 4863087 0 SNOMED-CT TYPE 2 DM active 91273017 SNOMED-CT MIXED HYPERLIPIDEMIA active 212974213 SNOMED-CT HISTORY OF MYOCARDIAL INFARCTION active 913777768 SNOMED-CT HISTORY OF CORONARY ARTERY DISEASE WITH STENT PLACEMENT active 900863508 SNOMED-CT SCHWARTZ ANEURYSM active 985078426 SNOME D-CT OTHER SPECIFIED ABNORMAL FINDINGS OF BLOOD CHEMISTRY active 946382144 SNOMED-CT Allergies and Adverse Reactions Allergy Substance Reaction Severity Start Date Concern Status Co de Code System No Known Drug Allergies Active 818153558 SNOMED-CT Plan of Treatment Thursby Established Patient Visit 12/02 CT Chest/Lung WO Contrast (25148) 12/11 Encounters Encounter Diagnosis Start Date Code Code Sys tem Wheezing 12/16/2023 88085122 SNOMED-CT Personal Care Team Section Performer Name Performer Role Active Date Inactive Peterson Barillas PCP - Primary care physician 2022-07-13 Yoan Coker PCP - Primary care physician 2022-08-20
--- OUTSIDE RECORDS SUMMARY | 2025-07-31 16:53 | XMS_ITS ---
Author Organization Unknown Address [address] [place] [phone] Phone Care Team Providers Care Glove Turner And Former Name Role Phone KELLY KIMBROUGH Attending Unavailable CHIQUITA HODGE Primary Unavailable Immunization Immunization Date Status Additional Notes Code Code System MMR 04/14/2015 Completed 03 CVX Tdap 08/19/2023 Completed 115 CVX COVID-19, mRNA, LNP-S, PF, 5 0 mcg/0.5 mL 07/04/2023 Completed 312 CVX Social History Type Status Start Date End Date Code Code Syst em Smoking History Current every day smoker 734428076 SNOMED CT Smoking History Unknown if ever smoked [address] Sex Male Medications Medication Start Date End Date Route Frequency Dose Code Code System Medication Instructions Home Meds predniSONE 20MG Oral Tablet 12/12/2023 Unknown BY MOUTH TWICE A DAY 2 TABLET 716335 RxNorm TAKE 2 TABLET BY MOUTH TWICE A DAY x 3 days. thenTAKE 1 TABLET BY MOUTH TWICE A DAY x 3 days Aspirin 81MG Oral Tablet, Enteric Coated 12/12/2023 Unknown ORAL ONCE A DAY 81 MILLIGRAMS 166446 RxNorm TAKE 81 MILLIGRAMS ORAL ONCE A DAY Atorvastatin Calcium 80MG Oral Tablet 12/12/2023 Unknown ORAL ONCE A DAY 40 MILLIGRAMS 225684 RxNorm TAKE 40 MILLIGRAMS ORAL ONCE A DAY Clopidogrel 75MG Oral Tablet 12/12/2023 Unknown ORAL ONCE A DAY 75 MILLIGRAMS 946261 RxNorm TAKE 75 MILLIGRAMS ORAL ONCE A DAY Albuterol Sulfate 0.09MG/1Actuat ion Inhalation Suspension 12/12/2023 Unknown INHALATIO N NEEDED EVERY 4 HOURS 2 unit(s) 2190473 RxNorm 2 EACH INHALATION NEEDED EVERY 4 HOURS Entresto 49MG-51MG Oral Tablet 12/12/2023 Unknown ORAL TWICE A DAY 1 unit(s) 3449259 RxNorm TAKE 1 EACH ORAL TWICE A DAY FLUoxetine HCl 40MG Oral Capsule 12/12/2023 Unknown ORAL ONCE A DAY 40 MILLIGRAMS 478882 RxNorm TAKE 40 MILLIGRAMS ORAL ONCE A DAY Fluticasone Propionate HFA 0.044MG/1Actua tion Inhalation Aerosol Powder 12/12/2023 Unknown INHALATIO N RESP BID 1 unit(s) 530206 RxNorm 1 EACH INHALATION RESP BID Furosemide 20MG Oral Tablet 12/12/2023 Unknown ORAL ONCE A DAY 20 MILLIGRAMS 127204 RxNorm TAKE 20 MILLIGRAMS ORAL ONCE A DAY Isosorbide Mononitrate 30MG Oral Tablet, Extended Release 12/12/2023 Unknown ORAL ONCE A DAY 15 MILLIGRAMS 318866 RxNorm TAKE 15 MILLIGRAMS ORAL ONCE A DAY Jardiance 25MG Oral Tablet 12/12/2023 Unknown ORAL ONCE A DAY 12.5 MILLIGRAMS 4811528 RxNorm TAKE 12.5 MILLIGRAMS ORAL ONCE A DAY Metoprolol Succinate 50MG Oral Tablet, Extended Release 12/12/2023 Unknown ORAL ONCE A DAY 25 MILLIGRAMS 410523 RxNorm TAKE 25 MILLIGRAMS ORAL ONCE A DAY Nitroglycerin 0.4MG Sublingual Tablet 12/12/2023 Unknown SUBLINGUA L NEEDED 0.[address] 0.4 MILLIGRAMS SUBLINGUAL NEEDED Potassium Chloride 10MEQ Oral Tablet, Extended Release 12/12/2023 Unknown ORAL ONCE A DAY 10 MEQ 352103 RxNorm TAKE 10 MEQ ORAL ONCE A DAY Spiriva Respimat 2.5MCG/1Act Inhalation [place] 12/12/2023 Unknown INHALATIO N RESP DAILY 2 unit(s) 3436429 RxNorm 2 EACH INHALATION RESP DAILY Spironolactone 25MG Oral Tablet 12/12/2023 Unknown ORAL ONCE A DAY 25 MILLIGRAMS 934269 RxNorm TAKE 25 MILLIGRAMS ORAL ONCE A DAY Vitamin D 50 MCG Oral Tablet 12/12/2023 Unknown ORAL ONCE A DAY 50 MCG 569403 RxNorm TAKE 50 MCG ORAL ONCE A DAY busPIRone 10MG Oral Tablet 12/12/2023 Unknown ORAL THREE TIMES A DAY 10 MILLIGRAMS 637691 RxNorm TAKE 10 MILLIGRAMS ORAL THREE TIMES A DAY Protonix 40 MG Oral Tablet, Delayed Release 12/12/2023 Unknown BY MOUTH ONCE A DAY 1 TABLET 542502 RxNorm TAKE 1 TABLET BY MOUTH ONCE A DAY Carafate 1GM Oral Tablet 12/12/2023 Unknown BY MOUTH THREE TIMES A DAY BEFORE MEALS 1 TABLET 733427 RxNorm TAKE 1 TABLET BY MOUTH THREE [...] Code Code System ATYPICAL CHEST PAIN active 525558315 SNOMED-CT COPD WITH EXACERBATION active 5850096 07 SNOMED-CT LOWER GI BLEEDING active 38332128 SN OMED-CT ESSENTIAL HYPERTENSION active 0986375 0 SNOMED-CT TYPE 2 DM active 37116156 SNOMED-CT MIXED HYPERLIPIDEMIA active 063535817 SNOMED-CT HISTORY OF MYOCARDIAL INFARCTION active 342900257 SNOMED-CT HISTORY OF CORONARY ARTERY DISEASE WITH STENT PLACEMENT active 557448851 SNOMED-CT SCHWARTZ ANEURYSM active 764226273 SNOME D-CT OTHER SPECIFIED ABNORMAL FINDINGS OF BLOOD CHEMISTRY active 032815626 SNOMED-CT Allergies and Adverse Reactions Allergy Substance Reaction Severity Start Date Concern Status Co de Code System No Known Drug Allergies Active 876054085 SNOMED-CT Plan of Treatment Thursby Established Patient Visit 12/02 CT Chest/Lung WO Contrast (73221) 12/11 Encounters Encounter Diagnosis Start Date Code Code Sys tem Acute myocardial infarction 07/03/2023 12863017 SNOMED-CT Personal Care Team Section Performer Name Performer Role Active Date Inactive Peterson Barillas PCP - Primary care physician 2022-07-13 Yoan Coker PCP - Primary care physician 2022-08-20
--- OUTSIDE RECORDS SUMMARY | 2025-07-31 16:53 | XMS_ITS | Encounter Summary ---
Author Organization [facility] Address [address] [place] [address] Care Team Providers Care Car Rental Clerk Name Role Phone Salome Mcgee GARBAGE PICK UP WORKER Primary Care Provider [phone] Citlali Li MD Unavailable [phone] Lucita Bates NP Unavailable [phone] Lyndsey Ray Primary Care Provide r Encounter Details Date Type Department Care Team (Late st Contact Info) Description 02/04/2023 Hospital Follow-up Call [facility] Cardiovascular Care Unit [address] [place] [address] Lynda Sheriff, RN Social History [...] place to sleep or slept in a correction (including now)? Patient refused 02/01/2023 Sex and Gender Information Value Date Recorded Sex Assigned at Male 10/26/2024 2:01 PM GANG MINER Legal Sex Male 5:50 PM GANG MINER Gender Identity Not on file Sexual Orientation [...] Rule Out 09/24/2023 09/24/2023 09/24/2023 1:50 PM GANG MINER COVID-19 Rule Out 04/21/2024 04/21/2024 04/21/2024 3:02 PM CDT documented as of this encounter Care Teams Car Rental Clerk Relationship Specialty Start Date End Date Salome Mcgee NP PCP - General NURSE PRACTITIONER 01/27/23 04/21/24 Lyndsey Ray APNP [address] [place] [address] PCP - General NURSE PRACTITIONER 06/01/24 Citlali Li MD Consulting Physician INTERVENTIONAL CARDIOLOGY 01/29/23 Lucita Bates NP Young [facility] [address] [id number] Nurse Practitioner Nurse Practitioner [facility] 01/30/23 documented as of this encounter
--- OUTSIDE RECORDS SUMMARY | 2025-07-31 16:54 | XMS_ITS ---
Author Organization Unknown Address [address] [place] [phone] Phone Care Team Providers Care Environmental Remediation Engineer Name Role Phone EWA HALL Attending Unavailable CHIQUITA HODGE Primary Unavailable Immunization Immunization Date Status Additional Notes Code Code System MMR 04/14/2015 Completed 03 CVX Tdap 08/19/2023 Completed 115 CVX COVID-19, mRNA, LNP-S, PF, 5 0 mcg/0.5 mL 07/04/2023 Completed 312 CVX Social History Type Status Start Date End Date Code Code Syst em Smoking History Current every day smoker 150144860 SNOMED CT Smoking History Unknown if ever smoked [address] Sex Male Medications Medication Start Date End Date Route Frequency Dose Code Code System Medication Instructions Home Meds predniSONE 20MG Oral Tablet 12/12/2023 Unknown BY MOUTH TWICE A DAY 2 TABLET 808455 RxNorm TAKE 2 TABLET BY MOUTH TWICE A DAY x 3 days. thenTAKE 1 TABLET BY MOUTH TWICE A DAY x 3 days Aspirin 81MG Oral Tablet, Enteric Coated 12/12/2023 Unknown ORAL ONCE A DAY 81 MILLIGRAMS 862064 RxNorm TAKE 81 MILLIGRAMS ORAL ONCE A DAY Atorvastatin Calcium 80MG Oral Tablet 12/12/2023 Unknown ORAL ONCE A DAY 40 MILLIGRAMS 845455 RxNorm TAKE 40 MILLIGRAMS ORAL ONCE A DAY Clopidogrel 75MG Oral Tablet 12/12/2023 Unknown ORAL ONCE A DAY 75 MILLIGRAMS 094340 RxNorm TAKE 75 MILLIGRAMS ORAL ONCE A DAY Albuterol Sulfate 0.09MG/1Actuat ion Inhalation Suspension 12/12/2023 Unknown INHALATIO N NEEDED EVERY 4 HOURS 2 unit(s) 1407763 RxNorm 2 EACH INHALATION NEEDED EVERY 4 HOURS Entresto 49MG-51MG Oral Tablet 12/12/2023 Unknown ORAL TWICE A DAY 1 unit(s) 5557699 RxNorm TAKE 1 EACH ORAL TWICE A DAY FLUoxetine HCl 40MG Oral Capsule 12/12/2023 Unknown ORAL ONCE A DAY 40 MILLIGRAMS 928956 RxNorm TAKE 40 MILLIGRAMS ORAL ONCE A DAY Fluticasone Propionate HFA 0.044MG/1Actua tion Inhalation Aerosol Powder 12/12/2023 Unknown INHALATIO N RESP BID 1 unit(s) 161990 RxNorm 1 EACH INHALATION RESP BID Furosemide 20MG Oral Tablet 12/12/2023 Unknown ORAL ONCE A DAY 20 MILLIGRAMS 504675 RxNorm TAKE 20 MILLIGRAMS ORAL ONCE A DAY Isosorbide Mononitrate 30MG Oral Tablet, Extended Release 12/12/2023 Unknown ORAL ONCE A DAY 15 MILLIGRAMS 560104 RxNorm TAKE 15 MILLIGRAMS ORAL ONCE A DAY Jardiance 25MG Oral Tablet 12/12/2023 Unknown ORAL ONCE A DAY 12.5 MILLIGRAMS 3409641 RxNorm TAKE 12.5 MILLIGRAMS ORAL ONCE A DAY Metoprolol Succinate 50MG Oral Tablet, Extended Release 12/12/2023 Unknown ORAL ONCE A DAY 25 MILLIGRAMS 475855 RxNorm TAKE 25 MILLIGRAMS ORAL ONCE A DAY Nitroglycerin 0.4MG Sublingual Tablet 12/12/2023 Unknown SUBLINGUA L NEEDED 0.[address] 0.4 MILLIGRAMS SUBLINGUAL NEEDED Potassium Chloride 10MEQ Oral Tablet, Extended Release 12/12/2023 Unknown ORAL ONCE A DAY 10 MEQ 764456 RxNorm TAKE 10 MEQ ORAL ONCE A DAY Spiriva Respimat 2.5MCG/1Act Inhalation [place] 12/12/2023 Unknown INHALATIO N RESP DAILY 2 unit(s) 6572690 RxNorm 2 EACH INHALATION RESP DAILY Spironolactone 25MG Oral Tablet 12/12/2023 Unknown ORAL ONCE A DAY 25 MILLIGRAMS 116017 RxNorm TAKE 25 MILLIGRAMS ORAL ONCE A DAY Vitamin D 50 MCG Oral Tablet 12/12/2023 Unknown ORAL ONCE A DAY 50 MCG 117317 RxNorm TAKE 50 MCG ORAL ONCE A DAY busPIRone 10MG Oral Tablet 12/12/2023 Unknown ORAL THREE TIMES A DAY 10 MILLIGRAMS 228969 RxNorm TAKE 10 MILLIGRAMS ORAL THREE TIMES A DAY Protonix 40 MG Oral Tablet, Delayed Release 12/12/2023 Unknown BY MOUTH ONCE A DAY 1 TABLET 579404 RxNorm TAKE 1 TABLET BY MOUTH ONCE A DAY Carafate 1GM Oral Tablet 12/12/2023 Unknown BY MOUTH THREE TIMES A DAY BEFORE MEALS 1 TABLET 203599 RxNorm TAKE 1 TABLET BY MOUTH THREE [...] Code Code System ATYPICAL CHEST PAIN active 288501687 SNOMED-CT COPD WITH EXACERBATION active 6564293 07 SNOMED-CT LOWER GI BLEEDING active 46876693 SN OMED-CT ESSENTIAL HYPERTENSION active 5573639 0 SNOMED-CT TYPE 2 DM active 20940199 SNOMED-CT MIXED HYPERLIPIDEMIA active 877306123 SNOMED-CT HISTORY OF MYOCARDIAL INFARCTION active 896315328 SNOMED-CT HISTORY OF CORONARY ARTERY DISEASE WITH STENT PLACEMENT active 624414626 SNOMED-CT SCHWARTZ ANEURYSM active 593742625 SNOME D-CT OTHER SPECIFIED ABNORMAL FINDINGS OF BLOOD CHEMISTRY active 506759119 SNOMED-CT Allergies and Adverse Reactions Allergy Substance Reaction Severity Start Date Concern Status Co de Code System No Known Drug Allergies Active 151963849 SNOMED-CT Plan of Treatment Thursby Established Patient Visit 12/02 CT Chest/Lung WO Contrast (04249) 12/11 Encounters Encounter Diagnosis Start Date Code Code Sys tem Atherosclerotic heart diseas e of [place] coronary artery without angina pectoris 09/10/2023 SNOMED-CT Personal Care Team Section Performer Name Performer Role Active Date Inactive Da leilani Coker PCP - Primary care physician 2022-07-13 Yoan Coker PCP - Primary care physician 2022-08-20
--- OUTSIDE RECORDS SUMMARY | 2025-07-31 16:54 | XMS_ITS | Encounter Summary ---
Author Organization [facility] Address [address] [place] [address] Care Team Providers Care Behavior Interventionist Name Role Phone Salome Mcgee PRECISION MILLWRIGHT Primary Care Provider [phone] Citlali Li MD Unavailable [phone] Lucita Bates NP Unavailable [phone] Lyndsey Ray Primary Care Provide r Encounter Details Date Type Department Care Team (Late st Contact Info) Description 06/17/2023 Hospital Follow-up Call [facility] Cardiovascular Care Unit [address] [place] [address] Lynda Sheriff, RN Social History [...] place to sleep or slept in a long term (including now)? No 06/11/2023 Sex and Gender Information Value Date Recorded Sex Assigned at Male 10/26/2024 2:01 PM PRINTER MAINTAINER Legal Sex Male 5:50 PM PRINTER MAINTAINER Gender Identity Not on file Sexual Orientation [...] Rule Out 09/24/2023 09/24/2023 09/24/2023 1:50 PM PRINTER MAINTAINER COVID-19 Rule Out 04/21/2024 04/21/2024 04/21/2024 3:02 PM CDT documented as of this encounter Care Teams Behavior Interventionist Relationship Specialty Start Date End Date Salome Mcgee NP PCP - General NURSE PRACTITIONER 01/27/23 04/21/24 Lyndsey Ray APNP [address] [place] [address] PCP - General NURSE PRACTITIONER 06/01/24 Citlali Li MD Consulting Physician INTERVENTIONAL CARDIOLOGY 01/29/23 Lucita Bates NP Young [facility] [address] [place] [address] Nurse Practitioner Nurse Practitioner Family 01/30/23 documented as of this encounter
--- OUTSIDE RECORDS SUMMARY | 2025-07-31 16:54 | XMS_ITS | Encounter Summary ---
Author Organization [facility] Address [address] [place] [address] Care Team Providers Care Field Support Representative Name Role Phone Salome Mcgee TIRE MAINTENANCE TECHNICIAN Primary Care Provider [phone] Citlali Li MD Unavailable [phone] Lucita Bates NP Unavailable [phone] Lyndsey Ray Primary Care Provide r Encounter Details Date Type Department Care Team (Late st Contact Info) Description 03/14/2023 Hospital Follow-up Call [facility] Cardiovascular Care Unit [address] [place] [address] Lynda Sheriff, RN Social History [...] place to sleep or slept in a half-way (including now)? Patient refused 03/11/2023 Sex and Gender Information Value Date Recorded Sex Assigned at Male 10/26/2024 2:[address] ATTENDANT Legal Sex Male 5:[address] ATTENDANT Gender Identity Not on file Sexual Orientation [...] 5:07 PM Ioana Fletcher RN Active * Do you have [...] Rule Out 09/24/2023 09/24/2023 09/24/2023 1:[address] ATTENDANT COVID-19 Rule Out 04/21/2024 04/21/2024 04/21/2024 3:02 PM CDT documented as of this encounter Care Teams Field Support Representative Relationship Specialty Start Date End Date Salome Mcgee NP PCP - General NURSE PRACTITIONER 01/27/23 04/21/24 Lyndsey Ray APNP [address] [place] [phone] PCP - General NURSE PRACTITIONER 06/01/24 Citlali Li MD Consulting Physician INTERVENTIONAL CARDIOLOGY 01/29/23 Lucita Bates NP Young [facility] [address] [place] [address] Nurse Practitioner Nurse Practitioner [facility] 01/30/23 documented as of this encounter
--- OUTSIDE RECORDS SUMMARY | 2025-07-31 16:54 | XMS_ITS ---
Author Organization Unknown Address [address] [place] [address] [phone] Phone Care Team Providers Care Beef Tagger Name Role Phone ARAM Ashely Attending Unavailable CHIQUITA HODGE Primary Unavailable Immunization Immunization Date Status Additional Notes Code Code System MMR 04/14/2015 Completed 03 CVX Tdap 08/19/2023 Completed 115 CVX COVID-19, mRNA, LNP-S, PF, 5 0 mcg/0.5 mL 07/04/2023 Completed 312 CVX Results CBC W/ DIFF - Collect Date/T peyton: 04/19/2024 19:02 [facility] ID: [id number] [place] [address], [id number] LOINC: 40315-3 Test Value Unit Reference Range Code Code System Flag WBC 14.2 10^3uL L=4.8 H=10.8 H RBC 5.04 10^6uL L=4.60 H=6.20 HEMOGLOBIN 15.5 g/dL L=14.0 H=18.0 718-7 LOINC HEMATOCRIT 46.2 VOL% L=42.0 H=52.0 4544-3 LOINC MCV 91.7 fL L=80.0 H=94.0 MCH 30.8 pg L=27.0 H=32.0 MCHC 33.5 g/dL L=32.0 H=36.0 PLATELETS 246 10^3uL L=100 H=400 16830-0 LOINC RDW 13.9 % L=11.7 H=15.5 %GRAN 64.4 % L=40.0 H=70.0 17770-6 LOINC %LYMPH 25.1 % L=20.0 H=45.0 736-9 LOINC %MONO 6.6 % L=2.0 H=10.0 76082-4 LOINC %EOS 2.7 % L=0.0 H=6.0 713-8 LOINC %BASO 0.8 % L=0.0 H=3.0 706-2 LOINC #NEUT 9.2 10^3uL L=1.9 H=7.6 50856-7 LOINC H #LYMPH 3.6 10^3uL L=0.9 H=4.9 23199-2 LOINC #MONO 0.9 10^3uL L=0.1 H=0.9 83293-6 LOINC #EOS 0.4 10^3uL L=0.0 H=0.6 712-0 LOINC #BASO 0.11 10^3uL L=0.00 H=0.10 23655-8 LOINC H #IM GRANS 0.1 10^3uL L=0.0 H=7.0 53180-8 LOINC %IM GRANS 0.4 % L=0.0 H=5.0 87044-8 LOINC %NRB 0.0 L=0.0 H=0.2 58060-2 LOINC #NRB 0.000 L=0.000 H=0.012 68851-8 LOINC MANUAL DIFF NOT INDICATED RBC MORPH NOT INDICATED COMPREHENSIVE METABOLIC PANE L - Collect Date/Time: 04/19/2024 19:02 [facility] ID: [id number] [address] [place], [place], [phone] LOINC: 62994-7 Test Value Unit Reference Range Code Code System Flag FASTING UNKNOWN BUN 9 mg/dL L=7 H=20 3094-0 LOINC CREATININE 1.00 mg/dL L=0.66 H=1.25 2160-0 LOINC GLUCOSE 131 mg/dL L=74 H=106 2345-7 LOINC H SODIUM 141 mmol/L L=132 H=144 2951-2 LOINC POTASSIUM 3.6 mmol/L L=3.5 H=5.1 2823-3 LOINC CHLORIDE 108 mmol/L L=98 H=107 2075-0 LOINC H CO2 23.0 mmol/L L=22.0 H=30.0 2028-9 LOINC ANION GAP 14 L=10 H=20 70885-9 LOINC OSMOLALITY 292 mOs/kG L=280 H=296 73820-0 LOINC BUN/CREAT 9.0 3097-3 LOINC CALCIUM 9.3 mg/dL L=8.3 H=10.5 40347-4 LOINC AST 20 U/L L=15 H=46 1920-8 LOINC ALT 15 U/L L=9 H=72 1742-6 LOINC ALKALINE PHOS 107 U/L L=38 H=126 6768-6 LOINC TOTAL BILI 0.5 mg/dL L=0.2 H=1.3 1975-2 LOINC ALBUMIN 4.2 G/dL L=3.5 H=5.0 1751-7 LOINC TOTAL PROTEIN 7.6 g/L L=6.3 H=8.2 2885-2 LOINC A/G RATIO 1.2 01433-5 LOINC AGE 53 36231-4 LOINC eGFR NON-AFR 83 ml/min eGFR AFR AMER 100 ml/min CT BRAIN WO CONTRAST - Compl eted: 04/19/2024 18:39 LOINC: EXAM DESCRIPTION: CT BRAIN WO CONTRAST REASON FOR STUDY: Coil Placement for Brain Aneurysm 04-13-24 Frontal Headache Comparison 12-12-23 Duration: 04-15-241835 TECHNIQUE: Axial images acquired through the brain without intravenous contrast. Images stored on PACS. Automated exposure control was used as a dose optimization technique for this examination. COMPARISON: 12/12/2023 FINDINGS: BRAIN: No hemorrhage, edema or mass effect. No recent infarct. Normal white matter. 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 No surrounding edema or hemorrhage. EXTRA-AXIAL SPACES: No fluid collections. No masses. CALVARIUM: No fracture. SINUSES/MASTOIDS: No fluid or mucosal thickening. ORBITS: No significant abnormality. OTHER: No other significant abnormality. IMPRESSION: No acute intracranial findings. THIS IS AN ELECTRONICALLY VERIFIED FINAL REPORT 04/19/2024 7:00 PM - Electronically signed by Tony Angelo M.D. RB: CARTER Report ID: [id number] Reading Location: [id number] Social History Type Status Start Date End Date Code Code Syst em Smoking History Current every day smoker 978749940 SNOMED CT Smoking History Unknown if ever smoked [address] Sex Male Medications Medication Start Date End Date Route Frequency Dose Code Code System Medication Instructions Home Meds predniSONE 20MG Oral Tablet 12/12/2023 Unknown BY MOUTH TWICE A DAY 2 TABLET 809047 RxNorm TAKE 2 TABLET BY MOUTH TWICE A DAY x 3 days. thenTAKE 1 TABLET BY MOUTH TWICE A DAY x 3 days Aspirin 81MG Oral Tablet, Enteric Coated 12/12/2023 Unknown ORAL ONCE A DAY 81 MILLIGRAMS 290226 RxNorm TAKE 81 MILLIGRAMS ORAL ONCE A DAY Atorvastatin Calcium 80MG Oral Tablet 12/12/2023 Unknown ORAL ONCE A DAY 40 MILLIGRAMS 281075 RxNorm TAKE 40 MILLIGRAMS ORAL ONCE A DAY Clopidogrel 75MG Oral Tablet 12/12/2023 Unknown ORAL ONCE A DAY 75 MILLIGRAMS 748600 RxNorm TAKE 75 MILLIGRAMS ORAL ONCE A DAY Albuterol Sulfate 0.09MG/1Actuat ion Inhalation Suspension 12/12/2023 Unknown INHALATIO N NEEDED EVERY 4 HOURS 2 unit(s) 8289857 RxNorm 2 EACH INHALATION NEEDED EVERY 4 HOURS Entresto 49MG-51MG Oral Tablet 12/12/2023 Unknown ORAL TWICE A DAY 1 unit(s) 6112090 RxNorm TAKE 1 EACH ORAL TWICE A DAY FLUoxetine HCl 40MG Oral Capsule 12/12/2023 Unknown ORAL ONCE A DAY 40 MILLIGRAMS 789651 RxNorm TAKE 40 MILLIGRAMS ORAL ONCE A DAY Fluticasone Propionate HFA 0.044MG/1Actua tion Inhalation Aerosol Powder 12/12/2023 Unknown INHALATIO N RESP BID 1 unit(s) 992813 RxNorm 1 EACH INHALATION RESP BID Furosemide 20MG Oral Tablet 12/12/2023 Unknown ORAL ONCE A DAY 20 MILLIGRAMS 505557 RxNorm TAKE 20 MILLIGRAMS ORAL ONCE A DAY Isosorbide Mononitrate 30MG Oral Tablet, Extended Release 12/12/2023 Unknown ORAL ONCE A DAY 15 MILLIGRAMS 946180 RxNorm TAKE 15 MILLIGRAMS ORAL ONCE A DAY Jardiance 25MG Oral Tablet 12/12/2023 Unknown ORAL ONCE A DAY 12.5 MILLIGRAMS 2662488 RxNorm TAKE 12.5 MILLIGRAMS ORAL ONCE A DAY Metoprolol Succinate 50MG Oral Tablet, Extended Release 12/12/2023 Unknown ORAL ONCE A DAY 25 MILLIGRAMS 988108 RxNorm TAKE 25 MILLIGRAMS ORAL ONCE A DAY Nitroglycerin 0.4MG Sublingual Tablet 12/12/2023 Unknown SUBLINGUA L NEEDED 0.[address] 0.4 MILLIGRAMS SUBLINGUAL NEEDED Potassium Chloride 10MEQ Oral Tablet, Extended Release 12/12/2023 Unknown ORAL ONCE A DAY 10 MEQ 026235 RxNorm TAKE 10 MEQ ORAL ONCE A DAY Spiriva Respimat 2.5MCG/1Act Inhalation [place] 12/12/2023 Unknown INHALATIO N RESP DAILY 2 unit(s) 6037967 RxNorm 2 EACH INHALATION RESP DAILY Spironolactone 25MG Oral Tablet 12/12/2023 Unknown ORAL ONCE A DAY 25 MILLIGRAMS 687475 RxNorm TAKE 25 MILLIGRAMS ORAL ONCE A DAY Vitamin D 50 MCG Oral Tablet 12/12/2023 Unknown ORAL ONCE A DAY 50 MCG 549107 RxNorm TAKE 50 MCG ORAL ONCE A DAY busPIRone 10MG Oral Tablet 12/12/2023 Unknown ORAL THREE TIMES A DAY 10 MILLIGRAMS 698790 RxNorm TAKE 10 MILLIGRAMS ORAL THREE TIMES A DAY Protonix 40 MG Oral Tablet, Delayed Release 12/12/2023 Unknown BY MOUTH ONCE A DAY 1 TABLET 535008 RxNorm TAKE 1 TABLET BY MOUTH ONCE A DAY Carafate 1GM Oral Tablet 12/12/2023 Unknown BY MOUTH THREE TIMES A DAY BEFORE MEALS 1 TABLET 076933 RxNorm TAKE 1 TABLET BY MOUTH THREE [...] Code Code System ATYPICAL CHEST PAIN active 561508925 SNOMED-CT COPD WITH EXACERBATION active 9539726 07 SNOMED-CT LOWER GI BLEEDING active 29699025 SN OMED-CT ESSENTIAL HYPERTENSION active 6782472 0 SNOMED-CT TYPE 2 DM active 50441043 SNOMED-CT MIXED HYPERLIPIDEMIA active 690702573 SNOMED-CT HISTORY OF MYOCARDIAL INFARCTION active 512679499 SNOMED-CT HISTORY OF CORONARY ARTERY DISEASE WITH STENT PLACEMENT active 012794587 SNOMED-CT SCHWARTZ ANEURYSM active 108628595 SNOME D-CT OTHER SPECIFIED ABNORMAL FINDINGS OF BLOOD CHEMISTRY active 508149427 SNOMED-CT Allergies and Adverse Reactions Allergy Substance Reaction Severity Start Date Concern Status Co de Code System No Known Drug Allergies Active 200669296 SNOMED-CT Plan of Treatment Lexi Established Patient Visit 12/02 CT Chest/Lung WO Contrast (75565) 12/11 Encounters Encounter Diagnosis Start Date Code Code Sys tem Headache, unspecified 04/19/2024 SNOMED -CT Personal Care Team Section Performer Name Performer Role Active Date Inactive Peterson Barillas PCP - Primary care physician 2022-07-13 Yoan Coker PCP - Primary care physician 2022-08-20 Imaging Narrative Notes
--- OUTSIDE RECORDS SUMMARY | 2025-07-31 16:54 | XMS_ITS | Encounter Summary ---
Author Organization [facility] Address [address] [place] [address] Care Team Providers Care White Sourer Name Role Phone Unavailable Primary Care Provider Unavailabl e Reason for Visit * Reason Onset Date Comments Chest pain, stents placed in Jun., stress, smoking 07/14/2023 Spoke w/Ronal at Dr. Jewell 's exchange Encounter Details Date Type Department Care Team (Late st Contact Info) Description 07/14/2023 Telephone [facility]mitting [address] [place] [address] [place] [address] [place] [address] Chest pain, stents placed in Jun., stress, smoking (Spoke Mars at Dr. Jewell's exchange) Social History Tobacco Use Types Packs/Day Years Used Date Smoking Tobacco: Every Day Cigarettes 1 30 Smokeless Tobacco: Never Alcohol Use Standard Drinks/Week Comments Never 0 (1 standard drink = 0.6 oz pur e alcohol) Sex and Gender Information Value Date Recorded Sex Assigned at Not on file Legal Sex Male 1:48 AM COIL BINDER Gender Identity Not on file Sexual Orientation Not on file documented as of this encounter Plan of Treatment Not on file documented as of this encounter Visit Diagnoses Not on filedocumented in this encounter Additional Health Concerns Infection Onset Date Last Indicated Resolved Time R/O COVID-19 08/06/2023 08/06/2023 08/06/2023 9:12 PM COIL BINDER documented as of this encounter
--- OUTSIDE RECORDS SUMMARY | 2025-07-31 16:54 | XMS_ITS | Encounter Summary ---
Author Organization [facility] Address [address] [place] [address] Care Team Providers Care Wall Crane Operator Name Role Phone Salome Mcgee CANDY WAFFLE ASSEMBLER Primary Care Provider [phone] Citlali Li MD Unavailable [phone] Lucita Bates NP Unavailable [phone] Lyndsey Ray Primary Care Provide r Encounter Details Date Type Department Care Team (Late st Contact Info) Description 09/26/2023 Hospital Follow-up Call [facility] [address] [place] [address] Lynda Sheriff, RN Social History Tobacco Use Types Packs/Day Years Used Date Smoking Tobacco: Every Day Cigarettes 1.5 38.4 Started: 1984; Last attempted to quit: 01/27/2023 Smokeless Tobacco: Never Alcohol Use Standard Drinks/Week Comments Not Currently 0 (1 standard drink = 0.6 oz pur e alcohol) [facility] Utilities Answer Date Recorded In [place] ([place] No 09/24/2023 Sex and Gender Information Value Date Recorded Sex Assigned at Male 10/26/2024 2:01 PM COLLECTION SUPPORT SPECIALIST Legal Sex Male 5:50 PM COLLECTION SUPPORT SPECIALIST Gender Identity Not on file Sexual Orientation [...] documented as of this encounter Care Teams Wall Crane Operator Relationship Specialty Start Date End Date Salome Mcgee NP PCP - General NURSE PRACTITIONER 01/27/23 04/21/24 Lyndsey Ray APNP [address] [place] [phone] PCP - General NURSE PRACTITIONER 06/01/24 Citlali Li MD Consulting Physician INTERVENTIONAL CARDIOLOGY 01/29/23 Lucita Bates NP Young [facility] [address] [place] [address] Nurse Practitioner Nurse Practitioner [facility] 01/30/23 documented as of this encounter
--- OUTSIDE RECORDS SUMMARY | 2025-07-31 16:54 | XMS_ITS ---
Author Organization Unknown Address [address] [place] [phone] Phone Care Team Providers Care Chaperon Name Role Phone EL Delio KELI Attending Unavailable CHIQUITA HODGE Primary Unavailable Immunization Immunization Date Status Additional Notes Code Code System MMR 04/14/2015 Completed 03 CVX Tdap 08/19/2023 Completed 115 CVX COVID-19, mRNA, LNP-S, PF, 5 0 mcg/0.5 mL 07/04/2023 Completed 312 CVX Results TROPONIN LEVEL - Collect Michele e/Time: 10/22/2023 04:50 [facility] ID: [id number] [address] [place] [address], [phone] LOINC: 87459-9 Test Value Unit Reference Range Code Code System Flag TROPONIN < 0.012 ng/mL L=0.000 H=0.033 10013-4 LOINC PROTIME - Collect Date/Time: 10/22/2023 01:58 [facility] ID: [id number] [address] [place] [address], [phone] LOINC: 97615-9 Test Value Unit Reference Range Code Code System Flag PT 9.8 Sec L=9.7 H=11.7 82557-6 LOINC INR 0.9 Sec L=0.9 H=1.1 74343-8 LOINC PTT - Collect Date/Time: 01:58 [facility] ID: [id number] [address] [place] [address], [phone] LOINC: 78261-4 Test Value Unit Reference Range Code Code System Flag PTT 25.4 Sec L=23.0 H=31.2 TROPONIN LEVEL - Collect Michele e/Time: 10/22/2023 01:58 [facility] ID: [id number] [address] [place] [address], [phone] LOINC: 06648-0 Test Value Unit Reference Range Code Code System Flag TROPONIN < 0.012 ng/mL L=0.000 H=0.033 27015-2 LOINC MAGNESIUM - Collect Date/Yao e: 10/22/2023 01:58 [facility] ID: [id number] [address] [place] [address], [phone] LOINC: 63668-1 Test Value Unit Reference Range Code Code System Flag MAGNESIUM 2.0 mg/dL L=1.6 H=2.3 05922-9 LOINC COMPREHENSIVE METABOLIC PANE L - Collect Date/Time: 10/22/2023 01:58 [facility] ID: [id number] [address] [place] [address], [phone] LOINC: 08473-7 Test Value Unit Reference Range Code Code System Flag FASTING UNKNOWN BUN 14 mg/dL L=7 H=20 3094-0 LOINC CREATININE 0.90 mg/dL L=0.66 H=1.25 2160-0 LOINC GLUCOSE 132 mg/dL L=74 H=106 2345-7 LOINC H SODIUM 140 mmol/L L=132 H=144 2951-2 LOINC POTASSIUM 3.4 mmol/L L=3.5 H=5.1 2823-3 LOINC L CHLORIDE 109 mmol/L L=98 H=107 2075-0 LOINC H CO2 26.0 mmol/L L=22.0 H=30.0 8-9 LOINC ANION GAP 8 L=10 H=20 71095-2 LOINC L OSMOLALITY 292 mOs/kG L=280 H=296 69546-8 LOINC BUN/CREAT 15.6 3097-3 LOINC CALCIUM 9.2 mg/dL L=8.3 H=10.5 45972-1 LOINC AST 27 U/L L=15 H=46 1920-8 LOINC ALT 26 U/L L=9 H=72 1742-6 LOINC ALKALINE PHOS 82 U/L L=38 H=126 6768-6 LOINC TOTAL BILI 0.2 mg/dL L=0.2 H=1.3 1975-2 LOINC ALBUMIN 3.7 G/dL L=3.5 H=5.0 1751-7 LOINC TOTAL PROTEIN 6.9 g/L L=6.3 H=8.2 2885-2 LOINC A/G RATIO 1.2 77426-7 LOINC AGE 52 02024-1 LOINC eGFR NON-AFR 94 ml/min eGFR AFR AMER 114 ml/min PRO BNP - Collect Date/Time: 10/22/2023 01:58 [facility] ID: [id number] [address] [place] [address], [phone] LOINC: 81755-9 Test Value Unit Reference Range Code Code System Flag Pro BNP2 326 pg/mL L=0 H=900 80587-4 LOINC CBC W/ DIFF - Collect Date/T peyton: 10/22/2023 01:58 [facility] ID: [id number] [address] [place] [address], [phone] LOINC: 37470-1 Test Value Unit Reference Range Code Code System Flag WBC 13.5 10^3uL L=4.8 H=10.8 H RBC 5.10 10^6uL L=4.60 H=6.20 HEMOGLOBIN 15.1 g/dL L=14.0 H=18.0 718-7 LOINC HEMATOCRIT 46.3 VOL% L=42.0 H=52.0 4544-3 LOINC MCV 90.8 fL L=80.0 H=94.0 MCH 29.6 pg L=27.0 H=32.0 MCHC 32.6 g/dL L=32.0 H=36.0 PLATELETS 244 10^3uL L=100 H=400 06817-2 LOINC RDW 15.5 % L=11.7 H=15.5 %GRAN 57.3 % L=40.0 H=70.0 69177-0 LOINC %LYMPH 29.9 % L=20.0 H=45.0 736-9 LOINC %MONO 9.0 % L=2.0 H=10.0 48347-8 LOINC %EOS 2.5 % L=0.0 H=6.0 713-8 LOINC %BASO 1.0 % L=0.0 H=3.0 706-2 LOINC #NEUT 7.8 10^3uL L=1.9 H=7.6 50653-5 LOINC H #LYMPH 4.0 10^3uL L=0.9 H=4.9 36643-3 LOINC #MONO 1.2 10^3uL L=0.1 H=0.9 43046-1 LOINC H #EOS 0.3 10^3uL L=0.0 H=0.6 712-0 LOINC #BASO 0.13 10^3uL L=0.00 H=0.10 55420-2 LOINC H #IM GRANS 0.0 10^3uL L=0.0 H=7.0 46050-1 LOINC %IM GRANS 0.3 % L=0.0 H=5.0 23538-1 LOINC %NRB 0.0 L=0.0 H=0.2 71337-3 LOINC #NRB 0.000 L=0.000 H=0.012 06877-5 LOINC MANUAL DIFF NOT INDICATED RBC MORPH NOT INDICATED CHEST 1V - Completed: 2023 02:01 LOINC: EXAM DESCRIPTION: CHEST 1V REASON FOR STUDY: Chest Pain Heavy Pressure Substernal Comparison 10-09-23 Duration: 2 HOURS TECHNIQUE: Single radiographic view(s) of the chest. COMPARISON: 10/09/2023 FINDINGS: LUNGS: No focal opacity, pleural effusion, or pneumothorax. HEART/MEDIASTINUM: Cardiac silhouette normal in size. Mediastinal and hilar contours appear normal. LINES/TUBES: None. BONES: No acute osseous abnormality. IMPRESSION: No acute cardiopulmonary abnormality. THIS IS AN ELECTRONICALLY VERIFIED FINAL REPORT 10/22/2023 3:28 AM - Electronically signed by Lc Chung M.D. BB: LAKESHA Report ID: [id number] Reading Location: [id number] Social History Type Status Start Date End Date Code Code Syst em Smoking History Current every day smoker 278465342 SNOMED CT Smoking History Unknown if ever smoked [address] Sex Male Medications Medication Start Date End Date Route Frequency Dose Code Code System Medication Instructions Home Meds predniSONE 20MG Oral Tablet 12/12/2023 Unknown BY MOUTH TWICE A DAY 2 TABLET 116681 RxNorm TAKE 2 TABLET BY MOUTH TWICE A DAY x 3 days. thenTAKE 1 TABLET BY MOUTH TWICE A DAY x 3 days Aspirin 81MG Oral Tablet, Enteric Coated 12/12/2023 Unknown ORAL ONCE A DAY 81 MILLIGRAMS 169986 RxNorm TAKE 81 MILLIGRAMS ORAL ONCE A DAY Atorvastatin Calcium 80MG Oral Tablet 12/12/2023 Unknown ORAL ONCE A DAY 40 MILLIGRAMS 778811 RxNorm TAKE 40 MILLIGRAMS ORAL ONCE A DAY Clopidogrel 75MG Oral Tablet 12/12/2023 Unknown ORAL ONCE A DAY 75 MILLIGRAMS 971305 RxNorm TAKE 75 MILLIGRAMS ORAL ONCE A DAY Albuterol Sulfate 0.09MG/1Actuat ion Inhalation Suspension 12/12/2023 Unknown INHALATIO N NEEDED EVERY 4 HOURS 2 unit(s) 7165921 RxNorm 2 EACH INHALATION NEEDED EVERY 4 HOURS Entresto 49MG-51MG Oral Tablet 12/12/2023 Unknown ORAL TWICE A DAY 1 unit(s) 9473639 RxNorm TAKE 1 EACH ORAL TWICE A DAY FLUoxetine HCl 40MG Oral Capsule 12/12/2023 Unknown ORAL ONCE A DAY 40 MILLIGRAMS 963386 RxNorm TAKE 40 MILLIGRAMS ORAL ONCE A DAY Fluticasone Propionate HFA 0.044MG/1Actua tion Inhalation Aerosol Powder 12/12/2023 Unknown INHALATIO N RESP BID 1 unit(s) 590576 RxNorm 1 EACH INHALATION RESP BID Furosemide 20MG Oral Tablet 12/12/2023 Unknown ORAL ONCE A DAY 20 MILLIGRAMS 592980 RxNorm TAKE 20 MILLIGRAMS ORAL ONCE A DAY Isosorbide Mononitrate 30MG Oral Tablet, Extended Release 12/12/2023 Unknown ORAL ONCE A DAY 15 MILLIGRAMS 772346 RxNorm TAKE 15 MILLIGRAMS ORAL ONCE A DAY Jardiance 25MG Oral Tablet 12/12/2023 Unknown ORAL ONCE A DAY 12.5 MILLIGRAMS 2255851 RxNorm TAKE 12.5 MILLIGRAMS ORAL ONCE A DAY Metoprolol Succinate 50MG Oral Tablet, Extended Release 12/12/2023 Unknown ORAL ONCE A DAY 25 MILLIGRAMS 121122 RxNorm TAKE 25 MILLIGRAMS ORAL ONCE A DAY Nitroglycerin 0.4MG Sublingual Tablet 12/12/2023 Unknown SUBLINGUA L NEEDED 0.[address] 0.4 MILLIGRAMS SUBLINGUAL NEEDED Potassium Chloride 10MEQ Oral Tablet, Extended Release 12/12/2023 Unknown ORAL ONCE A DAY 10 MEQ 718946 RxNorm TAKE 10 MEQ ORAL ONCE A DAY Spiriva Respimat 2.5MCG/1Act Inhalation [place] 12/12/2023 Unknown INHALATIO N RESP DAILY 2 unit(s) 0270259 RxNorm 2 EACH INHALATION RESP DAILY Spironolactone 25MG Oral Tablet 12/12/2023 Unknown ORAL ONCE A DAY 25 MILLIGRAMS 867416 RxNorm TAKE 25 MILLIGRAMS ORAL ONCE A DAY Vitamin D 50 MCG Oral Tablet 12/12/2023 Unknown ORAL ONCE A DAY 50 MCG 330708 RxNorm TAKE 50 MCG ORAL ONCE A DAY busPIRone 10MG Oral Tablet 12/12/2023 Unknown ORAL THREE TIMES A DAY 10 MILLIGRAMS 679267 RxNorm TAKE 10 MILLIGRAMS ORAL THREE TIMES A DAY Protonix 40 MG Oral Tablet, Delayed Release 12/12/2023 Unknown BY MOUTH ONCE A DAY 1 TABLET 706761 RxNorm TAKE 1 TABLET BY MOUTH ONCE A DAY Carafate 1GM Oral Tablet 12/12/2023 Unknown BY MOUTH THREE TIMES A DAY BEFORE MEALS 1 TABLET 633641 RxNorm TAKE 1 TABLET BY MOUTH THREE [...] Code Code System ATYPICAL CHEST PAIN active 462809741 SNOMED-CT COPD WITH EXACERBATION active 6842166 07 SNOMED-CT LOWER GI BLEEDING active 58099492 SN OMED-CT ESSENTIAL HYPERTENSION active 3452714 0 SNOMED-CT TYPE 2 DM active 38820949 SNOMED-CT MIXED HYPERLIPIDEMIA active 151518094 SNOMED-CT HISTORY OF MYOCARDIAL INFARCTION active 446928662 SNOMED-CT HISTORY OF CORONARY ARTERY DISEASE WITH STENT PLACEMENT active 364099537 SNOMED-CT SCHWARTZ ANEURYSM active 868976844 SNOME D-CT OTHER SPECIFIED ABNORMAL FINDINGS OF BLOOD CHEMISTRY active 811822463 SNOMED-CT Allergies and Adverse Reactions Allergy Substance Reaction Severity Start Date Concern Status Co de Code System No Known Drug Allergies Active 198069927 SNOMED-CT Plan of Treatment Thursby Established Patient Visit 12/02 CT Chest/Lung WO Contrast (82403) 12/11 Encounters Encounter Diagnosis Start Date Code Code Sys tem Unstable angina 10/22/2023 SNOMED-CT Personal Care Team Section Performer Name Performer Role Active Date Inactive Peterson Barillas PCP - Primary care physician 2022-07-13 Yoan Coker PCP - Primary care physician 2022-08-20 Imaging Narrative Notes
--- OUTSIDE RECORDS SUMMARY | 2025-07-31 16:54 | XMS_ITS ---
Author Organization Unknown Address [address] [place] [phone] Phone Care Team Providers Care Auxiliary Operator Name Role Phone KELLY LUIS E Attending Unavailable CHIQUITA HODGE Primary Unavailable Immunization Immunization Date Status Additional Notes Code Code System MMR 04/14/2015 Completed 03 CVX Tdap 08/19/2023 Completed 115 CVX COVID-19, mRNA, LNP-S, PF, 5 0 mcg/0.5 mL 07/04/2023 Completed 312 CVX Results CBC W/ DIFF - Collect Date/T [place]: 10/09/2023 10:06 [facility] ID: [id number] [place] [address], [phone] LOINC: 33337-5 Test Value Unit Reference Range Code Code System Flag WBC 9.5 10^3uL L=4.8 H=10.8 RBC 5.27 10^6uL L=4.60 H=6.20 HEMOGLOBIN 15.7 g/dL L=14.0 H=18.0 718-7 LOINC HEMATOCRIT 48.1 VOL% L=42.0 H=52.0 4544-3 LOINC MCV 91.3 fL L=80.0 H=94.0 MCH 29.8 pg L=27.0 H=32.0 MCHC 32.6 g/dL L=32.0 H=36.0 PLATELETS 227 10^3uL L=100 H=400 05615-3 LOINC RDW 15.9 % L=11.7 H=15.5 H %GRAN 71.8 % L=40.0 H=70.0 32818-6 LOINC H %LYMPH 14.7 % L=20.0 H=45.0 736-9 LOINC L %MONO 9.6 % L=2.0 H=10.0 13885-0 LOINC %EOS 2.5 % L=0.0 H=6.0 713-8 LOINC %BASO 1.2 % L=0.0 H=3.0 706-2 LOINC #NEUT 6.8 10^3uL L=1.9 H=7.6 19640-5 LOINC #LYMPH 1.4 10^3uL L=0.9 H=4.9 24894-4 LOINC #MONO 0.9 10^3uL L=0.1 H=0.9 21210-8 LOINC #EOS 0.2 10^3uL L=0.0 H=0.6 712-0 LOINC #BASO 0.11 10^3uL L=0.00 H=0.10 03565-0 LOINC H #IM GRANS 0.0 10^3uL L=0.0 H=7.0 99869-5 LOINC %IM GRANS 0.2 % L=0.0 H=5.0 81975-6 LOINC %NRB 0.0 L=0.0 H=0.2 36830-3 LOINC #NRB 0.000 L=0.000 H=0.012 68252-6 LOINC MANUAL DIFF NOT INDICATED RBC MORPH NOT INDICATED RESPIRATORY 4 PLEX COVID FLU RSV PCR - Collect Date/Time: 10/09/2023 09:23 [facility] ID: [id number] [address] [place], [place], [phone] LOINC: 11690-0 Test Value Unit Reference Range Code Code System Flag SARS CoV2 PCR NEGATIVE FLU A PCR NEGATIVE FLU B PCR NEGATIVE RSV PCR POSITIVE A SEND TO [facility]? YES A Social History Type Status Start Date End Date Code Code Syst em Smoking History Current every day smoker 425722902 SNOMED CT Smoking History Unknown if ever smoked [address] Sex Male Medications Medication Start Date End Date Route Frequency Dose Code Code System Medication Instructions Home Meds predniSONE 20MG Oral Tablet 12/12/2023 Unknown BY MOUTH TWICE A DAY 2 TABLET 247317 RxNorm TAKE 2 TABLET BY MOUTH TWICE A DAY x 3 days. thenTAKE 1 TABLET BY MOUTH TWICE A DAY x 3 days Aspirin 81MG Oral Tablet, Enteric Coated 12/12/2023 Unknown ORAL ONCE A DAY 81 MILLIGRAMS 103200 RxNorm TAKE 81 MILLIGRAMS ORAL ONCE A DAY Atorvastatin Calcium 80MG Oral Tablet 12/12/2023 Unknown ORAL ONCE A DAY 40 MILLIGRAMS 357254 RxNorm TAKE 40 MILLIGRAMS ORAL ONCE A DAY Clopidogrel 75MG Oral Tablet 12/12/2023 Unknown ORAL ONCE A DAY 75 MILLIGRAMS 058080 RxNorm TAKE 75 MILLIGRAMS ORAL ONCE A DAY Albuterol Sulfate 0.09MG/1Actuat ion Inhalation Suspension 12/12/2023 Unknown INHALATIO N NEEDED EVERY 4 HOURS 2 unit(s) 4718283 RxNorm 2 EACH INHALATION NEEDED EVERY 4 HOURS Entresto 49MG-51MG Oral Tablet 12/12/2023 Unknown ORAL TWICE A DAY 1 unit(s) 8089433 RxNorm TAKE 1 EACH ORAL TWICE A DAY FLUoxetine HCl 40MG Oral Capsule 12/12/2023 Unknown ORAL ONCE A DAY 40 MILLIGRAMS 584629 RxNorm TAKE 40 MILLIGRAMS ORAL ONCE A DAY Fluticasone Propionate HFA 0.044MG/1Actua tion Inhalation Aerosol Powder 12/12/2023 Unknown INHALATIO N RESP BID 1 unit(s) 420870 RxNorm 1 EACH INHALATION RESP BID Furosemide 20MG Oral Tablet 12/12/2023 Unknown ORAL ONCE A DAY 20 MILLIGRAMS 891074 RxNorm TAKE 20 MILLIGRAMS ORAL ONCE A DAY Isosorbide Mononitrate 30MG Oral Tablet, Extended Release 12/12/2023 Unknown ORAL ONCE A DAY 15 MILLIGRAMS 206131 RxNorm TAKE 15 MILLIGRAMS ORAL ONCE A DAY Jardiance 25MG Oral Tablet 12/12/2023 Unknown ORAL ONCE A DAY 12.5 MILLIGRAMS 1207378 RxNorm TAKE 12.5 MILLIGRAMS ORAL ONCE A DAY Metoprolol Succinate 50MG Oral Tablet, Extended Release 12/12/2023 Unknown ORAL ONCE A DAY 25 MILLIGRAMS 195552 RxNorm TAKE 25 MILLIGRAMS ORAL ONCE A DAY Nitroglycerin 0.4MG Sublingual Tablet 12/12/2023 Unknown SUBLINGUA L NEEDED 0.[address] 0.4 MILLIGRAMS SUBLINGUAL NEEDED Potassium Chloride 10MEQ Oral Tablet, Extended Release 12/12/2023 Unknown ORAL ONCE A DAY 10 MEQ 652455 RxNorm TAKE 10 MEQ ORAL ONCE A DAY Spiriva Respimat 2.5MCG/1Act Inhalation [place] 12/12/2023 Unknown INHALATIO N RESP DAILY 2 unit(s) 4301601 RxNorm 2 EACH INHALATION RESP DAILY Spironolactone 25MG Oral Tablet 12/12/2023 Unknown ORAL ONCE A DAY 25 MILLIGRAMS 778165 RxNorm TAKE 25 MILLIGRAMS ORAL ONCE A DAY Vitamin D 50 MCG Oral Tablet 12/12/2023 Unknown ORAL ONCE A DAY 50 MCG 407141 RxNorm TAKE 50 MCG ORAL ONCE A DAY busPIRone 10MG Oral Tablet 12/12/2023 Unknown ORAL THREE TIMES A DAY 10 MILLIGRAMS 137528 RxNorm TAKE 10 MILLIGRAMS ORAL THREE TIMES A DAY Protonix 40 MG Oral Tablet, Delayed Release 12/12/2023 Unknown BY MOUTH ONCE A DAY 1 TABLET 408003 RxNorm TAKE 1 TABLET BY MOUTH ONCE A DAY Carafate 1GM Oral Tablet 12/12/2023 Unknown BY MOUTH THREE TIMES A DAY BEFORE MEALS 1 TABLET 056966 RxNorm TAKE 1 TABLET BY MOUTH THREE [...] Code Code System ATYPICAL CHEST PAIN active 751694321 SNOMED-CT COPD WITH EXACERBATION active 8179904 07 SNOMED-CT LOWER GI BLEEDING active 95778875 SN OMED-CT ESSENTIAL HYPERTENSION active 5238675 0 SNOMED-CT TYPE 2 DM active 87028863 SNOMED-CT MIXED HYPERLIPIDEMIA active 964237268 SNOMED-CT HISTORY OF MYOCARDIAL INFARCTION active 602643491 SNOMED-CT HISTORY OF CORONARY ARTERY DISEASE WITH STENT PLACEMENT active 912374953 SNOMED-CT SCHWARTZ ANEURYSM active 072989090 SNOME D-CT OTHER SPECIFIED ABNORMAL FINDINGS OF BLOOD CHEMISTRY active 192571705 SNOMED-CT Allergies and Adverse Reactions Allergy Substance Reaction Severity Start Date Concern Status Co de Code System No Known Drug Allergies Active 080513424 SNOMED-CT Plan of Treatment [place] Established Patient Visit 12/02 CT Chest/Lung WO Contrast (55840) 12/11 Encounters Encounter Diagnosis Start Date Code Code Sys tem Cough, unspecified 10/09/2023 SNOMED-CT Personal Care Team Section Performer Name Performer Role Active Date Inactive Peterson Barillas PCP - Primary care physician 2022-07-13 Yoan Coker PCP - Primary care physician 2022-08-20
--- OUTSIDE RECORDS SUMMARY | 2025-07-31 16:54 | XMS_ITS ---
Author Organization Unknown Address [address] [place], [place] [id number] Phone Care Team Providers Care Events Intern Name Role Phone KELLY KIMBROUGH Attending Unavailable CHIQUITA HODGE Primary Unavailable EWA HALL Secondary Unavailable Immunization Immunization Date Status Additional Notes Code Code System MMR 04/14/2015 Completed 03 CVX Tdap 08/19/2023 Completed 115 CVX COVID-19, mRNA, LNP-S, PF, 5 0 mcg/0.5 mL 07/04/2023 Completed [address] CHEST CA SCREEN - Complet ed: 09/05/2023 14:06 LOINC: EXAM DESCRIPTION: CT CHEST CA SCREEN REASON FOR STUDY: Screening CT of the chest in a current smoker with a 60 pack year smoking history. Additional history: None. TECHNIQUE: Low dose CT scan of the chest was performed without intravenous contrast using helical scanning technique. The exam extends from the lung apices through the lung bases. Automatic exposure control was used as a dose optimization technique. NOTE: This study was performed for the specific purposes of lung cancer screening and is not an alternative to diagnostic chest CT. RADIATION DOSE: CT dose index volume (CTDIvol) = 2.9 mGy COMPARISON: 07/13/2022 FINDINGS: SMOKING RELATED LUNG DISEASE: Minimal emphysema. Mild centrilobular opacities in the lung apices likely represent respiratory bronchiolitis. LUNG NODULES: 1. Unchanged 5 mm nodule in the right upper lobe on image 84 series 2. 2. New 5 mm nodule in the right lower lobe on image 213 series 2. 3. Unchanged 3 mm nodule in the left lower lobe on image 221 series 2 CORONARY ARTERY CALCIFICATION: There is a coronary stent in the RCA. Otherwise moderate calcifications. OTHER: Mild left ventricular enlargement. The upper abdomen appears normal. No lymphadenopathy. No suspicious osseous lesion. Calcified granulomas are noted in the mediastinum with a benign appearance likely postinfectious. IMPRESSION: New 5 mm nodule in the right lower lobe. Probably benign. Lung-RADS category 3: Probably benign. Recommendation: Low dose CT of chest in 6 months. THIS IS AN ELECTRONICALLY VERIFIED FINAL REPORT 09/05/2023 4:03 PM - Electronically signed by Ghulam Barnes M.D. KN: ROSA Report ID: [id number] Reading Location: [id number] ECHO W/ COLOR - Completed : 09/05/2023 14:28 LOINC: See Scanned Image Attachment for Report Dictated By: Trans Initials: Trans Date: 09/10/23 15:11 <<REPDIST>> Social History Type Status Start Date End Date Code Code Syst em Smoking History Current every day smoker 187993015 SNOMED CT Smoking History Unknown if ever smoked [address] Sex Male Medications Medication Start Date End Date Route Frequency Dose Code Code System Medication Instructions Home Meds predniSONE 20MG Oral Tablet 12/12/2023 Unknown BY MOUTH TWICE A DAY 2 TABLET 109338 RxNorm TAKE 2 TABLET BY MOUTH TWICE A DAY x 3 days. thenTAKE 1 TABLET BY MOUTH TWICE A DAY x 3 days Aspirin 81MG Oral Tablet, Enteric Coated 12/12/2023 Unknown ORAL ONCE A DAY 81 MILLIGRAMS 123125 RxNorm TAKE 81 MILLIGRAMS ORAL ONCE A DAY Atorvastatin Calcium 80MG Oral Tablet 12/12/2023 Unknown ORAL ONCE A DAY 40 MILLIGRAMS 461455 RxNorm TAKE 40 MILLIGRAMS ORAL ONCE A DAY Clopidogrel 75MG Oral Tablet 12/12/2023 Unknown ORAL ONCE A DAY 75 MILLIGRAMS 219357 RxNorm TAKE 75 MILLIGRAMS ORAL ONCE A DAY Albuterol Sulfate 0.09MG/1Actuat ion Inhalation Suspension 12/12/2023 Unknown INHALATIO N NEEDED EVERY 4 HOURS 2 unit(s) 4206979 RxNorm 2 EACH INHALATION NEEDED EVERY 4 HOURS Entresto 49MG-51MG Oral Tablet 12/12/2023 Unknown ORAL TWICE A DAY 1 unit(s) 8934946 RxNorm TAKE 1 EACH ORAL TWICE A DAY FLUoxetine HCl 40MG Oral Capsule 12/12/2023 Unknown ORAL ONCE A DAY 40 MILLIGRAMS 339323 RxNorm TAKE 40 MILLIGRAMS ORAL ONCE A DAY Fluticasone Propionate HFA 0.044MG/1Actua tion Inhalation Aerosol Powder 12/12/2023 Unknown INHALATIO N RESP BID 1 unit(s) 213911 RxNorm 1 EACH INHALATION RESP BID Furosemide 20MG Oral Tablet 12/12/2023 Unknown ORAL ONCE A DAY 20 MILLIGRAMS 911171 RxNorm TAKE 20 MILLIGRAMS ORAL ONCE A DAY Isosorbide Mononitrate 30MG Oral Tablet, Extended Release 12/12/2023 Unknown ORAL ONCE A DAY 15 MILLIGRAMS 990351 RxNorm TAKE 15 MILLIGRAMS ORAL ONCE A DAY Jardiance 25MG Oral Tablet 12/12/2023 Unknown ORAL ONCE A DAY 12.5 MILLIGRAMS 1201729 RxNorm TAKE 12.5 MILLIGRAMS ORAL ONCE A DAY Metoprolol Succinate 50MG Oral Tablet, Extended Release 12/12/2023 Unknown ORAL ONCE A DAY 25 MILLIGRAMS 456151 RxNorm TAKE 25 MILLIGRAMS ORAL ONCE A DAY Nitroglycerin 0.4MG Sublingual Tablet 12/12/2023 Unknown SUBLINGUA L NEEDED 0.[address] 0.4 MILLIGRAMS SUBLINGUAL NEEDED Potassium Chloride 10MEQ Oral Tablet, Extended Release 12/12/2023 Unknown ORAL ONCE A DAY 10 MEQ 313439 RxNorm TAKE 10 MEQ ORAL ONCE A DAY Spiriva Respimat 2.5MCG/1Act Inhalation [place] 12/12/2023 Unknown INHALATIO N RESP DAILY 2 unit(s) 1744191 RxNorm 2 EACH INHALATION RESP DAILY Spironolactone 25MG Oral Tablet 12/12/2023 Unknown ORAL ONCE A DAY 25 MILLIGRAMS 863577 RxNorm TAKE 25 MILLIGRAMS ORAL ONCE A DAY Vitamin D 50 MCG Oral Tablet 12/12/2023 Unknown ORAL ONCE A DAY 50 MCG 426513 RxNorm TAKE 50 MCG ORAL ONCE A DAY busPIRone 10MG Oral Tablet 12/12/2023 Unknown ORAL THREE TIMES A DAY 10 MILLIGRAMS 075607 RxNorm TAKE 10 MILLIGRAMS ORAL THREE TIMES A DAY Protonix 40 MG Oral Tablet, Delayed Release 12/12/2023 Unknown BY MOUTH ONCE A DAY 1 TABLET 768396 RxNorm TAKE 1 TABLET BY MOUTH ONCE A DAY Carafate 1GM Oral Tablet 12/12/2023 Unknown BY MOUTH THREE TIMES A DAY BEFORE MEALS 1 TABLET 699674 RxNorm TAKE 1 TABLET BY MOUTH THREE [...] Code Code System ATYPICAL CHEST PAIN active 667995241 SNOMED-CT COPD WITH EXACERBATION active 6662449 07 SNOMED-CT LOWER GI BLEEDING active 64148856 SN OMED-CT ESSENTIAL HYPERTENSION active 1199651 0 SNOMED-CT TYPE 2 DM active 96521855 SNOMED-CT MIXED HYPERLIPIDEMIA active 963237594 SNOMED-CT HISTORY OF MYOCARDIAL INFARCTION active 298872180 SNOMED-CT HISTORY OF CORONARY ARTERY DISEASE WITH STENT PLACEMENT active 882284443 SNOMED-CT SCHWARTZ ANEURYSM active 318653771 SNOME D-CT OTHER SPECIFIED ABNORMAL FINDINGS OF BLOOD CHEMISTRY active 933850469 SNOMED-CT Allergies and Adverse Reactions Allergy Substance Reaction Severity Start Date Concern Status Co de Code System No Known Drug Allergies Active 081382967 SNOMED-CT Plan of Treatment [facility] Established Patient Visit 12/02 CT Chest/Lung WO Contrast (72024) 12/11 Encounters Encounter Diagnosis Start Date Code Code Sys tem Encounter for screening for malignant neoplasm of respiratory organs 09/05/2023 SNOMED-CT Personal Care Team Section Performer Name Performer Role Active Date Inactive Peterson Barillas PCP - Primary care physician 2022-07-13 Yoan Coker PCP - Primary care physician 2022-08-20 Imaging Narrative Notes [facility] 09/10/2023 15:11 [place] [address] RADIOLOGY REPORT Patient Number: [id number] Patient Name: DESHAWN GORMAN Type: O/P MR Number: [id number] : 1970 Age: 52 Sex: M Room #: Admit Date: 09/05/23 Discharge Date 09/05/23 Ordering Physician: KELLY KIMBROUGH Family Physician: CHIQUITA MANZO Second Physician: EWA HALL X-Ray Number : [id number] US ECHO W/ COLOR [id number] COMPLETE:09/05/23 14:28 [id number] (REASON-ECHO COMPLTE: CAD See Scanned Image Attachment for Report Dictated By: Brian Initials: BG Torres Date: 09/10/23 15:11 <<REPDIST>>
--- OUTSIDE RECORDS SUMMARY | 2025-07-31 16:54 | XMS_ITS | Encounter Summary ---
Author Organization [facility] Address [address] [place] [address] Care Team Providers Care Cigarette Catcher Name Role Phone Citlali Li MD Unavailable [phone] Lucita Bates NP Unavailable [phone] Lyndsey Ray Primary Care Provide r Encounter Details Date Type Department Care Team (Late st Contact Info) Description 03/29/2025 Hospital Follow-up Call [facility] Cardiovascular Care Unit [address] [place] [address] Lynda Sheriff, RN Social History [...] from your doctor or pharmacy? Never 06/01/2024 [facility] Utilities Answer Date Recorded In the past [...] How often do you attend chur or adventism services? Never 06/01/2024 Do you belong to any clubs o r organizations such as muslim groups, unions, fraternal or athletic groups, or [...] and heating? Not hard at all 03/25/2025 [facility] [place] [facility] Occupat ional Health - Occupational Stress [...] any time in the past [facility], were you homeless or living in a usp (including now)? No 03/25/2025 Sex and Gender Information Value Date Recorded Sex Assigned at Male 10/26/2024 2:01 PM [employer] Legal Sex Male 5:50 PM [employer] Gender Identity Not on file Sexual Orientation Not on file documented as of this encounter Functional Status * Are you deaf or do you have serious difficulty hearing Answer Date of Assessment Author Status No 03/25/2025 6:00 AM DIPESHT Ashley Arciniega RN Active * Are you blind or do you have serious difficulty seeing, even when wearing glasses? Answer Date of Assessment Author Status No 03/25/2025 6:00 AM DIPESHT Ashley Arciniega RN Active * Do you have serious difficulty walking or climbing stairs? Answer Date of Assessment Author Status No 03/25/2025 6:00 AM CDAshley Mustafa RN Active * Do you have difficulty dressing or bathing? Answer Date of Assessment Author Status No 03/25/2025 6:00 AM Ashley Roque RN Active * Because of a physical, mental, or emotional condition, do you have difficulty doing errands alone such as visiting a doctor's office or shopping? Answer Date of Assessment Author Status No 03/25/2025 6:00 AM Ashley Roque RN Active documented as of this encounter Mental Status * Because of a physical, mental, or emotional condition, do you have serious difficulty concentrating, remembering, or making decisions? Answer Entry Date Author Status No 03/25/2025 6:00 AM Ashley Roque RN Active documented in this encounter Plan [...] Diagnoses Not on filedocumented in this encounter Care Teams Cigarette Catcher Relationship Specialty Start Date End Date Lyndsey Ray APNP [address] [place] [address] PCP - General NURSE PRACTITIONER 06/01/24 Citlali Li MD Consulting Physician INTERVENTIONAL CARDIOLOGY 01/29/23 Lucita Bates NP [address] [place] [address] [address] [place] [address] Nurse Practitioner Nurse Practitioner Family 01/30/23 documented as of this encounter
--- OUTSIDE RECORDS SUMMARY | 2025-07-31 16:54 | XMS_ITS ---
Author Organization Unknown Address [address] [place] [phone] Phone Care Team Providers Care Patient Financial Coordinator Name Role Phone MENDOZA LUIS E Attending Unavailable CHIQUITA HODGE Primary Unavailable Immunization Immunization Date Status Additional Notes Code Code System MMR 04/14/2015 Completed 03 CVX Tdap 08/19/2023 Completed 115 CVX COVID-19, mRNA, LNP-S, PF, 5 0 mcg/0.5 mL 07/04/2023 Completed 312 CVX Results COMPREHENSIVE METABOLIC PANE L - Collect Date/Time: 10/29/2023 13:52 [facility] ID: [id number] [place] [address], [id number] LOINC: 14076-1 Test Value Unit Reference Range Code Code System Flag FASTING NO BUN 10 mg/dL L=7 H=20 3094-0 LOINC CREATININE 1.00 mg/dL L=0.66 H=1.25 2160-0 LOINC GLUCOSE 96 mg/dL L=74 H=106 2345-7 LOINC SODIUM 141 mmol/L L=132 H=144 2951-2 LOINC POTASSIUM 4.5 mmol/L L=3.5 H=5.1 2823-3 LOINC CHLORIDE 108 mmol/L L=98 H=107 2075-0 LOINC H CO2 26.0 mmol/L L=22.0 H=30.0 8-9 LOINC ANION GAP 12 L=10 H=20 39891-5 LOINC OSMOLALITY 291 mOs/kG L=280 H=296 44508-8 LOINC BUN/CREAT 10.0 3097-3 LOINC CALCIUM 9.4 mg/dL L=8.3 H=10.5 93957-6 LOINC AST 26 U/L L=15 H=46 1920-8 LOINC ALT 20 U/L L=9 H=72 1742-6 LOINC ALKALINE PHOS 100 U/L L=38 H=126 6768-6 LOINC TOTAL BILI 0.3 mg/dL L=0.2 H=1.3 1975-2 LOINC ALBUMIN 4.0 G/dL L=3.5 H=5.0 1751-7 LOINC TOTAL PROTEIN 7.0 g/L L=6.3 H=8.2 2885-2 LOINC A/G RATIO 1.3 99096-9 LOINC AGE 52 46323-9 LOINC eGFR NON-AFR 83 ml/min eGFR AFR AMER 100 ml/min Social History Type Status Start Date End Date Code Code Syst em Smoking History Current every day smoker 198508226 SNOMED CT Smoking History Unknown if ever smoked [address] Sex Male Medications Medication Start Date End Date Route Frequency Dose Code Code System Medication Instructions Home Meds predniSONE 20MG Oral Tablet 12/12/2023 Unknown BY MOUTH TWICE A DAY 2 TABLET 608922 RxNorm TAKE 2 TABLET BY MOUTH TWICE A DAY x 3 days. thenTAKE 1 TABLET BY MOUTH TWICE A DAY x 3 days Aspirin 81MG Oral Tablet, Enteric Coated 12/12/2023 Unknown ORAL ONCE A DAY 81 MILLIGRAMS 569429 RxNorm TAKE 81 MILLIGRAMS ORAL ONCE A DAY Atorvastatin Calcium 80MG Oral Tablet 12/12/2023 Unknown ORAL ONCE A DAY 40 MILLIGRAMS 863419 RxNorm TAKE 40 MILLIGRAMS ORAL ONCE A DAY Clopidogrel 75MG Oral Tablet 12/12/2023 Unknown ORAL ONCE A DAY 75 MILLIGRAMS 261511 RxNorm TAKE 75 MILLIGRAMS ORAL ONCE A DAY Albuterol Sulfate 0.09MG/1Actuat ion Inhalation Suspension 12/12/2023 Unknown INHALATIO N NEEDED EVERY 4 HOURS 2 unit(s) 1589531 RxNorm 2 EACH INHALATION NEEDED EVERY 4 HOURS Entresto 49MG-51MG Oral Tablet 12/12/2023 Unknown ORAL TWICE A DAY 1 unit(s) 5314070 RxNorm TAKE 1 EACH ORAL TWICE A DAY FLUoxetine HCl 40MG Oral Capsule 12/12/2023 Unknown ORAL ONCE A DAY 40 MILLIGRAMS 538592 RxNorm TAKE 40 MILLIGRAMS ORAL ONCE A DAY Fluticasone Propionate HFA 0.044MG/1Actua tion Inhalation Aerosol Powder 12/12/2023 Unknown INHALATIO N RESP BID 1 unit(s) 076447 RxNorm 1 EACH INHALATION RESP BID Furosemide 20MG Oral Tablet 12/12/2023 Unknown ORAL ONCE A DAY 20 MILLIGRAMS 618837 RxNorm TAKE 20 MILLIGRAMS ORAL ONCE A DAY Isosorbide Mononitrate 30MG Oral Tablet, Extended Release 12/12/2023 Unknown ORAL ONCE A DAY 15 MILLIGRAMS 807023 RxNorm TAKE 15 MILLIGRAMS ORAL ONCE A DAY Jardiance 25MG Oral Tablet 12/12/2023 Unknown ORAL ONCE A DAY 12.5 MILLIGRAMS 9707707 RxNorm TAKE 12.5 MILLIGRAMS ORAL ONCE A DAY Metoprolol Succinate 50MG Oral Tablet, Extended Release 12/12/2023 Unknown ORAL ONCE A DAY 25 MILLIGRAMS 685632 RxNorm TAKE 25 MILLIGRAMS ORAL ONCE A DAY Nitroglycerin 0.4MG Sublingual Tablet 12/12/2023 Unknown SUBLINGUA L NEEDED 0.[address] 0.4 MILLIGRAMS SUBLINGUAL NEEDED Potassium Chloride 10MEQ Oral Tablet, Extended Release 12/12/2023 Unknown ORAL ONCE A DAY 10 MEQ 557053 RxNorm TAKE 10 MEQ ORAL ONCE A DAY Spiriva Respimat 2.5MCG/1Act Inhalation [place] 12/12/2023 Unknown INHALATIO N RESP DAILY 2 unit(s) 7674604 RxNorm 2 EACH INHALATION RESP DAILY Spironolactone 25MG Oral Tablet 12/12/2023 Unknown ORAL ONCE A DAY 25 MILLIGRAMS 412735 RxNorm TAKE 25 MILLIGRAMS ORAL ONCE A DAY Vitamin D 50 MCG Oral Tablet 12/12/2023 Unknown ORAL ONCE A DAY 50 MCG 809113 RxNorm TAKE 50 MCG ORAL ONCE A DAY busPIRone 10MG Oral Tablet 12/12/2023 Unknown ORAL THREE TIMES A DAY 10 MILLIGRAMS 000795 RxNorm TAKE 10 MILLIGRAMS ORAL THREE TIMES A DAY Protonix 40 MG Oral Tablet, Delayed Release 12/12/2023 Unknown BY MOUTH ONCE A DAY 1 TABLET 538099 RxNorm TAKE 1 TABLET BY MOUTH ONCE [...] Code Code System ATYPICAL CHEST PAIN active 398319632 SNOMED-CT COPD WITH EXACERBATION active 7638644 07 SNOMED-CT LOWER GI BLEEDING active 71304636 SN OMED-CT ESSENTIAL HYPERTENSION active 0799537 0 SNOMED-CT TYPE 2 DM active 92891302 SNOMED-CT MIXED HYPERLIPIDEMIA active 594483743 SNOMED-CT HISTORY OF MYOCARDIAL INFARCTION active 986037792 SNOMED-CT HISTORY OF CORONARY ARTERY DISEASE WITH STENT PLACEMENT active 446459648 SNOMED-CT SCHWARTZ ANEURYSM active 738205272 SNOME D-CT OTHER SPECIFIED ABNORMAL FINDINGS OF BLOOD CHEMISTRY active 413395394 SNOMED-CT Allergies and Adverse Reactions Allergy Substance Reaction Severity Start Date Concern Status Co de Code System No Known Drug Allergies Active 556219861 SNOMED-CT Plan of Treatment [facility] Established Patient Visit 12/02 CT Chest/Lung WO Contrast (30889) 12/11 Encounters Encounter Diagnosis Start Date Code Code Sys tem Hypokalemia 10/29/2023 30771836 SNOMED-CT Personal Care Team Section Performer Name Performer Role Active Date Inactive Peterson Barillas PCP - Primary care physician 2022-07-13 Yoan Coker PCP - Primary care physician 2022-08-20
--- OUTSIDE RECORDS SUMMARY | 2025-07-31 16:55 | XMS_ITS ---
Author Organization Unknown Address [address] [place] [address] [phone] Phone Care Team Providers Care Hot Saw Helper Name Role Phone LOPEZ JENSEN Attending Unavailable CHIQUITA HODGE Primary Unavailable Immunization Immunization Date Status Additional Notes Code Code System MMR 04/14/2015 Completed 03 CVX Tdap 08/19/2023 Completed 115 CVX COVID-19, mRNA, LNP-S, PF, 5 0 mcg/0.5 mL 07/04/2023 Completed 312 CVX Social History Type Status Start Date End Date Code Code Syst em Smoking History Current every day smoker 015284650 SNOMED CT Smoking History Unknown if ever smoked [address] Sex Male Medications Medication Start Date End Date Route Frequency Dose Code Code System Medication Instructions Home Meds predniSONE 20MG Oral Tablet 12/12/2023 Unknown BY MOUTH TWICE A DAY 2 TABLET 621902 RxNorm TAKE 2 TABLET BY MOUTH TWICE A DAY x 3 days. thenTAKE 1 TABLET BY MOUTH TWICE A DAY x 3 days Aspirin 81MG Oral Tablet, Enteric Coated 12/12/2023 Unknown ORAL ONCE A DAY 81 MILLIGRAMS 384813 RxNorm TAKE 81 MILLIGRAMS ORAL ONCE A DAY Atorvastatin Calcium 80MG Oral Tablet 12/12/2023 Unknown ORAL ONCE A DAY 40 MILLIGRAMS 395963 RxNorm TAKE 40 MILLIGRAMS ORAL ONCE A DAY Clopidogrel 75MG Oral Tablet 12/12/2023 Unknown ORAL ONCE A DAY 75 MILLIGRAMS 511867 RxNorm TAKE 75 MILLIGRAMS ORAL ONCE A DAY Albuterol Sulfate 0.09MG/1Actuat ion Inhalation Suspension 12/12/2023 Unknown INHALATIO N NEEDED EVERY 4 HOURS 2 unit(s) 8893718 RxNorm 2 EACH INHALATION NEEDED EVERY 4 HOURS Entresto 49MG-51MG Oral Tablet 12/12/2023 Unknown ORAL TWICE A DAY 1 unit(s) 1349595 RxNorm TAKE 1 EACH ORAL TWICE A DAY FLUoxetine HCl 40MG Oral Capsule 12/12/2023 Unknown ORAL ONCE A DAY 40 MILLIGRAMS 713891 RxNorm TAKE 40 MILLIGRAMS ORAL ONCE A DAY Fluticasone Propionate HFA 0.044MG/1Actua tion Inhalation Aerosol Powder 12/12/2023 Unknown INHALATIO N RESP BID 1 unit(s) 834732 RxNorm 1 EACH INHALATION RESP BID Furosemide 20MG Oral Tablet 12/12/2023 Unknown ORAL ONCE A DAY 20 MILLIGRAMS 187821 RxNorm TAKE 20 MILLIGRAMS ORAL ONCE A DAY Isosorbide Mononitrate 30MG Oral Tablet, Extended Release 12/12/2023 Unknown ORAL ONCE A DAY 15 MILLIGRAMS 585981 RxNorm TAKE 15 MILLIGRAMS ORAL ONCE A DAY Jardiance 25MG Oral Tablet 12/12/2023 Unknown ORAL ONCE A DAY 12.5 MILLIGRAMS 6704976 RxNorm TAKE 12.5 MILLIGRAMS ORAL ONCE A DAY Metoprolol Succinate 50MG Oral Tablet, Extended Release 12/12/2023 Unknown ORAL ONCE A DAY 25 MILLIGRAMS 634845 RxNorm TAKE 25 MILLIGRAMS ORAL ONCE A DAY Nitroglycerin 0.4MG Sublingual Tablet 12/12/2023 Unknown SUBLINGUA L NEEDED 0.[address] 0.4 MILLIGRAMS SUBLINGUAL NEEDED Potassium Chloride 10MEQ Oral Tablet, Extended Release 12/12/2023 Unknown ORAL ONCE A DAY 10 MEQ 362953 RxNorm TAKE 10 MEQ ORAL ONCE A DAY Spiriva Respimat 2.5MCG/1Act Inhalation [place] 12/12/2023 Unknown INHALATIO N RESP DAILY 2 unit(s) 7300577 RxNorm 2 EACH INHALATION RESP DAILY Spironolactone 25MG Oral Tablet 12/12/2023 Unknown ORAL ONCE A DAY 25 MILLIGRAMS 700852 RxNorm TAKE 25 MILLIGRAMS ORAL ONCE A DAY Vitamin D 50 MCG Oral Tablet 12/12/2023 Unknown ORAL ONCE A DAY 50 MCG 692737 RxNorm TAKE 50 MCG ORAL ONCE A DAY busPIRone 10MG Oral Tablet 12/12/2023 Unknown ORAL THREE TIMES A DAY 10 MILLIGRAMS 560171 RxNorm TAKE 10 MILLIGRAMS ORAL THREE TIMES A DAY Protonix 40 MG Oral Tablet, Delayed Release 12/12/2023 Unknown BY MOUTH ONCE A DAY 1 TABLET 985716 RxNorm TAKE 1 TABLET BY MOUTH ONCE A DAY Carafate 1GM Oral Tablet 12/12/2023 Unknown BY MOUTH THREE TIMES A DAY BEFORE MEALS 1 TABLET 246517 RxNorm TAKE 1 TABLET BY MOUTH THREE [...] Code Code System ATYPICAL CHEST PAIN active 926283085 SNOMED-CT COPD WITH EXACERBATION active 6282458 07 SNOMED-CT LOWER GI BLEEDING active 61267992 SN OMED-CT ESSENTIAL HYPERTENSION active 2990782 0 SNOMED-CT TYPE 2 DM active 23743530 SNOMED-CT MIXED HYPERLIPIDEMIA active 950710261 SNOMED-CT HISTORY OF MYOCARDIAL INFARCTION active 478617999 SNOMED-CT HISTORY OF CORONARY ARTERY DISEASE WITH STENT PLACEMENT active 300444253 SNOMED-CT SCHWARTZ ANEURYSM active 134713381 SNOME D-CT OTHER SPECIFIED ABNORMAL FINDINGS OF BLOOD CHEMISTRY active 818910838 SNOMED-CT Allergies and Adverse Reactions Allergy Substance Reaction Severity Start Date Concern Status Co de Code System No Known Drug Allergies Active 924869936 SNOMED-CT Plan of Treatment Thursby Established Patient Visit 12/02 CT Chest/Lung WO Contrast (30203) 12/11 Encounters Encounter Diagnosis Start Date Code Code Sys tem Atherosclerotic heart diseas e of [place] coronary artery without angina pectoris 12/23/2023 SNOMED-CT Personal Care Team Section Performer Name Performer Role Active Date Inactive Peterson Barillas PCP - Primary care physician 2022-07-13 Yoan Coker PCP - Primary care physician 2022-08-20
--- OUTSIDE RECORDS SUMMARY | 2025-07-31 16:55 | XMS_ITS ---
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 Name Role Phone ARAM Ashley Attending Unavailable NIRMAL PANIAGUA Primary Unavailable Immunization Immunization Date Status Additional Notes Code Code System MMR 04/14/2015 Completed 03 CVX Tdap 08/19/2023 Completed 115 CVX COVID-19, mRNA, LNP-S, PF, 5 0 mcg/0.5 mL 07/04/2023 Completed 312 CVX Results CBC W/ DIFF - Collect Date/T [place]: 03/23/2024 12:38 [facility] ID: [id number] [place] [address], [id number] LOINC: 31882-6 Test Value Unit Reference Range Code Code System Flag WBC 15.1 10^3uL L=4.8 H=10.8 H RBC 5.19 10^6uL L=4.60 H=6.20 HEMOGLOBIN 15.7 g/dL L=14.0 H=18.0 718-7 LOINC HEMATOCRIT 47.7 VOL% L=42.0 H=52.0 4544-3 LOINC MCV 91.9 fL L=80.0 H=94.0 MCH 30.3 pg L=27.0 H=32.0 MCHC 32.9 g/dL L=32.0 H=36.0 PLATELETS 226 10^3uL L=100 H=400 51642-5 LOINC RDW 13.9 % L=11.7 H=15.5 %GRAN 76.6 % L=40.0 H=70.0 74780-4 LOINC H %LYMPH 13.3 % L=20.0 H=45.0 736-9 LOINC L %MONO 8.1 % L=2.0 H=10.0 65967-0 LOINC %EOS 0.8 % L=0.0 H=6.0 713-8 LOINC %BASO 0.9 % L=0.0 H=3.0 706-2 LOINC #NEUT 11.6 10^3uL L=1.9 H=7.6 16539-4 LOINC H #LYMPH 2.0 10^3uL L=0.9 H=4.9 96145-6 LOINC #MONO 1.2 10^3uL L=0.1 H=0.9 46568-7 LOINC H #EOS 0.1 10^3uL L=0.0 H=0.6 712-0 LOINC #BASO 0.13 10^3uL L=0.00 H=0.10 52189-6 LOINC H #IM GRANS 0.1 10^3uL L=0.0 H=7.0 57787-5 LOINC %IM GRANS 0.3 % L=0.0 H=5.0 05587-5 LOINC %NRB 0.0 L=0.0 H=0.2 64882-3 LOINC #NRB 0.000 L=0.000 H=0.012 18077-9 LOINC MANUAL DIFF NOT INDICATED RBC MORPH NOT INDICATED COMPREHENSIVE METABOLIC PANE L - Collect Date/Time: 03/23/2024 12:38 [facility] ID: [id number] [address] [place], [place], [phone] LOINC: 49950-1 Test Value Unit Reference Range Code Code System Flag FASTING UNKNOWN BUN 14 mg/dL L=7 H=20 3094-0 LOINC CREATININE 1.40 mg/dL L=0.66 H=1.25 2160-0 LOINC H GLUCOSE 114 mg/dL L=74 H=106 2345-7 LOINC H SODIUM 140 mmol/L L=132 H=144 2951-2 LOINC POTASSIUM 3.8 mmol/L L=3.5 H=5.1 2823-3 LOINC CHLORIDE 107 mmol/L L=98 H=107 2075-0 LOINC CO2 25.0 mmol/L L=22.0 H=30.0 2028-9 LOINC ANION GAP 12 L=10 H=20 69634-9 LOINC OSMOLALITY 291 mOs/kG L=280 H=296 33291-1 LOINC BUN/CREAT 10.0 3097-3 LOINC CALCIUM 9.3 mg/dL L=8.3 H=10.5 96006-9 LOINC AST 21 U/L L=15 H=46 1920-8 LOINC ALT 13 U/L L=9 H=72 1742-6 LOINC ALKALINE PHOS 106 U/L L=38 H=126 6768-6 LOINC TOTAL BILI 0.4 mg/dL L=0.2 H=1.3 1975-2 LOINC ALBUMIN 4.2 G/dL L=3.5 H=5.0 1751-7 LOINC TOTAL PROTEIN 7.2 g/L L=6.3 H=8.2 2885-2 LOINC A/G RATIO 1.4 84309-1 LOINC AGE 53 87808-7 LOINC eGFR NON-AFR 56 ml/min eGFR AFR AMER 68 ml/min CT ABD/PEL WO CONTRAST - Com pleted: 03/23/2024 12:24 LOINC: 84119-0 EXAM DESCRIPTION: CT ABD/PEL WO CONTRAST REASON FOR STUDY: LEFT FLANK PAIN SINCE YESTERDAY HX KIDNEY STONES PULMONARY STENTS Duration: 03-22-24 TECHNIQUE: CT scan of the abdomen and pelvis performed without intravenous and without oral contrast using helical scanning technique. Reconstructed coronal and sagittal MPR images reviewed. All images stored on PACS. Automated exposure control was used as a dose optimization technique for this examination. COMPARISON: None FINDINGS: The sensitivity for detection of visceral lesions is diminished without the use of intravenous contrast. LOWER CHEST: Multivessel coronary artery calcifications are present. LIVER: Normal size. No identified cystic or solid masses. GALLBLADDER: No stones identified. No wall thickening or inflammatory changes. BILE DUCTS: No intrahepatic or extrahepatic ductal dilatation. SPLEEN: Normal size. No focal lesions. PANCREAS: No identified cystic or solid masses. No significant calcifications. No adjacent inflammation or peripancreatic fluid collections. Pancreatic duct not dilated. ADRENALS: Normal. KIDNEYS/URINARY TRACT: Normal nonenhanced appearance of the right kidney without hydronephrosis or hydroureter. There is new moderate perinephric stranding about the left kidney and there is mild hydronephrosis and hydroureter leading up to a 5 mm by 4 mm x 7 mm obstructing calculus in the mid left ureter. There are 2 nonobstructing calculi in the lower pole of the left kidney measuring up to 4 mm. Urinary bladder is unremarkable. GI: Stomach is decompressed. No dilated or thick-walled loops of bowel appreciated. There is no sign of appendicitis. There is colonic diverticulosis without diverticulitis. PERITONEUM: No ascites or free air. RETROPERITONEUM: No mass or adenopathy. REPRODUCTIVE: There are dystrophic calcifications in the prostate. VASCULATURE: No abdominal aortic aneurysm. MUSCULOSKELETAL: There is no suspicious osseous lesion. There are degenerative endplate changes and severe disc space narrowing at L5-S1. There is also a disc osteophyte complex at this level causing mild spinal canal stenosis. OTHER: No other abnormality. IMPRESSION: There is a 5 mm x 4 mm x 7 mm obstructing calculus in the mid left ureter causing mild hydronephrosis and hydroureter. There are 2 nonobstructing calculi in the lower pole of the left kidney measuring up to 4 mm. Colonic diverticulosis without diverticulitis. Multivessel coronary artery calcifications. THIS IS AN ELECTRONICALLY VERIFIED FINAL REPORT 03/23/2024 1:02 PM - Electronically signed by Sandip Otero M.D. AM: AM Report ID: [id number] Reading Location: [id number] Social History Type Status Start Date End Date Code Code Syst em Smoking History Current every day smoker 637690581 SNOMED CT Smoking History Unknown if ever smoked [address] Sex Male Medications Medication Start Date End Date Route Frequency Dose Code Code System Medication Instructions Home Meds predniSONE 20MG Oral Tablet 12/12/2023 Unknown BY MOUTH TWICE A DAY 2 TABLET 845258 RxNorm TAKE 2 TABLET BY MOUTH TWICE A DAY x 3 days. thenTAKE 1 TABLET BY MOUTH TWICE A DAY x 3 days Aspirin 81MG Oral Tablet, Enteric Coated 12/12/2023 Unknown ORAL ONCE A DAY 81 MILLIGRAMS 764016 RxNorm TAKE 81 MILLIGRAMS ORAL ONCE A DAY Atorvastatin Calcium 80MG Oral Tablet 12/12/2023 Unknown ORAL ONCE A DAY 40 MILLIGRAMS 213373 RxNorm TAKE 40 MILLIGRAMS ORAL ONCE A DAY Clopidogrel 75MG Oral Tablet 12/12/2023 Unknown ORAL ONCE A DAY 75 MILLIGRAMS 457381 RxNorm TAKE 75 MILLIGRAMS ORAL ONCE A DAY Albuterol Sulfate 0.09MG/1Actuat ion Inhalation Suspension 12/12/2023 Unknown INHALATIO N NEEDED EVERY 4 HOURS 2 unit(s) 0451128 RxNorm 2 EACH INHALATION NEEDED EVERY 4 HOURS Entresto 49MG-51MG Oral Tablet 12/12/2023 Unknown ORAL TWICE A DAY 1 unit(s) 8186159 RxNorm TAKE 1 EACH ORAL TWICE A DAY FLUoxetine HCl 40MG Oral Capsule 12/12/2023 Unknown ORAL ONCE A DAY 40 MILLIGRAMS 624579 RxNorm TAKE 40 MILLIGRAMS ORAL ONCE A DAY Fluticasone Propionate HFA 0.044MG/1Actua tion Inhalation Aerosol Powder 12/12/2023 Unknown INHALATIO N RESP BID 1 unit(s) 012999 RxNorm 1 EACH INHALATION RESP BID Furosemide 20MG Oral Tablet 12/12/2023 Unknown ORAL ONCE A DAY 20 MILLIGRAMS 530724 RxNorm TAKE 20 MILLIGRAMS ORAL ONCE A DAY Isosorbide Mononitrate 30MG Oral Tablet, Extended Release 12/12/2023 Unknown ORAL ONCE A DAY 15 MILLIGRAMS 637174 RxNorm TAKE 15 MILLIGRAMS ORAL ONCE A DAY Jardiance 25MG Oral Tablet 12/12/2023 Unknown ORAL ONCE A DAY 12.5 MILLIGRAMS 7494698 RxNorm TAKE 12.5 MILLIGRAMS ORAL ONCE A DAY Metoprolol Succinate 50MG Oral Tablet, Extended Release 12/12/2023 Unknown ORAL ONCE A DAY 25 MILLIGRAMS 546403 RxNorm TAKE 25 MILLIGRAMS ORAL ONCE A DAY Nitroglycerin 0.4MG Sublingual Tablet 12/12/2023 Unknown SUBLINGUA L NEEDED 0.[address] 0.4 MILLIGRAMS SUBLINGUAL NEEDED Potassium Chloride 10MEQ Oral Tablet, Extended Release 12/12/2023 Unknown ORAL ONCE A DAY 10 MEQ 154076 RxNorm TAKE 10 MEQ ORAL ONCE A DAY Spiriva Respimat 2.5MCG/1Act Inhalation [place] 12/12/2023 Unknown INHALATIO N RESP DAILY 2 unit(s) 3520173 RxNorm 2 EACH INHALATION RESP DAILY Spironolactone 25MG Oral Tablet 12/12/2023 Unknown ORAL ONCE A DAY 25 MILLIGRAMS 759499 RxNorm TAKE 25 MILLIGRAMS ORAL ONCE A DAY Vitamin D 50 MCG Oral Tablet 12/12/2023 Unknown ORAL ONCE A DAY 50 MCG 597046 RxNorm TAKE 50 MCG ORAL ONCE A DAY busPIRone 10MG Oral Tablet 12/12/2023 Unknown ORAL THREE TIMES A DAY 10 MILLIGRAMS 003829 RxNorm TAKE 10 MILLIGRAMS ORAL THREE TIMES A DAY Protonix 40 MG Oral Tablet, Delayed Release 12/12/2023 Unknown BY MOUTH ONCE A DAY 1 TABLET 403890 RxNorm TAKE 1 TABLET BY MOUTH ONCE [...] Code Code System ATYPICAL CHEST PAIN active 090865636 SNOMED-CT COPD WITH EXACERBATION active 5504580 07 SNOMED-CT LOWER GI BLEEDING active 83080983 SN OMED-CT ESSENTIAL HYPERTENSION active 7866407 0 SNOMED-CT TYPE 2 DM active 92343795 SNOMED-CT MIXED HYPERLIPIDEMIA active 525250973 SNOMED-CT HISTORY OF MYOCARDIAL INFARCTION active 813580714 SNOMED-CT HISTORY OF CORONARY ARTERY DISEASE WITH STENT PLACEMENT active 918692151 SNOMED-CT SCHWARTZ ANEURYSM active 135832795 SNOME D-CT OTHER SPECIFIED ABNORMAL FINDINGS OF BLOOD CHEMISTRY active 901216520 SNOMED-CT Allergies and Adverse Reactions Allergy Substance Reaction Severity Start Date Concern Status Co de Code System No Known Drug Allergies Active 118198905 SNOMED-CT Plan of Treatment Thursby Established Patient Visit 12/02 CT Chest/Lung WO Contrast (21704) 12/11 Encounters Encounter Diagnosis Start Date Code Code Sys tem Urinary calculus, unspecified 03/23/2024 SNOMED-CT Personal Care Team Section Performer Name Performer Role Active Date Inactive Da leilani Coker PCP - Primary care physician 2022-07-13 Yoan Coker PCP - Primary care physician 2022-08-20 Imaging Narrative Notes
--- OUTSIDE RECORDS SUMMARY | 2025-07-31 16:55 | XMS_ITS ---
Author Organization Unknown Address [address] [place] [address] [phone] Phone Care Team Providers Care Floor Runner Name Role Phone NIRMAL PANIAGUA Attending Unavailable CHIQUITA HODGE Primary Unavailable Immunization Immunization Date Status Additional Notes Code Code System MMR 04/14/2015 Completed 03 CVX Tdap 08/19/2023 Completed 115 CVX COVID-19, mRNA, LNP-S, PF, 5 0 mcg/0.5 mL 07/04/2023 Completed 312 CVX Social History Type Status Start Date End Date Code Code Syst em Smoking History Current every day smoker 639920970 SNOMED CT Smoking History Unknown if ever smoked [address] Sex Male Medications Medication Start Date End Date Route Frequency Dose Code Code System Medication Instructions Home Meds predniSONE 20MG Oral Tablet 12/12/2023 Unknown BY MOUTH TWICE A DAY 2 TABLET 342818 RxNorm TAKE 2 TABLET BY MOUTH TWICE A DAY x 3 days. thenTAKE 1 TABLET BY MOUTH TWICE A DAY x 3 days Aspirin 81MG Oral Tablet, Enteric Coated 12/12/2023 Unknown ORAL ONCE A DAY 81 MILLIGRAMS 825190 RxNorm TAKE 81 MILLIGRAMS ORAL ONCE A DAY Atorvastatin Calcium 80MG Oral Tablet 12/12/2023 Unknown ORAL ONCE A DAY 40 MILLIGRAMS 410755 RxNorm TAKE 40 MILLIGRAMS ORAL ONCE A DAY Clopidogrel 75MG Oral Tablet 12/12/2023 Unknown ORAL ONCE A DAY 75 MILLIGRAMS 675178 RxNorm TAKE 75 MILLIGRAMS ORAL ONCE A DAY Albuterol Sulfate 0.09MG/1Actuat ion Inhalation Suspension 12/12/2023 Unknown INHALATIO N NEEDED EVERY 4 HOURS 2 unit(s) 3013947 RxNorm 2 EACH INHALATION NEEDED EVERY 4 HOURS Entresto 49MG-51MG Oral Tablet 12/12/2023 Unknown ORAL TWICE A DAY 1 unit(s) 3635617 RxNorm TAKE 1 EACH ORAL TWICE A DAY FLUoxetine HCl 40MG Oral Capsule 12/12/2023 Unknown ORAL ONCE A DAY 40 MILLIGRAMS 912111 RxNorm TAKE 40 MILLIGRAMS ORAL ONCE A DAY Fluticasone Propionate HFA 0.044MG/1Actua tion Inhalation Aerosol Powder 12/12/2023 Unknown INHALATIO N RESP BID 1 unit(s) 573408 RxNorm 1 EACH INHALATION RESP BID Furosemide 20MG Oral Tablet 12/12/2023 Unknown ORAL ONCE A DAY 20 MILLIGRAMS 837871 RxNorm TAKE 20 MILLIGRAMS ORAL ONCE A DAY Isosorbide Mononitrate 30MG Oral Tablet, Extended Release 12/12/2023 Unknown ORAL ONCE A DAY 15 MILLIGRAMS 144613 RxNorm TAKE 15 MILLIGRAMS ORAL ONCE A DAY Jardiance 25MG Oral Tablet 12/12/2023 Unknown ORAL ONCE A DAY 12.5 MILLIGRAMS 3251371 RxNorm TAKE 12.5 MILLIGRAMS ORAL ONCE A DAY Metoprolol Succinate 50MG Oral Tablet, Extended Release 12/12/2023 Unknown ORAL ONCE A DAY 25 MILLIGRAMS 508312 RxNorm TAKE 25 MILLIGRAMS ORAL ONCE A DAY Nitroglycerin 0.4MG Sublingual Tablet 12/12/2023 Unknown SUBLINGUA L NEEDED 0.[address] 0.4 MILLIGRAMS SUBLINGUAL NEEDED Potassium Chloride 10MEQ Oral Tablet, Extended Release 12/12/2023 Unknown ORAL ONCE A DAY 10 MEQ 567925 RxNorm TAKE 10 MEQ ORAL ONCE A DAY Spiriva Respimat 2.5MCG/1Act Inhalation [place] 12/12/2023 Unknown INHALATIO N RESP DAILY 2 unit(s) 4628801 RxNorm 2 EACH INHALATION RESP DAILY Spironolactone 25MG Oral Tablet 12/12/2023 Unknown ORAL ONCE A DAY 25 MILLIGRAMS 974791 RxNorm TAKE 25 MILLIGRAMS ORAL ONCE A DAY Vitamin D 50 MCG Oral Tablet 12/12/2023 Unknown ORAL ONCE A DAY 50 MCG 846441 RxNorm TAKE 50 MCG ORAL ONCE A DAY busPIRone 10MG Oral Tablet 12/12/2023 Unknown ORAL THREE TIMES A DAY 10 MILLIGRAMS 414268 RxNorm TAKE 10 MILLIGRAMS ORAL THREE TIMES A DAY Protonix 40 MG Oral Tablet, Delayed Release 12/12/2023 Unknown BY MOUTH ONCE A DAY 1 TABLET 761411 RxNorm TAKE 1 TABLET BY MOUTH ONCE A DAY Carafate 1GM Oral Tablet 12/12/2023 Unknown BY MOUTH THREE TIMES A DAY BEFORE MEALS 1 TABLET 783998 RxNorm TAKE 1 TABLET BY MOUTH THREE [...] Code Code System ATYPICAL CHEST PAIN active 669719657 SNOMED-CT COPD WITH EXACERBATION active 7255597 07 SNOMED-CT LOWER GI BLEEDING active 19349572 SN OMED-CT ESSENTIAL HYPERTENSION active 5441408 0 SNOMED-CT TYPE 2 DM active 73413927 SNOMED-CT MIXED HYPERLIPIDEMIA active 943882052 SNOMED-CT HISTORY OF MYOCARDIAL INFARCTION active 418960205 SNOMED-CT HISTORY OF CORONARY ARTERY DISEASE WITH STENT PLACEMENT active 869482820 SNOMED-CT SCHWARTZ ANEURYSM active 432273249 SNOME D-CT OTHER SPECIFIED ABNORMAL FINDINGS OF BLOOD CHEMISTRY active 426315950 SNOMED-CT Allergies and Adverse Reactions Allergy Substance Reaction Severity Start Date Concern Status Co de Code System No Known Drug Allergies Active 124451776 SNOMED-CT Plan of Treatment Thursby Established Patient Visit 12/02 CT Chest/Lung WO Contrast (29784) 12/11 Encounters Encounter Diagnosis Start Date Code Code Sys tem Cardiac arrhythmia 12/20/2023 429195007 SNOMED-CT Personal Care Team Section Performer Name Performer Role Active Date Inactive Peterson Barillas PCP - Primary care physician 2022-07-13 Yoan Coker PCP - Primary care physician 2022-08-20
--- OUTSIDE RECORDS SUMMARY | 2025-07-31 16:55 | XMS_ITS ---
Author Organization Unknown Address [address] [place] [phone] Phone Care Team Providers Care Calculator Operator Name Role Phone MENDOZA LUIS E Attending Unavailable CHIQUITA HODGE Primary Unavailable Immunization Immunization Date Status Additional Notes Code Code System MMR 04/14/2015 Completed 03 CVX Tdap 08/19/2023 Completed 115 CVX COVID-19, mRNA, LNP-S, PF, 5 0 mcg/0.5 mL 07/04/2023 Completed 312 CVX Results BUN/CREAT - Collect Date/Yao e: 12/02/2023 13:14 [facility] ID: [id number] [place] [address], [phone] LOINC: 3097-3 Test Value Unit Reference Range Code Code System Flag BUN 13 mg/dL L=7 H=20 3094-0 LOINC CREATININE 1.00 mg/dL L=0.66 H=1.25 2160-0 LOINC AGE 52 52435-1 LOINC eGFR NON-AFR 83 ml/min eGFR AFR AMER 100 ml/min MRI BRAIN W+WO CONTRAST - Co mpleted: 12/02/2023 14:29 LOINC: 43014-1 EXAM DESCRIPTION: Mild multifocal paranasal sinus mucosal thickening REASON FOR STUDY: 10-15 years with a constant headache; 1-2 times per week, the intensity rises to migrainous-caliber requiring room darkness, etc.; pt had an [place] MRI performed 5-10 yrs ago and was told he had 'white spots' on his brain.. No traumatic incidents noted. Duration: 10-15 yrs with PATE of varying intensity. TECHNIQUE: Multiplanar imaging includes noncontrast T1, T2, FLAIR, diffusion with ADC map and post contrast T1 sequences. Additional sequence(s) sensitive to blood products. Images stored on PACS. CONTRAST TYPE/DOSE: 15ml of PROHANCE injected via LEFT A.C. W/23GA BUTTERFLY. COMPARISON: None available FINDINGS: CEREBRUM: No hemorrhage, edema, or mass effect. No abnormal enhancement. There is bilateral basal ganglia mineralization WHITE MATTER: There are a few scattered subcortical small T2/FLAIR hyperintensities in the cerebral hemispheres, which are nonspecific. POSTERIOR FOSSA: Brainstem and cerebellum appear unremarkable. No abnormal enhancement. DIFFUSION IMAGING: No recent infarction. EXTRAAXIAL SPACES: No hemorrhage. No mass or abnormal enhancement. BRAIN VOLUME: Within normal limits for age. PITUITARY: Unremarkable. VASCULATURE: There is a 4 mm outpouching at the left MCA bifurcation, suspicious for saccular aneurysm. ORBITS: No masses. Globes normal. PARANASAL SINUSES AND MASTOIDS: Well-aerated with no fluid levels. No mucosa thickening. OTHER: On the T1 sequences and 11 mm circumscribed nodular focus just deep to the skin in the upper neck posteriorly, most likely a sebaceous cyst/epidermal inclusion cyst. Nonenhancing small T2 hyperintense nodular focus at the right aspect of the nasopharynx is compatible with a mucous retention cyst. In the inferior aspect of the right parotid gland on image 22 of series 52606, there is a 12 mm T2 hyperintense ovoid focus, which could be a lymph node or primary parotid lesion. Recommend ultrasound. IMPRESSION: ? ? No acute intracranial findings. ? ? 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 Recommend CT angiography for further evaluation. ? ? Few scattered small subcortical T2/FLAIR hyperintensities in the cerebral hemispheres, which are nonspecific. Consideration include chronic microvascular ischemia, migraine headaches and demyelinating disease, in the appropriate clinical setting, among other etiologies. ? ? 12 mm T2 hyperintense focus in the inferior right parotid gland, which could be a lymph node or primary parotid lesion. Recommend ultrasound. THIS IS AN ELECTRONICALLY VERIFIED FINAL REPORT 2023 8:27 AM - Electronically signed by Guillemro Perez M.D. MZ: AIRAM Report ID: [id number] Reading Location: [place] [address] Social History Type Status Start Date End Date Code Code Syst em Smoking History Current every day smoker 670695041 SNOMED CT Smoking History Unknown if ever smoked [address] Sex Male Medications Medication Start Date End Date Route Frequency Dose Code Code System Medication Instructions Home Meds predniSONE 20MG Oral Tablet 12/12/2023 Unknown BY MOUTH TWICE A DAY 2 TABLET 062059 RxNorm TAKE 2 TABLET BY MOUTH TWICE A DAY x 3 days. thenTAKE 1 TABLET BY MOUTH TWICE A DAY x 3 days Aspirin 81MG Oral Tablet, Enteric Coated 12/12/2023 Unknown ORAL ONCE A DAY 81 MILLIGRAMS 830194 RxNorm TAKE 81 MILLIGRAMS ORAL ONCE A DAY Atorvastatin Calcium 80MG Oral Tablet 12/12/2023 Unknown ORAL ONCE A DAY 40 MILLIGRAMS 981773 RxNorm TAKE 40 MILLIGRAMS ORAL ONCE A DAY Clopidogrel 75MG Oral Tablet 12/12/2023 Unknown ORAL ONCE A DAY 75 MILLIGRAMS 008972 RxNorm TAKE 75 MILLIGRAMS ORAL ONCE A DAY Albuterol Sulfate 0.09MG/1Actuat ion Inhalation Suspension 12/12/2023 Unknown INHALATIO N NEEDED EVERY 4 HOURS 2 unit(s) 6794295 RxNorm 2 EACH INHALATION NEEDED EVERY 4 HOURS Entresto 49MG-51MG Oral Tablet 12/12/2023 Unknown ORAL TWICE A DAY 1 unit(s) 7002143 RxNorm TAKE 1 EACH ORAL TWICE A DAY FLUoxetine HCl 40MG Oral Capsule 12/12/2023 Unknown ORAL ONCE A DAY 40 MILLIGRAMS 552461 RxNorm TAKE 40 MILLIGRAMS ORAL ONCE A DAY Fluticasone Propionate HFA 0.044MG/1Actua tion Inhalation Aerosol Powder 12/12/2023 Unknown INHALATIO N RESP BID 1 unit(s) 330090 RxNorm 1 EACH INHALATION RESP BID Furosemide 20MG Oral Tablet 12/12/2023 Unknown ORAL ONCE A DAY 20 MILLIGRAMS 212150 RxNorm TAKE 20 MILLIGRAMS ORAL ONCE A DAY Isosorbide Mononitrate 30MG Oral Tablet, Extended Release 12/12/2023 Unknown ORAL ONCE A DAY 15 MILLIGRAMS 858335 RxNorm TAKE 15 MILLIGRAMS ORAL ONCE A DAY Jardiance 25MG Oral Tablet 12/12/2023 Unknown ORAL ONCE A DAY 12.5 MILLIGRAMS 8698609 RxNorm TAKE 12.5 MILLIGRAMS ORAL ONCE A DAY Metoprolol Succinate 50MG Oral Tablet, Extended Release 12/12/2023 Unknown ORAL ONCE A DAY 25 MILLIGRAMS 491373 RxNorm TAKE 25 MILLIGRAMS ORAL ONCE A DAY Nitroglycerin 0.4MG Sublingual Tablet 12/12/2023 Unknown SUBLINGUA L NEEDED 0.[address] 0.4 MILLIGRAMS SUBLINGUAL NEEDED Potassium Chloride 10MEQ Oral Tablet, Extended Release 12/12/2023 Unknown ORAL ONCE A DAY 10 MEQ 151723 RxNorm TAKE 10 MEQ ORAL ONCE A DAY Spiriva Respimat 2.5MCG/1Act Inhalation [place] 12/12/2023 Unknown INHALATIO N RESP DAILY 2 unit(s) 7822881 RxNorm 2 EACH INHALATION RESP DAILY Spironolactone 25MG Oral Tablet 12/12/2023 Unknown ORAL ONCE A DAY 25 MILLIGRAMS 752490 RxNorm TAKE 25 MILLIGRAMS ORAL ONCE A DAY Vitamin D 50 MCG Oral Tablet 12/12/2023 Unknown ORAL ONCE A DAY 50 MCG 418170 RxNorm TAKE 50 MCG ORAL ONCE A DAY busPIRone 10MG Oral Tablet 12/12/2023 Unknown ORAL THREE TIMES A DAY 10 MILLIGRAMS 054834 RxNorm TAKE 10 MILLIGRAMS ORAL THREE TIMES A DAY Protonix 40 MG Oral Tablet, Delayed Release 12/12/2023 Unknown BY MOUTH ONCE A DAY 1 TABLET 956987 RxNorm TAKE 1 TABLET BY MOUTH ONCE A DAY Carafate 1GM Oral Tablet 12/12/2023 Unknown BY MOUTH THREE TIMES A DAY BEFORE MEALS 1 TABLET 950414 RxNorm TAKE 1 TABLET BY MOUTH THREE [...] Code Code System ATYPICAL CHEST PAIN active 264482990 SNOMED-CT COPD WITH EXACERBATION active 6198784 07 SNOMED-CT LOWER GI BLEEDING active 12011822 SN OMED-CT ESSENTIAL HYPERTENSION active 8297944 0 SNOMED-CT TYPE 2 DM active 20780092 SNOMED-CT MIXED HYPERLIPIDEMIA active 312106879 SNOMED-CT HISTORY OF MYOCARDIAL INFARCTION active 143376179 SNOMED-CT HISTORY OF CORONARY ARTERY DISEASE WITH STENT PLACEMENT active 815840997 SNOMED-CT SCHWARTZ ANEURYSM active 190136632 SNOME D-CT OTHER SPECIFIED ABNORMAL FINDINGS OF BLOOD CHEMISTRY active 974565540 SNOMED-CT Allergies and Adverse Reactions Allergy Substance Reaction Severity Start Date Concern Status Co de Code System No Known Drug Allergies Active 042916977 SNOMED-CT Plan of Treatment Lexi Established Patient Visit 12/02 CT Chest/Lung WO Contrast (43306) 12/11 Encounters Encounter Diagnosis Start Date Code Code Sys tem Aneurysm of other precerebral arteries 12/02/2023 SNOMED-CT Personal Care Team Section Performer Name Performer Role Active Date Inactive Peterson Barillas PCP - Primary care physician 2022-07-13 Yoan Coker PCP - Primary care physician 2022-08-20 Imaging Narrative Notes
--- NOTE | 2025-07-31 16:56 | ED.FALL ---
HPI - Fall General Chief Complaint: Fall Stated Complaint: right elbow injury Time Seen by Provider: 07/31/25 16:51 Source: patient Mode of arrival: ambulatory Limitations: no limitations History of Present Illness HPI Narrative: Coming out of his truck, landed on ice patch, fell, complaining of right elbow, left wrist and midthoracic back pain. He denies head injury, neck injury or other injuries. Prior to arrival. Patient currently on anticoagulant medication and anti-platelet medication. Related Data Home Medications ?Medication ?Instructions ?Recorded ?Confirmed ?Last Taken ?Type aspirin 81 mg tablet,delayed 81 mg PO DAILY 08/22/23 08/22/23 Unknown History release atorvastatin 40 mg tablet 40 mg PO QHS 08/22/23 08/22/23 Unknown History buspirone 10 mg tablet 10 mg PO Q12H 08/22/23 08/22/23 Unknown History clopidogrel 75 mg tablet 75 mg PO DAILY 08/22/23 08/22/23 Unknown History empagliflozin 10 mg tablet 10 mg PO DAILY 08/22/23 08/22/23 Unknown History (Jardiance) fluoxetine 40 mg capsule 40 mg PO DAILY 08/22/23 08/22/23 Unknown History fluticasone propionate 44 1 puff inhalation BID 08/22/23 08/22/23 Unknown History mcg/actuation HFA aerosol inhaler (Flovent HFA) metoprolol succinate 25 mg 25 mg PO DAILY 08/22/23 08/22/23 Unknown History tablet,extended release 24 hr nitroglycerin 0.4 mg sublingual 0.4 mg sublingual DIRECTED PRN 08/22/23 08/22/23 Unknown History tablet Chest Pain ranolazine 500 mg tablet,extended 500 mg PO Q12H 08/22/23 08/22/23 Unknown History release,12 hr sacubitril 49 mg-valsartan 51 mg 1 tablet PO Q12H 08/22/23 08/22/23 Unknown History tablet (Entresto) spironolactone 25 mg tablet 25 mg PO DAILY 08/22/23 08/22/23 Unknown History Allergies Allergy/AdvReac Type Severity Reaction Status Date / Time propoxyphene Allergy Mild Stopped Verified 07/31/25 17:04 Breathing Review of Systems Review of Systems: All systems reviewed & are unremarkable except as noted in HPI and below PMFSH Past Medical History Medical History Hyperlipidemia associated with type 2 diabetes mellitus Ischemic cardiomyopathy T2DM (type 2 diabetes mellitus) CAD (coronary artery disease) Family History Family History Other Acute myocardial infarction Social History Social History Smoking packs per day: 1 Smoking cigarettes per day: 20.0 Years smoked: 30 Smoking pack-years: 30.00 Smoking status: Current every day smoker Alcohol intake: never Substance use: never Substance use type: does not use Lack of Transportation: No Lack of Food: Never True Current Housing: I Have Housing Concerned About Future Housing: No Difficulty Paying Gas/Electric Bills: No Difficulty Paying for Meds: No Currently Unemployed: No Education: Associate Degree Difficulty w/ Childcare or Family Care: No Spiritual care concerns: No Exam Narrative: General appearance: Well-developed, well-nourished Skin: Normal color Head: Normocephalic, nontraumatic Eyes: Clear conjunctiva ENT: Oropharynx normal, ears normal, nose normal Neck: Supple, nontender Chest and respiratory: Airway patent, no respiratory distress, no accessory muscle use Heart: Regular rate/rhythm Abdomen: Soft, nontender, no organomegaly, quiet bowel sounds Vascular: Normal peripheral pulses, normal capillary refill. Musculoskeletal: Right elbow hematoma posteriorly otherwise no significant abnormalities. Left wrist exam showed no significant abnormality, diffuse tenderness midthoracic back no bruises, no swelling or rash. Neurologic: Alert and oriented ?3, GAME OPERATOR is normal as tested, no gross motor deficit Course Vital Signs Vital signs: Vital Signs Temperature 36.3 C L 07/31/25 16:43 Pulse Rate 68 07/31/25 16:43 Respiratory Rate 16 07/31/25 16:43 Blood Pressure 121/61 07/31/25 16:43 Pulse Oximetry 100 07/31/25 16:43 Oxygen Delivery Room Air 07/31/25 16:43 Temperature 36.3 C L 07/31/25 16:43 Pulse Rate 68 07/31/25 16:43 Respiratory Rate 16 07/31/25 16:43 Blood Pressure 121/61 07/31/25 16:43 Pulse Oximetry 100 07/31/25 16:43 Oxygen Delivery Room Air 07/31/25 16:43 MDM - Fall MDM Narrative Medical decision making narrative: Fall on ice Complaining of thoracic back pain, right elbow and left wrist. Differential diagnosis contusion versus fracture X-ray of the thoracic lumbar spine showed no acute osseous abnormality X-ray of the right elbow showed no acute osseous abnormality X-ray of the left wrist showed no acute osseous abnormality. The pt was discharged to home.the pt,s condition upon discharge was fair,education was provided to the pt in reference to the final impression,discharge study results,treatment,prognosis and need for follow up . Differential Diagnosis Differential diagnosis: Likely other (As above) Imaging Data Radiologist's impression: Impressions Elbow X-Ray 07/31/25 17:26 Impression: No acute fracture or malalignment. Lumbar Spine X-Ray 07/31/25 17:26 Impression: No acute abnormality. Thoracic Spine X-Ray 07/31/25 17:27 Impression: No acute abnormality. Wrist X-Ray 07/31/25 17:28 Impression: No acute fracture or malalignment. Critical Care Time Critical Care Time Critical Care Time: No Discharge Plan Discharge Clinical Impression: Fall, Hematoma of right elbow, Back contusion Patient Disposition: Home Condition: Stable Instructions: Fall Prevention for Older Adults (ED), Contusion in Adults (ED), Hematoma (ED) Additional Instructions: Return if symptoms are worsening , call your family physician for appointment, take Tylenol as as needed for aches and pain, continue home medications. Ice pack 20 minutes/hour for the next 24 hours Patient Language: Ukrainian Prescriptions: No Action fluoxetine 40 mg capsule 40 mg PO DAILY atorvastatin 40 mg tablet 40 mg PO QHS clopidogrel 75 mg tablet 75 mg PO DAILY aspirin 81 mg Tablet,Delayed Release (Dr/Ec) 81 mg PO DAILY spironolactone 25 mg tablet 25 mg PO DAILY buspirone 10 mg tablet 10 mg PO Q12H fluticasone propionate [Flovent HFA] 44 mcg/actuation Hfa Aerosol Inhaler 1 puff INHALATION BID Rx Instructions: administer with spacer nitroglycerin 0.4 mg tablet, sublingual 0.4 mg sublingual DIRECTED PRN (Reason: Chest Pain) metoprolol succinate 25 mg tablet extended release 24 hr 25 mg PO DAILY ranolazine 500 mg Tablet Extended Release 12 Hr 500 mg PO Q12H Jardiance 10 mg tablet 10 mg PO DAILY sacubitril-valsartan [Entresto] 49-51 mg tablet 1 tablet PO Q12H Follow-up/Referrals: UNKNOWN,DOCTOR [Non-Staff]
--- OUTSIDE RECORDS SUMMARY | 2025-07-31 16:56 | XMS_ITS ---
Author Organization Unknown Address [address] [place] [phone] Phone Care Team Providers Care Cruise Agent Name Role Phone TONE MACIAS Attending Unavailable CHIQUITA HODGE Primary Unavailable Immunization Immunization Date Status Additional Notes Code Code System MMR 04/14/2015 Completed 03 CVX Tdap 08/19/2023 Completed 115 CVX COVID-19, mRNA, LNP-S, PF, 5 0 mcg/0.5 mL 07/04/2023 Completed 312 CVX Social History Type Status Start Date End Date Code Code Syst em Smoking History Current every day smoker 271700110 SNOMED CT Smoking History Unknown if ever smoked [address] Sex Male Medications Medication Start Date End Date Route Frequency Dose Code Code System Medication Instructions Home Meds predniSONE 20MG Oral Tablet 12/12/2023 Unknown BY MOUTH TWICE A DAY 2 TABLET 349105 RxNorm TAKE 2 TABLET BY MOUTH TWICE A DAY x 3 days. thenTAKE 1 TABLET BY MOUTH TWICE A DAY x 3 days Aspirin 81MG Oral Tablet, Enteric Coated 12/12/2023 Unknown ORAL ONCE A DAY 81 MILLIGRAMS 719392 RxNorm TAKE 81 MILLIGRAMS ORAL ONCE A DAY Atorvastatin Calcium 80MG Oral Tablet 12/12/2023 Unknown ORAL ONCE A DAY 40 MILLIGRAMS 263935 RxNorm TAKE 40 MILLIGRAMS ORAL ONCE A DAY Clopidogrel 75MG Oral Tablet 12/12/2023 Unknown ORAL ONCE A DAY 75 MILLIGRAMS 163399 RxNorm TAKE 75 MILLIGRAMS ORAL ONCE A DAY Albuterol Sulfate 0.09MG/1Actuat ion Inhalation Suspension 12/12/2023 Unknown INHALATIO N NEEDED EVERY 4 HOURS 2 unit(s) 5174506 RxNorm 2 EACH INHALATION NEEDED EVERY 4 HOURS Entresto 49MG-51MG Oral Tablet 12/12/2023 Unknown ORAL TWICE A DAY 1 unit(s) 9429326 RxNorm TAKE 1 EACH ORAL TWICE A DAY FLUoxetine HCl 40MG Oral Capsule 12/12/2023 Unknown ORAL ONCE A DAY 40 MILLIGRAMS 118439 RxNorm TAKE 40 MILLIGRAMS ORAL ONCE A DAY Fluticasone Propionate HFA 0.044MG/1Actua tion Inhalation Aerosol Powder 12/12/2023 Unknown INHALATIO N RESP BID 1 unit(s) 521339 RxNorm 1 EACH INHALATION RESP BID Furosemide 20MG Oral Tablet 12/12/2023 Unknown ORAL ONCE A DAY 20 MILLIGRAMS 341359 RxNorm TAKE 20 MILLIGRAMS ORAL ONCE A DAY Isosorbide Mononitrate 30MG Oral Tablet, Extended Release 12/12/2023 Unknown ORAL ONCE A DAY 15 MILLIGRAMS 439496 RxNorm TAKE 15 MILLIGRAMS ORAL ONCE A DAY Jardiance 25MG Oral Tablet 12/12/2023 Unknown ORAL ONCE A DAY 12.5 MILLIGRAMS 6972020 RxNorm TAKE 12.5 MILLIGRAMS ORAL ONCE A DAY Metoprolol Succinate 50MG Oral Tablet, Extended Release 12/12/2023 Unknown ORAL ONCE A DAY 25 MILLIGRAMS 690215 RxNorm TAKE 25 MILLIGRAMS ORAL ONCE A DAY Nitroglycerin 0.4MG Sublingual Tablet 12/12/2023 Unknown SUBLINGUA L NEEDED 0.[address] 0.4 MILLIGRAMS SUBLINGUAL NEEDED Potassium Chloride 10MEQ Oral Tablet, Extended Release 12/12/2023 Unknown ORAL ONCE A DAY 10 MEQ 484235 RxNorm TAKE 10 MEQ ORAL ONCE A DAY Spiriva Respimat 2.5MCG/1Act Inhalation [place] 12/12/2023 Unknown INHALATIO N RESP DAILY 2 unit(s) 5080589 RxNorm 2 EACH INHALATION RESP DAILY Spironolactone 25MG Oral Tablet 12/12/2023 Unknown ORAL ONCE A DAY 25 MILLIGRAMS 851860 RxNorm TAKE 25 MILLIGRAMS ORAL ONCE A DAY Vitamin D 50 MCG Oral Tablet 12/12/2023 Unknown ORAL ONCE A DAY 50 MCG 344999 RxNorm TAKE 50 MCG ORAL ONCE A DAY busPIRone 10MG Oral Tablet 12/12/2023 Unknown ORAL THREE TIMES A DAY 10 MILLIGRAMS 083594 RxNorm TAKE 10 MILLIGRAMS ORAL THREE TIMES A DAY Protonix 40 MG Oral Tablet, Delayed Release 12/12/2023 Unknown BY MOUTH ONCE A DAY 1 TABLET 996869 RxNorm TAKE 1 TABLET BY MOUTH ONCE A DAY Carafate 1GM Oral Tablet 12/12/2023 Unknown BY MOUTH THREE TIMES A DAY BEFORE MEALS 1 TABLET 029531 RxNorm TAKE 1 TABLET BY MOUTH THREE [...] Code Code System ATYPICAL CHEST PAIN active 690349859 SNOMED-CT COPD WITH EXACERBATION active 9883904 07 SNOMED-CT LOWER GI BLEEDING active 33888607 SN OMED-CT ESSENTIAL HYPERTENSION active 3405413 0 SNOMED-CT TYPE 2 DM active 23972260 SNOMED-CT MIXED HYPERLIPIDEMIA active 849261595 SNOMED-CT HISTORY OF MYOCARDIAL INFARCTION active 527913342 SNOMED-CT HISTORY OF CORONARY ARTERY DISEASE WITH STENT PLACEMENT active 478286784 SNOMED-CT SCHWARTZ ANEURYSM active 997732936 SNOME D-CT OTHER SPECIFIED ABNORMAL FINDINGS OF BLOOD CHEMISTRY active 749783577 SNOMED-CT Allergies and Adverse Reactions Allergy Substance Reaction Severity Start Date Concern Status Co de Code System No Known Drug Allergies Active 509084367 SNOMED-CT Plan of Treatment Thursby Established Patient Visit 12/02 CT Chest/Lung WO Contrast (14973) 12/11 Encounters Encounter Diagnosis Start Date Code Code Sys tem Unspecified asthma, uncomplicated 03/18/2024 SNOMED-CT Personal Care Team Section Performer Name Performer Role Active Date Inactive Peterson Barillas PCP - Primary care physician 2022-07-13 Yoan Coker PCP - Primary care physician 2022-08-20 Procedures Notes [facility] 04/03/2024 13:53 Overnight Pulse Oximetry Recording Date: March 25 Duration: 10:11 Analyze: 10:08 Comments: Performed on RA Ordering Physician: Dr. Oliveira Event Data SpO2 Pulse %SpO2 Level Events Below% Time% Total Events 8 118 99 95 0 100 100.0 Time in Events 7.3 62.5 94 - 90 8 95 88 Avg. Event Dur 54.5 31.8 89 85 0 90 0.9 Index (1h) 1.6 84 80 0 85 0.1 Oxygen Desat Index .08 79 75 0 80 0.1 % Artifact 2.3 2.5 74 70 0 75 0.0 Adjusted Index (1hr) 0.8 11.9 69 65 0 70 0.0 64 60 0 65 0.0 % SpO2 Data Basal SpO2% 92.9 Time (min) < 88% 1.5 Events < 88% 0 Max Single time <88% 52 sec at 6:02 Minimum SpO2 % 77 Maximum SpO2 % 98 Avg. Low SpO2 % 91.4 Avg Low SpO2 <88% ---- Pulse Data Avg. Pulse Rate (bpm) 51 Low Pulse Rate (bpm) 32 High Pulse Rate (bpm) 76 Physician Impression: The above test showed no significant desaturation overnight on room air.
--- OUTSIDE RECORDS SUMMARY | 2025-07-31 16:56 | XMS_ITS ---
Author Organization Unknown Address [address] [place], [place] [phone] Phone Care Team Providers Care Commercial Agent Name Role Phone NIRMAL PANIAGUA Attending Unavailable CHIQUITA HODGE Primary Unavailable XIAO ZAMORA Secondary Unavailable Immunization Immunization Date Status Additional Notes Code Code System MMR 04/14/2015 Completed 03 CVX Tdap 08/19/2023 Completed 115 CVX COVID-19, mRNA, LNP-S, PF, 5 0 mcg/0.5 mL 07/04/2023 Completed 312 CVX Results US ECHO W/ COLOR - Completed : 03/25/2024 15:39 LOINC: See Scanned Image Attachment for Report Dictated By: Trans Initials: BG Trans Date: 03/30/24 15:15 <<REPDIST>> Social History Type Status Start Date End Date Code Code Syst em Smoking History Current every day smoker 705016380 SNOMED CT Smoking History Unknown if ever smoked [address] Sex Male Medications Medication Start Date End Date Route Frequency Dose Code Code System Medication Instructions Home Meds predniSONE 20MG Oral Tablet 12/12/2023 Unknown BY MOUTH TWICE A DAY 2 TABLET 761744 RxNorm TAKE 2 TABLET BY MOUTH TWICE A DAY x 3 days. thenTAKE 1 TABLET BY MOUTH TWICE A DAY x 3 days Aspirin 81MG Oral Tablet, Enteric Coated 12/12/2023 Unknown ORAL ONCE A DAY 81 MILLIGRAMS 346601 RxNorm TAKE 81 MILLIGRAMS ORAL ONCE A DAY Atorvastatin Calcium 80MG Oral Tablet 12/12/2023 Unknown ORAL ONCE A DAY 40 MILLIGRAMS 207941 RxNorm TAKE 40 MILLIGRAMS ORAL ONCE A DAY Clopidogrel 75MG Oral Tablet 12/12/2023 Unknown ORAL ONCE A DAY 75 MILLIGRAMS 308183 RxNorm TAKE 75 MILLIGRAMS ORAL ONCE A DAY Albuterol Sulfate 0.09MG/1Actuat ion Inhalation Suspension 12/12/2023 Unknown INHALATIO N NEEDED EVERY 4 HOURS 2 unit(s) 3443557 RxNorm 2 EACH INHALATION NEEDED EVERY 4 HOURS Entresto 49MG-51MG Oral Tablet 12/12/2023 Unknown ORAL TWICE A DAY 1 unit(s) 6552088 RxNorm TAKE 1 EACH ORAL TWICE A DAY FLUoxetine HCl 40MG Oral Capsule 12/12/2023 Unknown ORAL ONCE A DAY 40 MILLIGRAMS 948852 RxNorm TAKE 40 MILLIGRAMS ORAL ONCE A DAY Fluticasone Propionate HFA 0.044MG/1Actua tion Inhalation Aerosol Powder 12/12/2023 Unknown INHALATIO N RESP BID 1 unit(s) 006120 RxNorm 1 EACH INHALATION RESP BID Furosemide 20MG Oral Tablet 12/12/2023 Unknown ORAL ONCE A DAY 20 MILLIGRAMS 809295 RxNorm TAKE 20 MILLIGRAMS ORAL ONCE A DAY Isosorbide Mononitrate 30MG Oral Tablet, Extended Release 12/12/2023 Unknown ORAL ONCE A DAY 15 MILLIGRAMS 230006 RxNorm TAKE 15 MILLIGRAMS ORAL ONCE A DAY Jardiance 25MG Oral Tablet 12/12/2023 Unknown ORAL ONCE A DAY 12.5 MILLIGRAMS 0716262 RxNorm TAKE 12.5 MILLIGRAMS ORAL ONCE A DAY Metoprolol Succinate 50MG Oral Tablet, Extended Release 12/12/2023 Unknown ORAL ONCE A DAY 25 MILLIGRAMS 487287 RxNorm TAKE 25 MILLIGRAMS ORAL ONCE A DAY Nitroglycerin 0.4MG Sublingual Tablet 12/12/2023 Unknown SUBLINGUA L NEEDED 0.[address] 0.4 MILLIGRAMS SUBLINGUAL NEEDED Potassium Chloride 10MEQ Oral Tablet, Extended Release 12/12/2023 Unknown ORAL ONCE A DAY 10 MEQ 965131 RxNorm TAKE 10 MEQ ORAL ONCE A DAY Spiriva Respimat 2.5MCG/1Act Inhalation [place] 12/12/2023 Unknown INHALATIO N RESP DAILY 2 unit(s) 9872822 RxNorm 2 EACH INHALATION RESP DAILY Spironolactone 25MG Oral Tablet 12/12/2023 Unknown ORAL ONCE A DAY 25 MILLIGRAMS 796172 RxNorm TAKE 25 MILLIGRAMS ORAL ONCE A DAY Vitamin D 50 MCG Oral Tablet 12/12/2023 Unknown ORAL ONCE A DAY 50 MCG 597672 RxNorm TAKE 50 MCG ORAL ONCE A DAY busPIRone 10MG Oral Tablet 12/12/2023 Unknown ORAL THREE TIMES A DAY 10 MILLIGRAMS 885542 RxNorm TAKE 10 MILLIGRAMS ORAL THREE TIMES A DAY Protonix 40 MG Oral Tablet, Delayed Release 12/12/2023 Unknown BY MOUTH ONCE A DAY 1 TABLET 441419 RxNorm TAKE 1 TABLET BY MOUTH ONCE A DAY Carafate 1GM Oral Tablet 12/12/2023 Unknown BY MOUTH THREE TIMES A DAY BEFORE MEALS 1 TABLET 050821 RxNorm TAKE 1 TABLET BY MOUTH THREE [...] Code Code System ATYPICAL CHEST PAIN active 450055503 SNOMED-CT COPD WITH EXACERBATION active 5447253 07 SNOMED-CT LOWER GI BLEEDING active 25870943 SN OMED-CT ESSENTIAL HYPERTENSION active 3308133 0 SNOMED-CT TYPE 2 DM active 16111295 SNOMED-CT MIXED HYPERLIPIDEMIA active 846415022 SNOMED-CT HISTORY OF MYOCARDIAL INFARCTION active 184776695 SNOMED-CT HISTORY OF CORONARY ARTERY DISEASE WITH STENT PLACEMENT active 767323958 SNOMED-CT SCHWARTZ ANEURYSM active 018689251 SNOME D-CT OTHER SPECIFIED ABNORMAL FINDINGS OF BLOOD CHEMISTRY active 565960070 SNOMED-CT Allergies and Adverse Reactions Allergy Substance Reaction Severity Start Date Concern Status Co de Code System No Known Drug Allergies Active 955472980 SNOMED-CT Plan of Treatment Thursby Established Patient Visit 12/02 CT Chest/Lung WO Contrast (33232) 12/11 Encounters Encounter Diagnosis Start Date Code Code Sys tem Heart failure, unspecified 03/25/2024 S NOMED-CT Personal Care Team Section Performer Name Performer Role Active Date Inactive Da leilani Coker PCP - Primary care physician 2022-07-13 Yoan Coker PCP - Primary care physician 2022-08-20 Imaging Narrative Notes [facility] [address] 03/30/2024 15:15 [facility] [address] [address] [place], [place] [address] RADIOLOGY REPORT Patient Number: [id number] Patient Name: DESHAWN WANG Type: O/P MR Number: [id number] : [id number] Age: 53 Sex: M Room #: Admit Date: 03/25/24 Discharge Date 03/25/24 Ordering Physician: NIRMAL PANIAGUA Family Physician: CHIQUITA Briones Physician: XIAO ZAMORA X-Ray Number : [id number] US ECHO W/ COLOR [id number] COMPLETE:03/25/24 15:39 [facility] [id number] (REASON-ECHO COMPLTE: HEART FAILURE See Scanned Image Attachment for Report Dictated By: Trans Initials: Trans Date: 03/30/24 15:15 <<REPDIST>>
== END 2025-07-31 17:47 | disposition home or self-care (01) ==
LOC: CHSED 17:10
PROVIDERS: Emergency Provider Emergency Medicine
DX: S50.01XA Contusion of right elbow, initial encounter (principal); S30.0XXA Contusion of lower back and pelvis, initial encounter; E78.5 Hyperlipidemia, unspecified; E11.9 Type 2 diabetes mellitus without complications; I25.10 Atherosclerotic heart disease of native coronary artery without angina pectoris; F17.210 Nicotine dependence, cigarettes, uncomplicated; W00.0XXA Fall on same level due to ice and snow, initial encounter
CPT/HCPCS: 72072; 72100; 73080; 73110; 99284